=== PATIENT | female | born 1955 | race Caucasian/White ===

== ENCOUNTER → 2017-05-22 | Outpatient (CLI) | payer MEDICARE ==
--- NOTE | 2017-05-22 11:28 | XR ---
EXAMINATION TYPE: XR chest 2V DATE OF EXAM: 05/22/2017 COMPARISON: NONE TECHNIQUE: PA and lateral views submitted. HISTORY: Preprocedural exam FINDINGS: There is minor left costophrenic angle. Surgical clips in the upper abdomen noted. Postsurgical perez e right shoulder and arthritic change left shoulder. Diffuse osteopenia. Degenerative change of the s pine. No overt failure or consolidation. No pneumothorax. IMPRESSION: 1. Area of pleural thickening or tiny effusion at the left lung base.
[2017-05-22 12:53] LABS: Appearance,Urine Clear (Clear); Bilirubin,Urine Negative (Negative); Blood,Urine Negative (Negative); Color,Urine Light Yellow; Glucose,Urine (UA) Negative (Negative); Ketones,Urine Negative (Negative); Leukocyte Esterase,Urine Negative (Negative); Nitrite,Urine Negative (Negative); Protein,Urine Negative (Negative); Specific Gravity,Urine 1.006 (1.001-1.035); Urobilinogen,Urine <2.0 mg/dL (<2.0)
[2017-05-22 13:06] LABS: Partial Thromboplastin Time 23.5 sec (22.0-30.0); Prothrombin Time 9.9 sec (9.0-12.0)
[2017-05-22 13:10] LABS: ALT 55 U/L (9-52); AST 44 U/L (14-36); Albumin 4.4 g/dL (3.5-5.0); Alkaline Phosphatase 54 U/L (38-126); Anion Gap 13 mmol/L; Blood Urea Nitrogen 15 mg/dL (7-17); Calcium 10.3 mg/dL (8.4-10.2); Carbon Dioxide 28 mmol/L (22-30); Chloride 100 mmol/L (98-107); Glucose 102 mg/dL (74-99); Potassium 4.7 mmol/L (3.5-5.1); Sodium 141 mmol/L (137-145); Total Bilirubin 0.3 mg/dL (0.2-1.3); Total Protein 6.9 g/dL (6.3-8.2)
== END | disposition home or self-care (01) ==
LOC: RADXRMAIN 11:01
PROVIDERS: ATTEND Nurse Practitioner Adult Health
DX: Z01.818 Encounter for other preprocedural examination (principal); Z01.812 Encounter for preprocedural laboratory examination; Z01.810 Encounter for preprocedural cardiovascular examination
CPT/HCPCS: 36415; 71046; 80053; 81003; 85025; 85610; 85730; 86850; 86900; 86901; 87070

== ENCOUNTER → 2017-05-22 | Outpatient (CLI) | payer MEDICARE ==
[2017-05-22 12:53] LABS: Basophils # (A) 0.1 k/uL (0-0.2); Basophils % (A) 1 %; Eosinophils # (A) 0.4 k/uL (0-0.7); Eosinophils % (A) 5 %; HCT 40.6 % (34.0-46.0); HGB 12.7 gm/dL (11.4-16.0); Hypochromasia Slight; Lymphocytes # (A) 2.2 k/uL (1.0-4.8); Lymphocytes % (A) 29 %; MCH 27.1 pg (25.0-35.0); MCHC 31.3 g/dL (31.0-37.0); MCV 86.5 fL (80.0-100.0); Mean Platelet Volume 7.2; Monocytes # (A) 0.4 k/uL (0-1.0); Monocytes % (A) 5 %; Neutrophils # (A) 4.3 k/uL (1.3-7.7); Neutrophils % (A) 58 %; Platelet Count 382 k/uL (150-450); RBC 4.69 m/uL (3.80-5.40); WBC 7.4 k/uL (3.8-10.6)
== END | disposition home or self-care (01) ==
LOC: LABWHC1 11:25
PROVIDERS: ATTEND Nurse Practitioner Adult Health
DX: Z01.818 Encounter for other preprocedural examination (principal)
CPT/HCPCS: 36415; 85025

== ENCOUNTER 2017-05-30 06:13 | Inpatient (IN) | payer MEDICARE ==
[2017-05-24 14:58] VITALS: BMI 47.3
[~2017-05-30 06:13] MED LIST: ACETAMINOPHEN TAB 500 MG TAB PO ONE; LIDOCAINE 1% 20 ML VIAL (10MG/ML) FOR IV START INTRADERMA PRN; MELOXICAM 7.5 MG TAB PO ONE; ONDANSETRON 4 MG/2 ML VIAL IVP ONE; ROPIVACAINE 246.25 MG, EPINEPHrine 0.5 MG, KETOROLAC 30 MG, cloNIDine HCL/PF 80 MCG, WA... MISCELLANE ONE; TRANEXAMIC ACID 1,000 MG in SODIUM CHLORIDE 0.9% 50 ML IVPB ONE
[2017-05-30] MEDS: LACTATED RINGERS 1,000 ML IV SCH (07:10)
[2017-05-30 07:18] LABS: Glucose,Whole Blood 118 mg/dL (75-99)
[2017-05-30] MEDS ORDERED: TRANEXAMIC ACID 1,000 MG/10 ML VIAL ONE ×2 (07:25)
[2017-05-30] MEDS ORDERED: HEPARIN SODIUM,PORCINE 10,000 UNIT/ML 1 ML VIAL ONE ×2 (07:25)
[2017-05-30] MEDS ORDERED: MAGNESIUM HYDROXIDE 2,400 MG/10 ML CUP PO PRN (07:25)
[2017-05-30] MEDS ORDERED: fentaNYL (PF) 50 MCG/ML 2 ML AMP ONE ×2 (07:25)
[2017-05-30] MEDS ORDERED: MIDAZOLAM 2 MG/2 ML VIAL ONE ×2 (07:25)
[2017-05-30] MEDS ORDERED: SODIUM CHLORIDE 0.9% 100 ML BAG ONE ×2 (07:25)
[2017-05-30] MEDS ORDERED: ePHEDrine SULFATE/0.9% NACL/PF 50 MG/5 ML SYRINGE IV ONE ×2 (07:25)
[2017-05-30] MEDS ORDERED: PHENYLEPHRINE-0.9% NACL SYG 1 MG/10 ML SYRINGE ONE ×2 (07:25)
[2017-05-30] MEDS ORDERED: KETAMINE 10 MG/ML 20 ML VIAL ONE ×2 (07:25)
[2017-05-30] MEDS ORDERED: NALOXONE 0.4 MG/ML 1 ML VIAL IV PRN (07:25)
[2017-05-30] MEDS ORDERED: PROPOFOL 10 MG/ML 20 ML VIAL IV ONE ×2 (07:25)
[2017-05-30] MEDS ORDERED: ceFAZolin 1,000 MG in SODIUM CHLORIDE 0.9% 1,000 ML IRRIGATION ONE ×4 (07:25)
[2017-05-30] MEDS ORDERED: DIAZEPAM 5 MG TAB PO PRN ×2 (07:25)
[2017-05-30] MEDS ORDERED: SODIUM CHLORIDE 0.9% IRRIG 1,000 ML BTL IRRIGATION ONE ×2 (07:25)
[2017-05-30] MEDS ORDERED: HYDROcodone/APAP 7.5-325MG 1 EACH TAB PO PRN (07:25)
[2017-05-30] MEDS ORDERED: ONDANSETRON 4 MG/2 ML VIAL IVP PRN (07:25)
[2017-05-30] MEDS ORDERED: HYDROmorphone 0.5 MG/0.5 ML SYRINGE IVP PRN ×2 (07:25)
[2017-05-30] MEDS ORDERED: LACTATED RINGERS 1,000 ML IV ONE (08:45)
--- NOTE | 2017-05-30 09:03 | FL ---
EXAMINATION TYPE: FL guidance operating room DATE OF EXAM: 05/30/2017 HISTORY: Flouroscopy time 48 seconds of fluoroscopy provided. IMPRESSION: 1. Fluoroscopy time.
--- NOTE | 2017-05-30 09:04 | XR ---
EXAMINATION TYPE: XR Hip Limited LT DATE OF EXAM: 05/30/2017 COMPARISON: NONE HISTORY: Postop left hip TECHNIQUE: One view submitted. FINDINGS: There is a prosthetic hip in near anatomic alignment. There is soft tissue edema and emphysema. IMPRESSION: 1. Postoperative change. Appears in near-anatomic alignment.
--- NOTE | 2017-05-30 09:07 | P.OP ---
Date of Procedure: 05/30/17 Preoperative Diagnosis: Severe osteoarthritis left hip Postoperative Diagnosis: Severe osteoarthritis left hip Procedure(s) Performed: Left total hip arthroplasty with a direct anterior approach Implants: Riley and nephew Polarstem size 2 standard Riley & Nephew R3, 3 hole acetabular shell, 48 mm Riley [employer] Nephew reflection 6.5 mm cancellus screw, 20 mm 2 Riley [employer] Nephew R3, XLPE 20 acetabular liner Riley & Nephew Oxinium femoral head 32 m, +4 All components were press-fit. The articulation is Oxinium on polyethylene. Anesthesia: spinal Surgeon: Mumtaz Fraga [employer] #1: Maria Luz Matos Estimated Blood Loss (ml): 100 Pathology: other (Femoral head) Condition: stable Disposition: PACU Indications for Procedure: After failure of conservative treatment we discussed the surgical and nonsurgical treatment options at length. Patient wishes to proceed with a total hip arthroplasty with a direct anterior approach. Complications specific to this procedure were discussed at length, including but not limited to infection, leg length discrepancy, dislocation, and nerve injury. Patient is aware of all these complications and informed consent was obtained Operative Findings: The operative findings are consistent with severe osteoarthritis of the left hip Description of Procedure: Patient was seen and evaluated in the preoperative area, consent was reviewed, and the surgical site was marked with a skin marker. Patient was then brought to the operating room and given prophylactic antibiotics intravenously. 1 g of Tranexamic acid was also given. A spinal anesthetic was administered by the anesthesia department. The patient was then placed on the Carencro table with the bony prominences well-padded. The hip area was then prepped and draped in usual sterile fashion. A universal timeout was then performed, which confirmed the patient's name, surgical site, ALLERGIES, and procedure being performed. Next the incision site was located at 1 cm distal and 1 cm lateral to the anterior superior iliac spine. The skin and subcutaneous tissues were sharply incised. Incision was carefully dissected down to the fascia overlying the tensor fascia emi muscle. This fascia was then incised in line with the incision. Next, using blunt finger dissection, the tensor fascia emi muscle was dissected off its investing fascia. The muscle was then carefully retracted laterally with a cobra retractor over the lateral neck of the femur. Next, the circumflex vessels were identified and cauterized using the AquaMantis device. The anterior hip capsule was then exposed. The capsule was then opened and an inverted T fashion. Cobra retractors were then placed intracapsularly. The proximal femur was then visualized. The femoral neck was then osteotomized appropriate level above the lesser trochanter. Small amount of traction was placed with the Carencro table. A small wedge of bone was then removed from the remaining femoral head. Next, using a corkscrew femoral head was easily removed from the acetabulum. On gross visual inspection, the femoral head had complete loss of articular cartilage in multiple periarticular osteophytes. Attention was then turned to the acetabulum. the acetabulum was exposed and any remaining labrum was excised. Sequential reaming of the acetabulum was performed using fluoroscopic guidance. When the appropriate size was reached, a trial was then placed. The position and fit of the trial was checked with fluoroscopy. The trial was then removed. Then, using fluoroscopic guidance, the final implant was impacted at 20 of anteversion and 40 of abduction, and fully seated in the acetabulum. 2 screws were then placed in the acetabulum. Again fluoroscopy was used to check position of the screws. Next, the liner was then impacted, with a 20 elevated liner located in the anterior superior quadrant. Component locking was confirmed. Attention was then directed to the femur. With the aid of the Carencro table, the femur was externally rotated to approximately 130, extended, and abducted under the opposite leg. A side hook was then placed under the proximal femur, and the side hook elevator was used to elevate the proximal femur. Retractors were then placed. A capsular release was performed, as well as a release of the conjoined tendon, which afforded excellent visualization of the proximal femur. Next, a box osteotome was used to lateralize the proximal femur. A plug shaper hand was then used to locate the femoral canal. Sequential broaching was then performed with appropriate size which afforded excellent fixation in the proximal femur. A trial was then placed with appropriate head and neck, and the hip was gently reduced with the aid of the Carencro table. Fluoroscopy was then used to check position of the components, as well as to ensure equal leg lengths. The hip was then gently dislocated and the trials were then removed. Final implants were then impacted and the hip was again reduced. Final fluoroscopic x-rays confirmed that the components were in anatomic position, as well as equal leg lengths. The hip was also taken through range of motion, and found to be stable. The hip was then copiously irrigated with antibiotic solution with pulsatile lavage. The hip was then irrigated with Irrisept solution. The soft tissues were then injected with a ropivacaine solution, which consisted of 246.25 mg of ropivacaine, 0.5 mg of epinephrine, 30 mg of Toradol, 80 g of clonidine, and 48.45 mL of sterile water, for a total of 100 mL of fluid injected. A second dose of 1 g of Tranexamic acid was also given. the fascia was then closed with 2-0 strata fix suture. The subcutaneous tissue was closed with 3-0 Vicryl. The subcuticular tissue was closed with 3-0 strata fix suture. The skin was then closed with Dermabond glue and a sterile silver dressing. The patient was then transferred to the recovery room in stable condition. The certified physical therapist assistant SHERIDAN Mehta was required due to the complexity of surgery, and the need for skilled neurosurgical nurse practitioner for positioning, draping, exposure, retraction, and closure of the wound.
[2017-05-30] MEDS ORDERED: ACETAMINOPHEN IV (For NPO) 1,000 MG/100 ML VIAL IVPB ONE (09:16)
[2017-05-30] MEDS: HYDROmorphone 0.5 MG/0.5 ML SYRINGE IVP PRN ×7 (09:29→12:35)
[2017-05-30] MEDS ORDERED: diphenhydrAMINE 50 MG/ML 1 ML VIAL IVP ONE (09:30)
--- NOTE | 2017-05-30 09:37 | XR ---
EXAMINATION TYPE: XR Hip Limited LT DATE OF EXAM: 05/30/2017 COMPARISON: NONE HISTORY: Postop TECHNIQUE: One view submitted. FINDINGS: There is a prosthetic hip in near anatomic alignment. There is soft tissue edema and emphysema. IMPRESSION: 1. Postoperative change. Appears in near-anatomic alignment.
[2017-05-30 10:32] LABS: Glucose,Whole Blood 159 mg/dL (75-99)
[2017-05-30] MEDS: HYDROmorphone 2 MG/ML 1 ML SYRINGE IVP PRN (14:31)
[2017-05-30] MEDS ORDERED: ceFAZolin 3 GM in SODIUM CHLORIDE 0.9% 100 ML IVPB SCH (16:00)
[2017-05-30] MEDS: HYDROcodone/APAP 7.5-325MG 1 EACH TAB PO PRN ×2 (16:21→21:36)
[2017-05-30] MEDS: hydrOXYzine PAMOATE 25 MG CAP PO PRN ×2 (16:22→21:37)
[2017-05-30 17:35] LABS: Glucose,Whole Blood 162 mg/dL (75-99)
[2017-05-30] MEDS: INSULIN ASPART 100 UNIT/ML 1 ML 10 ML VIAL SQ SCH ×2 (18:21→20:47)
[2017-05-30 20:19] LABS: Glucose,Whole Blood 209 mg/dL (75-99)
[2017-05-30 20:19] LABS: Glucose,Whole Blood 217 mg/dL (75-99)
[2017-05-30] MEDS: ASPIRIN 325 MG TAB PO SCH (20:49)
[2017-05-30] MEDS: SENNOSIDES-DOCUSATE SODIUM 1 EACH TAB PO SCH (20:50)
[2017-05-30] MEDS ORDERED: ALBUTEROL NEBULIZED 2.5 MG/3 ML INHALATION PRN (21:39)
[2017-05-30] MEDS ORDERED: PRAMIPEXOLE 0.25 MG TAB ONE (21:45)
[2017-05-30] MEDS ORDERED: PARoxetine 10 MG TAB ONE (21:45)
[2017-05-30] MEDS ORDERED: AMITRIPTYLINE HCL 50 MG TAB ONE (21:45)
[2017-05-31] MEDS ORDERED: HYDROmorphone 2 MG/ML 1 ML SYRINGE ONE (04:00)
[2017-05-31] MEDS ORDERED: HYDROcodone/APAP 7.5-325MG 1 EACH TAB ONE (04:00)
[2017-05-31] MEDS: SODIUM CHLORIDE 0.9% 1,000 ML IV SCH ×3 (05:25→15:54)
[2017-05-31] MEDS: HYDROmorphone 2 MG/ML 1 ML SYRINGE IVP PRN (05:26)
[2017-05-31] MEDS: PARoxetine 10 MG TAB PO SCH ×2 (05:56→21:36)
[2017-05-31] MEDS: PARoxetine 20 MG TAB PO SCH ×2 (05:56→21:36)
[2017-05-31] MEDS: AMITRIPTYLINE HCL 50 MG TAB PO SCH ×2 (05:56→21:35)
[2017-05-31] MEDS: PRAMIPEXOLE 0.25 MG TAB PO SCH ×2 (05:57→21:36)
[2017-05-31] MEDS: LACTATED RINGERS 1,000 ML IV SCH (05:59)
[2017-05-31 07:21] LABS: Glucose,Whole Blood 128 mg/dL (75-99)
[2017-05-31] MEDS: SYMBICORT 80-4.5 MCG INHALER INHALATION SCH ×2 (07:28→20:13)
[2017-05-31 07:59] LABS: HCT 33.8 % (34.0-46.0); HGB 10.3 gm/dL (11.4-16.0); MCH 26.5 pg (25.0-35.0); MCHC 30.6 g/dL (31.0-37.0); MCV 86.7 fL (80.0-100.0); RDW 15.7 % (11.5-15.5); WBC 12.1 k/uL (3.8-10.6)
[2017-05-31 08:00] LABS: Basophils % (A) 0 %; Eosinophils % (A) 0 %; Hypochromasia Slight; Lymphocytes # (A) 1.9 k/uL (1.0-4.8); Lymphocytes % (A) 16 %; Mean Platelet Volume 7.9; Monocytes # (A) 0.4 k/uL (0-1.0); Monocytes % (A) 4 %; Neutrophils # (A) 9.4 k/uL (1.3-7.7); Neutrophils % (A) 78 %; Platelet Count 332 k/uL (150-450)
--- NOTE | 2017-05-31 08:14 | CONS ---
CONSULTATION REASON FOR CONSULTATION: Advice regarding asthma, COPD requested by Orthopedic Surgery. HISTORY OF PRESENT ILLNESS: This 62-year-old woman with a past history of asthma, COPD, diabetes, GERD, hypertension, hyperlipidemia being followed by Dr. Hansen in the outpatient setting underwent left hip arthroplasty by Dr. Fraga. There is no history of any fever, rigors. No history of headache, loss of consciousness or seizure. No chest pain. No palpitations. At this time, sugars are 162, 217 and 209. PAST MEDICAL HISTORY: History of asthma, COPD, diabetes, GERD, hypertension, hyperlipidemia, history of DJD, history pneumonia, history of sleep apnea on CPAP. HOME MEDICATIONS: 1. Metformin 1000 mg p.o. b.i.d. 2. Apresoline 50 mg p.o. b.i.d. 3. Restasis 1 drop both eyes b.i.d. 4. Norvasc 10 mg p.o. daily. 5. Mirapex 0.25 mg q.h.s. 6. Paxil 10 mg p.o. q.h.s. 7. Paxil 40 mg p.o. Q.h.s. 8. Fish oil 500 mg one p.o. daily. 9. Multivitamins 1 p.o. daily. 10.Losartan 100 mg p.o. daily. 11.Hydrochlorothiazide 25 mg p.o. daily. 12.Advair 250/50 one puff b.i.d. 13.Famotidine 20 mg p.o. b.i.d. 14.Celebrex 200 mg p.o. b.i.d. 15.Lipitor 20 mg q.h.s. 16.Aspirin 81 mg p.o. daily. 17.Amitriptyline 50 mg q.h.s. 18.Albuterol 2.5 q.4 p.r.n. ALLERGIES: Allergies are AZITHROMYCIN, AUGMENTIN, ERYTHROMYCIN, NSAID, TETRACYCLINE, LISINOPRIL, CYMBALTA. FAMILY HISTORY: History of DVT in the family. SOCIAL HISTORY: History of alcohol occasional. Previous history of smoking. REVIEW OF SYSTEMS: ENT: No diminished hearing or diminished vision. CARDIOVASCULAR SYSTEM: No angina, palpitations. RESPIRATORY SYSTEM: No cough or hemoptysis. Otherwise, mentioned earlier. GI: As mentioned earlier. : No dysuria. NERVOUS SYSTEM: No numbness. ALLERGY/IMMUNOLOGY: As mentioned earlier. HEMATOLOGY/ONCOLOGY: No history of anemia. ENDOCRINE: History of diabetes mellitus. CONSTITUTIONAL: As mentioned earlier. DERMATOLOGY: Negative. RHEUMATOLOGY: Negative. PSYCHIATRY: As mentioned earlier. MUSCULOSKELETAL: As mentioned earlier. PHYSICAL EXAMINATION: The patient is alert and oriented x3. Pulse 75, blood pressure 103/83, respirations 20, temperature 98 degrees, pulse ox 93% on 2 L. HEENT: Conjunctivae normal. Oral mucosa moist. Neck is no jugular venous distention. No carotid bruit. No lymph node enlargement. CARDIOVASCULAR SYSTEM: S1 and S2 muffled. RESPIRATORY SYSTEM: Breath sounds diminished at the bases. A few rhonchi. No crackles. ABDOMEN: Soft, nontender. No mass palpable. LEGS: Status post surgery. NERVOUS SYSTEM: Higher functions as mentioned earlier. Moves all 4 limbs. No focal motor or sensory deficit. LYMPHATICS: No lymphadenopathy of the neck, axillae or groin. SKIN: No ulcer, rash or bleeding. LABS: Accu-Cheks 118, 159, 162, 209. Otherwise, recent CBC within normal. Chemistries report calcium was 10.3. Recent was unremarkable. ASSESSMENT: 1. Status post left total hip joint arthroplasty for severe degenerative joint disease of the hip anterior approach. 2. Diabetes mellitus type 2. 3. Asthma, chronic obstructive pulmonary disease. 4. Gastroesophageal reflux disease. 5. Hypertension. 6. Hyperlipidemia. 7. History of degenerative joint disease. 8. History of sleep apnea, on CPAP. 9. History of bariatric surgery. 10.History of anxiety, depression. 11.Remote history of nicotine dependence is. 12.FULL CODE. RECOMMENDATIONS AND DISCUSSION: In this 62-year-old woman who presented with multiple complex medical issues, will monitor the patient closely. Continue the current medications. Continue symptomatic treatment. I recommend to resume the home medications and DVT prophylaxis, incentive spirometry. We will follow the patient closely with you and the patient may be asked to follow up with primary physician closely after discharge. We will follow the patient closely with you while the patient is hospitalized. I would recommend to hold the losartan and hydralazine and diuretics for now because of the relative hypotension, but we will continue to monitor. Further recommendations to follow. Prognosis guarded. A copy of dictation forwarded to Dr. Hansen who is the primary physician. Thank you Dr. Fraga for letting us participate in the care of this patient. Accu-Cheks a.c. and at bedtime protocol has been ordered. MMTIMBO / YIFAN: [id number] /
[2017-05-31] MEDS: INSULIN ASPART 100 UNIT/ML 1 ML 10 ML VIAL SQ SCH ×4 (08:39→21:26)
--- NOTE | 2017-05-31 08:40 | P.PN ---
Subjective Progress Note Date: 05/31/17 This is a 62-year-old female who is status post left total hip arthroplasty. This is postoperative day #1. Patient does complain of pain to the left hip today, but patient states she has been up and walking. Patient denies any shortness breath, fever/chills, abdominal pain, numbness, weakness or tingling. Objective - Vital Signs Vital signs: Vital Signs Temp 98.0 F 05/31/17 01:00 Pulse 70 05/31/17 01:00 Resp 16 05/31/17 01:00 BP 126/70 05/31/17 01:00 Pulse Ox 93 L 05/31/17 01:00 Intake & Output 05/30/17 05/31/17 05/31/17 18:59 06:59 18:59 Intake Total 2001 Output Total 100 Balance 1902 Weight 125.191 kg Intake: IV 2001 Output: Estimated Blood Loss 100 Other: # Voids 1 - Exam Vital signs are stable. Patient is in no acute distress and is alert and oriented 3. Calf is soft and nontender. Dressing is clean, dry, and intact. Neurovascular status intact. Patient has full foot and ankle motion without pain or difficulty. - Labs CBC & Chem 7: 05/31/17 07:34 Labs: Abnormal Lab Results - Last 24 Hours (Table) 05/30/17 05/30/17 05/30/17 Range/Units 10:30 17:29 20:13 WBC (3.8-10.6) k/uL Hgb (11.4-16.0) gm/dL Hct (34.0-46.0) % MCHC (31.0-37.0) g/dL RDW (11.5-15.5) % Neutrophils # (1.3-7.7) k/uL POC Glucose (mg/dL) 159 H 162 H 217 H (75-99) mg/dL 05/30/17 05/31/17 05/31/17 Range/Units 20:16 07:15 07:34 WBC 12.1 H (3.8-10.6) k/uL Hgb 10.3 L (11.4-16.0) gm/dL Hct 33.8 L (34.0-46.0) % MCHC 30.6 L (31.0-37.0) g/dL RDW 15.7 H (11.5-15.5) % Neutrophils # 9.4 H (1.3-7.7) k/uL POC Glucose (mg/dL) 209 H 128 H (75-99) mg/dL Assessment and Plan (1) Primary osteoarthritis of left hip Current Visit: Yes Status: Acute Code(s): M16.12 - UNILATERAL PRIMARY OSTEOARTHRITIS, LEFT HIP SNOMED Code(s): 061964784 (2) S/P total hip arthroplasty Current Visit: Yes Status: Acute Code(s): Z96.649 - PRESENCE OF UNSPECIFIED ARTIFICIAL HIP JOINT SNOMED Code(s): 540181949332 Plan: Continue routine postop care. Continue antocoagulation with aspirin. Weightbearing as tolerated with a walker Leave dressing in place for 1 week Likely discharge to rehab Monday.
[2017-05-31] MEDS: ASPIRIN 325 MG TAB PO SCH ×2 (08:53→21:35)
[2017-05-31] MEDS: MELOXICAM 7.5 MG TAB PO SCH (08:54)
[2017-05-31] MEDS: metFORMIN 500 MG TAB PO SCH ×2 (08:54→21:36)
[2017-05-31] MEDS: cycloSPORINE 0.05% OPHTH 0.4 ML DROPERETTE BOTH EYES SCH ×2 (08:55→21:35)
[2017-05-31] MEDS: FAMOTIDINE 20 MG TAB PO SCH ×2 (08:55→21:36)
[2017-05-31] MEDS: MULTIVITAMINS, THERA 1 EACH TAB PO SCH (08:56)
[2017-05-31] MEDS ORDERED: ASPIRIN 81 MG PO SCH (09:00)
[2017-05-31] MEDS ORDERED: HYDROcodone/APAP 10-325MG 1 EACH TAB PO PRN (09:30)
[2017-05-31] MEDS: HYDROcodone/APAP 10-325MG 1 EACH TAB PO PRN ×3 (10:51→21:34)
[2017-05-31] MEDS: hydrOXYzine PAMOATE 25 MG CAP PO PRN ×3 (10:52→21:35)
[2017-05-31 12:09] LABS: Glucose,Whole Blood 105 mg/dL (75-99)
[2017-05-31 14:23] LABS: Glucose,Whole Blood 120 mg/dL (75-99)
[2017-05-31 17:04] LABS: Glucose,Whole Blood 119 mg/dL (75-99)
--- NOTE | 2017-05-31 17:11 | PN ---
PROGRESS NOTE DATE OF SERVICE: 05/31/2017 This 62-year-old woman who was admitted after left hip arthroplasty also had multiple other medical problems; however, the patient is improving significantly. No chest pain. No palpitations. No fever. PHYSICAL EXAMINATION: Alert and oriented x3. Pulse 82, blood pressure 108/68, respiration 16, temperature 98.7, pulse ox 93% on room air. HEENT: Conjunctivae normal. Oral mucosa moist. NECK: No jugular venous distention. No carotid bruit. No lymph node enlargement. CARDIOVASCULAR SYSTEM: S1, S2 muffled. RESPIRATORY SYSTEM: Breath sounds diminished at the bases. No rhonchi. No crackles. ABDOMEN: Soft. LEGS: Status post surgery. NERVOUS SYSTEM: No focal deficit. LABS: WBC 12.2, hemoglobin 10.3. ASSESSMENT: 1. Status post left total hip joint arthroplasty for severe degenerative joint disease of the hip through an anterior approach. 2. Diabetes mellitus, type 2. 3. Asthma, chronic obstructive pulmonary disease. 4. Gastroesophageal reflux disease. 5. Hypertension. 6. Hyperlipidemia. 7. History of degenerative joint disease. 8. History of sleep apnea, on CPAP. 9. History of bariatric surgery. 10.History of anxiety and depression. 11.Remote history of nicotine dependence. 12.FULL CODE. RECOMMENDATIONS AND DISCUSSION: I recommend to continue current medication, continue symptomatic treatment. Resume the home medications. Incentive spirometry. DVT prophylaxis. Closely follow with Orthopedic Surgery. Further recommendations to follow. MMODL / IJN: [id number] /
[2017-05-31 20:07] LABS: Hemoglobin A1C 6.7 % (4.0-6.0)
[2017-05-31 20:55] LABS: Glucose,Whole Blood 115 mg/dL (75-99)
[2017-05-31] MEDS: ATORVASTATIN 20 MG TAB PO SCH (21:35)
[2017-05-31] MEDS: SENNOSIDES-DOCUSATE SODIUM 1 EACH TAB PO SCH (21:37)
[2017-06-01] MEDS: HYDROcodone/APAP 10-325MG 1 EACH TAB PO PRN ×4 (03:03→20:55)
[2017-06-01] MEDS: hydrOXYzine PAMOATE 25 MG CAP PO PRN ×4 (03:04→20:56)
[2017-06-01] MEDS: LACTATED RINGERS 1,000 ML IV SCH (05:37)
[2017-06-01] MEDS: SYMBICORT 80-4.5 MCG INHALER INHALATION SCH ×2 (07:19→19:00)
[2017-06-01 07:35] LABS: Glucose,Whole Blood 127 mg/dL (75-99)
--- NOTE | 2017-06-01 08:53 | P.PN ---
Subjective Progress Note Date: 06/01/17 This is a 62-year-old female who is status post left total hip arthroplasty. This is postoperative day #2. Patient states she has been up and walking. Patient states her pain is under control and she denies any new complaints today. Objective - Vital Signs Vital signs: Vital Signs Temp 97.4 F L 06/01/17 01:18 Pulse 80 06/01/17 01:18 Resp 16 06/01/17 01:18 BP 103/66 06/01/17 01:18 Pulse Ox 94 L 06/01/17 01:18 Intake & Output 05/31/17 06/01/17 06/01/17 18:59 06:59 18:59 Intake Total 130 240 Balance 130 240 Intake: Intake, IV Titration 130 Amount Sodium Chloride 0.9% 1, 130 000 ml @ 65 mls/hr IV . [id number] LIYA Rx#:[id number] Oral 240 Other: # Voids 1 - Exam Vital signs are stable. Patient is in no acute distress and is alert and oriented 3. Calf is soft and nontender. Dressing is clean, dry, and intact. Neurovascular status intact. Patient has full foot and ankle motion without pain or difficulty. - Labs CBC & Chem 7: 05/31/17 07:34 Labs: Abnormal Lab Results - Last 24 Hours (Table) 05/31/17 05/31/17 05/31/17 Range/Units 07:34 11:43 13:55 POC Glucose (mg/dL) 105 H 120 H (75-99) mg/dL Hemoglobin A1c 6.7 H (4.0-6.0) % 05/31/17 05/31/17 06/01/17 Range/Units 16:51 20:51 07:21 POC Glucose (mg/dL) 119 H 115 H 127 H (75-99) mg/dL Hemoglobin A1c (4.0-6.0) % Assessment and Plan (1) Primary osteoarthritis of left hip Current Visit: Yes Status: Acute Code(s): M16.12 - UNILATERAL PRIMARY OSTEOARTHRITIS, LEFT HIP SNOMED Code(s): 656610375 (2) S/P total hip arthroplasty Current Visit: Yes Status: Acute Code(s): Z96.649 - PRESENCE OF UNSPECIFIED ARTIFICIAL HIP JOINT SNOMED Code(s): 891482547402 Plan: Continue routine postop care. Continue antocoagulation with aspirin. Weightbearing as tolerated with a walker Leave dressing in place for 1 week Likely discharge to rehab Monday.
[2017-06-01] MEDS: ASPIRIN 325 MG TAB PO SCH ×2 (09:39→20:50)
[2017-06-01] MEDS: cycloSPORINE 0.05% OPHTH 0.4 ML DROPERETTE BOTH EYES SCH ×2 (09:39→20:50)
[2017-06-01] MEDS: FAMOTIDINE 20 MG TAB PO SCH ×2 (09:40→20:51)
[2017-06-01] MEDS: MELOXICAM 7.5 MG TAB PO SCH (09:40)
[2017-06-01] MEDS: metFORMIN 500 MG TAB PO SCH ×2 (09:41→20:51)
[2017-06-01] MEDS: MULTIVITAMINS, THERA 1 EACH TAB PO SCH (09:41)
[2017-06-01] MEDS: INSULIN ASPART 100 UNIT/ML 1 ML 10 ML VIAL SQ SCH ×4 (09:49→20:51)
[2017-06-01 11:59] LABS: Appearance,Urine Clear (Clear); Bilirubin,Urine Negative (Negative); Blood,Urine Negative (Negative); Color,Urine Yellow; Glucose,Urine (UA) Negative (Negative); Ketones,Urine Negative (Negative); Leukocyte Esterase,Urine Negative (Negative); Nitrite,Urine Negative (Negative); Protein,Urine Negative (Negative); Specific Gravity,Urine 1.008 (1.001-1.035); Urobilinogen,Urine <2.0 mg/dL (<2.0)
[2017-06-01 12:07] LABS: Glucose,Whole Blood 125 mg/dL (75-99)
[2017-06-01 17:11] LABS: Glucose,Whole Blood 127 mg/dL (75-99)
[2017-06-01 20:45] LABS: Glucose,Whole Blood 128 mg/dL (75-99)
[2017-06-01] MEDS: ATORVASTATIN 20 MG TAB PO SCH (20:50)
[2017-06-01] MEDS: PARoxetine 20 MG TAB PO SCH (20:51)
[2017-06-01] MEDS: PRAMIPEXOLE 0.25 MG TAB PO SCH (20:51)
[2017-06-01] MEDS: PARoxetine 10 MG TAB PO SCH (20:51)
[2017-06-01] MEDS: AMITRIPTYLINE HCL 50 MG TAB PO SCH (20:52)
[2017-06-01] MEDS: SENNOSIDES-DOCUSATE SODIUM 1 EACH TAB PO SCH (21:16)
--- NOTE | 2017-06-01 22:06 | PN ---
PROGRESS NOTE DATE OF SERVICE: 06/01/2017 This 62-year-old woman who was admitted after left hip arthroplasty is improving significantly. No chest pain. No palpitations. No fever. On examination, alert and oriented x3. Pulse is 72, blood pressure 140/77, respiration 17, temperature 98.1, pulse ox 92% on 2 L. HEENT: Conjunctivae normal. NECK: No jugular venous distention. CARDIOVASCULAR SYSTEM: S1, S2 muffled. RESPIRATORY SYSTEM: Breath sounds diminished at the bases. A few scattered rhonchi and crackles. ABDOMEN: Soft, non-tender. LEGS: Status post surgery. NERVOUS SYSTEM: No focal deficit. LABS: UA clear. WBC 12.1. ASSESSMENT: 1. Status post left total hip joint arthroplasty for severe degenerative joint disease of the hip through the anterior approach. 2. Diabetes mellitus, type 2. 3. Asthma, chronic obstructive pulmonary disease. 4. Increased white count, possibly reactive. 5. Gastroesophageal reflux disease. 6. Hypertension. 7. Hyperlipidemia. 8. History of degenerative joint disease. 9. History of sleep apnea, on CPAP. 10.History of bariatric surgery. 11.Anxiety, depression. 12.Remote history of nicotine dependence. RECOMMENDATIONS AND DISCUSSION: I recommend to continue current medication, continue symptomatic treatment. Otherwise at this time I would recommend incentive spirometry, DVT prophylaxis. Possible ECF rehab. Further recommendations to follow. MMODL / IJN: [id number] /
[2017-06-02] MEDS: LACTATED RINGERS 1,000 ML IV SCH (01:33)
[2017-06-02] MEDS: HYDROcodone/APAP 10-325MG 1 EACH TAB PO PRN ×3 (03:19→13:46)
[2017-06-02] MEDS: hydrOXYzine PAMOATE 25 MG CAP PO PRN ×3 (03:19→13:46)
[2017-06-02 07:19] LABS: Anisocytosis Slight; Basophils # (A) 0.1 k/uL (0-0.2); Basophils % (A) 1 %; Eosinophils # (A) 0.8 k/uL (0-0.7); Eosinophils % (A) 7 %; HCT 34.8 % (34.0-46.0); HGB 10.8 gm/dL (11.4-16.0); Hypochromasia Slight; Lymphocytes # (A) 2.8 k/uL (1.0-4.8); Lymphocytes % (A) 24 %; MCH 27.1 pg (25.0-35.0); MCHC 31.1 g/dL (31.0-37.0); MCV 87.3 fL (80.0-100.0); Mean Platelet Volume 7.7; Monocytes # (A) 0.5 k/uL (0-1.0); Monocytes % (A) 4 %; Neutrophils # (A) 7.3 k/uL (1.3-7.7); Neutrophils % (A) 63 %; Platelet Count 384 k/uL (150-450); RBC 3.99 m/uL (3.80-5.40); RDW 16.1 % (11.5-15.5); WBC 11.7 k/uL (3.8-10.6)
[2017-06-02] MEDS: SYMBICORT 80-4.5 MCG INHALER INHALATION SCH (07:44)
[2017-06-02 07:50] LABS: Glucose,Whole Blood 120 mg/dL (75-99)
--- NOTE | 2017-06-02 08:11 | P.DS ---
Providers Date of admission: 05/30/17 06:13 Expected date of discharge: 06/02/17 Attending physician: Mumtaz Fraga Consults: 05/30/17 07:25 Consult Physician Routine Consulting Provider: Micky Cook Consult Reason/Comments: medical management Do you want consulting provider notified?: Yes Primary care physician: Jorge Hansen - Discharge Diagnosis(es) (1) Primary osteoarthritis of left hip Current Visit: Yes Status: Acute (2) S/P total hip arthroplasty Current Visit: Yes Status: Acute Hospital Course: This is a 62-year-old female with known history of degenerative arthritis of the left hip. The patient presents for evaluation. After discussion and consideration patient elects to proceed with total hip arthroplasty. The patient is seen preoperatively by Dr. Fraga and cleared for surgery. Patient is admitted to [facility] on 05/30/2017 for total hip arthroplasty. The procedures performed without complication or sequelae. The patient is doing well postoperatively. Labs and vital signs are stable on day of discharge. On day of discharge patient states her pain is well controlled. Patient's hip incision is healing well. There is minimal erythema. There is no drainage noted at this time. There is minimal soft tissue swelling to the hip and thigh. Patient has full foot and ankle motion without difficulty or pain. Neurovascular status to the left lower extremity is intact. Patient is discharged to rehab in good condition. Please see med rec for accurate list of home medications. Plan - Discharge Summary Discharge Rx Participant: Yes New Discharge Prescriptions: New Aspirin 325 mg PO BID #60 tab Celecoxib [CeleBREX] 200 mg PO DAILY PRN #30 capsule PRN Reason: Pain HYDROcodone/APAP 10-325MG [Manor 10-325] 1 - 2 tab PO Q4-6H PRN #90 tab PRN Reason: Pain Sennosides [Senokot] 1 tab PO BID #60 tablet No Action Fluticasone/Salmeterol [Advair 250-50 Diskus] 1 puff INHALATION RT-BID Amitriptyline HCl 50 mg PO HS Albuterol Nebulized [Ventolin Nebulized] 2.5 mg INHALATION RT-Q4H PRN PRN Reason: Shortness Of Breath Or Wheezing Aspirin [Adult Low Dose Aspirin EC] 81 mg PO DAILY cycloSPORINE [Restasis] 1 drop BOTH EYES BID Pramipexole [Mirapex] 0.25 mg PO HS amLODIPine [Norvasc] 10 mg PO DAILY PARoxetine HCL [Paxil] 40 mg PO HS Multivitamin [Men's Multi-Vitamin] 1 tab PO DAILY metFORMIN HCL 1,000 mg PO BID Losartan Potassium 100 mg PO DAILY hydrALAZINE HCL [Apresoline] 50 mg PO BID Hydrochlorothiazide 25 mg PO DAILY York-3/Dha/Epa/Fish Oil [Fish Oil 500 mg Softgel] 1 cap PO DAILY Celecoxib [CeleBREX] 200 mg PO BID Atorvastatin [Lipitor] 20 mg PO HS Famotidine 20 mg PO BID PARoxetine [Paxil] 10 mg PO HS Discharge Medication List Albuterol Nebulized [Ventolin Nebulized] 2.5 mg INHALATION RT-Q4H PRN 06/22/16 [ History] Amitriptyline HCl 50 mg PO HS 06/22/16 [History] Aspirin [Adult Low Dose Aspirin EC] 81 mg PO DAILY 06/22/16 [History] Fluticasone/Salmeterol [Advair 250-50 Diskus] 1 puff INHALATION RT-BID 06/22/16 [History] Atorvastatin [Lipitor] 20 mg PO HS 06/23/16 [History] Celecoxib [CeleBREX] 200 mg PO BID 06/23/16 [History] Hydrochlorothiazide 25 mg PO DAILY 06/23/16 [History] Losartan Potassium 100 mg PO DAILY 06/23/16 [History] Multivitamin [Men's Multi-Vitamin] 1 tab PO DAILY 06/23/16 [History] York-3/Dha/Epa/Fish Oil [Fish Oil 500 mg Softgel] 1 cap PO DAILY 06/23/16 [ History] PARoxetine HCL [Paxil] 40 mg PO HS 06/23/16 [History] Pramipexole [Mirapex] 0.25 mg PO HS 06/23/16 [History] amLODIPine [Norvasc] 10 mg PO DAILY 06/23/16 [History] cycloSPORINE [Restasis] 1 drop BOTH EYES BID 06/23/16 [History] hydrALAZINE HCL [Apresoline] 50 mg PO BID 06/23/16 [History] metFORMIN HCL 1,000 mg PO BID 06/23/16 [History] Famotidine 20 mg PO BID 05/24/17 [History] PARoxetine [Paxil] 10 mg PO HS 05/30/17 [History] Aspirin 325 mg PO BID #60 tab 06/02/17 [Rx] Celecoxib [CeleBREX] 200 mg PO DAILY PRN #30 capsule 06/02/17 [Rx] HYDROcodone/APAP 10-325MG [Manor 10-325] 1 - 2 tab PO Q4-6H PRN #90 tab [Rx] Sennosides [Senokot] 1 tab PO BID #60 tablet 06/02/17 [Rx] Follow up Appointment(s)/Referral(s): Mumtaz Fraga DO [Doctor of Osteopathic Medicine] - 2 Weeks Activity/Diet/Wound Care/Special Instructions: Weightbearing as tolerated with walker Leave dressing intact. Dressing may be removed by home care nurse in 7 days. May shower with dressing on. Follow-up with [facility] in 2 weeks, please call with any questions or concerns [phone] Discharge Disposition: TRANSFER TO SNF/ECF
[2017-06-02] MEDS: INSULIN ASPART 100 UNIT/ML 1 ML 10 ML VIAL SQ SCH ×2 (08:21→12:58)
[2017-06-02] MEDS: ASPIRIN 325 MG TAB PO SCH (08:22)
[2017-06-02] MEDS: cycloSPORINE 0.05% OPHTH 0.4 ML DROPERETTE BOTH EYES SCH (08:22)
[2017-06-02] MEDS: FAMOTIDINE 20 MG TAB PO SCH (08:23)
[2017-06-02] MEDS: metFORMIN 500 MG TAB PO SCH (08:23)
[2017-06-02] MEDS: MULTIVITAMINS, THERA 1 EACH TAB PO SCH (08:24)
[2017-06-02] MEDS: MELOXICAM 7.5 MG TAB PO SCH (08:24)
[2017-06-02 08:35] VITALS: BP 117/59; RESP 18
[2017-06-02 11:05] VITALS: PULSE 97; TEMP 98.8
[2017-06-02 11:52] LABS: Glucose,Whole Blood 105 mg/dL (75-99)
--- NOTE | 2017-06-03 10:35 | PN ---
PROGRESS NOTE DATE OF SERVICE: 06/02/2017 This 62-year-old woman who was admitted after left total hip joint arthroplasty is improving significantly. No chest pain. No palpitations. ECF rehab is being planning. On examination, she is alert and oriented x3. Pulse is 80, blood pressure 117/59, respiration 18, temperature 98 degrees, pulse ox normal. HEENT: Conjunctivae normal. Oral mucosa moist. NECK: No jugular venous distention. No carotid bruit. No lymph node enlargement. CARDIOVASCULAR SYSTEM: S1, S2 muffled. No S3. No S4. RESPIRATORY SYSTEM: Breath sounds diminished at the bases. No rhonchi. No crackles. ABDOMEN: Soft, non-tender. No mass palpable. LEGS: No edema. No swelling. NERVOUS SYSTEM: Higher functions as mentioned earlier. Moves all 4 limbs. No focal motor or sensory deficit. LYMPHATICS: No lymph node palpable in neck, axillae or groin. SKIN: No ulcer, rash, bleeding. LABS: WBC 11.7, hemoglobin 10.8. Other labs are noted. ASSESSMENT: 1. Status post left total hip joint arthroplasty for severe degenerative joint disease of the hip through anterior approach. 2. Diabetes mellitus, type 2. 3. Asthma, chronic obstructive pulmonary disease. 4. Increased white count, possibly reactive. 5. Gastroesophageal reflux disease. 6. Hypertension. 7. Hyperlipidemia. 8. History of degenerative joint disease. RECOMMENDATIONS AND DISCUSSION: I recommend to continue current medication, continue symptomatic treatment. Otherwise at this time we will monitor the patient closely, closely follow with Orthopedic Surgery. Possible rehab. Further recommendations to follow. MMODL / IJN: [id number] /
== END 2017-06-02 14:10 | DRG 470 ==
LOC: 2ORMAIN 06:13 → 3SUR 09:04
PROVIDERS: ADMIT Orthopaedic Surgery; ATTEND Orthopaedic Surgery
PROC: 0SRB06A Replacement of Left Hip Joint with Oxidized Zirconium on Polyethylene Synthetic Substitute, Uncemented, Open Approach (ICD-10-PCS; principal; 2017-05-30 07:30)
DX: M16.12 Unilateral primary osteoarthritis, left hip (principal); E11.9 Type 2 diabetes mellitus without complications; I10 Essential (primary) hypertension; J44.9 Chronic obstructive pulmonary disease, unspecified; K21.9 Gastro-esophageal reflux disease without esophagitis; E78.5 Hyperlipidemia, unspecified; G47.30 Sleep apnea, unspecified; F41.9 Anxiety disorder, unspecified; F32.9 Major depressive disorder, single episode, unspecified; Z87.891 Personal history of nicotine dependence; Z79.82 Long term (current) use of aspirin; Z79.84 Long term (current) use of oral hypoglycemic drugs; Z79.51 Long term (current) use of inhaled steroids; Z79.899 Other long term (current) drug therapy; Z96.653 Presence of artificial knee joint, bilateral; Z90.710 Acquired absence of both cervix and uterus; Z98.84 Bariatric surgery status; Z96.611 Presence of right artificial shoulder joint; Z98.42 Cataract extraction status, left eye; Z98.41 Cataract extraction status, right eye; Z87.01 Personal history of pneumonia (recurrent); Z88.1 Allergy status to other antibiotic agents; Z88.0 Allergy status to penicillin; Z88.8 Allergy status to other drugs, medicaments and biological substances
CPT/HCPCS: 73501; 81003; 83036; 85025; 86850; 86891; 86900; 86901; 88300; 94640

== ENCOUNTER 2017-06-24 08:59 | Emergency (ER) | payer MEDICARE ==
[2017-06-24 09:08] VITALS: RESP 16
--- NOTE | 2017-06-24 09:39 | ED ---
General Adult HPI - General Chief complaint: Recheck/Abnormal Lab/Rx Stated complaint: RECENT Hx HIP REPLACEMENT, INCISION BLEEDING Time Seen by Provider: 06/24/17 09:20 Source: patient, family, RN notes reviewed Mode of arrival: ambulatory Limitations: physical limitation - History of Present Illness Initial comments: Patient 62-year-old female status post left hip replacement on 05/30/2017, presenting to the ER today with chief complaint of some drainage coming from the incision site. She states she noticed that this morning when she woke up. She states there is some tenderness locally to the area. She states is no redness no swelling or erythema. She denies any fever or chills. She admits to a reddish clear drainage. Denies any other complaints or symptoms. Denies any injury or trauma. Patient denies any recent shortness of breath, chest pain , back pain, abdominal pain, nausea or vomiting, numbness or tingling, headaches or visual changes, or any other complaints. - Related Data Home Medications Medication Instructions Recorded Confirmed Amitriptyline HCl 50 mg PO HS 06/22/16 05/30/17 Aspirin [Adult Low Dose Aspirin EC] 81 mg PO DAILY 06/22/16 05/30/17 Fluticasone/Salmeterol [Advair 1 puff INHALATION RT-BID 06/22/16 05/30/17 250-50 Diskus] Atorvastatin [Lipitor] 20 mg PO HS 06/23/16 05/30/17 Multivitamin [Men's Multi-Vitamin] 1 tab PO DAILY 06/23/16 05/30/17 PARoxetine HCL [Paxil] 40 mg PO HS 06/23/16 05/30/17 Pramipexole [Mirapex] 0.25 mg PO HS 06/23/16 05/30/17 cycloSPORINE [Restasis] 1 drop BOTH EYES BID 06/23/16 05/30/17 metFORMIN HCL 1,000 mg PO BID 06/23/16 05/30/17 Famotidine 20 mg PO BID 05/24/17 05/30/17 PARoxetine [Paxil] 10 mg PO HS 05/30/17 05/30/17 Previous Rx's Medication Instructions Recorded Albuterol Nebulized [Ventolin 2.5 mg INHALATION QID #0 06/02/17 Nebulized] Aspirin 325 mg PO BID #60 tab 06/02/17 Celecoxib [CeleBREX] 200 mg PO DAILY PRN #30 capsule 06/02/17 HYDROcodone/APAP 10-325MG [[place] 1 - 2 tab PO Q4-6H PRN #90 tab 06/02/17 10-325] INSULIN LISPRO (HumaLOG) [humaLOG] 0 unit SQ ACHS #1 vial 06/02/17 Sennosides [Senokot] 1 tab PO BID #60 tablet 06/02/17 Allergies Allergy/AdvReac Type Severity Reaction Status Date / Time azithromycin Allergy Intermediate Rash/Hives Verified 06/24/17 09:07 clavulanic acid Allergy Intermediate Abdominal Verified 06/24/17 09:07 [From Augmentin] Pain erythromycin base Allergy Intermediate Rash/Hives Verified 06/24/17 09:07 [From Erythrocin] NSAIDS (Non-Steroidal Allergy Intermediate Abdominal Verified 06/24/17 09:07 Anti-Inflamma Pain tetracycline Allergy Intermediate Rash/Hives Verified 06/24/17 09:07 lisinopril Allergy Anaphylaxis Verified 06/24/17 09:07 duloxetine [From Cymbalta] AdvReac Severe Anaphylaxis Verified 06/24/17 09:07 Review of Systems ROS Statement: Those systems with pertinent positive or pertinent negative responses have been documented in the HPI. ROS Other: All systems not noted in ROS Statement are negative. Past Medical History Past Medical History: Asthma, COPD, Diabetes Mellitus, GERD/Reflux, Hyperlipidemia, Hypertension, Musculoskeletal Disorder, Osteoarthritis (OA), Pneumonia, Sleep Apnea/CPAP/BIPAP Additional Past Medical History / Comment(s): C PAP MACHINE, History of Any Multi-Drug Resistant Organisms: None Reported Past Surgical History: Bariatric Surgery, Hernia Repair, Hysterectomy, Joint Replacement, Orthopedic Surgery, Tonsillectomy Additional Past Surgical History / Comment(s): BREAST BIOPSY , CLIFF EN Y, RIGHT AND LEFT KNEE REPLACEMENT , RIGHT SHOULDER SURGERY -REVERSE REPLACEMENT RIGHT SHOULDER, R hip replacement, left hip Past Anesthesia/Blood Transfusion Reactions: No Reported Reaction Past Psychological History: Anxiety, Depression Smoking Status: Former smoker Past Alcohol Use History: Rare Past Drug Use History: None Reported - Past Family History Daughter(s) Family Medical History: Deep Vein Thrombosis (DVT) General Exam - General Exam Comments Initial Comments: General: The patient is awake and alert, in no distress, and does not appear acutely ill. Neck: The neck is supple, there is no tenderness or JVD. Cardiovascular: There is a regular rate and rhythm. No murmur, rub or gallop is appreciated. Respiratory: Lungs are clear to auscultation, respirations are non-labored, breath sounds are equal. No wheezes, stridor, rales, or rhonchi. Musculoskeletal: Patient does have a well healing incision site on the left hip. No redness, erythema, swelling or sign of infection. Shows good range of motion. Sensations intact with pulses equal bilateral 2+. Patient does have a serous sanguinous drainage coming from mid incision site. No wound dehiscence. Neurological: A&O x 3. CN II-XII intact, There are no obvious motor or sensory deficits. Coordination appears grossly intact. Speech is normal. Skin: Skin is warm and dry and no rashes or lesions are noted. Psychiatric: Normal mood and affect. Limitations: physical limitation Course Vital Signs 06/24/17 09:04 Temperature 98.5 F Pulse Rate 81 Respiratory 16 Rate Blood Pressure 142/82 O2 Sat by Pulse 95 Oximetry Medical Decision Making - Medical Decision Making Patient's ultrasound shows evidence for hematoma. No sign of infection. At this time patient will be discharged home advised follow-up with orthopedics over the next 2 days. Advised return if any symptoms increase worsen or for any other concerns. Disposition Clinical Impression: Hematoma Disposition: HOME SELF-CARE Condition: Good Instructions: Hematoma (ED) Additional Instructions: Please follow-up with the orthopedic doctor over the next 2 days. Please return to emergency room if any symptoms increase or worsen or for any concerns. Referrals: Jorge Hansen MD [Primary Care Provider] - 1-2 days Mumtaz Fraga DO [Doctor of Osteopathic Medicine] - 1-2 days Time of Disposition: 10:18
--- NOTE | 2017-06-24 09:59 | US ---
EXAMINATION TYPE: US extremity nonvasc mass LT DATE OF EXAM: 06/24/2017 COMPARISON: NONE CLINICAL HISTORY: Pain. Left hip replacement 05/30/2017. Leaking fluid from incision site. In the area of the left hip, near the patient incision, there is a hypoechoic area visualized measuri ng approximately 8.3 x 2.5 x 5.2 cm, possible seroma vs other This fluid collection is complex and may represent a hematoma. IMPRESSION: PROBABLE HEMATOMA ADJACENT TO THE PATIENT'S INCISION.
[2017-06-24 10:36] VITALS: BP 136/70; PULSE 78; TEMP 97.8
== END 2017-06-24 10:34 | disposition home or self-care (01) ==
LOC: EC 08:59
DX: M96.840 Postprocedural hematoma of a musculoskeletal structure following a musculoskeletal system procedure (principal); J44.9 Chronic obstructive pulmonary disease, unspecified; E11.9 Type 2 diabetes mellitus without complications; E78.5 Hyperlipidemia, unspecified; I10 Essential (primary) hypertension; M19.90 Unspecified osteoarthritis, unspecified site; G47.30 Sleep apnea, unspecified; F32.9 Major depressive disorder, single episode, unspecified; F41.9 Anxiety disorder, unspecified; Z99.89 Dependence on other enabling machines and devices; Z87.891 Personal history of nicotine dependence; Z88.1 Allergy status to other antibiotic agents; Z88.6 Allergy status to analgesic agent; Z88.8 Allergy status to other drugs, medicaments and biological substances; Z88.0 Allergy status to penicillin; Z79.51 Long term (current) use of inhaled steroids; Z79.82 Long term (current) use of aspirin; Z79.899 Other long term (current) drug therapy; Y83.8 Other surgical procedures as the cause of abnormal reaction of the patient, or of later complication, without mention of misadventure at the time of the procedure
CPT/HCPCS: 87070; 87205; 99284

== ENCOUNTER 2017-07-01 15:53 | Emergency (ER) | payer MEDICARE ==
[2017-07-01 15:57] VITALS: BP 135/65; PULSE 90; RESP 20; TEMP 98.4
--- NOTE | 2017-07-01 16:14 | ED ---
General Adult HPI - General Chief complaint: Recheck/Abnormal Lab/Rx Stated complaint: post op incision open Time Seen by Provider: 07/01/17 15:59 Source: patient, RN notes reviewed, old records reviewed Mode of arrival: wheelchair Limitations: no limitations - History of Present Illness Initial comments: Patient 62-year-old female who presents emergency room today with a chief complaint of postop wound, location. Patient does admit that she had a dehiscence of the surgical incision of the left hip. She had surgery approximately 2 weeks ago. Patient does admit that one week ago she did have a spot that dehisced. She states that the drainage from that area. States approximately an hour ago noticed a spot that seemed to open up. Patient does admit that she's had some drainage. She does admit that she seen some redness over the past few days. She states she did see the orthopedic doctor earlier in the week approximately 6 days ago. Patient does note some warmth to the area. Denies any other complaints or symptoms. Patient denies any recent fever , chills, shortness of breath, chest pain, back pain, abdominal pain, nausea or vomiting, headaches or visual changes, or any other complaints. - Related Data Home Medications Medication Instructions Recorded Confirmed Amitriptyline HCl 50 mg PO HS 06/22/16 05/30/17 Aspirin [Adult Low Dose Aspirin EC] 81 mg PO DAILY 06/22/16 05/30/17 Fluticasone/Salmeterol [Advair 1 puff INHALATION RT-BID 06/22/16 05/30/17 250-50 Diskus] Atorvastatin [Lipitor] 20 mg PO HS 06/23/16 05/30/17 Multivitamin [Men's Multi-Vitamin] 1 tab PO DAILY 06/23/16 05/30/17 PARoxetine HCL [Paxil] 40 mg PO HS 06/23/16 05/30/17 Pramipexole [Mirapex] 0.25 mg PO HS 06/23/16 05/30/17 cycloSPORINE [Restasis] 1 drop BOTH EYES BID 06/23/16 05/30/17 metFORMIN HCL 1,000 mg PO BID 06/23/16 05/30/17 Famotidine 20 mg PO BID 05/24/17 05/30/17 PARoxetine [Paxil] 10 mg PO HS 05/30/17 05/30/17 Previous Rx's Medication Instructions Recorded Albuterol Nebulized [Ventolin 2.5 mg INHALATION QID #0 06/02/17 Nebulized] Aspirin 325 mg PO BID #60 tab 06/02/17 Celecoxib [CeleBREX] 200 mg PO DAILY PRN #30 capsule 06/02/17 HYDROcodone/APAP 10-325MG [[place] 1 - 2 tab PO Q4-6H PRN #90 tab 06/02/17 10-325] INSULIN LISPRO (HumaLOG) [humaLOG] 0 unit SQ ACHS #1 vial 06/02/17 Sennosides [Senokot] 1 tab PO BID #60 tablet 06/02/17 Cephalexin [Keflex] 500 mg PO Q12HR 10 Days cap 07/01/17 Allergies Allergy/AdvReac Type Severity Reaction Status Date / Time azithromycin Allergy Intermediate Rash/Hives Verified 07/01/17 15:56 clavulanic acid Allergy Intermediate Abdominal Verified 07/01/17 15:56 [From Augmentin] Pain erythromycin base Allergy Intermediate Rash/Hives Verified 07/01/17 15:56 [From Erythrocin] NSAIDS (Non-Steroidal Allergy Intermediate Abdominal Verified 07/01/17 15:56 Anti-Inflamma Pain tetracycline Allergy Intermediate Rash/Hives Verified 07/01/17 15:56 lisinopril Allergy Anaphylaxis Verified 07/01/17 15:56 duloxetine [From Cymbalta] AdvReac Severe Anaphylaxis Verified 07/01/17 15:56 Review of Systems ROS Statement: Those systems with pertinent positive or pertinent negative responses have been documented in the HPI. ROS Other: All systems not noted in ROS Statement are negative. Past Medical History Past Medical History: Asthma, COPD, Diabetes Mellitus, GERD/Reflux, Hyperlipidemia, Hypertension, Musculoskeletal Disorder, Osteoarthritis (OA), Pneumonia, Sleep Apnea/CPAP/BIPAP Additional Past Medical History / Comment(s): C PAP MACHINE, History of Any Multi-Drug Resistant Organisms: None Reported Past Surgical History: Bariatric Surgery, Hernia Repair, Hysterectomy, Joint Replacement, Orthopedic Surgery, Tonsillectomy Additional Past Surgical History / Comment(s): BREAST BIOPSY , CLIFF EN Y, RIGHT AND LEFT KNEE REPLACEMENT , RIGHT SHOULDER SURGERY -REVERSE REPLACEMENT RIGHT SHOULDER, R hip replacement, left hip Past Anesthesia/Blood Transfusion Reactions: No Reported Reaction Past Psychological History: Anxiety, Depression Smoking Status: Former smoker Past Alcohol Use History: Rare Past Drug Use History: None Reported - Past Family History Daughter(s) Family Medical History: Deep Vein Thrombosis (DVT) General Exam - General Exam Comments Initial Comments: General: The patient is awake and alert, in no distress, and does not appear acutely ill. Neck: The neck is supple, there is no tenderness or JVD. Musculoskeletal/skin: Patient does have surgical incision to the left hip. There is mild redness erythema locally to the area. Patient does have small dehiscence approximate 1 cm. There is no active drainage. There is mild warmth. Shows good range of motion. Sensations intact pulses equal bilateral 2 +. Neurological: A&O x 3. CN II-XII intact, There are no obvious motor or sensory deficits. Coordination appears grossly intact. Speech is normal. Psychiatric: Normal mood and affect. Limitations: no limitations Course Vital Signs 07/01/17 15:55 Temperature 98.4 F Pulse Rate 90 Respiratory 20 Rate Blood Pressure 135/65 O2 Sat by Pulse 99 Oximetry Disposition Clinical Impression: Postop check Disposition: HOME SELF-CARE Condition: Stable Instructions: Cellulitis (ED) Additional Instructions: Please follow-up with orthopedics with your scheduled appointment Monday. Please use antibiotic as prescribed. Please return to emergency room if any symptoms increase or worsen or for any other concerns as discussed. Prescriptions: Cephalexin [Keflex] 500 mg PO Q12HR 10 Days cap Referrals: Jorge Hansen MD [Primary Care Provider] - 1-2 days Mumtaz Fraga DO [Doctor of Osteopathic Medicine] - 1-2 days Time of Disposition: 16:14
== END 2017-07-01 16:27 | disposition home or self-care (01) ==
LOC: EC 15:53
DX: T81.30XA Disruption of wound, unspecified, initial encounter (principal); J44.9 Chronic obstructive pulmonary disease, unspecified; E78.5 Hyperlipidemia, unspecified; K21.9 Gastro-esophageal reflux disease without esophagitis; I10 Essential (primary) hypertension; G47.30 Sleep apnea, unspecified; Z99.89 Dependence on other enabling machines and devices; F32.9 Major depressive disorder, single episode, unspecified; F41.9 Anxiety disorder, unspecified; Z87.891 Personal history of nicotine dependence; Z79.82 Long term (current) use of aspirin; Z79.51 Long term (current) use of inhaled steroids; Z79.84 Long term (current) use of oral hypoglycemic drugs; Z79.899 Other long term (current) drug therapy; Z88.1 Allergy status to other antibiotic agents; Z88.0 Allergy status to penicillin; Z88.6 Allergy status to analgesic agent; Z88.8 Allergy status to other drugs, medicaments and biological substances; Z96.642 Presence of left artificial hip joint
CPT/HCPCS: 99283

== ENCOUNTER 2017-07-04 14:39 | Day surgery (SDC) | payer MEDICARE ==
[2017-07-03 11:56] VITALS: BMI 46.1
[~2017-07-04 14:39] MED LIST changes: -ACETAMINOPHEN TAB 500 MG TAB PO ONE; -LIDOCAINE 1% 20 ML VIAL (10MG/ML) FOR IV START INTRADERMA PRN; -MELOXICAM 7.5 MG TAB PO ONE; -ONDANSETRON 4 MG/2 ML VIAL IVP ONE; +Pre Op ABX Message 1 EACH MISC MISCELLANE ONE; -ROPIVACAINE 246.25 MG, EPINEPHrine 0.5 MG, KETOROLAC 30 MG, cloNIDine HCL/PF 80 MCG, WA... MISCELLANE ONE; -TRANEXAMIC ACID 1,000 MG in SODIUM CHLORIDE 0.9% 50 ML IVPB ONE
[2017-07-04] MEDS ORDERED: LIDOCAINE 1% 20 ML VIAL (10MG/ML) FOR IV START INTRADERMA ONE (14:57)
[2017-07-04] MEDS: LACTATED RINGERS 1,000 ML IV SCH ×2 (14:57→23:51)
[2017-07-04] MEDS ORDERED: ONDANSETRON 4 MG/2 ML VIAL IVP ONE (15:03)
[2017-07-04] MEDS ORDERED: DEXAMETHASONE SOD PHOSPHATE 10 MG/ML 1 ML VIAL IV ONE (15:04)
[2017-07-04 15:13] LABS: Glucose,Whole Blood 107 mg/dL (75-99)
[2017-07-04] MEDS ORDERED: ceFAZolin IN SWFI 2 GM/20 ML SYRINGE IVP STA (15:27)
[2017-07-04] MEDS ORDERED: SUCCINYLCHOLINE CHLORIDE 100 MG/5 ML SYR IV ONE (16:05)
[2017-07-04] MEDS ORDERED: MIDAZOLAM 2 MG/2 ML VIAL ONE (16:05)
[2017-07-04] MEDS ORDERED: fentaNYL (PF) 50 MCG/ML 2 ML AMP ONE (16:05)
[2017-07-04] MEDS ORDERED: LIDOCAINE 1% INJ 10MG/ML (20 ML MDV) ONE (16:05)
[2017-07-04] MEDS ORDERED: PROPOFOL 10 MG/ML 20 ML VIAL IV ONE (16:05)
[2017-07-04] MEDS ORDERED: GLYCOPYRROLATE 0.2 MG/ML 2 ML VIAL ONE (16:05)
[2017-07-04] MEDS ORDERED: ceFAZolin 1,000 MG in SODIUM CHLORIDE 0.9% 1,000 ML IRRIGATION ONE (16:26)
--- NOTE | 2017-07-04 16:38 | P.OP ---
Date of Procedure: 07/04/17 Preoperative Diagnosis: Seroma left hip Postoperative Diagnosis: Seroma left hip Procedure(s) Performed: Incision and drainage of the seroma of the left hip Anesthesia: TRUE Surgeon: Mumtaz Fraga [employer] Instructor #1: Maria Luz Matos Estimated Blood Loss (ml): 20 Pathology: other (Cultures 2) Condition: stable Disposition: PACU Indications for Procedure: This is a 62-year-old female that has recently had a total hip arthroplasty with a direct anterior approach by myself approximately 4 weeks ago. She has been having episodes of drainage from her left hip wound. Due to the large size of her thigh, she has developed a seroma which will occasionally drained. It is quite uncomfortable for her, and after discussing the surgical and nonsurgical treatment options with her at length, I recommended a formal incision and drainage. She is agreeable to this informed consent was obtained. Operative Findings: The operative findings are consistent with a seroma of the left thigh Description of Procedure: Patient was seen and evaluated in the preoperative area, consent was reviewed, and the surgical site was marked with a skin marker. Patient was then brought to the operating room and given prophylactic antibiotics intravenously. A general anesthetic was administered by the anesthesia department. The hip area was then prepped and draped in usual sterile fashion. A universal timeout was then performed, which confirmed the patient's name, surgical site, ALLERGIES, and procedure being performed. Next the incision site was located at the distal end of her prior incision. The skin and subcutaneous tissues were sharply incised. A large seroma was encountered, with clear fluid. This was cultured 2. After all the fluid had been evacuated , the area was inspected and found to be completely sealed from the deep tissues. Pulsatile lavage was then used to irrigate the area with antibiotic solution. The deeper fascia was then incised, and there was found to be no other fluid collection deep. The deep tissues were irrigated with pulsatile lavage as well. The deep tissues were then closed with 0 Vicryl and a medium suction drain was then placed. The tissues were then closed with 2-0 Vicryl followed by cande for the skin. The patient was then transferred to the recovery room in stable condition. The graduate assistant SHERIDAN Mehta was required due to the complexity of surgery, and the need for skilled credit control assistant for positioning, draping, exposure, retraction, and closure of the wound.
[2017-07-04] MEDS ORDERED: ONDANSETRON 4 MG/2 ML VIAL IVP PRN (16:53)
[2017-07-04] MEDS ORDERED: hydrOXYzine PAMOATE 25 MG CAP PO PRN (16:53)
[2017-07-04] MEDS ORDERED: SENNOSIDES-DOCUSATE SODIUM 1 EACH TAB PO PRN (16:53)
[2017-07-04] MEDS ORDERED: MORPHINE SULFATE 4 MG/ML SYRINGE IVP PRN ×3 (16:53)
[2017-07-04] MEDS ORDERED: HYDROcodone/APAP 10-325MG 1 EACH TAB PO PRN (16:57)
[2017-07-04] MEDS: fentaNYL (PF) 50 MCG/ML 2 ML AMP IV PRN ×4 (17:05→17:28)
[2017-07-04] MEDS: MORPHINE SULFATE 2 MG/ML SYRINGE IV PRN ×2 (17:50→17:55)
[2017-07-04] MEDS: ALBUTEROL NEBULIZED 2.5 MG/3 ML INHALATION SCH (19:37)
[2017-07-04] MEDS: SYMBICORT 80-4.5 MCG INHALER INHALATION SCH (19:37)
[2017-07-04] MEDS: ATORVASTATIN 20 MG TAB PO SCH (20:16)
[2017-07-04] MEDS: HYDROcodone/APAP 10-325MG 1 EACH TAB PO PRN (20:16)
[2017-07-04] MEDS: AMITRIPTYLINE HCL 50 MG TAB PO SCH (20:16)
[2017-07-04] MEDS: cycloSPORINE 0.05% OPHTH 0.4 ML DROPERETTE BOTH EYES SCH (20:16)
[2017-07-04] MEDS: ASPIRIN 325 MG TAB PO SCH (20:17)
[2017-07-04] MEDS: hydrALAZINE HCL 50 MG TAB PO SCH (20:20)
[2017-07-04] MEDS: metFORMIN 500 MG TAB PO SCH (20:20)
[2017-07-04] MEDS: PARoxetine 10 MG TAB PO SCH (20:21)
[2017-07-04] MEDS: PARoxetine 20 MG TAB PO SCH (20:21)
[2017-07-04] MEDS: PRAMIPEXOLE 0.25 MG TAB PO SCH (20:21)
--- NOTE | 2017-07-04 23:26 | CONS ---
CONSULTATION DATE OF SERVICE: July 04, 2017. REASON FOR CONSULTATION: Medical management requested by Dr. Fraga. CONSULTATION: This is a pleasant 62 -year-old patient of Dr. Hansen who in May of this year had undergone a left total hip arthroplasty. Subsequently patient was having episodes of left hip swelling, that were were drained intermittently. These episodes started picking repeated. Patient therefore underwent I and D of the same today. The patient's chronic stable medical conditions include COPD, diabetes, GERD, hypertension, hyperlipidemia, arthritis in multiple joints, and obstructive sleep apnea. REVIEW OF SYSTEMS: CONSTITUTIONAL: None. HEENT none. Respiratory: Baseline short of breath. Cardiovascular none. Gastrointestinal heartburn. Genitourinary none. Musculoskeletal arthritic pain in many joints. Dermatological and hematologic, lymphatic none. Psychiatry none. Neurological none. PAST MEDICAL HISTORY: COPD, diabetes, GERD, hypertension, hyperlipidemia, osteoarthritis, multiple joints, obstructive sleep apnea. PAST SURGICAL HISTORY: Bariatric surgery, hernia repair, hysterectomy, tonsillectomy, breast biopsy, Dale-en- Y, right and left knee replacement, right shoulder replacement, left hip replacement. PSYCH HISTORY: Anxiety, depression. SOCIAL HISTORY: Patient smoked on and off for 44 years. Stopped last year. Lives by herself. Alcohol rarely. FAMILY HISTORY: DVT. HOME MEDICATIONS: 1. Hydralazine 50 mg p.o. b.i.d. 2. Hydrochlorothiazide 25 p.o. daily. 3. Amlodipine olmesartan 10/20 1 tab p.o. daily. 4. Metformin 1000 mg p.o. b.i.d. 5. Restasis 1 drop to both eyes b.i.d. 6. Mirapex 0.25 p.o. at bedtime. 7. Paxil 10 mg p.o. at bedtime. 8. Paxil 40 mg q.h.s. 9. [place] 10 1-2 tablets q.4 hours to 6 p.r.n. 10.Advair 250/50 one puff b.i.d. 11.Pepcid 20 mg b.i.d. 12.Keflex 100 mg q.12. 13.Celebrex 200 mg daily p.r.n. 14.Lipitor 20 mg q.h.s. 15.Aspirin 81 mg p.o. daily. 16.Amitriptyline 50 mg q.h.s. 17.Ventolin 2.5 p.o. q.i.d. ALLERGIES: AZITHROMYCIN, AUGMENTIN, NSAIDS, TETRACYCLINE, CYMBALTA. PHYSICAL EXAMINATION: On examination, temperature 98.3, pulse 77, respiratory 18, blood pressure 133/71, pulse ox 98% on 3 L. GENERAL APPEARANCE: Well built, BMI 46.2, lying in bed comfortable. Eyes pupils equal. Conjunctivae normal. HEENT: External appearance of nose and ears normal. Oral cavity normal. Neck short thick, JVD unable to assess. Mass not palpable. Respiratory effort normal. Lungs distant breath sounds. Cardiovascular: Heart sounds muffled. No edema. Abdomen soft, nontender. Liver and spleen not palpable. Lymphatics: No lymph nodes palpable in the neck and axillae. Psychiatry: Alert and oriented x3. Mood and affect normal. Musculoskeletal: Evidence of osteoarthritis especially in the hands and knees. INVESTIGATIONS: No blood work currently. ASSESSMENT: 1. Left hip seroma I and D allergy which there has arthroplasty joint. 2. Chronic obstructive pulmonary disease in an ex-smoker. 3. Morbid obesity BMI 46.2. 4. Diabetes mellitus type 2 on oral hypoglycemic. 5. Gastroesophageal reflux disease. 6. Essential hypertension. 7. Hyperlipidemia. 8. Primary osteoarthritis multiple joints bilateral. 9. Obstructive sleep apnea uses CPAP machine. PLAN: Home medications are resumed. The patient is on IV Ancef. Accu-Cheks will be followed. Venodyne boots in place. Care was discussed with the patient. The patient to use her CPAP machine. Care was discussed with the patient. Questions were answered. We will keep the patient on Lovenox for DVT prophylaxis. Copy to Dr. Hansen. Thank you Dr. Fraga. MMODL / IJN: [id number] /
[2017-07-05] MEDS: HYDROcodone/APAP 10-325MG 1 EACH TAB PO PRN ×4 (03:08→20:57)
[2017-07-05] MEDS: SODIUM CHLORIDE 0.9% 1,000 ML IV SCH ×3 (03:22→21:02)
[2017-07-05 06:59] LABS: Glucose,Whole Blood 134 mg/dL (75-99)
[2017-07-05 07:29] LABS: Basophils % (A) 0 %; Eosinophils % (A) 0 %; HCT 33.2 % (34.0-46.0); Hypochromasia Moderate; Lymphocytes # (A) 1.6 k/uL (1.0-4.8); Lymphocytes % (A) 26 %; MCH 26.1 pg (25.0-35.0); MCHC 30.3 g/dL (31.0-37.0); MCV 86.2 fL (80.0-100.0); Monocytes # (A) 0.1 k/uL (0-1.0); Monocytes % (A) 2 %; Neutrophils # (A) 4.4 k/uL (1.3-7.7); Neutrophils % (A) 71 %; Platelet Count 340 k/uL (150-450); RBC 3.84 m/uL (3.80-5.40); RDW 14.5 % (11.5-15.5); WBC 6.1 k/uL (3.8-10.6)
[2017-07-05] MEDS: cycloSPORINE 0.05% OPHTH 0.4 ML DROPERETTE BOTH EYES SCH ×2 (07:53→20:50)
[2017-07-05] MEDS: LOSARTAN 50 MG TAB PO SCH (07:54)
[2017-07-05] MEDS: ASPIRIN 325 MG TAB PO SCH ×2 (07:55→20:51)
[2017-07-05] MEDS: HYDROCHLOROTHIAZIDE 25 MG TAB PO SCH (07:55)
[2017-07-05] MEDS: amLODIPine 10 MG TAB PO SCH (07:55)
[2017-07-05] MEDS: FAMOTIDINE 20 MG TAB PO SCH ×2 (07:55→20:51)
[2017-07-05] MEDS: metFORMIN 500 MG TAB PO SCH ×2 (07:55→20:51)
[2017-07-05] MEDS: hydrALAZINE HCL 50 MG TAB PO SCH ×2 (07:55→20:51)
[2017-07-05] MEDS: ENOXAPARIN 40 MG/0.4 ML SYRINGE SQ SCH (07:56)
[2017-07-05] MEDS: INSULIN ASPART 100 UNIT/ML 1 ML 10 ML VIAL SQ SCH ×3 (07:56→17:14)
[2017-07-05] MEDS: ALBUTEROL NEBULIZED 2.5 MG/3 ML INHALATION SCH ×4 (07:56→20:06)
[2017-07-05] MEDS: SYMBICORT 80-4.5 MCG INHALER INHALATION SCH ×2 (07:56→20:06)
--- NOTE | 2017-07-05 08:27 | P.PN ---
Subjective Progress Note Date: 07/05/17 This is a 62-year-old female who is status post incision and drainage of left hip seroma. This is postoperative day #1. Patient is seen and evaluated at bedside with Dr. Mumtaz Fraga. Patient states she does feel improvement in symptoms today. Patient states her pain is under control. Patient denies any new complaints today. Patient denies any fever/chills, numbness, weakness, tingling, abdominal pain, shortness of breath or chest pain. Objective - Vital Signs Vital signs: Vital Signs Temp 98.2 F 07/05/17 08:09 Pulse 68 07/05/17 08:09 Resp 17 07/05/17 08:09 BP 115/60 07/05/17 08:09 Pulse Ox 91 L 07/05/17 08:09 Intake & Output 07/04/17 07/05/17 07/05/17 18:59 06:59 18:59 Intake Total 801 2220 Output Total 20 Balance 781 2220 Weight 122 kg 122 kg Intake: IV 801 Intake, IV Titration 780 Amount Lactated Ringers 1,000 ml 260 @ 20 mls/hr IV .Q24H [facility] Rx#:[id number] Sodium Chloride 0.9% 1, 520 000 ml @ 65 mls/hr IV . [id number] [facility] Rx#:[id number] Oral 1440 Output: Estimated Blood Loss 20 Other: # Voids 3 - Exam Vital signs are stable. Patient is in no acute distress and is alert and oriented 3. Calf is soft and nontender to palpation. Dressing is clean, dry, and intact. Drain is intact with minimal clear blood-tinged drainage. Patient has full foot and ankle motion without pain or difficulty. Neurovascular status and circulatory status are intact. - Labs CBC & Chem 7: 07/05/17 07:01 Labs: Abnormal Lab Results - Last 24 Hours (Table) 07/04/17 07/04/17 07/05/17 Range/Units 14:55 17:10 06:57 Hgb (11.4-16.0) gm/dL Hct (34.0-46.0) % MCHC (31.0-37.0) g/dL POC Glucose (mg/dL) 107 H 134 H (75-99) mg/dL C-Reactive Protein 16.1 H (<10.0) mg/L 07/05/17 Range/Units 07:01 Hgb 10.0 L (11.4-16.0) gm/dL Hct 33.2 L (34.0-46.0) % MCHC 30.3 L (31.0-37.0) g/dL POC Glucose (mg/dL) (75-99) mg/dL C-Reactive Protein (<10.0) mg/L Microbiology - Last 24 Hours (Table) 07/04/17 16:30 Anaerobic Culture - Preliminary Hip - Left 07/04/17 16:30 Wound Culture - Preliminary Hip - Left Assessment and Plan (1) Status post incision and drainage Current Visit: Yes Status: Acute Code(s): Z98.890 - OTHER SPECIFIED POSTPROCEDURAL STATES SNOMED Code(s): 696761185 (2) Seroma Current Visit: Yes Status: Acute Code(s): MPY7814 - SNOMED Code(s): 424887335 (3) S/P total hip arthroplasty Current Visit: No Status: Acute Code(s): Z96.649 - PRESENCE OF UNSPECIFIED ARTIFICIAL HIP JOINT SNOMED Code(s): 067312069844 Plan: #1. Continue routine postoperative care and drain management. Will likely remove drain tomorrow. #2. Weightbearing as tolerated with walker #3. Daily dressing changes. #4. DVT prophylaxis with aspirin and SCDs #5. Awaiting final cultures. #6. Anticipate discharge home tomorrow.
[2017-07-05] MEDS ORDERED: LOSARTAN 50 MG TAB PO SCH (09:00)
[2017-07-05 11:27] LABS: Glucose,Whole Blood 85 mg/dL (75-99)
[2017-07-05 15:00] VITALS: RESP 16
[2017-07-05 16:57] LABS: Glucose,Whole Blood 112 mg/dL (75-99)
--- NOTE | 2017-07-05 17:00 | PN ---
PROGRESS NOTE DATE OF SERVICE: 07/05/17 PRESENTING COMPLAINT: Left hip seroma drain. INTERVAL HISTORY: Patient is status post I and D of the left hip seroma. Pain is controlled. Lying in bed. Did tolerate her meals. No new issues. Breathing is stable. REVIEW OF SYSTEMS: Done for constitutional, cardiovascular, GI, pulmonary, relevant findings as above. CURRENT MEDICATIONS: Reviewed. PHYSICAL EXAMINATION: Temperature 98.2, pulse 68, respiration 15, blood pressure 115/60, pulse 91% on 3 L. General appearance: Lying in bed, comfortable. Eyes: Pupils equal. Conjunctivae normal. HEENT: External appearance of nose and ears normal. Oral cavity normal. Neck: Short thick, JVD not raised. Mass not palpable. Respiratory effort is lungs distant breath sounds. Cardiovascular: HEART: Heart sounds muffled. No edema. ABDOMEN: Soft, nontender. Liver and spleen not palpable. Psychiatry alert and oriented x3. Mood and affect normal. INVESTIGATIONS: White count 6.1, hemoglobin 10, Accu-Cheks noted. ASSESSMENT: 1. Left hip seroma I and D in an arthroplasty joint. 2. Chronic obstructive pulmonary disease in an ex-smoker. 3. Morbid obesity BMI 46.2. 4. Diabetes mellitus type 2 on oral hypoglycemic. 5. Gastroesophageal reflux disease. 6. Essential hypertension. 7. Hyperlipidemia. 8. Primary osteoarthritis multiple joints bilateral. 9. Obstructive sleep apnea uses CPAP machine. PLAN: Continue current medication and treatment plan. Care was discussed with the patient. Activity as per Orthopedics. Wound cultures negative till now. MMODL / IJN: [id number] /
[2017-07-05 19:58] LABS: Glucose,Whole Blood 115 mg/dL (75-99)
[2017-07-05] MEDS: PARoxetine 10 MG TAB PO SCH (20:51)
[2017-07-05] MEDS: PRAMIPEXOLE 0.25 MG TAB PO SCH (20:51)
[2017-07-05] MEDS: PARoxetine 20 MG TAB PO SCH (20:51)
[2017-07-05] MEDS: AMITRIPTYLINE HCL 50 MG TAB PO SCH (20:51)
[2017-07-05] MEDS: ATORVASTATIN 20 MG TAB PO SCH (20:51)
[2017-07-05] MEDS: LACTATED RINGERS 1,000 ML IV SCH (21:01)
[2017-07-06] MEDS: HYDROcodone/APAP 10-325MG 1 EACH TAB PO PRN (04:11)
[2017-07-06] MEDS: ALBUTEROL NEBULIZED 2.5 MG/3 ML INHALATION SCH ×2 (07:13→10:53)
[2017-07-06] MEDS: SYMBICORT 80-4.5 MCG INHALER INHALATION SCH (07:15)
[2017-07-06 07:31] LABS: Glucose,Whole Blood 90 mg/dL (75-99)
[2017-07-06] MEDS: INSULIN ASPART 100 UNIT/ML 1 ML 10 ML VIAL SQ SCH (07:36)
[2017-07-06] MEDS: LOSARTAN 50 MG TAB PO SCH (08:05)
[2017-07-06] MEDS: metFORMIN 500 MG TAB PO SCH (08:05)
[2017-07-06] MEDS: ASPIRIN 325 MG TAB PO SCH (08:06)
[2017-07-06] MEDS: amLODIPine 10 MG TAB PO SCH (08:06)
[2017-07-06] MEDS: ENOXAPARIN 40 MG/0.4 ML SYRINGE SQ SCH (08:06)
[2017-07-06] MEDS: FAMOTIDINE 20 MG TAB PO SCH (08:06)
[2017-07-06] MEDS: hydrALAZINE HCL 50 MG TAB PO SCH (08:06)
--- NOTE | 2017-07-06 08:58 | P.DS ---
Providers Expected date of discharge: 07/06/17 Attending physician: Mumtaz Fraga Consults: 07/04/17 16:53 Consult Physician Routine Consulting Provider: Micky Cook Consult Reason/Comments: medical management Do you want consulting provider notified?: Already Contacted Primary care physician: Jorge Hansen - Discharge Diagnosis(es) (1) Status post incision and drainage Current Visit: Yes Status: Acute (2) Seroma Current Visit: Yes Status: Acute (3) S/P total hip arthroplasty Current Visit: No Status: Acute Hospital Course: This is a 62-year-old female who developed a seroma to the left hip after a left total hip arthroplasty on 05/30/2017. Patient developed swelling in the area of the incision after the incision was completely healed. Patient then noted clear bloody drainage from the incision on 2 occasions over the last 2 weeks which caused her to go to emergency room. The patient presented for evaluation as an outpatient. After discussion and consideration patient elects to proceed with incision and drainage of left hip seroma. The patient is seen preoperatively by Dr. Fraga. Patient is admitted to [facility] on 07/04/2017 for incision and drainage of left hip seroma. The procedures performed without complication or sequelae. The patient is doing well postoperatively. Labs and vital signs are stable on day of discharge. Cultures show no growth after 24 hours. On day of discharge patient's hip incision is healing well. There is minimal erythema. There is minimal drainage noted at this time. There is minimal soft tissue swelling to the hip and thigh. Patient has full foot and ankle motion without difficulty or pain. Neurovascular status to the left lower extremity is intact. Patient is discharged home in good condition. Please see med rec for accurate list of home medications. Plan - Discharge Summary New Discharge Prescriptions: No Action Fluticasone/Salmeterol [Advair 250-50 Diskus] 1 puff INHALATION RT-BID Amitriptyline HCl 50 mg PO HS Aspirin [Adult Low Dose Aspirin EC] 81 mg PO DAILY cycloSPORINE [Restasis] 1 drop BOTH EYES BID Pramipexole [Mirapex] 0.25 mg PO HS PARoxetine HCL [Paxil] 40 mg PO HS metFORMIN HCL 1,000 mg PO BID Atorvastatin [Lipitor] 20 mg PO HS Famotidine 20 mg PO BID PARoxetine [Paxil] 10 mg PO HS Celecoxib [CeleBREX] 200 mg PO DAILY PRN #30 capsule PRN Reason: Pain HYDROcodone/APAP 10-325MG [[place] 10-325] 1 - 2 tab PO Q4-6H PRN #90 tab PRN Reason: Pain Albuterol Nebulized [Ventolin Nebulized] 2.5 mg INHALATION QID #0 Cephalexin [Keflex] 500 mg PO Q12HR 10 Days cap amLODIPine BES/OLMESARTAN MED [amLODIPine BES/OLMESARTAN MED 10-20 mg] 1 each PO DAILY Losartan Potassium 100 mg PO DAILY Hydrochlorothiazide [Hydrochlorothiazide] 25 mg PO QAM hydrALAZINE HCL [Apresoline] 50 mg PO BID Discharge Medication List Amitriptyline HCl 50 mg PO HS 06/22/16 [History] Aspirin [Adult Low Dose Aspirin EC] 81 mg PO DAILY 06/22/16 [History] Fluticasone/Salmeterol [Advair 250-50 Diskus] 1 puff INHALATION RT-BID 06/22/16 [History] Atorvastatin [Lipitor] 20 mg PO HS 06/23/16 [History] PARoxetine HCL [Paxil] 40 mg PO HS 06/23/16 [History] Pramipexole [Mirapex] 0.25 mg PO HS 06/23/16 [History] cycloSPORINE [Restasis] 1 drop BOTH EYES BID 06/23/16 [History] metFORMIN HCL 1,000 mg PO BID 06/23/16 [History] Famotidine 20 mg PO BID 05/24/17 [History] PARoxetine [Paxil] 10 mg PO HS 05/30/17 [History] Albuterol Nebulized [Ventolin Nebulized] 2.5 mg INHALATION QID #0 06/02/17 [Rx] Celecoxib [CeleBREX] 200 mg PO DAILY PRN #30 capsule 06/02/17 [Rx] HYDROcodone/APAP 10-325MG [[place] 10-325] 1 - 2 tab PO Q4-6H PRN #90 tab [Rx] Cephalexin [Keflex] 500 mg PO Q12HR 10 Days cap 07/01/17 [Rx] Losartan Potassium 100 mg PO DAILY 07/03/17 [History] amLODIPine BES/OLMESARTAN MED [amLODIPine BES/OLMESARTAN MED 10-20 mg] 1 each PO DAILY 07/03/17 [History] Hydrochlorothiazide [Hydrochlorothiazide] 25 mg PO QAM 07/04/17 [History] hydrALAZINE HCL [Apresoline] 50 mg PO BID 07/04/17 [History] Follow up Appointment(s)/Referral(s): Mumtaz Fraga DO [Doctor of Osteopathic Medicine] - 1 Week Activity/Diet/Wound Care/Special Instructions: Weightbearing as tolerated with walker May shower after 2 days if no drainage from the incision Surgical clips to be removed in 10-14 days. Follow[facility]up with [facility] in 1 week, please call with any questions or concerns, Discharge Disposition: HOME WITH HOME HEALTH SERVICES
[2017-07-06] MEDS: cycloSPORINE 0.05% OPHTH 0.4 ML DROPERETTE BOTH EYES SCH (09:00)
[2017-07-06] MEDS: HYDROCHLOROTHIAZIDE 25 MG TAB PO SCH (09:00)
[2017-07-06 09:02] VITALS: BP 136/78; PULSE 78; TEMP 97.6
== END 2017-07-06 10:55 | disposition home health service (06) ==
LOC: OR 14:39 → 5MS5E 16:47 → OR 07-06 10:55
PROVIDERS: ATTEND Orthopaedic Surgery
DX: L76.34 Postprocedural seroma of skin and subcutaneous tissue following other procedure (principal); E11.9 Type 2 diabetes mellitus without complications; K21.9 Gastro-esophageal reflux disease without esophagitis; E78.5 Hyperlipidemia, unspecified; M15.9 Polyosteoarthritis, unspecified; I10 Essential (primary) hypertension; J44.9 Chronic obstructive pulmonary disease, unspecified; F32.9 Major depressive disorder, single episode, unspecified; F41.9 Anxiety disorder, unspecified; G47.33 Obstructive sleep apnea (adult) (pediatric); E66.01 Morbid (severe) obesity due to excess calories; Z87.891 Personal history of nicotine dependence; Z68.42 Body mass index [BMI] 45.0-49.9, adult; Z96.642 Presence of left artificial hip joint; Z99.89 Dependence on other enabling machines and devices; Z79.891 Long term (current) use of opiate analgesic; Z79.84 Long term (current) use of oral hypoglycemic drugs; Z79.82 Long term (current) use of aspirin; E78.00 Pure hypercholesterolemia, unspecified; Z88.1 Allergy status to other antibiotic agents; Z88.6 Allergy status to analgesic agent; Z88.8 Allergy status to other drugs, medicaments and biological substances; Z90.710 Acquired absence of both cervix and uterus; Z88.0 Allergy status to penicillin; Z79.51 Long term (current) use of inhaled steroids; Z96.611 Presence of right artificial shoulder joint; Z98.84 Bariatric surgery status; Y83.8 Other surgical procedures as the cause of abnormal reaction of the patient, or of later complication, without mention of misadventure at the time of the procedure; Z79.899 Other long term (current) drug therapy
CPT/HCPCS: 10140; 94640 ×4; 85652; 85025; 86140; 87070; 87205; 87075; J2250; J1100; J0690 ×4; J2405; J2001; J1650 ×2; J3010; J2270; J0330; J2704

== ENCOUNTER 2017-09-17 16:39 | Emergency (ER) | payer MEDICARE ==
[2017-09-17 16:50] VITALS: RESP 18
[2017-09-17] MEDS ORDERED: MORPHINE SULFATE 4 MG/ML SYRINGE IV STA (17:02)
[2017-09-17] MEDS ORDERED: SODIUM CHLORIDE 0.9% 1,000 ML IV STA (17:02)
[2017-09-17] MEDS ORDERED: ONDANSETRON 4 MG/2 ML VIAL IVP STA (17:04)
--- NOTE | 2017-09-17 17:12 | ED ---
Back Pain HPI - General Chief Complaint: Back Pain/Injury Stated Complaint: Back pain Time Seen by Provider: 09/17/17 16:50 Source: patient, EMS Limitations: no limitations - History of Present Illness Initial Comments: 62 years old female complaining about the back pain, she has a history of back pain she had a laminectomy done and she also sees a pain management doctor Dr. Burkett for the shots. She denies any fall or any trauma or any car accident she said back was acting up for the last to 3 days today got worse pain is in the lower back and radiates to the right buttocks . Review of system is otherwise unremarkable, she denies any bowel or bladder dysfunction - Related Data Home Medications Medication Instructions Recorded Confirmed Amitriptyline HCl 50 mg PO HS 06/22/16 07/03/17 Aspirin [Adult Low Dose Aspirin EC] 81 mg PO DAILY 06/22/16 07/03/17 Fluticasone/Salmeterol [Advair 1 puff INHALATION RT-BID 06/22/16 07/03/17 250-50 Diskus] Atorvastatin [Lipitor] 20 mg PO HS 06/23/16 07/03/17 PARoxetine HCL [Paxil] 40 mg PO HS 06/23/16 07/03/17 Pramipexole [Mirapex] 0.25 mg PO HS 06/23/16 07/03/17 cycloSPORINE [Restasis] 1 drop BOTH EYES BID 06/23/16 07/03/17 metFORMIN HCL 1,000 mg PO BID 06/23/16 07/03/17 Famotidine 20 mg PO BID 05/24/17 07/03/17 PARoxetine [Paxil] 10 mg PO HS 05/30/17 07/03/17 Losartan Potassium 100 mg PO DAILY 07/03/17 07/03/17 amLODIPine BES/OLMESARTAN MED 1 each PO DAILY 07/03/17 07/03/17 [amLODIPine BES/OLMESARTAN MED 10-20 mg] Hydrochlorothiazide 25 mg PO QA 07/04/17 07/04/17 [Hydrochlorothiazide] hydrALAZINE HCL [Apresoline] 50 mg PO BID 07/04/17 07/04/17 Previous Rx's Medication Instructions Recorded Albuterol Nebulized [Ventolin 2.5 mg INHALATION QID #0 01/26/18 Nebulized] Celecoxib [CeleBREX] 200 mg PO DAILY PRN #30 capsule 06/02/17 HYDROcodone/APAP 10-325MG [[place] 1 - 2 tab PO Q4-6H PRN #90 tab 06/02/17 10-325] Cephalexin [Keflex] 500 mg PO Q12HR 10 Days cap 07/01/17 HYDROcodone/APAP 5-325MG [[place] 5] 1 each PO Q6HR PRN #12 tab 09/17/17 predniSONE 50 mg PO DAILY #5 tab 09/17/17 Allergies Allergy/AdvReac Type Severity Reaction Status Date / Time azithromycin Allergy Intermediate Rash/Hives Verified 07/04/17 14:48 clavulanic acid Allergy Intermediate Abdominal Verified 07/04/17 14:48 [From Augmentin] Pain erythromycin base Allergy Intermediate Rash/Hives Verified 07/04/17 14:48 [From Erythrocin] NSAIDS (Non-Steroidal Allergy Intermediate Abdominal Verified 07/04/17 14:48 Anti-Inflamma Pain tetracycline Allergy Intermediate Rash/Hives Verified 07/04/17 14:48 lisinopril Allergy Anaphylaxis Verified 07/04/17 14:48 duloxetine [From Cymbalta] AdvReac Severe Anaphylaxis Verified 07/03/17 11:45 Review of Systems ROS Statement: Those systems with pertinent positive or pertinent negative responses have been documented in the HPI. ROS Other: All systems not noted in ROS Statement are negative. Past Medical History Past Medical History: Asthma, COPD, Diabetes Mellitus, GERD/Reflux, Hyperlipidemia, Hypertension, Musculoskeletal Disorder, Osteoarthritis (OA), Pneumonia, Sleep Apnea/CPAP/BIPAP Additional Past Medical History / Comment(s): C PAP MACHINE, History of Any Multi-Drug Resistant Organisms: None Reported Past Surgical History: Bariatric Surgery, Hernia Repair, Hysterectomy, Joint Replacement, Orthopedic Surgery, Tonsillectomy Additional Past Surgical History / Comment(s): BREAST BIOPSY , CLIFF EN Y, RIGHT AND LEFT KNEE REPLACEMENT , RIGHT SHOULDER REPLACEMENT; L hip replacement, Past Anesthesia/Blood Transfusion Reactions: No Reported Reaction Past Psychological History: Anxiety, Depression Smoking Status: Former smoker Past Alcohol Use History: Occasional Past Drug Use History: None Reported - Past Family History Daughter(s) Family Medical History: Deep Vein Thrombosis (DVT) General Exam - General Exam Comments Initial Comments: General: The patient is awake and alert, in mild distress because of the back pain Skin: Skin is warm and dry and no rashes or lesions are noted. Eye: Pupils are equal, round and reactive to light, extra-ocular movements are intact; there is normal conjunctiva bilaterally. Ears, nose, mouth and throat: There are moist mucous membranes and no oral lesions. Neck: The neck is supple, there is no tenderness or JVD. Cardiovascular: There is a regular rate and rhythm. No murmur, rub or gallop is appreciated. Respiratory: To auscultation bilateral, no wheezing no rhonchi no distress respiratory yin noticed Gastrointestinal: Soft, non-distended, non-tender abdomen without masses or organomegaly noted. There is no rebound or guarding present. Bowel sounds are unremarkable. Back: Initially she was in pain and didn't want to move, but is suspected patient's wishes she was giving steroids along with the morphine that helped with the pain, no focal tenderness noticed along the lumbar spine deep tendon reflexes are within normal range she was reluctant to do the straight leg raise because she had left side prosthesis on the left hip she also has a both total knees but there was no motor or sensory deficits noticed Musculoskeletal: Normal ROM, no tenderness, There is no pedal edema. There is no calf tenderness or swelling. No cords were appreciated. Neurological: CN II-XII intact, Cranial nerves III through XII are intact. There are no obvious motor or sensory deficits. Coordination appears grossly intact. Speech is normal. Psychiatric: Cooperative, appropriate mood & affect, normal judgment. Limitations: no limitations Course Vital Signs 09/17/17 16:47 Temperature 98.5 F Pulse Rate 98 Respiratory 18 Rate Blood Pressure 146/64 O2 Sat by Pulse 94 L Oximetry The lumbar spine was reviewed, no fracture noticed but she does have a chronic disease at multiple levels and bulging disc and no intervention laminectomy good 15 years ago he is followed by Dr. christianson for the shots in the spine Disposition Clinical Impression: Lower back pain, Acute exacerbation of chronic low back pain Disposition: HOME SELF-CARE Condition: Fair Instructions: Chronic Back Pain (ED) Prescriptions: HYDROcodone/APAP 5-325MG [[place] 5] 1 each PO Q6HR PRN #12 tab PRN Reason: Pain predniSONE 50 mg PO DAILY #5 tab Is patient prescribed a controlled substance at d/c from ED?: Yes If prescribed controlled substance>3 days was MAPS reviewed?: No When asked, does pt state using other controlled substances?: No Referrals: Jorge Hansen MD [Primary Care Provider] - 1-2 days
[2017-09-17] MEDS ORDERED: DEXAMETHASONE SOD PHOSPHATE 10 MG/ML 1 ML VIAL IV STA (17:14)
--- NOTE | 2017-09-17 17:43 | CT ---
EXAMINATION TYPE: CT lumbar spine wo con DATE OF EXAM: 09/17/2017 5:32 PM COMPARISON: NONE HISTORY: Patient complains of chronic low back pain. CT DLP: 2069.1 mGycm Automated exposure control for dose reduction was used. Unenhanced CT of the lumbar spine was performed. Bone and soft tissue window settings are submitted as well as coronal and sagittal reconstructions. FINDINGS: There is a slight levoscoliotic curvature of the lumbar spine. Multilevel disc desiccation is seen. Multilevel facet arthropathy, endplate sclerosis, intervertebral disc space narrowing, vacuu m disc phenomenon and small anterior osteophytes are present. There are bilateral fluid attenuated pr obable renal cyst measuring 3.4 cm on the left and 1.7 cm on the right. Partial visualization of the partial gastrectomy is also noted. No evidence of acute fracture of the thoracic spine. L1-L2: There is a broad-based disc bulge and posterior disc osteophyte complex in combination with fa cet arthropathy that create at least mild right and moderate left neural foraminal narrowing. There a ppears to be mild spinal canal stenosis. L2-L3: There is a broad-based disc bulge, facet arthropathy, and ligamentum flavum buckling that crea te at least mild bilateral neural foraminal narrowing and mild spinal canal stenosis. L3-L4: There is a right eccentric broad-based disc bulge, facet arthropathy and ligamentum flavum buc imelda that creates at least mild left and moderate right neural foraminal narrowing as well as modera te spinal canal stenosis. L4-L5: There is partial resection of the spinous processes at this level, facet arthropathy extending into the neural foramen bilaterally, and at least a broad-based disc bulge. There is probable result ant severe bilateral neural foraminal narrowing. No spinal canal stenosis. L5-S1: A broad-based disc bulge, facet arthropathy and small posterior osteophytes creating at least moderate bilateral neural foraminal narrowing. IMPRESSION: 1. No evidence of acute fracture or malalignment of the lumbar spine. 2. Evaluation for disc herniation is limited on CT. MRI better characterizes neural foraminal stenosi s degree and spinal canal stenosis degree. Given this there is moderate to severe multilevel degenera tive disc disease creating variable degrees of neural foraminal stenosis as described above and mild spinal canal so stenosis from L1 to L3 and moderate spinal canal stenosis at L3-L4. 3. Mild levoscoliosis of the lumbar spine.
[2017-09-17 18:21] VITALS: BP 139/64; PULSE 86
[2017-09-17 18:32] VITALS: TEMP 97.6
== END 2017-09-17 18:40 | disposition home or self-care (01) ==
LOC: EC 16:39
DX: M54.5 Low back pain (principal); G89.29 Other chronic pain; J44.9 Chronic obstructive pulmonary disease, unspecified; E11.9 Type 2 diabetes mellitus without complications; K21.9 Gastro-esophageal reflux disease without esophagitis; E78.5 Hyperlipidemia, unspecified; I10 Essential (primary) hypertension; G47.30 Sleep apnea, unspecified; Z99.89 Dependence on other enabling machines and devices; F32.9 Major depressive disorder, single episode, unspecified; F41.9 Anxiety disorder, unspecified; Z87.891 Personal history of nicotine dependence; Z79.51 Long term (current) use of inhaled steroids; Z79.84 Long term (current) use of oral hypoglycemic drugs; Z79.82 Long term (current) use of aspirin; Z79.899 Other long term (current) drug therapy; Z88.1 Allergy status to other antibiotic agents; Z88.2 Allergy status to sulfonamides; Z88.6 Allergy status to analgesic agent; Z88.8 Allergy status to other drugs, medicaments and biological substances; Z88.0 Allergy status to penicillin; Z96.611 Presence of right artificial shoulder joint; Z96.642 Presence of left artificial hip joint; Z96.653 Presence of artificial knee joint, bilateral
CPT/HCPCS: 72131; 99284; 96374; 96375 ×2; 96361; J2270; J1100; J2405

== ENCOUNTER → 2017-09-19 | Outpatient (CLI) | payer MEDICARE ==
--- NOTE | 2017-09-19 17:49 | CONS ---
CONSULTATION This consultation note is for sleep apnea. This is a pleasant 62-year-old female patient who is coming in for evaluation and management of obstructive sleep apnea. The patient was diagnosed having CLAUDIA while she was living in [place], [place]. Her diagnosis was established in September of 2008. Back then the patient was found to have an AHI of 7, worse during REM with an AHI of 22, during REM sleep with a minimum pulse ox of 81%. She was initially placed on a CPAP pressure of 9 cm of water and subsequently she had another CPAP titration in 2010 and her pressure was brought up to 11 cm of water. Note that all of this evaluation was done through [facility] and this is in [facility] and copies of these sleep studies are available to me at the time of the evaluation. Over the past 8 to 9 years, the patient has gained around 20 pounds. She used to weigh around 260 and currently she is up to 280. She is utilizing a Mirage Quattro full face mask. I checked her CPAP machine and this is a ResMed S9 series set at a pressure of 11 cm of water with a C-flex of 3 and her average CPAP is around 8.3 hours per night. Her CPAP use is for more than 4 hours 100% of the time. She is benefitting from the treatment. She is looking for the . She is going to bed around 10:00 p.m. and waking up 4:30 am in the morning and she is averaging around at least 8 hours of sleep per night. No snoring while on the CPAP therapy. She denies having to stop breathing at nighttime. She denies waking up, choking or gasping for air. No nocturia. No restlessness in lower extremities. No major hypersomnia or sleepiness during the day and her treatment remains quite successful at this point in time. PAST MEDICAL HISTORY: 1. Obesity. 2. Obstructive sleep apnea. 3. COPD/asthma. 4. Hypertension. 5. Hyperlipidemia. 6. RLS. PAST SURGICAL HISTORY: Includes tonsillectomy and , surgery on the left mid 5th metatarsal, bunion surgery bilaterally, hammertoe surgery bilaterally, heel spur surgery on the left, laminectomy L4, gastric bypass surgery, appendectomy, hernia repair, meniscal tears bilaterally, knee replacement bilaterally, rotator cuff surgery bilaterally, hysterectomy, cataract surgery bilaterally, vitrectomy on the right and reversed total shoulder replacement on the right and left hip replacement. OUTPATIENT MEDICATION: Include amitriptyline 50 mg p.o. daily, Advair 250/50 one diskus 1 puff twice a day, Lipitor 20 mg p.o. daily, Norvasc 10 mg p.o. daily, Paxil 50 mg p.o. daily, hydrochlorothiazide 25 mg p.o. daily, metformin 1 g twice a day, Mirapex 0.25 mg 1 tablet a day, Losartan 100 mg p.o. b.i.d., hydralazine 50 mg twice a day, multivitamin 1 tablet a day and fish oil 1000 mg p.o. daily, aspirin 81 mg p.o. daily, iron 65 mg p.o. daily, vitamin D 5000 units daily, Celebrex 200 mg p.o. daily and Pepcid 20 mg on an as-needed basis. DRUG ALLERGIES: TETRACYCLINE, ERYTHROMYCIN, Z-MAIRA, AUGMENTIN AND NONSTEROIDAL ANTIINFLAMMATORIES MEDICATION. FAMILY HISTORY: Negative for sleep apnea. SOCIAL HISTORY: Nonsmoker, no history of alcohol. No history of IV drugs. REVIEW OF SYSTEMS: A 12-point review of system was done. No snoring while on CPAP therapy. No insomnia, no choking or gasping for air. No nocturia. No grinding of the teeth. No sleepwalking, no difficulty with dry mouth or nocturnal heartburn or palpitation or anxiety or depression. No claustrophobia. No sleep paralysis. No hallucinations. No cataplexy at this point in time. PHYSICAL EXAMINATION: BP is 142/96, pulse 92, respirations 16, temp 98.4. saturation 96% on room air. Weight is ____. Height is 5 feet 3 inches and neck size 16-1/4 inch. GENERAL APPEARANCE: Calm, comfortable, in no acute distress. Head is atraumatic, normocephalic. NECK: Short, crowding of the posterior pharynx with a Mallampati class 4. No goiter or neck masses. LUNGS: Clear to auscultation. HEART: Sounds regular rate and rhythm. Normal S1, S2. No S3. No murmurs. ABDOMEN: Soft, nontender. No organomegaly. EXTREMITIES: No edema. No cyanosis or clubbing. NEUROLOGIC: Alert and oriented x3. There is no focal neurological deficit. Psychiatrically, negative for anxiety or depression at this point in time. IMPRESSION: 1. There is obstructive sleep apnea with AHI of 7 based on a sleep study that was done in 2008 in [place], [place]. The patient's AHI during REM was up to 22 and currently the patient is on CPAP pressure of 9 cm of water, based on the titration that was done in 2010. 2. Obesity with a BMI of 49.5. 3. Hypersomnia, improved while on CPAP therapy and the patient's [place] score is down to 3. 4. Chronic obstructive pulmonary disease/asthma. 5. Hyperlipidemia. 6. Hypertension. 7. Restless leg syndrome. PLAN: 1. Encourage weight loss. 2. No need to repeat the sleep study. The patient is fairly well treated on the CPAP and she is utilizing her ResMed S9 series, which is set at a pressure of 11 cm of water. I am, however, interested in changing her mask interface. I offered her an AirFit F20 full face mask medium size and she felt much more comfortable with that mask and in order will be sent to . 3. We will consider repeating titration in a few years time once it is time for her machine to be updated. For now I do not see any reason to undergo another titration as long as the treatment is successful and the patient is not having any major hypersomnia or sleepiness. Implement good sleep hygiene measures. Optimize pulmonary status and see him back at the [facility]. ARMIN / YIFAN: [id number] /
== END | disposition home or self-care (01) ==
LOC: SLEEP 13:49
PROVIDERS: ATTEND Internal Medicine Critical Care Medicine
DX: G47.33 Obstructive sleep apnea (adult) (pediatric) (principal); E66.9 Obesity, unspecified; G47.10 Hypersomnia, unspecified; J44.9 Chronic obstructive pulmonary disease, unspecified; E78.5 Hyperlipidemia, unspecified; I10 Essential (primary) hypertension; G25.81 Restless legs syndrome; Z98.890 Other specified postprocedural states; Z98.84 Bariatric surgery status; Z96.653 Presence of artificial knee joint, bilateral; Z90.710 Acquired absence of both cervix and uterus; Z88.1 Allergy status to other antibiotic agents; Z88.6 Allergy status to analgesic agent; Z88.8 Allergy status to other drugs, medicaments and biological substances; Z68.42 Body mass index [BMI] 45.0-49.9, adult; Z79.82 Long term (current) use of aspirin; Z79.899 Other long term (current) drug therapy
CPT/HCPCS: 99211

== ENCOUNTER → 2017-12-12 | Outpatient (CLI) | payer MEDICARE ==
--- NOTE | 2017-12-12 23:40 | CT ---
EXAMINATION TYPE: CT hip LT wo con DATE OF EXAM: 12/12/2017 COMPARISON: Left hip x-ray May 30, 2017. HISTORY: Left hip pain, limited mobility CT DLP: 1048 mGycm Automated exposure control for dose reduction was used. FINDINGS: Metallic hardware from left arthroplasty is redemonstrated causing streak artifact. Position is stabl e. No new suspicious surrounding lucency is identified to suggest loosening or infection. No acute fr acture is evident. Scar tissue anterolaterally is seen axial image 35. Muscle bulk and left side is f airly well-maintained. No worrisome fluid collection is seen. No suspicious groin adenopathy is prese nt. No suspicious fat or bowel-containing hernia is noted. Visualized portion of the pelvis and lower abdomen show some scattered surgical clips anteriorly and laterally. There is no suspicious bowel dilatation. No concerning fluid collection is seen. Evaluatio n of pelvis is suboptimal due to streak artifact from metallic hardware. IMPRESSION: NO SIGNIFICANT FINDING IS SEEN TO ACCOUNT FOR PATIENT'S SYMPTOMS OF PERSISTENT PAIN.
== END | disposition home or self-care (01) ==
LOC: RADCTMAIN 19:15
PROVIDERS: ATTEND Orthopaedic Surgery
DX: M25.552 Pain in left hip (principal); Z96.642 Presence of left artificial hip joint

== ENCOUNTER → 2018-08-06 | Outpatient (CLI) | payer MEDICARE ==
--- NOTE | 2018-08-06 13:00 | XR ---
EXAMINATION TYPE: XR chest 2V DATE OF EXAM: 08/06/2018 COMPARISON: 05/22/2017 TECHNIQUE: PA and lateral views submitted. HISTORY: Preop FINDINGS: A prosthetic right shoulder. No pneumothorax are intact. Arthropathy shoulders. Heart size normal. El evated left hemidiaphragm with subsegmental consolidation. Interstitium is stable. No pneumothorax. D egenerative change of the spine. Surgical clips in the abdomen. IMPRESSION: Elevated left hemidiaphragm with subsegmental atelectasis favored over infiltrate.
== END | disposition home or self-care (01) ==
LOC: RADXRMAIN 12:37
PROVIDERS: ATTEND Nurse Practitioner Adult Health
DX: Z01.818 Encounter for other preprocedural examination (principal); J98.11 Atelectasis; J98.6 Disorders of diaphragm
CPT/HCPCS: 71046

== ENCOUNTER → 2018-08-06 | Outpatient (CLI) | payer MEDICARE ==
[2018-08-06 13:30] LABS: Basophils % (A) 1 %; Eosinophils # (A) 0.1 k/uL (0-0.7); Eosinophils % (A) 1 %; HCT 43.7 % (34.0-46.0); HGB 13.8 gm/dL (11.4-16.0); Lymphocytes # (A) 1.2 k/uL (1.0-4.8); Lymphocytes % (A) 18 %; MCH 27.3 pg (25.0-35.0); MCHC 31.6 g/dL (31.0-37.0); MCV 86.4 fL (80.0-100.0); Mean Platelet Volume 7.2; Monocytes # (A) 0.2 k/uL (0-1.0); Monocytes % (A) 3 %; Neutrophils # (A) 4.9 k/uL (1.3-7.7); Neutrophils % (A) 76 %; Platelet Count 360 k/uL (150-450); RBC 5.06 m/uL (3.80-5.40); WBC 6.5 k/uL (3.8-10.6)
[2018-08-06 19:53] LABS: Albumin 5.1 g/dL (3.80-4.90); Albumin/Globulin Ratio 2.83 (1.60-3.17); Anion Gap 16.3 mmol/L (4.00-12.00); Calcium 9.9 mg/dL (8.7-10.3); Carbon Dioxide 22.7 mmol/L (21.6-31.8); Globulin 1.8 g/dL (1.6-3.3); Potassium 4.4 mmol/L (3.5-5.5); Total Bilirubin 0.3 mg/dL (0.2-1.2); Total Protein 6.9 g/dL (6.2-8.2)
== END ==
LOC: LABWHC1 11:58
PROVIDERS: ATTEND Nurse Practitioner Adult Health
DX: Z01.818 Encounter for other preprocedural examination (principal); Z51.81 Encounter for therapeutic drug level monitoring; Z79.01 Long term (current) use of anticoagulants
CPT/HCPCS: 36415; 80053; 85025

== ENCOUNTER → 2018-08-06 | Outpatient (CLI) | payer MEDICARE ==
[2018-08-06 13:21] LABS: Appearance,Urine Clear (Clear); Bilirubin,Urine Negative (Negative); Blood,Urine Negative (Negative); Color,Urine Yellow; Glucose,Urine (UA) Negative (Negative); Ketones,Urine Negative (Negative); Leukocyte Esterase,Urine Negative (Negative); Nitrite,Urine Negative (Negative); PH, Urine 5.5 (5.0-8.0); Protein,Urine Negative (Negative); Specific Gravity,Urine 1.009 (1.001-1.035); Urobilinogen,Urine <2.0 mg/dL (<2.0)
[2018-08-06 13:38] LABS: INR 0.9 (<1.2); Partial Thromboplastin Time 24.1 sec (22.0-30.0); Prothrombin Time 10.1 sec (9.0-12.0)
== END | disposition home or self-care (01) ==
LOC: LABPAT 11:55
PROVIDERS: ATTEND Orthopaedic Surgery
DX: Z01.818 Encounter for other preprocedural examination (principal); Z79.01 Long term (current) use of anticoagulants; Z01.812 Encounter for preprocedural laboratory examination
CPT/HCPCS: 81003; 85610; 85730; 87070; 93005

== ENCOUNTER 2018-08-14 08:05 | Inpatient (IN) | payer MEDICARE ==
[~2018-08-14 08:05] MED LIST changes: +ACETAMINOPHEN TAB 500 MG TAB PO ONE; +DEXAMETHASONE SOD PHOSPHATE 10 MG/ML 1 ML VIAL IV ONE; +LIDOCAINE 1% 20 ML VIAL (10MG/ML) FOR IV START INTRADERMA PRN; +MELOXICAM 7.5 MG TAB PO ONE; +MIDAZOLAM (PF) 2 MG/2 ML VIAL IV PRN; +ONDANSETRON 4 MG/2 ML VIAL IVP ONE; -Pre Op ABX Message 1 EACH MISC MISCELLANE ONE; +TRANEXAMIC ACID 1,000 MG in SODIUM CHLORIDE 0.9% 100 ML IVPB ONE; +ceFAZolin 3 GM in SODIUM CHLORIDE 0.9% 100 ML IVPB ONE; +fentaNYL (PF) 50 MCG/ML 2 ML AMP IV PRN
[2018-08-14 12:25] LABS: Glucose,Whole Blood 134 mg/dL (75-99)
[2018-08-14] MEDS: LACTATED RINGERS 1,000 ML IV SCH (12:25)
[2018-08-14] MEDS ORDERED: ONDANSETRON 4 MG/2 ML VIAL IVP PRN (12:37)
[2018-08-14] MEDS ORDERED: HYDROmorphone 0.5 MG/0.5 ML SYRINGE IVP PRN ×2 (12:37)
[2018-08-14] MEDS ORDERED: HYDROcodone/APAP 5-325MG 1 EACH TAB PO PRN (12:37)
[2018-08-14] MEDS ORDERED: SENNOSIDES-DOCUSATE SODIUM 1 EACH TAB PO PRN (12:37)
[2018-08-14] MEDS ORDERED: MIDAZOLAM 2 MG/2 ML VIAL ONE (13:09)
[2018-08-14] MEDS ORDERED: HYDROmorphone (PF) 1 MG/ML ONE (13:09)
[2018-08-14] MEDS ORDERED: GLYCOPYRROLATE 0.2 MG/ML 2 ML VIAL ONE ×2 (13:09)
[2018-08-14] MEDS ORDERED: ROCURONIUM BROMIDE 10 MG/ML 10 ML VIAL IV ONE (13:09)
[2018-08-14] MEDS ORDERED: TRANEXAMIC ACID 1,000 MG/10 ML VIAL ONE (13:09)
[2018-08-14] MEDS ORDERED: SODIUM CHLORIDE 0.9% 100 ML BAG ONE (13:09)
[2018-08-14] MEDS ORDERED: CEFAZOLIN IRRIGATION ONE (13:09)
[2018-08-14] MEDS ORDERED: SUCCINYLCHOLINE CHLORIDE 100 MG/5 ML SYR IV ONE (13:09)
[2018-08-14] MEDS ORDERED: PROPOFOL 10 MG/ML 20 ML VIAL IV ONE (13:09)
[2018-08-14] MEDS ORDERED: NEOSTIGMINE 1 MG/ML 10 ML VIAL ONE (13:09)
[2018-08-14] MEDS ORDERED: fentaNYL (PF) 50 MCG/ML 2 ML AMP ONE (13:09)
[2018-08-14] MEDS ORDERED: ePHEDrine SULFATE/0.9% NACL/PF 50 MG/5 ML SYRINGE IV ONE (13:09)
[2018-08-14] MEDS ORDERED: PHENYLEPHRINE-0.9% NACL SYG 1 MG/10 ML SYRINGE ONE (13:09)
[2018-08-14] MEDS ORDERED: LIDOCAINE 1% INJ 10MG/ML (20 ML MDV) ONE (13:09)
[2018-08-14] MEDS ORDERED: SODIUM CHLORIDE 0.9% IRRIGATION ONE (13:09)
--- NOTE | 2018-08-14 14:47 | P.OP ---
Date of Procedure: 08/14/18 Preoperative Diagnosis: Severe osteoarthritis left shoulder with chronic rotator cuff tear Postoperative Diagnosis: Severe osteoarthritis left shoulder chronic rotator cuff tear Procedure(s) Performed: Reverse total shoulder arthroplasty Implants: Biomet comprehensive shoulder system, mini humeral stem, 11 mm porous-coated. Biomet comprehensive reverse shoulder system, humeral bearing, 44 mm x 36 mm, standard Biomet comprehensive reverse shoulder system, humeral tray with locking ring, 44 mm, standard Biomet comprehensive reverse shoulder, Glenosphere baseplate, 25 mm Biomet comprehensive reverse shoulder, central screw, 6.5 mm x 20 mm Biomet comprehensive reverse shoulder, fixed locking screw, 4.75 x 25 mm, 15 mm, 15 mm, 25 mm. Biomet comprehensive reverse shoulder glenosphere, 36 mm, standard All components were press-fit. Articulation is metal on polyethylene. Anesthesia: ALEXAA Surgeon: Mumtaz Fraga Pulpit Operator #1: Maria Luz Matos Estimated Blood Loss (ml): 200 Pathology: other (Humeral head) Condition: stable Disposition: PACU Indications for Procedure: This is a patient that presented to my office with severe pain in the shoulder. X-rays demonstrated severe osteoarthritis of the glenohumeral joint of her shoulder. After failure of conservative treatment, we discussed the surgical and nonsurgical treatment options at length. The patient wishes to proceed with a reverse total shoulder arthroplasty. Patient is aware of the complications of the procedure which include but are not limited to infection, hardware failure, persistent pain, dislocation, and nerve injury. Informed consent was obtained. Operative Findings: The operative findings are consistent with severe osteoarthritis the left shoulder with massive retracted chronic rotator cuff tear. Description of Procedure: The patient was seen in the preoperative area, consent was reviewed, and operative site was marked with a skin marker. Patient was then brought to the operating room and given preoperative antibiotics intravenously. Patient was also given 1 g of Tranexamic acid intravenously. A general anesthetic was administered by the anesthesia department. A Martinez catheter was placed by the nursing staff. The patient was then placed in a beachchair position with the bony prominences well-padded and the head secured. The shoulder was then prepped and draped in the usual sterile fashion. A universal timeout was then performed, which confirmed the patient's name, surgical site, ALLERGIES, and consent. A standard deltopectoral approach was performed. The skin and subcutaneous tissue was sharply dissected down to the deltoid fascia. The cephalic vein was then identified and retracted medially. The deltopectoral interval was then utilized to expose the subscapularis tendon. A retractor was then placed under the coracobrachialis tendon retracted medially, and the deltoid. The axillary nerve is palpated and protected throughout the procedure. The subscapularis tendon was then released and retracted medially. The humeral head was then exposed easily. The rotator cuff tendon was found to be completely torn and retracted. After the humeral head was exposed, osteophytes were removed with a Ronguer. Next the humeral stem was prepared. A starter reamer was then placed through the humeral head along the axis of the humeral shaft just lateral to the articular surface and just medial to the rotator cuff attachment. Sequential reaming was performed to the appropriate size reamer was inserted to the #between the 3 and 4 on the reamer. Next the intramedullary resection guide was placed on the reamer shaft. It was placed to the appropriate resection depth and angle of 30 of retroversion. Resection guide block was then secured with Steinmann pins. The proximal humerus was then resected. The block was then removed and the humerus was then broached sequentially to the same size as the reamer. After the broaches fully seated, the broach handle was removed and a broach cover was placed protect the humerus while the glenoid was prepared. Next attention was directed to the glenoid. The appropriate retractors were placed around the glenoid and any remaining soft tissues was removed from around the glenoid. After the glenoid was adequately exposed, the threaded glenoid guide was placed onto the glenoid and a 3.2 mm Steinmann pin was inserted in the glenoid at the desired angle and position, ensuring the pin engaged medial cortical wall. Next, the cannulated baseplate reamer was placed over the top of the Steinmann pin. The glenoid was then reamed to the appropriate depth. The glenoid reamer was then removed, leaving the Steinmann pin. The glenoid Herbert plate implant was placed on the end of the cannulated baseplate impactor. The baseplate was then impacted fully into the glenoid. Next the 6.5 mm central screw was then placed which afforded excellent fixation. The 4 peripheral locking screws were then drilled measured and placed. Next the appropriate glenosphere was opened and impacted into the glenoid baseplate. Attention was then redirected to the humerus. Next a trial humeral tray was placed in the shoulder was reduced. Shoulder was taken through a full range of motion and found to be stable. The shoulder was then gently dislocated, and the trial humerus and humeral tray were removed. The final humeral stem was impacted in the final humeral tray was impacted as well. Shoulder was then relocated. Again the shoulder was taken through a range of motion and found to have no instability. Shoulder was then irrigated with pulsatile lavage. The shoulder was then irrigated with Irrisept solution. The soft tissues were then injected with a ropivacaine solution, which consisted of 246.25 mg of ropivacaine, 0.5 mg of epinephrine, 30 mg of Toradol, 80 g of clonidine, and 48.45 mL of sterile water, for a total of 100 mL of fluid injected. A second dose of 1 g of Tranexamic acid was given. The subscapularis was then repaired with #1 Vicryl. The deltopectoral interval was then closed with #1 Vicryl as well. The subcutaneous tissues were closed with 2-0 Vicryl then Dermabond was placed on the skin. A sterile dressing was then applied, the patient was transported to the recovery room in an arm sling in stable condition. The community program assistant SHERIDAN Mehta was required due the complexity of surgery and the need for a skilled surgical scrub technician.
[2018-08-14] MEDS ORDERED: LACTATED RINGERS 1,000 ML IV ONE (15:00)
[2018-08-14] MEDS: HYDROmorphone 1 MG/ML 1 ML SYRINGE IVP ONE ×2 (15:25→16:17)
[2018-08-14] MEDS: HYDROmorphone 0.5 MG/0.5 ML SYRINGE IVP ONE ×2 (15:25→16:10)
[2018-08-14] MEDS: MEPERIDINE 50 MG/ML SYRINGE IVP ONE ×2 (15:40→15:45)
--- NOTE | 2018-08-14 16:12 | XR ---
EXAMINATION TYPE: XR shoulder limited LT DATE OF EXAM: 08/14/2018 CLINICAL HISTORY: Left shoulder pain after arthroplasty TECHNIQUE: Single view of the left shoulder. COMPARISON: None. FINDINGS: There is a reverse total left shoulder arthroplasty. Postoperative alignment is maintained. Subcutaneous edema and emphysema are noted. Left lung is suboptimally viewed. IMPRESSION: Postoperative change of the left shoulder with appropriate anatomic alignment.
[2018-08-14 18:34] VITALS: BMI 47.7
[2018-08-14] MEDS: HYDROmorphone 1 MG/ML 1 ML SYRINGE IVP PRN ×2 (18:55→22:18)
[2018-08-14 20:10] LABS: Glucose,Whole Blood 182 mg/dL (75-99)
[2018-08-14] MEDS: SYMBICORT 80-4.5 MCG INHALER INHALATION SCH (20:48)
[2018-08-14] MEDS ORDERED: ceFAZolin 3 GM in SODIUM CHLORIDE 0.9% 100 ML IVPB SCH (21:00)
[2018-08-14] MEDS ORDERED: ALBUTEROL NEBULIZED 2.5 MG/3 ML INHALATION SCH (21:00)
[2018-08-14] MEDS: FAMOTIDINE 20 MG TAB PO SCH (21:16)
[2018-08-14] MEDS: hydrALAZINE HCL 50 MG TAB PO SCH (21:16)
[2018-08-14] MEDS: ATORVASTATIN 20 MG TAB PO SCH (21:16)
[2018-08-14] MEDS: HYDROcodone/APAP 5-325MG 1 EACH TAB PO PRN (21:17)
[2018-08-14] MEDS: AMITRIPTYLINE HCL 50 MG TAB PO SCH (21:31)
[2018-08-14] MEDS: SODIUM CHLORIDE 0.9% 1,000 ML IV SCH (21:31)
[2018-08-14] MEDS: INSULIN ASPART (NovoLOG) 100 UNIT/ML VIAL SQ SCH (21:31)
[2018-08-14 21:34] LABS: Glucose,Whole Blood 176 mg/dL (75-99)
[2018-08-14] MEDS: NICOTINE 7MG/24HR PATCH TRANSDERM SCH (22:18)
[2018-08-14] MEDS: diphenhydrAMINE 25 MG CAP PO PRN (23:58)
[2018-08-15] MEDS: IPRATROPIUM-ALBUTEROL 3 ML NEB INHALATION SCH ×7 (01:12→21:28)
[2018-08-15] MEDS ORDERED: diphenhydrAMINE 50 MG/ML 1 ML VIAL IVP STA (01:38)
[2018-08-15] MEDS: HYDROcodone/APAP 5-325MG 1 EACH TAB PO PRN (03:26)
[2018-08-15] MEDS: SODIUM CHLORIDE 0.9% 1,000 ML IV SCH ×2 (04:44→17:40)
[2018-08-15] MEDS: LACTATED RINGERS 1,000 ML IV SCH (04:45)
[2018-08-15 07:08] LABS: Glucose,Whole Blood 155 mg/dL (75-99)
[2018-08-15 07:49] LABS: Basophils % (A) 0 %; Eosinophils # (A) 0.1 k/uL (0-0.7); Eosinophils % (A) 1 %; Lymphocytes # (A) 1.2 k/uL (1.0-4.8); Lymphocytes % (A) 10 %; MCH 27.6 pg (25.0-35.0); MCHC 31.3 g/dL (31.0-37.0); MCV 88.3 fL (80.0-100.0); Mean Platelet Volume 7.5; Monocytes # (A) 0.5 k/uL (0-1.0); Monocytes % (A) 4 %; Neutrophils # (A) 10.6 k/uL (1.3-7.7); Neutrophils % (A) 85 %; Platelet Count 254 k/uL (150-450); RBC 3.97 m/uL (3.80-5.40); RDW 14.7 % (11.5-15.5); WBC 12.5 k/uL (3.8-10.6)
--- NOTE | 2018-08-15 08:26 | CONS ---
CONSULTATION DATE OF CONSULTATION: 08/14/2018 REASON FOR CONSULTATION: Medical management requested by Dr. Fraga. CONSULTATION: This is a 63-year-old patient of Dr. Hansen who has undergone a reverse left total shoulder arthroplasty. Post procedure some pain is present. Chronic stable medical conditions include COPD, diabetes, GERD, hypertension, hyperlipidemia, obstructive sleep apnea, anxiety, depression. The patient does smoke cigarettes. Post procedure, patient did tolerate supper. No nausea, vomiting. Denies any cardiac history. Sitting up on bed. REVIEW OF SYSTEMS: CONSTITUTIONAL: None. HEENT: None. RESPIRATORY: Occasional wheezing. CARDIOVASCULAR: None. GASTROINTESTINAL: Heartburn. GENITOURINARY: None. MUSCULOSKELETAL: Arthritic pain in many joints. DERMATOLOGICAL: None. HEMATOLOGICAL: None. LYMPHATICS: None. PSYCHIATRY: Anxiety, depression, controlled. NEUROLOGICAL: None. PAST MEDICAL HISTORY: Past medical history of COPD, diabetes, GERD, hyperlipidemia, hypertension, osteoarthritis, also sleep apnea. PAST SURGICAL HISTORY: Bariatric surgery, hernia repair, hysterectomy, orthopedic surgery, tonsillectomy, Dale- en-Y, bilateral knee replacement, right shoulder replacement, left hip replacement, left heel spur, bilateral bunionectomy, hammertoe, bilateral carpal tunnel, bilateral cataract. PSYCH HISTORY: Anxiety and depression. SOCIAL HISTORY: Patient smoked for close to 32 years, now down to 3 cigarettes daily. Does edible marijuana. Lives by herself. FAMILY HISTORY: Family history of DVT, renal failure. HOME MEDICATIONS: 1. Metformin 1000 mg p.o. b.i.d. 2. Hydralazine 50 mg b.i.d. 3. Mucinex DM 1 tablet p.o. q.12. 4. Benadryl 25 p.o. daily. 5. Amlodipine 10 mg p.o. daily. 6. Systane Complete one drop to both eyes b.i.d. 7. Mirapex 0.5 mg p.o. q.h.s. 8. Paxil 10 mg q.h.s. 9. Paxil 40 mg q.h.s. 10.Multivitamin one tablet p.o. daily. 11.Losartan 100 mg p.o. daily. 12.Krill oil 500 mg p.o. daily. 13.Hydrochlorothiazide 25 mg p.o. daily. 14.Ferrous sulfate 325 p.o. daily. 15.Pepcid 20 mg b.i.d. 16.Vitamin D3, 1000 units p.o. daily. 17.Celebrex 200 mg p.o. daily. 18.Symbicort 80/4.5 one puff b.i.d. 19.Lipitor 20 mg q.h.s. 20.Aspirin 81 mg p.o. daily. 21.Amitriptyline 50 mg q.h.s. 22.Ventolin 2.5 q.i.d. 23.Ventolin HFA 1 or 2 puffs q.6 p.r.n. ALLERGIES: Allergies to AZITHROMYCIN AUGMENTIN, NSAIDS, TETRACYCLINES, LISINOPRIL CYMBALTA. PHYSICAL EXAMINATION: On examination, temperature 98.3 pulse 91, respiration 14, blood pressure 109/70, pulse ox 90% on room air. GENERAL APPEARANCE: Well built, BMI 47.5, sitting up, slight wheezing. EYES: Pupils equal. Conjunctivae normal. HENT: External appearance of nose and ears normal. Oral cavity normal. NECK: JVD not raised. Mass not palpable. RESPIRATORY: Effort increased. LUNGS: Diminished breath sounds. Prolonged expiration and wheezing. CARDIOVASCULAR: First and second sounds normal. No edema. ABDOMEN: Soft, nontender. Liver and spleen not palpable. LYMPHATIC: No lymph node palpable in the neck and axillae. PSYCHIATRY: Alert and oriented x3. Mood and affect slightly anxious appearing. EXTREMITIES: Dressing over the left shoulder. Left arm in a support. The patient has got neurological sensation and movement present into left hand fingers. INVESTIGATIONS: Accu-Cheks noted. Earlier white count 6.5, hemoglobin 13.8. Potassium 4.4, BUN 16, creatinine 0.6. ASSESSMENT: 1. Reverse left total shoulder arthroplasty. 2. Chronic obstructive pulmonary disease in a current smoker. 3. Diabetes mellitus type 2. 4. Gastroesophageal reflux disease. 5. Hyperlipidemia. 6. Essential hypertension. 7. Primary osteoarthritis. 8. Obstructive sleep apnea, uses CPAP machine. 9. Anxiety and depression, not otherwise specified. 10.Chronic nicotine dependence. Patient active cigarette smoker. PLAN: Home medications resumed. Accu-Cheks will be followed with sliding scale. Patient will be given a nicotine patch. Pain control is in place. The patient is advised against smoking. The patient is looking to go to the [facility]. Follow up with Dr. Hansen. Thank you, Dr. Fraga. MMPARVEENL / MALUN: [id number] /
[2018-08-15] MEDS ORDERED: HYDROcodone/APAP 7.5-325MG 1 EACH TAB PO PRN (08:32)
--- NOTE | 2018-08-15 08:39 | P.PN ---
Subjective Progress Note Date: 08/15/18 This is a 63-year-old female who is status post reverse total shoulder arthroplasty. This is postoperative day #1 and patient is seen and evaluated at bedside with Dr. Mumtaz Fraga. Patient does complain of soreness to the left shoulder today. Patient denies any fever/chills, numbness, weakness, tingling, abdominal pain, shortness of breath or chest pain. Objective - Vital Signs Vital signs: Vital Signs Temp 98.2 F 08/15/18 07:00 Pulse 68 08/15/18 07:00 Resp 17 08/15/18 07:00 BP 132/85 08/15/18 07:00 Pulse Ox 91 L 08/15/18 07:00 Intake & Output 08/14/18 08/15/18 08/15/18 18:59 06:59 18:59 Intake Total 1401 240 Output Total 200 Balance 1201 240 Intake: IV 1401 Oral 240 Output: Estimated Blood Loss 200 Other: Voiding Method Toilet # Voids 1 - Exam Vital signs are stable. Patient is in no acute distress and is alert and oriented 3. Arm sling in place. Dressing is clean, dry, and intact. Patient has full left wrist and hand range of motion without pain or difficulty. Neurovascular status and circulatory status are intact. - Labs CBC & Chem 7: 08/15/18 07:16 Labs: Abnormal Lab Results - Last 24 Hours (Table) 08/14/18 08/14/18 08/14/18 Range/Units 12:16 19:59 21:23 WBC (3.8-10.6) k/uL Hgb (11.4-16.0) gm/dL Neutrophils # (1.3-7.7) k/uL POC Glucose (mg/dL) 134 H 182 H 176 H (75-99) mg/dL 08/15/18 08/15/18 Range/Units 06:56 07:16 WBC 12.5 H (3.8-10.6) k/uL Hgb 11.0 L (11.4-16.0) gm/dL Neutrophils # 10.6 H (1.3-7.7) k/uL POC Glucose (mg/dL) 155 H (75-99) mg/dL Assessment and Plan Assessment: Asthma COPD Diabetes mellitus GERD Hyperlipidemia Hypertension Osteoarthritis Sleep apnea (1) Osteoarthritis of left shoulder Current Visit: Yes Status: Acute Code(s): M19.012 - PRIMARY OSTEOARTHRITIS, LEFT SHOULDER SNOMED Code(s): 779338517041941 (2) S/p reverse total shoulder arthroplasty Current Visit: Yes Status: Acute Code(s): Z96.619 - PRESENCE OF UNSPECIFIED ARTIFICIAL SHOULDER JOINT SNOMED Code(s): 965754055 Plan: 1. Maintain sling to left upper extremity. 2. Continue routine postoperative care and pain control. 3. Ice to the left shoulder as needed. 4. Will adjust [place] to 7.5/325 mg. 5. Appreciate input from medicine. 6. Likely discharge to rehab in the next 1-2 days.
[2018-08-15] MEDS: SYMBICORT 80-4.5 MCG INHALER INHALATION SCH ×2 (08:56→21:28)
[2018-08-15] MEDS: MELOXICAM 7.5 MG TAB PO SCH (08:59)
[2018-08-15] MEDS: HYDROcodone/APAP 7.5-325MG 1 EACH TAB PO PRN ×3 (09:00→20:02)
[2018-08-15] MEDS: amLODIPine 10 MG TAB PO SCH (09:00)
[2018-08-15] MEDS: hydrALAZINE HCL 50 MG TAB PO SCH ×2 (09:00→20:02)
[2018-08-15] MEDS: HYDROCHLOROTHIAZIDE 25 MG TAB PO SCH (09:00)
[2018-08-15] MEDS ORDERED: NON-FORMULARY DRUG (Celecoxib 200 MG) PO SCH (09:00)
[2018-08-15] MEDS: FAMOTIDINE 20 MG TAB PO SCH ×2 (09:00→20:02)
[2018-08-15] MEDS: INSULIN ASPART (NovoLOG) 100 UNIT/ML VIAL SQ SCH ×4 (09:01→20:59)
[2018-08-15] MEDS: NICOTINE 7MG/24HR PATCH TRANSDERM SCH (09:01)
[2018-08-15 11:50] LABS: Glucose,Whole Blood 130 mg/dL (75-99)
[2018-08-15 17:19] LABS: Glucose,Whole Blood 143 mg/dL (75-99)
[2018-08-15] MEDS: ATORVASTATIN 20 MG TAB PO SCH (20:01)
[2018-08-15 20:30] LABS: Glucose,Whole Blood 166 mg/dL (75-99)
[2018-08-15] MEDS: AMITRIPTYLINE HCL 50 MG TAB PO SCH (20:59)
[2018-08-15] MEDS ORDERED: IPRATROPIUM-ALBUTEROL 3 ML NEB INHALATION SCH (21:00)
[2018-08-16] MEDS: diphenhydrAMINE 25 MG CAP PO PRN (00:25)
[2018-08-16 00:47] VITALS: RESP 16
[2018-08-16] MEDS: IPRATROPIUM-ALBUTEROL 3 ML NEB INHALATION SCH ×6 (01:11→21:12)
[2018-08-16] MEDS: HYDROcodone/APAP 7.5-325MG 1 EACH TAB PO PRN ×4 (01:26→22:27)
[2018-08-16] MEDS: HYDROmorphone 1 MG/ML 1 ML SYRINGE IVP PRN ×3 (04:16→20:30)
[2018-08-16] MEDS: LACTATED RINGERS 1,000 ML IV SCH (05:38)
--- NOTE | 2018-08-16 06:40 | PN ---
PROGRESS NOTE DATE OF SERVICE: 08/15/2018 PRESENTING COMPLAINT: Left shoulder arthroplasty. INTERVAL HISTORY: Patient is status post left shoulder surgery. Planning to go to [facility] because of limited activity. Pain is present. Did tolerate some diet. Breathing is stable. Did work with therapy. REVIEW OF SYSTEMS: Done for constitutional, cardiovascular, GI, pulmonary, musculoskeletal; relevant findings as above. CURRENT MEDICATIONS: Current medications are reviewed. PHYSICAL EXAMINATION: On examination, temperature 98.2, pulse 68, respiration 17, blood pressure 132/85, pulse ox 91% on room air. GENERAL APPEARANCE: Sitting up, awake. EYES: Pupils equal. Conjunctivae normal. NECK: JVD not raised. Mass not palpable. RESPIRATORY: Effort normal. LUNGS: Decreased breath sounds, prolonged expiration. CARDIOVASCULAR: First and second sounds normal. No edema. ABDOMEN: Soft, nontender. Liver and spleen not palpable. PSYCHIATRY: Alert and oriented x3. Mood and affect normal. EXTREMITIES: Left arm in a sling. INVESTIGATIONS: White count 12.5, hemoglobin 11. Accu-Cheks are noted. ASSESSMENT: 1. Reverse left total shoulder arthroplasty. 2. Chronic obstructive pulmonary disease in a current smoker. 3. Diabetes mellitus type 2. 4. Gastroesophageal reflux disease. 5. Hyperlipidemia. 6. Essential hypertension. 7. Primary osteoarthritis. 8. Obstructive sleep apnea, uses CPAP machine. 9. Anxiety and depression, not otherwise specified. 10.Chronic nicotine dependence. Patient is a cigarette smoker. PLAN: Care was discussed with the patient. Continue with current medication and treatment plan. Awaiting patient transfer to go to the [facility]. MMODL / IJN: [id number] /
[2018-08-16 07:27] LABS: Glucose,Whole Blood 156 mg/dL (75-99)
--- NOTE | 2018-08-16 08:17 | P.PN ---
Subjective Progress Note Date: 08/16/18 This is a 63-year-old female who is status post reverse left total shoulder arthroplasty. This is postoperative day #2 and patient is seen and evaluated at bedside. Patient states that she has been working with occupational therapy, but is still having trouble with ADLs. Patient lives alone. Patient denies any fever/chills, numbness, weakness, tingling, abdominal pain, shortness of breath or chest pain. Objective - Vital Signs Vital signs: Vital Signs Temp 98.1 F 08/16/18 07:00 Pulse 105 H 08/16/18 07:00 Resp 16 08/16/18 07:00 BP 157/85 08/16/18 07:00 Pulse Ox 95 08/16/18 07:00 Intake & Output 08/15/18 08/16/18 08/16/18 18:59 06:59 18:59 Intake Total 600 Balance 600 Intake: Oral 600 Other: Voiding Method Toilet # Voids 3 2 - Exam Vital signs are stable. Patient is in no acute distress and is alert and oriented 3. Dressing is clean, dry, and intact. Patient has full left wrist and hand range of motion without pain or difficulty. Radial pulse 2+. Sensation intact. Neurovascular status and circulatory status are intact. - Labs CBC & Chem 7: 08/15/18 07:16 Labs: Abnormal Lab Results - Last 24 Hours (Table) 08/15/18 08/15/18 08/15/18 Range/Units 11:39 17:07 20:18 POC Glucose (mg/dL) 130 H 143 H 166 H (75-99) mg/dL 08/16/18 Range/Units 07:14 POC Glucose (mg/dL) 156 H (75-99) mg/dL Assessment and Plan Assessment: Asthma COPD Diabetes mellitus GERD Hyperlipidemia Hypertension Osteoarthritis Sleep apnea (1) Osteoarthritis of left shoulder Current Visit: Yes Status: Acute Code(s): M19.012 - PRIMARY OSTEOARTHRITIS, LEFT SHOULDER SNOMED Code(s): 695893303552809 (2) S/p reverse total shoulder arthroplasty Current Visit: Yes Status: Acute Code(s): Z96.619 - PRESENCE OF UNSPECIFIED ARTIFICIAL SHOULDER JOINT SNOMED Code(s): 914631410 Plan: 1. Maintain sling to left upper extremity for comfort. 2. Continue routine postoperative care and pain control. 3. Ice to the left shoulder as needed. 4. Appreciate input from medicine. 5. Likely discharge to rehab tomorrow.
[2018-08-16] MEDS: MELOXICAM 7.5 MG TAB PO SCH (08:38)
[2018-08-16] MEDS: NICOTINE 7MG/24HR PATCH TRANSDERM SCH (08:38)
[2018-08-16] MEDS: amLODIPine 10 MG TAB PO SCH (08:41)
[2018-08-16] MEDS: FAMOTIDINE 20 MG TAB PO SCH ×2 (08:41→20:30)
[2018-08-16] MEDS: HYDROCHLOROTHIAZIDE 25 MG TAB PO SCH (08:41)
[2018-08-16] MEDS: hydrALAZINE HCL 50 MG TAB PO SCH ×2 (08:41→20:30)
[2018-08-16] MEDS: SODIUM CHLORIDE 0.9% 1,000 ML IV SCH ×2 (08:56→20:24)
[2018-08-16] MEDS: INSULIN ASPART (NovoLOG) 100 UNIT/ML VIAL SQ SCH ×4 (08:56→20:24)
[2018-08-16] MEDS: SYMBICORT 80-4.5 MCG INHALER INHALATION SCH ×2 (09:52→21:12)
[2018-08-16 11:27] LABS: Glucose,Whole Blood 151 mg/dL (75-99)
[2018-08-16 16:58] LABS: Glucose,Whole Blood 141 mg/dL (75-99)
[2018-08-16 20:08] LABS: Glucose,Whole Blood 111 mg/dL (75-99)
[2018-08-16] MEDS: AMITRIPTYLINE HCL 50 MG TAB PO SCH (20:30)
[2018-08-16] MEDS: ATORVASTATIN 20 MG TAB PO SCH (20:30)
--- NOTE | 2018-08-16 22:16 | PN ---
PROGRESS NOTE DATE OF SERVICE: 08/16/2018. PRESENTING COMPLAINT: Left shoulder arthroplasty. INTERVAL HISTORY: Patient is status post left shoulder surgery. Some pain is present. Pending to go down to the [facility]. Daughter is visiting. Did tolerate some diet. No other new issues. No chest pain. REVIEW OF SYSTEMS: Done for constitutional, cardiovascular, GI, pulmonary, musculoskeletal; relevant findings as above. CURRENT MEDICATIONS: Reviewed. PHYSICAL EXAMINATION: VITAL SIGNS: Temperature 98.7, pulse 99, respirations 16, blood pressure 147/80, pulse ox 95% on room air. GENERAL: Sitting up on a chair, awake, awake tired. EYES: Pupils equal. Conjunctivae normal. NECK: NECK: JVD not raised. Mass not palpable. Respiratory effort normal. LUNGS: Decreased breath sounds, prolonged expiration. CARDIOVASCULAR: 1st and 2nd sounds. No edema. ABDOMEN: Soft, nontender. Liver and spleen not palpable. PSYCHIATRY: Alert and oriented x3. Mood and affect is normal. Left arm in a sling. INVESTIGATIONS: Accu-Cheks are noted. ASSESSMENT: 1. Reverse left total shoulder arthroplasty. 2. Chronic obstructive pulmonary disease in a current smoker. 3. Diabetes mellitus type 2. 4. Gastroesophageal reflux disease. 5. Hyperlipidemia. 6. Essential hypertension. 7. Primary osteoarthritis. 8. Obstructive sleep apnea uses CPAP machine. 9. Anxiety and depression, not otherwise specified. 10.Chronic nicotine dependence patient is a cigarette smoker. PLAN: Care was discussed the patient. Questions were answered. The patient is pending to transfer to the [facility]. ARMIN / MALUN: [id number] /
[2018-08-16] MEDS ORDERED: PRAMIPEXOLE 0.5 MG TAB PO SCH (22:30)
[2018-08-17] MEDS: IPRATROPIUM-ALBUTEROL 3 ML NEB INHALATION SCH ×5 (00:43→16:29)
[2018-08-17] MEDS: HYDROmorphone 1 MG/ML 1 ML SYRINGE IVP PRN ×2 (03:33→09:17)
[2018-08-17] MEDS: LACTATED RINGERS 1,000 ML IV SCH (04:22)
[2018-08-17] MEDS: HYDROcodone/APAP 7.5-325MG 1 EACH TAB PO PRN ×2 (05:24→14:59)
[2018-08-17 07:14] LABS: Glucose,Whole Blood 165 mg/dL (75-99)
[2018-08-17 07:31] VITALS: BP 132/78; TEMP 98.2
--- NOTE | 2018-08-17 07:59 | P.DS ---
Providers Date of admission: 08/14/18 11:34 Expected date of discharge: 08/17/18 Attending physician: Mumtaz Fraga Consults: 08/14/18 12:41 Consult Physician Routine Consulting Provider: Jorge Hansen Consult Reason/Comments: medical management Do you want consulting provider notified?: Yes 08/14/18 15:44 Consult Physician Routine Consulting Provider: Micky Cook Consult Reason/Comments: medical managment Do you want consulting provider notified?: Already Contacted Primary care physician: Jorge Hansen - Discharge Diagnosis(es) (1) Osteoarthritis of left shoulder Current Visit: Yes Status: Acute (2) S/p reverse total shoulder arthroplasty Current Visit: Yes Status: Acute Hospital Course: This is a 63-year-old female with known history of degenerative arthritis of the left shoulder and chronic rotator cuff tear. The patient presents for evaluation. After discussion and consideration patient elects to proceed with reverse total shoulder arthroplasty. The patient is seen preoperatively by Dr. Fraga and medically cleared for surgery by their primary care physician. Patient is admitted to [facility] on 08/14/2018 for reverse total shoulder arthroplasty. The procedures performed without complication or sequelae. The patient is doing well postoperatively. Labs and vital signs are stable on day of discharge. On day of discharge patient's shoulder incision is healing well. There is minimal erythema. There is no drainage noted at this time. There is minimal soft tissue swelling to the shoulder. Patient has full hand and wrist motion without difficulty or pain. Neurovascular status to the left upper extremity is intact. Patient is discharged in good condition. Please see med rec for accurate list of home medications. Plan - Discharge Summary Discharge Rx Participant: No New Discharge Prescriptions: New HYDROcodone/APAP 7.5-325MG [[place] 7.5-325] 1 - 2 tab PO Q6H PRN #56 tab PRN Reason: Pain Sennosides [Senokot] 1 tab PO BID #60 tablet No Action Amitriptyline HCl 50 mg PO HS Aspirin [Adult Low Dose Aspirin EC] 81 mg PO DAILY Pramipexole [Mirapex] 0.5 mg PO HS PARoxetine HCL [Paxil] 40 mg PO HS metFORMIN HCL 1,000 mg PO BID Atorvastatin [Lipitor] 20 mg PO HS Famotidine 20 mg PO BID PARoxetine [Paxil] 10 mg PO HS Albuterol Nebulized [Ventolin Nebulized] 2.5 mg INHALATION QID #0 Losartan Potassium 100 mg PO QAM Hydrochlorothiazide 25 mg PO QAM hydrALAZINE HCL [Apresoline] 50 mg PO BID guaiFENesin-DM 600/30MG [Mucinex Dm] 1 tab PO Q12HR amLODIPine BESYLATE 10 mg PO QAM Albuterol Inhaler [Ventolin Hfa Inhaler] 1 - 2 puff INHALATION RT-Q6H PRN PRN Reason: Shortness Of Breath diphenhydrAMINE [Benadryl] 25 mg PO DAILY Propylene Glycol [Systane Complete] 1 drop BOTH EYES BID Celecoxib [CeleBREX] 200 mg PO DAILY Multivitamins, Thera [Multivitamin (formulary)] 1 tab PO DAILY Ferrous Sulfate [Feosol] 325 mg PO DAILY Cholecalciferol [Vitamin D3] 1,000 unit PO DAILY Krill Oil 500 mg PO DAILY Budesonide/Formoterol Fumarate [Symbicort 80-4.5 Mcg Inhaler] 1 puff INHALAT ION RT-BID Discharge Medication List Amitriptyline HCl 50 mg PO HS 06/22/16 [History] Aspirin [Adult Low Dose Aspirin EC] 81 mg PO DAILY 06/22/16 [History] Atorvastatin [Lipitor] 20 mg PO HS 06/23/16 [History] PARoxetine HCL [Paxil] 40 mg PO HS 06/23/16 [History] Pramipexole [Mirapex] 0.5 mg PO HS 06/23/16 [History] metFORMIN HCL 1,000 mg PO BID 06/23/16 [History] Famotidine 20 mg PO BID 05/24/17 [History] PARoxetine [Paxil] 10 mg PO HS 05/30/17 [History] Albuterol Nebulized [Ventolin Nebulized] 2.5 mg INHALATION QID #0 06/02/17 [Rx] Losartan Potassium 100 mg PO QAM 07/03/17 [History] Hydrochlorothiazide 25 mg PO QAM 07/04/17 [History] hydrALAZINE HCL [Apresoline] 50 mg PO BID 07/04/17 [History] Albuterol Inhaler [Ventolin Hfa Inhaler] 1 - 2 puff INHALATION RT-Q6H PRN 08/03/18 [History] Celecoxib [CeleBREX] 200 mg PO DAILY 08/03/18 [History] Cholecalciferol [Vitamin D3] 1,000 unit PO DAILY 08/03/18 [History] Ferrous Sulfate [Feosol] 325 mg PO DAILY 08/03/18 [History] Krill Oil 500 mg PO DAILY 08/03/18 [History] Multivitamins, Thera [Multivitamin (formulary)] 1 tab PO DAILY 08/03/18 [History] Propylene Glycol [Systane Complete] 1 drop BOTH EYES BID 08/03/18 [History] amLODIPine BESYLATE 10 mg PO QAM 08/03/18 [History] diphenhydrAMINE [Benadryl] 25 mg PO DAILY 08/03/18 [History] guaiFENesin-DM 600/30MG [Mucinex Dm] 1 tab PO Q12HR 08/03/18 [History] Budesonide/Formoterol Fumarate [Symbicort 80-4.5 Mcg Inhaler] 1 puff INHALATION RT-BID 08/14/18 [History] HYDROcodone/APAP 7.5-325MG [[place] 7.5-325] 1 - 2 tab PO Q6H PRN #56 tab 08/17/18 [Rx] Sennosides [Senokot] 1 tab PO BID #60 tablet 08/17/18 [Rx] Follow up Appointment(s)/Referral(s): Megan Pearson, [NON-STAFF] - As Needed Mumtaz Fraga DO [Doctor of Osteopathic Medicine] - 2 Weeks Activity/Diet/Wound Care/Special Instructions: Maintain sling for comfort for at least one week. Dressing to stay in place for 10 days and may be removed by patient or nurse. May shower with dressing in place. Avoid heavy lifting. May start gentle range of motion of the left shoulder as tolerated. Please follow-up with [facility] and call with any questions or concerns, . Discharge Disposition: TRANSFER TO SNF/ECF
[2018-08-17] MEDS: HYDROCHLOROTHIAZIDE 25 MG TAB PO SCH (09:06)
[2018-08-17] MEDS: FAMOTIDINE 20 MG TAB PO SCH (09:06)
[2018-08-17] MEDS: hydrALAZINE HCL 50 MG TAB PO SCH (09:06)
[2018-08-17] MEDS: INSULIN ASPART (NovoLOG) 100 UNIT/ML VIAL SQ SCH ×2 (09:08→15:01)
[2018-08-17] MEDS: amLODIPine 10 MG TAB PO SCH (09:08)
[2018-08-17] MEDS: MELOXICAM 7.5 MG TAB PO SCH (09:08)
[2018-08-17] MEDS: NICOTINE 7MG/24HR PATCH TRANSDERM SCH (09:08)
[2018-08-17] MEDS: SYMBICORT 80-4.5 MCG INHALER INHALATION SCH (09:25)
[2018-08-17 11:18] LABS: Glucose,Whole Blood 122 mg/dL (75-99)
[2018-08-17 13:29] VITALS: PULSE 90
[2018-08-17] MEDS: SODIUM CHLORIDE 0.9% 1,000 ML IV SCH (15:02)
[2018-08-17 15:49] LABS: Hemoglobin A1C 7.2 % (4.0-6.0)
--- NOTE | 2018-08-19 16:48 | PN ---
PROGRESS NOTE DATE OF SERVICE: August 17, 2018. PRESENTING COMPLAINT: Left shoulder arthroplasty. INTERVAL HISTORY: Patient is status post left shoulder surgery. Pain is somewhat better controlled. Tolerating his diet. Awaiting to go to the [facility]. No new issues. Did work with therapy. REVIEW OF SYSTEMS: Done for constitutional, cardiovascular, GI, pulmonary, musculoskeletal and relevant findings as above. CURRENT MEDICATIONS: Reviewed. PHYSICAL EXAMINATION: VITAL SIGNS: Temperature 98.2. Pulse 83, respiration 16, blood pressure 132/78, pulse ox 92 percent. GENERAL APPEARANCE: Sitting up in a chair, comfortable. EYES: Pupils equal. Conjunctivae normal. NECK: JVD not raised. Mass not palpable. RESPIRATORY effort normal. LUNGS: Decreased breath sounds. CARDIOVASCULAR: 1st and 2nd sounds normal. No edema. ABDOMEN: Soft, nontender. Liver and spleen not palpable. PSYCHIATRY: Alert and oriented times three. Mood and affect normal. Left shoulder in a dressing with a sling. INVESTIGATIONS: Accu-Cheks are noted. ASSESSMENT: 1. Reverse left total shoulder arthroplasty. 2. Chronic obstructive pulmonary disease in a current smoker. 3. Diabetes mellitus type 2. 4. Gastroesophageal reflux disease. 5. Hyperlipidemia. 6. Essential hypertension. 7. Primary osteoarthritis. 8. Obstructive sleep apnea, uses CPAP machine. 9. Anxiety and depression, not otherwise specified. 10.Chronic nicotine dependence, patient is a cigarette smoker. PLAN: Care was discussed with the patient. Questions were answered. Stable to go to the [facility]. MMODL / IJN: [id number] /
== END 2018-08-17 17:04 | DRG 483 ==
LOC: 2ORMAIN 11:34 → 4SSUR 15:23
PROVIDERS: ADMIT Orthopaedic Surgery; ATTEND Orthopaedic Surgery
PROC: 0RRK00Z Replacement of Left Shoulder Joint with Reverse Ball and Socket Synthetic Substitute, Open Approach (ICD-10-PCS; principal; 2018-08-14 13:00)
DX: M19.012 Primary osteoarthritis, left shoulder (principal); M75.102 Unspecified rotator cuff tear or rupture of left shoulder, not specified as traumatic; E11.9 Type 2 diabetes mellitus without complications; E78.5 Hyperlipidemia, unspecified; F17.210 Nicotine dependence, cigarettes, uncomplicated; F32.9 Major depressive disorder, single episode, unspecified; F41.9 Anxiety disorder, unspecified; G47.33 Obstructive sleep apnea (adult) (pediatric); I10 Essential (primary) hypertension; J44.9 Chronic obstructive pulmonary disease, unspecified; K21.9 Gastro-esophageal reflux disease without esophagitis; Z79.82 Long term (current) use of aspirin; Z79.84 Long term (current) use of oral hypoglycemic drugs; Z79.899 Other long term (current) drug therapy; Z82.49 Family history of ischemic heart disease and other diseases of the circulatory system; Z90.710 Acquired absence of both cervix and uterus; Z96.611 Presence of right artificial shoulder joint; Z96.642 Presence of left artificial hip joint; Z96.653 Presence of artificial knee joint, bilateral; Z98.42 Cataract extraction status, left eye; Z98.41 Cataract extraction status, right eye; Z60.2 Problems related to living alone; Z79.51 Long term (current) use of inhaled steroids; Z88.6 Allergy status to analgesic agent; Z88.1 Allergy status to other antibiotic agents; Z88.8 Allergy status to other drugs, medicaments and biological substances
CPT/HCPCS: 83036; 85025; 88300; 94640; 94760

== ENCOUNTER 2018-08-24 23:02 | Inpatient (IN) | payer MEDICARE ==
[2018-08-24] MEDS ORDERED: SODIUM CHLORIDE 0.9% 1,000 ML IV STA (23:09)
--- NOTE | 2018-08-24 23:13 | ED ---
Extremity Problem HPI - General Stated complaint: Post Surgical Complication Time Seen by Provider: 08/24/18 23:05 Source: RN notes reviewed, old records reviewed - History of Present Illness Initial comments: This is a 63-year-old female the ER for evaluation. Patient resents ER for evaluation of postop complication. Swelling and erythema of left upper extremity after shoulder replacement. Patient denies fevers but states she does get hot flashes and chills. Patient's wound was originally outlined in the redness is spreading both distally and proximally MD Complaint: extremity pain, extremity swelling, joint pain, other (LUE rotator cuff surgery) -: days(s) Location: left, upper extremity History of Same: Yes -: Yes myalgia Radiation: none Severity scale (1-10): 4 Quality: aching Consistency: constant Improves with: nothing Worsens with: nothing Associated Symptoms: myalgias, other (worsening pain edema and erythema) - Related Data Home Medications Medication Instructions Recorded Confirmed Amitriptyline HCl 50 mg PO HS 06/22/16 08/24/18 Aspirin [Adult Low Dose Aspirin EC] 81 mg PO DAILY 06/22/16 08/24/18 Atorvastatin [Lipitor] 20 mg PO HS 06/23/16 08/24/18 PARoxetine HCL [Paxil] 50 mg PO HS 06/23/16 08/27/18 metFORMIN HCL 1,000 mg PO BID 06/23/16 08/24/18 Famotidine 20 mg PO BID 05/24/17 08/24/18 Losartan Potassium 100 mg PO QAM 07/03/17 08/24/18 Hydrochlorothiazide 25 mg PO QAM 07/04/17 08/24/18 hydrALAZINE HCL [Apresoline] 50 mg PO BID 07/04/17 08/24/18 Albuterol Inhaler [Ventolin Hfa 2 puff INHALATION RT-Q6H PRN 08/03/18 08/24/18 Inhaler] Cholecalciferol [Vitamin D3] 1,000 unit PO DAILY 08/03/18 08/24/18 Ferrous Sulfate [Iron (65 MG 325 mg PO DAILY 08/03/18 08/24/18 Elemental)] Krill Oil 500 mg PO DAILY 08/03/18 08/24/18 Multivitamins, Thera [Multivitamin 1 tab PO DAILY 08/03/18 08/24/18 (formulary)] Propylene Glycol [Systane Complete] 1 drop BOTH EYES BID 08/03/18 08/24/18 amLODIPine BESYLATE 10 mg PO QAM 08/03/18 08/24/18 diphenhydrAMINE [Benadryl] 25 mg PO DAILY 08/03/18 08/24/18 Budesonide/Formoterol Fumarate 1 puff INHALATION RT-BID 08/14/18 08/24/18 [Symbicort 80-4.5 Mcg Inhaler] HYDROcodone/APAP 7.5-325MG [[place] 2 tab PO Q6H PRN 08/24/18 08/24/18 7.5-325] Ipratropium-Albuterol Nebulize 3 ml INHALATION RT-QID 08/24/18 08/24/18 [Duoneb 0.5 mg-3 mg/3 ml Soln] Celecoxib [CeleBREX] 200 mg PO BID 08/25/18 08/25/18 Previous Rx's Medication Instructions Recorded Pramipexole [Mirapex] 0.5 mg PO HS tab 08/17/18 Sennosides [Senokot] 1 tab PO BID #60 tablet 08/17/18 Allergies Allergy/AdvReac Type Severity Reaction Status Date / Time azithromycin Allergy Intermediate Rash/Hives Verified 08/24/18 23:04 clavulanic acid Allergy Intermediate Abdominal Verified 08/24/18 23:04 [From Augmentin] Pain erythromycin base Allergy Intermediate Rash/Hives Verified 08/24/18 23:04 [From Erythrocin] NSAIDS (Non-Steroidal Allergy Intermediate Abdominal Verified 08/24/18 23:04 Anti-Inflamma Pain tetracycline Allergy Intermediate Rash/Hives Verified 08/24/18 23:04 lisinopril Allergy Anaphylaxis Verified 08/24/18 23:04 duloxetine [From Cymbalta] AdvReac Severe Anaphylaxis Verified 08/24/18 23:04 cefazolin [From Kefzol] AdvReac Itching Verified 08/24/18 23:04 Review of Systems ROS Statement: Those systems with pertinent positive or pertinent negative responses have been documented in the HPI. ROS Other: All systems not noted in ROS Statement are negative. Past Medical History Past Medical History: Asthma, COPD, Diabetes Mellitus, GERD/Reflux, Hyperlipidemia, Hypertension, Musculoskeletal Disorder, Osteoarthritis (OA), Sleep Apnea/CPAP/BIPAP Additional Past Medical History / Comment(s): C PAP MACHINE, ONLY ABLE TO USE INDEX FINGER AND THUMB ON RT HAND R/T TENDON TEARS History of Any Multi-Drug Resistant Organisms: None Reported Past Surgical History: Bariatric Surgery, Hernia Repair, Hysterectomy, Joint Replacement, Orthopedic Surgery, Tonsillectomy Additional Past Surgical History / Comment(s): BENIGN BREAST BIOPSY & ASPIRATION, CLIFF EN Y, RUBEN KNEE REPLACEMENT, RIGHT SHOULDER REPLACEMENT; L hip replacement, L HEEL SPUR, RUBEN BUNIONECTOMY, HAMMER TOE, RUBEN CARPAL TUNNEL, RUBEN CATARACT Past Anesthesia/Blood Transfusion Reactions: No Reported Reaction Past Psychological History: Anxiety, Depression Smoking Status: Current some day smoker Past Alcohol Use History: Occasional Additional Past Alcohol Use History / Comment(s): STARTED SMOKING AT AGE 17 QUIT 2017 SMOKES ON AND OFF, CURRENTLY 3 CIGARETTES DAILY Past Drug Use History: Marijuana Additional Drug Use History / Comment(s): HAS OCCASIONALLY USED EDIBLE MARIJUANA, INSTRUCTED TO HOLD 24 HRS PRIOR TO PROCEDURE - Past Family History Daughter(s) Family Medical History: Deep Vein Thrombosis (DVT) Mother Family Medical History: Diabetes Mellitus, Hypertension Additional Family Medical History / Comment(s): renal failure General Exam - General Exam Comments Initial Comments: LUE erythema , cellulitis General appearance: alert, in no apparent distress Head exam: Present: atraumatic, normocephalic, normal inspection Eye exam: Present: normal appearance, PERRL, EOMI. Absent: scleral icterus, conjunctival injection, periorbital swelling ENT exam: Present: normal exam, mucous membranes moist Neck exam: Present: normal inspection. Absent: tenderness, meningismus, lymphadenopathy Respiratory exam: Present: normal lung sounds bilaterally. Absent: respiratory distress, wheezes, rales, rhonchi, stridor Cardiovascular Exam: Present: regular rate, normal rhythm, normal heart sounds. Absent: systolic murmur, diastolic murmur, rubs, gallop, clicks GI/Abdominal exam: Present: soft, normal bowel sounds. Absent: distended, tenderness, guarding, rebound, rigid Extremities exam: Present: normal inspection, full ROM, normal capillary refill. Absent: tenderness, pedal edema, joint swelling, calf tenderness Back exam: Present: normal inspection Neurological exam: Present: alert, oriented X3, CN II-XII intact Psychiatric exam: Present: normal affect, normal mood Skin exam: Present: warm, dry, intact, normal color. Absent: rash Course Vital Signs 08/24/18 08/25/18 23:03 00:19 Temperature 98.1 F Pulse Rate 107 H 89 Respiratory 19 19 Rate Blood Pressure 148/85 124/76 O2 Sat by Pulse 95 94 L Oximetry - Reevaluation(s) Reevaluation #1: 08/25/18 00:04 medical record is reviewed Reevaluation #2: 08/25/18 00:04 patient has adequate pain control Medical Decision Making - Medical Decision Making 63 female to ER for evaluation will be admitted for IV antibiotics and surgical evaluation regarding drainage of abscess - Lab Data Result diagrams: 08/26/18 07:15 08/28/18 06:20 Lab Results 08/24/18 08/24/18 08/24/18 Range/Units 23:33 23:33 23:33 WBC 7.9 (3.8-10.6) k/uL RBC 4.18 (3.80-5.40) m/uL Hgb 11.7 (11.4-16.0) gm/dL Hct 36.1 (34.0-46.0) % MCV 86.4 (80.0-100.0) fL MCH 28.0 (25.0-35.0) pg MCHC 32.4 (31.0-37.0) g/dL RDW 14.7 (11.5-15.5) % Plt Count 577 H D (150-450) k/uL Neutrophils % 59 % Lymphocytes % 27 % Monocytes % 4 % Eosinophils % 6 % Basophils % 1 % Neutrophils # 4.7 (1.3-7.7) k/uL Lymphocytes # 2.1 (1.0-4.8) k/uL Monocytes # 0.3 (0-1.0) k/uL Eosinophils # 0.5 (0-0.7) k/uL Basophils # 0.1 (0-0.2) k/uL PT (9.0-12.0) sec INR (<1.2) APTT (22.0-30.0) sec D-Dimer (<0.60) mg/L FEU Sodium 140 (137-145) mmol/L Potassium 4.3 (3.5-5.1) mmol/L Chloride 102 (98-107) mmol/L Carbon Dioxide 28 (22-30) mmol/L Anion Gap 10 mmol/L BUN 11 (7-17) mg/dL Creatinine 0.73 (0.52-1.04) mg/dL Est GFR (CKD-EPI)AfAm >90 (>60 ml/min/1.73 sqM) Est GFR (CKD-EPI)NonAf 88 (>60 ml/min/1.73 sqM) Glucose 109 H (74-99) mg/dL Plasma Lactic Acid Khai 2.5 H* (0.7-2.0) mmol/L Calcium 10.1 (8.4-10.2) mg/dL Phosphorus 4.3 (2.5-4.5) mg/dL Magnesium 1.7 (1.6-2.3) mg/dL Total Bilirubin 0.5 (0.2-1.3) mg/dL AST 28 (14-36) U/L ALT 34 (9-52) U/L Alkaline Phosphatase 60 (38-126) U/L C-Reactive Protein 39.9 H (<10.0) mg/L Total Protein 7.1 (6.3-8.2) g/dL Albumin 4.4 (3.5-5.0) g/dL 08/24/18 Range/Units 23:33 WBC (3.8-10.6) k/uL RBC (3.80-5.40) m/uL Hgb (11.4-16.0) gm/dL Hct (34.0-46.0) % MCV (80.0-100.0) fL MCH (25.0-35.0) pg MCHC (31.0-37.0) g/dL RDW (11.5-15.5) % Plt Count (150-450) k/uL Neutrophils % % Lymphocytes % % Monocytes % % Eosinophils % % Basophils % % Neutrophils # (1.3-7.7) k/uL Lymphocytes # (1.0-4.8) k/uL Monocytes # (0-1.0) k/uL Eosinophils # (0-0.7) k/uL Basophils # (0-0.2) k/uL PT 9.7 (9.0-12.0) sec INR 0.9 (<1.2) APTT 24.4 (22.0-30.0) sec D-Dimer 3.05 H (<0.60) mg/L FEU Sodium (137-145) mmol/L Potassium (3.5-5.1) mmol/L Chloride (98-107) mmol/L Carbon Dioxide (22-30) mmol/L Anion Gap mmol/L BUN (7-17) mg/dL Creatinine (0.52-1.04) mg/dL Est GFR (CKD-EPI)AfAm (>60 ml/min/1.73 sqM) Est GFR (CKD-EPI)NonAf (>60 ml/min/1.73 sqM) Glucose (74-99) mg/dL Plasma Lactic Acid Khai (0.7-2.0) mmol/L Calcium (8.4-10.2) mg/dL Phosphorus (2.5-4.5) mg/dL Magnesium (1.6-2.3) mg/dL Total Bilirubin (0.2-1.3) mg/dL AST (14-36) U/L ALT (9-52) U/L Alkaline Phosphatase (38-126) U/L C-Reactive Protein (<10.0) mg/L Total Protein (6.3-8.2) g/dL Albumin (3.5-5.0) g/dL - Radiology Data Radiology results: report reviewed (Ultrasound left upper extremity negative for DVT, positive for abscess), image reviewed Disposition Clinical Impression: S/p reverse total shoulder arthroplasty, Osteoarthritis of left shoulder, Postoperative abscess Disposition: ADMITTED IP [facility] Condition: Good Is patient prescribed a controlled substance at d/c from ED?: No
[2018-08-24] MEDS ORDERED: MORPHINE SULFATE 4 MG/ML SYRINGE IVP STA (23:20)
[2018-08-24] MEDS ORDERED: VANCOMYCIN IV PER PHARMACY 1 EACH MISC MISCELLANE PRN (23:20)
[2018-08-24] MEDS ORDERED: AMPICILLIN-SULBACTAM 3 GM in SODIUM CHLORIDE 0.9% 100 ML IVPB ONE (23:30)
[2018-08-24] MEDS ORDERED: diphenhydrAMINE 50 MG/ML 1 ML VIAL IVP STA (23:32)
[2018-08-24 23:45] LABS: Basophils # (A) 0.1 k/uL (0-0.2); Basophils % (A) 1 %; Eosinophils # (A) 0.5 k/uL (0-0.7); Eosinophils % (A) 6 %; HCT 36.1 % (34.0-46.0); HGB 11.7 gm/dL (11.4-16.0); Lymphocytes # (A) 2.1 k/uL (1.0-4.8); Lymphocytes % (A) 27 %; MCHC 32.4 g/dL (31.0-37.0); MCV 86.4 fL (80.0-100.0); Mean Platelet Volume 7.2; Monocytes # (A) 0.3 k/uL (0-1.0); Monocytes % (A) 4 %; Neutrophils # (A) 4.7 k/uL (1.3-7.7); Neutrophils % (A) 59 %; RBC 4.18 m/uL (3.80-5.40); RDW 14.7 % (11.5-15.5); WBC 7.9 k/uL (3.8-10.6)
[2018-08-24] MEDS ORDERED: VANCOMYCIN 2,000 MG in SODIUM CHLORIDE 0.9% 500 ML 500 ML IVPB ONE (23:45)
[2018-08-24 23:59] LABS: Platelet Count 577 k/uL (150-450)
[2018-08-25 00:03] LABS: INR 0.9 (<1.2); Partial Thromboplastin Time 24.4 sec (22.0-30.0); Prothrombin Time 9.7 sec (9.0-12.0)
[2018-08-25 00:07] LABS: D-Dimer 3.05 mg/L FEU (<0.60)
[2018-08-25 00:13] LABS: ALT 34 U/L (9-52); AST 28 U/L (14-36); Albumin 4.4 g/dL (3.5-5.0); Alkaline Phosphatase 60 U/L (38-126); Anion Gap 10 mmol/L; Blood Urea Nitrogen 11 mg/dL (7-17); C Reactive Protein 39.9 mg/L (<10.0); Calcium 10.1 mg/dL (8.4-10.2); Carbon Dioxide 28 mmol/L (22-30); Chloride 102 mmol/L (98-107); Glucose 109 mg/dL (74-99); Magnesium 1.7 mg/dL (1.6-2.3); Phosphorus 4.3 mg/dL (2.5-4.5); Potassium 4.3 mmol/L (3.5-5.1); Sodium 140 mmol/L (137-145); Total Bilirubin 0.5 mg/dL (0.2-1.3); Total Protein 7.1 g/dL (6.3-8.2)
[2018-08-25] MEDS ORDERED: SODIUM CHLORIDE 0.9% 1,000 ML IV ONE (00:48)
--- NOTE | 2018-08-25 01:41 | US ---
EXAM: US Left Lower Extremity Non-Vascular, Complete CLINICAL HISTORY: ITS.REASON US Reason: abscess TECHNIQUE: Real-time ultrasound scan of the left lower extremity with image documentation. COMPARISON: No relevant prior studies available. FINDINGS: Medial to the upper arm incision site, there is an 11.3 cm complex fluid collection. No significant vascularity. IMPRESSION: 11.3 cm complex fluid collection, likely representing hematoma given lack of vascularity, although abscess cannot be excluded in the appropriate clinical setting
[2018-08-25 01:42] VITALS: BMI 47.9
--- NOTE | 2018-08-25 01:46 | US ---
EXAM: US Duplex Left Upper Extremity Veins CLINICAL HISTORY: ITS.REASON US Reason: DVT TECHNIQUE: Real-time duplex ultrasound scan of the left upper extremity veins integrating B-mode two-dimensional vascular structure, Doppler spectral analysis, color flow Doppler imaging and compression. COMPARISON: No relevant prior studies available. FINDINGS: Deep veins: Unremarkable. No DVT in the internal jugular, subclavian, axillary, or brachial veins. The veins demonstrate normal color flow, are normally compressible, with normal phasic flow and/or augmentation response. Superficial veins: Unremarkable. No thrombus in the visualized basilic and cephalic veins. IMPRESSION: No DVT.
[2018-08-25] MEDS: MORPHINE SULFATE 4 MG/ML SYRINGE IVP PRN ×4 (04:01→21:47)
[2018-08-25] MEDS: AMPICILLIN-SULBACTAM 3 GM in SODIUM CHLORIDE 0.9% 100 ML IVPB SCH ×3 (06:08→17:24)
[2018-08-25 07:21] LABS: Glucose,Whole Blood 109 mg/dL (75-99)
[2018-08-25] MEDS: INSULIN ASPART (NovoLOG) 100 UNIT/ML VIAL SQ SCH ×4 (08:22→21:59)
[2018-08-25] MEDS ORDERED: ENOXAPARIN 40 MG/0.4 ML SYRINGE SQ SCH (09:00)
--- NOTE | 2018-08-25 10:35 | P.HPOR ---
History of Present Illness H&P Date: 08/25/18 Chief Complaint: Left shoulder pain with recent history of left total shoulder replacement Patient is a 63-year-old female who presents for primary complaints of left shoulder pain. She recently underwent a left shoulder total shoulder replacement on 08/14/2018 done at this hospital with Dr. Mumtaz Fraga. The patient had a relatively uneventful immediate postoperative course and was transferred to [facility] as she has multiple medical issues including diabetes COPD. The patient was making some progress but was having continued left shoulder soreness and pain. She felt her symptoms were worsening and was having significant tenderness over her left shoulder around her incision site is well. She presented to the hospital yesterday regard to increased pain in his left shoulder. She was not having any fevers chills or night sweats. She is not having any active draining from her shoulder though there was some small drainage on the dressing from immediate postop period. She is not having any numbness tingling in her left upper extremity. She is not having weakness. She had pain with motion about her shoulder. She had workup for DVT which was ne gative. She had ultrasound at her left shoulder area which showed fluid collection around the left shoulder. She is admitted in regards to the fluid collection and the possibility of postoperative infection. Review of Systems She denies fevers chills or night sweats. She denies numbness tingling left upper extremity. Chest has pain shortness of breath. She denies any active drainage at her left shoulder. She denies any weakness in her hand and fingers but she does have some pain with motion in her left arm and shoulder. Past Medical History Past Medical History: Asthma, COPD, Diabetes Mellitus, GERD/Reflux, Hyperlipide fabiana, Hypertension, Musculoskeletal Disorder, Osteoarthritis (OA), Sleep Apnea/CPAP/BIPAP Additional Past Medical History / Comment(s): C PAP MACHINE, ONLY ABLE TO USE INDEX FINGER AND THUMB ON RT HAND R/T TENDON TEARS. History of right total shoulder replacement. Status post left total shoulder replacement on 08/14/2018 History of Any Multi-Drug Resistant Organisms: None Reported Past Surgical History: Appendectomy, Bariatric Surgery, Hernia Repair, Hysterectomy, Joint Replacement, Orthopedic Surgery, Tonsillectomy Additional Past Surgical History / Comment(s): RT BENIGN BREAST BIOPSY & ASPI RATION, CLIFF EN Y, RUBEN KNEE REPLACEMENT, RIGHT SHOULDER REPLACEMENT; L hip replacement, L HEEL SPUR, RUBEN BUNIONECTOMY, HAMMER TOES, RUBEN CARPAL TUNNEL, RUBEN CATARACT, left reverse shoulder replacement on 08/14/18 Past Anesthesia/Blood Transfusion Reactions: No Reported Reaction Past Psychological History: Anxiety, Depression Smoking Status: Former smoker Past Alcohol Use History: Occasional Additional Past Alcohol Use History / Comment(s): STARTED SMOKING AT AGE 17 QUIT 2017 SMOKES ON AND OFF, currently no smoking since 08/13/2018. occasionally drinks alcohol 2-3 times per week. Past Drug Use History: Marijuana Additional Drug Use History / Comment(s): HAS OCCASIONALLY USED EDIBLE MARIJUANA - Past Family History Daughter(s) Family Medical History: Deep Vein Thrombosis (DVT) Mother Family Medical History: Diabetes Mellitus, Hypertension Additional Family Medical History / Comment(s): renal failure Medications and Allergies Home Medications Medication Instructions Recorded Confirmed Type Amitriptyline HCl 50 mg PO HS 06/22/16 08/24/18 History Aspirin [Adult Low Dose Aspirin EC] 81 mg PO DAILY 06/22/16 08/24/18 History Atorvastatin [Lipitor] 20 mg PO HS 06/23/16 08/24/18 History PARoxetine HCL [Paxil] 40 mg PO HS 06/23/16 08/24/18 History metFORMIN HCL 1,000 mg PO BID 06/23/16 08/24/18 History Famotidine 20 mg PO BID 05/24/17 08/24/18 History PARoxetine [Paxil] 10 mg PO HS 05/30/17 08/24/18 History Losartan Potassium 100 mg PO QAM 07/03/17 08/24/18 History Hydrochlorothiazide 25 mg PO QAM 07/04/17 08/24/18 History hydrALAZINE HCL [Apresoline] 50 mg PO BID 07/04/17 08/24/18 History Albuterol Inhaler [Ventolin Hfa 2 puff INHALATION RT-Q6H PRN 08/03/18 08/24/18 History Inhaler] Cholecalciferol [Vitamin D3] 1,000 unit PO DAILY 08/03/18 08/24/18 History Ferrous Sulfate [Iron (65 MG 325 mg PO DAILY 08/03/18 08/24/18 History Elemental)] Krill Oil 500 mg PO DAILY 08/03/18 08/24/18 History Multivitamins, Thera [Multivitamin 1 tab PO DAILY 08/03/18 08/24/18 History (formulary)] Propylene Glycol [Systane Complete] 1 drop BOTH EYES BID 08/03/18 08/24/18 History amLODIPine BESYLATE 10 mg PO QAM 08/03/18 08/24/18 History diphenhydrAMINE [Benadryl] 25 mg PO DAILY 08/03/18 08/24/18 History Budesonide/Formoterol Fumarate 1 puff INHALATION RT-BID 08/14/18 08/24/18 History [Symbicort 80-4.5 Mcg Inhaler] Pramipexole [Mirapex] 0.5 mg PO HS tab 08/17/18 08/24/18 Rx Sennosides [Senokot] 1 tab PO BID #60 tablet 08/17/18 08/24/18 Rx HYDROcodone/APAP 7.5-325MG [Wilberforce 2 tab PO Q6H PRN 08/24/18 08/24/18 History 7.5-325] Ipratropium-Albuterol Nebulize 3 ml INHALATION RT-QID 08/24/18 08/24/18 History [Duoneb 0.5 mg-3 mg/3 ml Soln] Celecoxib [CeleBREX] 200 mg PO BID 08/25/18 08/25/18 History Allergies Allergy/AdvReac Type Severity Reaction Status Date / Time azithromycin Allergy Intermediate Rash/Hives Verified 08/24/18 23:04 clavulanic acid Allergy Intermediate Abdominal Verified 08/24/18 23:04 [From Augmentin] Pain erythromycin base Allergy Intermediate Rash/Hives Verified 08/24/18 23:04 [From Erythrocin] NSAIDS (Non-Steroidal Allergy Intermediate Abdominal Verified 08/24/18 23:04 Anti-Inflamma Pain tetracycline Allergy Intermediate Rash/Hives Verified 08/24/18 23:04 lisinopril Allergy Anaphylaxis Verified 08/24/18 23:04 duloxetine [From Cymbalta] AdvReac Severe Anaphylaxis Verified 08/24/18 23:04 cefazolin [From Kefzol] AdvReac Itching Verified 08/24/18 23:04 Physical Examination Osteopathic Statement: *. No significant issues noted on an osteopathic structural exam other than those noted in the History and Physical/Consult. - Shoulder left Appearance: ecchymosis Tenderness with palpation: anterior (At the left shoulder there is a recent incision which appears to be sealed and healing appropriately. There is no active drainage. No purulence. There is some mild warmth over the area and very light pinkish area inferior to the incision site anteriorly. The area has some tenderness but it is not tense. There is no significant induration. There is no fluid under pressure. There is no active drainage. It does not appear to have an effusion erythema. Her compartments are soft. She has good motion in her elbow wrist and hand. She has painful motion at her left shoulder as expected. Her neck is nontender to palpation and range of motion.) Pain: with abduction, with external rotation Results Duplex ultrasound of left upper shoulder shows no evidence of DVT. Regular ultrasound of left shoulder shows fluid collection Becca 11 cm in size most likely hematoma but unable to rule out abscess - Labs Labs: Abnormal Lab Results - Last 24 Hours (Table) 08/24/18 08/24/18 08/24/18 Range/Units 23:33 23:33 23:33 Plt Count 577 H D (150-450) k/uL D-Dimer (<0.60) mg/L FEU Glucose 109 H (74-99) mg/dL POC Glucose (mg/dL) (75-99) mg/dL Plasma Lactic Acid Khai 2.5 H* (0.7-2.0) mmol/L C-Reactive Protein 39.9 H (<10.0) mg/L 08/24/18 08/25/18 Range/Units 23:33 07:19 Plt Count (150-450) k/uL D-Dimer 3.05 H (<0.60) mg/L FEU Glucose (74-99) mg/dL POC Glucose (mg/dL) 109 H (75-99) mg/dL Plasma Lactic Acid Khai (0.7-2.0) mmol/L C-Reactive Protein (<10.0) mg/L H & H 08/24/18 Range/Units 23:33 Hgb 11.7 (11.4-16.0) gm/dL Hct 36.1 (34.0-46.0) % Coagulation 08/24/18 Range/Units 23:33 INR 0.9 (<1.2) Result Diagrams: 08/24/18 23:33 08/24/18 23:33 Assessment and Plan Assessment: 11 days status post left total shoulder replacement for chronic rotator cuff deficiency and glenohumeral arthritis Left shoulder pain with fluid collection around the wound site, likely postoperative hematoma No neurologic deficit Multiple medical history including diabetes, COPD Plan: 11 days status post left total shoulder replacement for chronic rotator cuff deficiency and glenohumeral arthritis Left shoulder pain with fluid collection around the wound site, likely postoperative hematoma No neurologic deficit Multiple medical history including diabetes, COPD The patient has been having pain over her left shoulder status post total shoulder replacement and has some fluid collection around the area. Clinically it does not appear grossly infected. There is no active drainage and there is no significant fluid under pressure or tension around the space. There is some mild swelling and warmth aroundbut this can be quite normal in the early postoperative period with major surgery such as this. It is likely that the fluid collection is hematoma but we will need to continue to monitor closely for the possibility of postoperative infection. Currently her white count is only 7.9 and she is afebrile. The wound site looks relatively calm and I think we can continue to monitor her closely. I would not plan surgical intervention today for washout of the space but if the site takes a turn for the worse this would certainly be a consideration. For now we'll keep her on prophylactic antibiotics. She tried using a splint before but had some troubles with it around her neck but I think she could be more comfortable with her arm resting in a splint and we will order one for her. I will also obtain new x-rays of her left shoulder. We will continue to monitor closely. She should continue medical management for her multiple medical issues as well. Her glucose is currently well under control. Time with Patient: Greater than 30
[2018-08-25] MEDS ORDERED: ALBUTEROL NEBULIZED 2.5 MG/3 ML INHALATION PRN (10:36)
[2018-08-25] MEDS ORDERED: amLODIPine 10 MG TAB PO STA (11:23)
[2018-08-25] MEDS ORDERED: HYDROCHLOROTHIAZIDE 25 MG TAB PO STA (11:23)
[2018-08-25] MEDS ORDERED: LOSARTAN 50 MG TAB PO STA (11:23)
[2018-08-25] MEDS ORDERED: hydrALAZINE HCL 50 MG TAB PO STA (11:25)
[2018-08-25] MEDS: HYDROcodone/APAP 7.5-325MG 1 EACH TAB PO PRN ×2 (11:29→19:10)
[2018-08-25 12:09] LABS: Glucose,Whole Blood 107 mg/dL (75-99)
[2018-08-25] MEDS: IPRATROPIUM-ALBUTEROL 3 ML NEB INHALATION SCH ×3 (13:09→20:52)
[2018-08-25] MEDS: VANCOMYCIN 2,000 MG in SODIUM CHLORIDE 0.9% 500 ML 500 ML IVPB SCH (14:14)
--- NOTE | 2018-08-25 15:20 | XR ---
EXAMINATION TYPE: XR shoulder limited LT DATE OF EXAM: 08/25/2018 COMPARISON: For 01/25/2019 HISTORY: 63-year-old female follow-up status post total shoulder replacement TECHNIQUE: 2 views FINDINGS: Moderate degenerative joint space narrowing and marginal spurring at the acromioclavicular joint. The re appears to be appropriate alignment at the reverse left total shoulder plasty. Both posterior and humeral stem components appear well seated. No acute fracture or dislocation seen. IMPRESSION: No evident complication of the reverse left total shoulder arthroplasty. Moderate AC joint OA.
[2018-08-25] MEDS: FAMOTIDINE 20 MG TAB PO SCH (16:47)
[2018-08-25 17:10] LABS: Glucose,Whole Blood 106 mg/dL (75-99)
[2018-08-25] MEDS: metFORMIN 500 MG TAB PO SCH (20:16)
[2018-08-25] MEDS: SENNOSIDES 8.6 MG TAB PO SCH (20:16)
[2018-08-25] MEDS: PRAMIPEXOLE 0.5 MG TAB PO SCH (20:17)
[2018-08-25] MEDS: ATORVASTATIN 20 MG TAB PO SCH (20:17)
[2018-08-25] MEDS: hydrALAZINE HCL 50 MG TAB PO SCH (20:17)
[2018-08-25] MEDS: AMITRIPTYLINE HCL 50 MG TAB PO SCH (20:17)
[2018-08-25] MEDS: SYMBICORT 80-4.5 MCG INHALER INHALATION SCH (20:52)
[2018-08-25] MEDS ORDERED: PARoxetine 20 MG TAB PO SCH (21:00)
[2018-08-25] MEDS: ARTIFICIAL TEARS-HYPROMELLOSE DROPS 15 ML BTL BOTH EYES SCH (21:54)
[2018-08-25] MEDS: PARoxetine 10 MG TAB PO SCH (21:55)
[2018-08-25 22:01] LABS: Glucose,Whole Blood 112 mg/dL (75-99)
[2018-08-26] MEDS: AMPICILLIN-SULBACTAM 3 GM in SODIUM CHLORIDE 0.9% 100 ML IVPB SCH ×4 (00:14→17:20)
[2018-08-26] MEDS: MORPHINE SULFATE 4 MG/ML SYRINGE IVP PRN ×4 (01:19→22:04)
--- NOTE | 2018-08-26 01:19 | CONS ---
CONSULTATION DATE OF CONSULTATION: 08/25/2018 REASON FOR CONSULTATION: Medical management requested by Dr. Fraga. CONSULTATION: This is a very pleasant 63-year-old patient who underwent left shoulder surgery on August 14, 2018 and was discharged on August 17, 2018. Patient continued to have pain in the left shoulder area and hence was readmitted for the same. The patient was admitted, started on IV antibiotics as a concern of infection. The patient had no fever, no chills. Significant pain in that site. The patient's chronic stable medical conditions include COPD, diabetes, GERD, hypertension, hyperlipidemia, obstructive sleep apnea, anxiety, depression. The patient has not smoked since the procedure. Tolerating a diet. REVIEW OF SYSTEMS: CONSTITUTIONAL: None. HEENT none. RESPIRATORY: Baseline some shortness of breath. CARDIOVASCULAR: None. GASTROINTESTINAL: Heartburn. GENITOURINARY: None. MUSCULOSKELETAL: Pain in many joints in the left shoulder. DERMATOLOGY: None. HEMATOLOGICAL: None. LYMPHATICS: None. PSYCHIATRY: Anxiety and depression, controlled. NEUROLOGICAL: None. PAST MEDICAL HISTORY: COPD, diabetes, GERD, hyperlipidemia, hypertension, osteoarthritis, sleep apnea. PAST SURGICAL HISTORY: Bariatric surgery, hernia repair, hysterectomy, orthopedic surgery, tonsillectomy, Dale- en-Y, bilateral knee replacement, right shoulder replacement, left hip replacement, left heel spur, bilateral bunionectomy, hammertoe surgery, bilateral carpal tunnel, bilateral cataracts. PSYCH HISTORY: Anxiety and depression. SOCIAL HISTORY: The patient smoked for about 32 years, was down to 3 cigarettes a day before surgery. Does edible marijuana. Lives by herself. FAMILY HISTORY: DVT, renal failure. HOME MEDICATIONS: Home medications include: 1. Metformin 1000 mg b.i.d. 2. Hydralazine 50 mg b.i.d. 3. Benadryl 25 mg p.o. daily. 4. Amlodipine 10 mg p.o. daily. 5. Senokot 1 tablet p.o. b.i.d. 6. Systane Complete one drop b.i.d. 7. Mirapex 0.5 mg p.o. q.h.s. 8. Paxil 10 mg q.h.s. 9. Paxil 40 mg q.h.s. 10.Multivitamin 1 tablet p.o. daily. 11.Losartan 100 mg p.o. daily. 12. 5 mg p.o. daily. 13.DuoNeb q.i.d. 14.Hydrochlorothiazide 25 mg a day. 15.Callaway 7.5, 2 tablets p.o. q.6h p.r.n. 16.Iron 325 p.o. daily. 17.Pepcid 20 mg b.i.d. 18.Vitamin D3 1000 units p.o. daily. 19.Celebrex 200 mg b.i.d. 20.Symbicort 1 puff b.i.d. 80/4.5. 21.Lipitor 20 mg q.h.s. 22.Aspirin 81 mg a day. 23.Amitriptyline 50 mg q.h.s. 24.Ventolin HFA 2 puffs q.6 p.r.n. ALLERGIES: ERYTHROMYCIN, AUGMENTIN, LISINOPRIL, CYMBALTA. PHYSICAL EXAMINATION: VITAL SIGNS: Temperature afebrile, pulse 94, respiration 16, blood pressure 120/77, pulse ox 93 percent on room air. GENERAL APPEARANCE: Sitting up, awake. EYES: Pupils equal. Conjunctivae normal. HEENT: External appearance of nose and ears normal. Oral cavity normal. NECK: JVD not raised. Mass not palpable. RESPIRATORY: Effort normal. LUNGS: Diminished breath sounds, prolonged expiration. CARDIOVASCULAR: 1st and 2nd sounds normal. No edema. ABDOMEN: Soft, nontender. Liver and spleen not palpable. LYMPHATICS: No lymph nodes palpable in the neck and axilla. PSYCHIATRY: Alert and oriented x3. Mood and affect normal. SHOULDER: With some tenderness over the left shoulder. INVESTIGATIONS: White count 7.9, hemoglobin 9.7, platelets 537, potassium 4.3, BUN and creatinine is normal. ASSESSMENT: 1. Postoperative persistent pain in the left shoulder arthroplasty. No obvious evidence of infection but antibiotics being used to cover the same. 2. Chronic obstructive pulmonary disease in an ex-smoker. 3. Diabetes mellitus type 2. 4. Gastroesophageal reflux disease. 5. Hyperlipidemia. 6. Essential hypertension. 7. Primary osteoarthritis. 8. Obstructive sleep apnea uses CPAP machine. 9. Anxiety and depression, not otherwise specified. PLAN: Home medications are continued. Accu-Cheks will be followed. Antibiotics have been added in the form of Unasyn and vancomycin. Repeat labs in the morning. We will also send of blood cultures. Thank you Dr. Fraga. ARMIN / MALUN: [id number] /
[2018-08-26] MEDS: VANCOMYCIN 2,000 MG in SODIUM CHLORIDE 0.9% 500 ML 500 ML IVPB SCH ×2 (01:21→13:46)
[2018-08-26] MEDS: HYDROcodone/APAP 7.5-325MG 1 EACH TAB PO PRN ×4 (05:19→22:31)
[2018-08-26 07:40] LABS: Basophils # (A) 0.1 k/uL (0-0.2); Basophils % (A) 1 %; Eosinophils # (A) 0.5 k/uL (0-0.7); Eosinophils % (A) 8 %; HCT 30.7 % (34.0-46.0); Hypochromasia Slight; Lymphocytes # (A) 1.3 k/uL (1.0-4.8); Lymphocytes % (A) 21 %; MCH 28.4 pg (25.0-35.0); MCHC 32.3 g/dL (31.0-37.0); MCV 87.7 fL (80.0-100.0); Mean Platelet Volume 7.2; Monocytes # (A) 0.2 k/uL (0-1.0); Monocytes % (A) 4 %; Neutrophils # (A) 3.9 k/uL (1.3-7.7); Neutrophils % (A) 63 %; Platelet Count 465 k/uL (150-450); RDW 14.6 % (11.5-15.5); WBC 6.2 k/uL (3.8-10.6)
[2018-08-26 07:48] LABS: Glucose,Whole Blood 110 mg/dL (75-99)
[2018-08-26 07:49] LABS: HGB 9.9 gm/dL (11.4-16.0)
[2018-08-26] MEDS: INSULIN ASPART (NovoLOG) 100 UNIT/ML VIAL SQ SCH ×4 (07:53→21:28)
[2018-08-26 08:12] LABS: Anion Gap 7 mmol/L; Blood Urea Nitrogen 7 mg/dL (7-17); Calcium 9.2 mg/dL (8.4-10.2); Carbon Dioxide 28 mmol/L (22-30); Chloride 104 mmol/L (98-107); Glucose 106 mg/dL (74-99); Potassium 3.7 mmol/L (3.5-5.1); Sodium 139 mmol/L (137-145)
[2018-08-26] MEDS: SYMBICORT 80-4.5 MCG INHALER INHALATION SCH ×2 (08:21→20:34)
[2018-08-26] MEDS: IPRATROPIUM-ALBUTEROL 3 ML NEB INHALATION SCH ×4 (08:21→20:34)
[2018-08-26] MEDS ORDERED: MELOXICAM 7.5 MG TAB PO SCH (09:00)
[2018-08-26] MEDS: hydrALAZINE HCL 50 MG TAB PO SCH ×2 (09:11→22:04)
[2018-08-26] MEDS: CHOLECALCIFEROL 1,000 UNIT TAB PO SCH (09:11)
[2018-08-26] MEDS: ASPIRIN 81 MG PO SCH (09:11)
[2018-08-26] MEDS: FERROUS SULFATE 325 MG TAB PO SCH (09:11)
[2018-08-26] MEDS: diphenhydrAMINE 25 MG CAP PO SCH (09:11)
[2018-08-26] MEDS: FAMOTIDINE 20 MG TAB PO SCH ×2 (09:11→16:23)
[2018-08-26] MEDS: amLODIPine 10 MG TAB PO SCH (09:11)
[2018-08-26] MEDS: LOSARTAN 50 MG TAB PO SCH (09:12)
[2018-08-26] MEDS: SENNOSIDES 8.6 MG TAB PO SCH ×2 (09:12→22:04)
[2018-08-26] MEDS: MULTIVITAMINS, THERA 1 EACH TAB PO SCH (09:12)
[2018-08-26] MEDS: metFORMIN 500 MG TAB PO SCH ×2 (09:12→21:25)
[2018-08-26] MEDS: HYDROCHLOROTHIAZIDE 25 MG TAB PO SCH (09:12)
[2018-08-26] MEDS: ARTIFICIAL TEARS-HYPROMELLOSE DROPS 15 ML BTL BOTH EYES SCH (09:14)
--- NOTE | 2018-08-26 11:15 | P.PN ---
Progress Note - Text Progress Note Date: 08/26/18 The patient was seen and examined today at bedside. She denies any fevers or chills. She still complains of severe pain at her left arm over her biceps. She says that the sling is too uncomfortable with her to hold her arm flexed position. She denies any shortness breath or chest pain. The pain is mainly located anteriorly over her mid and distal bicep. There is only mild pain over the top of her left shoulder. Vital signs She is afebrile. She has not had any fevers. Her blood pressure stable. At her left upper extremity the incision site is clean. There is no significant erythema. There is no drainage. The wound sites dry. There is no significant swelling. She still has significant tenderness to palpation over her mid bicep distal to her incision. There is no firm collection of fluid. There is no tension at the space. Her compartments are soft. She has motion at her elbow but has pain at her bicep with any sustained flexion or supination at her wrist. Sensory is intact over her forearm wrist and hand. She has 5 and 5 strength throughout her wrist and hand. X-rays of her left shoulder done yesterday show a reverse total shoulder arthroplasty appears to be in good alignment and position. There is no evidence of any fracture or dislocation. On her labs she is not having any increased white count her white blood count today is 6.2 down from 7. Blood cultures are negative Assessment and plan Left shoulder pain status post total shoulder arthroplasty done periodically 12 days ago Fluid collection around the incision site likely painful hematoma and seroma without drainage Clinically the left shoulder does not appear infected. There is no significant erythema or tension. She still has significant tenderness over her left biceps particularly with resisted elbow flexion and supination. The hardware appears to be intact in she is not having any significant lab markers to indicate active infection. Wrist fluid collection seen on the ultrasound but I'm hesitant to pursue surgical intervention to relieve fluid collection is it does not seem infected at this point. We need to continue with supportive care. I will see if she has any and fill with a warm compress over the area. She would like to get up and walk around I think that is okay. She may have some benefit with use of Toradol on short-term C5 alleviate some of her pain as well. She is not having specific radicular symptoms but is having local symptoms over bicep which hopefully will settle with further conservative measures. We'll follow her closely.
[2018-08-26 12:14] LABS: Glucose,Whole Blood 96 mg/dL (75-99)
[2018-08-26] MEDS: KETOROLAC 30 MG/ML 1 ML VIAL IVP PRN ×2 (13:45→21:17)
[2018-08-26] MEDS ORDERED: FUROSEMIDE 10 MG/ML 2 ML VIAL IV ONE (16:30)
[2018-08-26 17:22] LABS: Glucose,Whole Blood 115 mg/dL (75-99)
[2018-08-26] MEDS: ATORVASTATIN 20 MG TAB PO SCH (21:25)
[2018-08-26 21:29] LABS: Glucose,Whole Blood 127 mg/dL (75-99)
[2018-08-26] MEDS: PRAMIPEXOLE 0.5 MG TAB PO SCH (22:04)
[2018-08-26] MEDS: AMITRIPTYLINE HCL 50 MG TAB PO SCH (22:04)
[2018-08-26] MEDS: PARoxetine 10 MG TAB PO SCH (22:04)
[2018-08-26] MEDS ORDERED: NAPROXEN 250 MG TAB PO ONE (23:00)
[2018-08-27] MEDS: AMPICILLIN-SULBACTAM 3 GM in SODIUM CHLORIDE 0.9% 100 ML IVPB SCH ×4 (00:08→18:32)
[2018-08-27] MEDS: ARTIFICIAL TEARS-HYPROMELLOSE DROPS 15 ML BTL BOTH EYES SCH ×3 (00:09→21:20)
[2018-08-27] MEDS: VANCOMYCIN 2,000 MG in SODIUM CHLORIDE 0.9% 500 ML 500 ML IVPB SCH ×3 (01:49→13:10)
[2018-08-27] MEDS: MORPHINE SULFATE 4 MG/ML SYRINGE IVP PRN ×5 (02:31→23:49)
--- NOTE | 2018-08-27 04:35 | PN ---
PROGRESS NOTE DATE OF SERVICE: 08/26/2018 PRESENT COMPLAINT: Tenderness over the biceps. INTERVAL HISTORY: Patient is status post left shoulder surgery on August 14. Admitted. There was a concern about infection. At the same time, patient is quite a bit tender over the biceps and having trouble painful especially when contracted. The patient is still on antibiotics, if this is infected hematoma or seroma. REVIEW OF SYSTEMS: Done for constitutional, cardiovascular, GI, pulmonary, musculoskeletal and relevant findings as above. CURRENT MEDICATIONS: Reviewed and include IV Unasyn and vancomycin. PHYSICAL EXAMINATION: VITAL SIGNS: Afebrile, pulse 75, respiratory rate 16, blood pressure 120/78, pulse ox 95% on room air. GENERAL APPEARANCE: Sitting up, awake. EYES: Pupils equal. Conjunctivae normal. NECK: JVD not raised. Mass not palpable. RESPIRATORY: Effort normal. LUNGS: Diminished breath sounds. Prolonged expiration. CARDIOVASCULAR: First and second sounds normal. No edema. ABDOMEN: Soft, nontender. Liver and spleen not palpable. PSYCHIATRY: Alert and oriented times three. Mood and affect normal. MUSCULOSKELETAL: There is also tenderness over the biceps just above the elbow joint. It is rather tender. INVESTIGATIONS: White count 6.2, hemoglobin 9.9, potassium 3.7, BUN and creatinine is normal. ASSESSMENT: 1. Postoperative pain in the left shoulder osteoplasty area. Cannot rule out an infection at this point, entirely. 2. Tenderness of the biceps muscle. The patient has no major side effects to NSAIDs. 3. Chronic obstructive pulmonary disease in an ex-smoker. 4. Diabetes mellitus type 2. 5. Gastroesophageal reflux disease. 6. Hyperlipidemia. 7. Essential hypertension. 8. Primary osteoarthritis. 9. Obstructive sleep apnea uses CPAP machine. 10.Anxiety and depression, not otherwise specified. PLAN: Care was discussed at length with the patient. We will give a dose of naproxen 500 mg tonight and 250 3 times a day for GI prophylaxis. The patient is already on Pepcid. The patient should be able to be switched over to oral antibiotics to be on the safer side after discussion with Orthopedics tomorrow. MMTIMBO / MALUN: [id number] /
[2018-08-27] MEDS: HYDROcodone/APAP 7.5-325MG 1 EACH TAB PO PRN ×4 (05:17→21:58)
[2018-08-27 06:45] LABS: Glucose,Whole Blood 100 mg/dL (75-99)
[2018-08-27] MEDS: INSULIN ASPART (NovoLOG) 100 UNIT/ML VIAL SQ SCH ×4 (06:45→21:44)
--- NOTE | 2018-08-27 08:43 | P.PN ---
Progress Note - Text Progress Note Date: 08/27/18 Patient is a pleasant 63-year-old female who is seen and examined at the bedside for follow-up evaluation in regards to her left upper extremity pain. She is status post left total arthroplasty performed on 08/14/[address] Mumtaz Fraga. Her current pain is most significant below the incision site at the mid to distal left biceps. She has significant pain with palpation over the biceps and with active range of motion with the left bicep. She states after further thinking she has realized her pain has been ongoing since a fall in June 2018. Her symptoms have been severe since 08/25/2018. At that time she presented to the emergency department for further evaluation and was subsequently admitted in regards to fluid collection possibility of postoperative infection. She is not had any significant change in her symptoms since being seen examined yesterday. She continues to be on IV antibiotics including vancomycin and Unasyn. She has noticed significant increased swelling in the bilateral lower extremities. She has been asked to be taken off of IV fluids due to her swelling. Patient will be seen and examined by medicine today for further treatment and evaluation in regards her bilateral lower extremity swelling. She was able to ambulate the hallways today and walk without difficulty. The cultures have remained negative. Physical Exam: Patient is awake, alert, and oriented 3 Vital signs stable Good chest excursion with deep inspiration and expiration Evidence of a healing incision over the left anterior shoulder which appears to be healing appropriately and is sealed with Dermabond No active drainage from the incision site No purulence or obvious signs of infection at the surgical site Evidence of mild bruising at the crease of the left elbow Mild warmth and pinkish area inferior to the incision site over the biceps Significant pain with even light palpation over the mid to distal left biceps No significant pain with palpation over the left elbow, forearm, or fingers of the left upper extremity Left upper extremity compartments are soft Mild pain with palpation of the left shoulder around the surgical site Assessment: Status post left total shoulder arthroplasty for chronic rotator cuff deficiency and glenohumeral arthritis performed on 08/14/2018 Left shoulder pain with fluid collection around the wound site most likely postoperative hematoma Bilateral lower extremity swelling Multiple medical diagnoses including diabetes mellitus and COPD Plan: 1. We will currently plan to continue conservative treatment in regards to her left upper extremity pain and most significant at the left mid to distal biceps. Clinically her left shoulder does not appear to be infected. She does not have evidence of significant erythema over the left upper extremity. Mild bruising at the left elbow has been improving over the past 2 days. Patient's pain has been ongoing following a fall in June 2018 but has been exacerbated since this past 08/25/2018, without further injury. Her symptoms appears to most significant difficulty with the left bicep and she has significant pain with left elbow flexion and a palpation over the left biceps. Fluid collection was evident on ultrasound but there does not appear to be obvious infection at the left shoulder upper extremity at this time. We'll currently planning continue with supportive care as previously set forth including warm compress and Toradol short-term. We will continue to follow her closely. We will currently planning to continue with IV antibiotics including vancomycin and Unas yn. Patient will be discussed in detail with Dr. Francisco Sheth. 2. Patient will continue be seen examined medicine for her other medical diagnoses including bilateral lower extremity swelling
[2018-08-27] MEDS: SYMBICORT 80-4.5 MCG INHALER INHALATION SCH ×2 (08:48→19:22)
[2018-08-27] MEDS: IPRATROPIUM-ALBUTEROL 3 ML NEB INHALATION SCH ×4 (08:48→19:22)
[2018-08-27 08:58] LABS: Anion Gap 10 mmol/L; Blood Urea Nitrogen 9 mg/dL (7-17); Calcium 9.6 mg/dL (8.4-10.2); Carbon Dioxide 26 mmol/L (22-30); Chloride 104 mmol/L (98-107); Glucose 105 mg/dL (74-99); Potassium 4.4 mmol/L (3.5-5.1); Sodium 140 mmol/L (137-145)
[2018-08-27] MEDS: FAMOTIDINE 20 MG TAB PO SCH ×2 (09:15→16:08)
[2018-08-27] MEDS: ASPIRIN 81 MG PO SCH (09:15)
[2018-08-27] MEDS: diphenhydrAMINE 25 MG CAP PO SCH (09:15)
[2018-08-27] MEDS: FERROUS SULFATE 325 MG TAB PO SCH (09:15)
[2018-08-27] MEDS: CHOLECALCIFEROL 1,000 UNIT TAB PO SCH (09:15)
[2018-08-27] MEDS: LOSARTAN 50 MG TAB PO SCH (09:16)
[2018-08-27] MEDS: metFORMIN 500 MG TAB PO SCH ×2 (09:36→21:21)
[2018-08-27] MEDS: HYDROCHLOROTHIAZIDE 25 MG TAB PO SCH (09:37)
[2018-08-27] MEDS: NAPROXEN 250 MG TAB PO SCH ×3 (09:38→22:11)
[2018-08-27] MEDS: KETOROLAC 30 MG/ML 1 ML VIAL IVP PRN (09:40)
[2018-08-27] MEDS: hydrALAZINE HCL 50 MG TAB PO SCH ×2 (10:17→21:21)
[2018-08-27] MEDS: amLODIPine 10 MG TAB PO SCH (10:18)
[2018-08-27] MEDS: SENNOSIDES 8.6 MG TAB PO SCH ×2 (11:11→21:22)
[2018-08-27 11:23] LABS: Glucose,Whole Blood 98 mg/dL (75-99)
[2018-08-27] MEDS ORDERED: VANCOMYCIN TROUGH DUE 1 EACH MISC MISCELLANE ONE (12:00)
[2018-08-27] MEDS: MULTIVITAMINS, THERA 1 EACH TAB PO SCH (16:09)
[2018-08-27 17:18] LABS: Glucose,Whole Blood 98 mg/dL (75-99)
[2018-08-27 20:22] LABS: Glucose,Whole Blood 132 mg/dL (75-99)
[2018-08-27] MEDS: AMITRIPTYLINE HCL 50 MG TAB PO SCH (21:20)
[2018-08-27] MEDS: ATORVASTATIN 20 MG TAB PO SCH (21:20)
[2018-08-27] MEDS: PRAMIPEXOLE 0.5 MG TAB PO SCH (21:21)
[2018-08-27] MEDS ORDERED: PARoxetine 20 MG TAB PO SCH (21:45)
[2018-08-27] MEDS ORDERED: PANTOPRAZOLE 40 MG TABLET PO STA (22:06)
[2018-08-27] MEDS ORDERED: NAPROXEN 250 MG TAB PO STA (22:08)
[2018-08-27] MEDS ORDERED: CALCIUM CARBONATE LIQUID 500 MG/5 ML CUP PO PRN (22:09)
[2018-08-28] MEDS: PARoxetine 10 MG TAB PO SCH (02:20)
--- NOTE | 2018-08-28 04:02 | PN ---
PROGRESS NOTE DATE OF SERVICE: August 27, 2018 PRESENT COMPLAINT: Tenderness over the biceps. INTERVAL HISTORY: Patient is status post left shoulder surgery on August 14. There was a concern about infection as it could not be entirely ruled out. Antibiotics have been continued. The patient has been found to be extensively painful and tender over the biceps. The patient was reluctant to take NSAIDs. REVIEW OF SYSTEMS: Done for constitutional, cardiovascular, GI, pulmonary, musculoskeletal and relevant findings as above. CURRENT MEDICATIONS: Reviewed that include IV Unasyn and vancomycin. PHYSICAL EXAMINATION: VITAL SIGNS: Temperature 97.6, pulse 78, respiratory 18, blood pressure 108/71, pulse ox 93 percent on room air. GENERAL APPEARANCE: Sitting up on bed. EYES: Pupils are equal. Conjunctivae normal. NECK: JVD not raised. Mass not palpable. RESPIRATORY effort normal. LUNGS: Diminished breath sounds, prolonged expiration. CARDIOVASCULAR: 1st and 2nd sounds normal. No edema. ABDOMEN: Soft, nontender. Liver and spleen not palpable. PSYCHIATRY: Alert and oriented times three. Mood and affect normal. MUSCULOSKELETAL significant tenderness over the biceps. Tender in the upper arm on the medial aspect. INVESTIGATIONS: Potassium 4.4. Accu-Cheks are noted. ASSESSMENT: 1. Postoperative pain in the left shoulder hospital area infection entirely cannot be ruled out. Hence, empirically is on antibiotic. 2. Significant tenderness of the biceps muscles and tendon, patient reluctant to take the NSAIDs. 3. Chronic obstructive pulmonary disease in an ex-smoker. 4. Diabetes mellitus type 2. 5. Gastroesophageal reflux disease. 6. Hyperlipidemia. 7. Essential hypertension. 8. Primary osteoarthritis. 9. Obstructive sleep apnea uses CPAP machine. 10.Anxiety and depression, not otherwise specified. PLAN: I had a lengthy discussion with the patient. She does get some stomach ache with NSAID. We told her the options are limited as the biceps tendon is really tender. We will see if that benefits. She is agreeable to take the NSAIDs at this point, along with the PPI in the form of Protonix. If the NSAIDs really bother her stomach, we will have to discontinue the same. Otherwise medically the patient is stable to be discharged to the [facility]. I will DC the IV antibiotics, switch to clindamycin that can be empirically given for about 7-10 days as infection could not be entirely ruled out. MMODL / IJN: [id number] /
[2018-08-28] MEDS: HYDROcodone/APAP 7.5-325MG 1 EACH TAB PO PRN ×2 (04:17→12:34)
[2018-08-28] MEDS: INSULIN ASPART (NovoLOG) 100 UNIT/ML VIAL SQ SCH ×2 (06:41→12:50)
[2018-08-28 06:50] LABS: Glucose,Whole Blood 83 mg/dL (75-99)
[2018-08-28 06:51] LABS: Anion Gap 8 mmol/L; Blood Urea Nitrogen 9 mg/dL (7-17); Calcium 9.5 mg/dL (8.4-10.2); Carbon Dioxide 28 mmol/L (22-30); Chloride 103 mmol/L (98-107); Glucose 82 mg/dL (74-99); Potassium 4.1 mmol/L (3.5-5.1); Sodium 139 mmol/L (137-145)
[2018-08-28] MEDS ORDERED: PANTOPRAZOLE 40 MG TABLET PO SCH (07:30)
[2018-08-28] MEDS: SYMBICORT 80-4.5 MCG INHALER INHALATION SCH (07:50)
[2018-08-28] MEDS: IPRATROPIUM-ALBUTEROL 3 ML NEB INHALATION SCH ×2 (07:50→12:30)
[2018-08-28] MEDS: MORPHINE SULFATE 4 MG/ML SYRINGE IVP PRN (08:20)
[2018-08-28] MEDS: amLODIPine 10 MG TAB PO SCH (08:25)
[2018-08-28] MEDS: ASPIRIN 81 MG PO SCH (08:25)
[2018-08-28] MEDS: CLINDAMYCIN 150 MG CAP PO SCH ×2 (08:26→15:14)
[2018-08-28] MEDS: FERROUS SULFATE 325 MG TAB PO SCH (08:26)
[2018-08-28] MEDS: CHOLECALCIFEROL 1,000 UNIT TAB PO SCH (08:26)
[2018-08-28] MEDS: diphenhydrAMINE 25 MG CAP PO SCH (08:26)
[2018-08-28] MEDS: LOSARTAN 50 MG TAB PO SCH (08:27)
[2018-08-28] MEDS: hydrALAZINE HCL 50 MG TAB PO SCH (08:27)
[2018-08-28] MEDS: HYDROCHLOROTHIAZIDE 25 MG TAB PO SCH (08:27)
[2018-08-28] MEDS: metFORMIN 500 MG TAB PO SCH (08:27)
[2018-08-28] MEDS: SENNOSIDES 8.6 MG TAB PO SCH (08:28)
[2018-08-28] MEDS: NAPROXEN 250 MG TAB PO SCH (08:28)
[2018-08-28] MEDS: ARTIFICIAL TEARS-HYPROMELLOSE DROPS 15 ML BTL BOTH EYES SCH (10:11)
[2018-08-28 12:11] LABS: Glucose,Whole Blood 90 mg/dL (75-99)
[2018-08-28] MEDS: MULTIVITAMINS, THERA 1 EACH TAB PO SCH (12:34)
[2018-08-28 12:38] VITALS: BP 137/84; PULSE 81; RESP 16; TEMP 97.6
--- NOTE | 2018-08-28 13:11 | P.DS ---
Providers Date of admission: 08/25/18 00:01 Expected date of discharge: 08/28/18 Attending physician: Mumtaz Fraga Consults: 08/25/18 00:01 Consult Physician Routine Consulting Provider: Micky Cook Consult Reason/Comments: med management Do you want consulting provider notified?: Yes Primary care physician: Jorge Hansen - Discharge Diagnosis(es) (1) Left upper limb pain Current Visit: Yes Status: Acute (2) History of diabetes mellitus Current Visit: Yes Status: Acute (3) History of COPD Current Visit: Yes Status: Acute (4) S/p reverse total shoulder arthroplasty Current Visit: Yes Status: Acute Hospital Course: This is a pleasant 63-year-old female who presented with mid to distal left biceps pain. She is status post left total arthroplasty performed on 08/14/[address] Mumtaz Fraga. Her symptoms have been severe since 08/25/2018. At that time she presented to the emergency department for further evaluation and was subsequently admitted in regards to fluid collection possibility of postoperative infection. She has continued on IV antibiotics since her admission with vancomycin and Unasyn. Her IV antibiotics were discontinued yesterday and she was prescribed clindamycin 300 mg 3 times a day. During her admission she has not had any significant change or exacerbation of her left biceps pain. Her pain continues to be present but feels it is controlled. The incision over the left shoulder remains clean, dry, and intact without significant erythema, bruising, or obvious signs of infection over the surgical site. She feels she is ready for discharged today back to [facility]. Condition on day of discharge stable. Patient will be discharged back to [facility]. Patient should remain nonweightbearing with the left upper extremity. She should keep the incisional left shoulder clean and dry. She may shower without a dressing intact at this time over the left shoulder. She may use a sling for the left upper extremity for comfort or support as needed. She will follow with Dr. Mumtaz Fraga in the outpatient setting for further evaluation treatment as scheduled on 07/06/2018 at 2:45 PM. We discussed we'll plan to prescribe her oral antibiotic medication discharge. She will be given a prescription for clindamycin 300 mg 1 tab 3 times per day dispensed #30. A new med rec will be completed. Patient may resume previously prescribed medications. A new prescription for clindamycin will be written, signed, and provided to the rehabilitation facility. She is not currently complaining of lower extremity swelling after discontinuation of IV fluids. Patient has been cleared for discharge from medical standpoint. Physical Exam: Patient is awake, alert, and oriented 3 Vital signs stable Good chest excursion with deep inspiration and expiration Evidence of a healing incision over the left anterior shoulder which appears to be healing appropriately and is sealed with Dermabond No active drainage from the incision site No purulence or obvious signs of infection at the surgical site Evidence of mild bruising at the crease of the left elbow Mild warmth and pinkish area inferior to the incision site over the biceps Significant pain with even light palpation over the mid to distal left biceps No significant pain with palpation over the left elbow, forearm, or fingers of the left upper extremity Left upper extremity compartments are soft Mild pain with palpation of the left shoulder around the surgical site Patient Condition at Discharge: Good Plan - Discharge Summary Discharge Rx Participant: Yes New Discharge Prescriptions: New Clindamycin HCl [Cleocin] 300 mg PO Q8H #30 cap Continue Amitriptyline HCl 50 mg PO HS Aspirin [Adult Low Dose Aspirin EC] 81 mg PO DAILY PARoxetine HCL [Paxil] 50 mg PO HS metFORMIN HCL 1,000 mg PO BID Atorvastatin [Lipitor] 20 mg PO HS Famotidine 20 mg PO BID Losartan Potassium 100 mg PO QAM Hydrochlorothiazide 25 mg PO QAM hydrALAZINE HCL [Apresoline] 50 mg PO BID amLODIPine BESYLATE 10 mg PO QAM Albuterol Inhaler [Ventolin Hfa Inhaler] 2 puff INHALATION RT-Q6H PRN PRN Reason: Shortness Of Breath diphenhydrAMINE [Benadryl] 25 mg PO DAILY Propylene Glycol [Systane Complete] 1 drop BOTH EYES BID Multivitamins, Thera [Multivitamin (formulary)] 1 tab PO DAILY Ferrous Sulfate [Iron (65 MG Elemental)] 325 mg PO DAILY Cholecalciferol [Vitamin D3] 1,000 unit PO DAILY Krill Oil 500 mg PO DAILY Budesonide/Formoterol Fumarate [Symbicort 80-4.5 Mcg Inhaler] 1 puff INHALATION RT-BID Sennosides [Senokot] 1 tab PO BID #60 tablet Pramipexole [Mirapex] 0.5 mg PO HS tab Ipratropium-Albuterol Nebulize [Duoneb 0.5 mg-3 mg/3 ml Soln] 3 ml INHALATION RT-QID HYDROcodone/APAP 7.5-325MG [Latham 7.5-325] 2 tab PO Q6H PRN PRN Reason: Pain Celecoxib [CeleBREX] 200 mg PO BID Discharge Medication List Amitriptyline HCl 50 mg PO HS 06/22/16 [History] Aspirin [Adult Low Dose Aspirin EC] 81 mg PO DAILY 06/22/16 [History] Atorvastatin [Lipitor] 20 mg PO HS 06/23/16 [History] PARoxetine HCL [Paxil] 50 mg PO HS 06/23/16 [History] metFORMIN HCL 1,000 mg PO BID 06/23/16 [History] Famotidine 20 mg PO BID 05/24/17 [History] Losartan Potassium 100 mg PO QAM 07/03/17 [History] Hydrochlorothiazide 25 mg PO QAM 07/04/17 [History] hydrALAZINE HCL [Apresoline] 50 mg PO BID 07/04/17 [History] Albuterol Inhaler [Ventolin Hfa Inhaler] 2 puff INHALATION RT-Q6H PRN 08/03/18 [History] Cholecalciferol [Vitamin D3] 1,000 unit PO DAILY 08/03/18 [History] Ferrous Sulfate [Iron (65 MG Elemental)] 325 mg PO DAILY 08/03/18 [History] Krill Oil 500 mg PO DAILY 08/03/18 [History] Multivitamins, Thera [Multivitamin (formulary)] 1 tab PO DAILY 08/03/18 [History] Propylene Glycol [Systane Complete] 1 drop BOTH EYES BID 08/03/18 [History] amLODIPine BESYLATE 10 mg PO QAM 08/03/18 [History] diphenhydrAMINE [Benadryl] 25 mg PO DAILY 08/03/18 [History] Budesonide/Formoterol Fumarate [Symbicort 80-4.5 Mcg Inhaler] 1 puff INHALATION RT-BID 08/14/18 [History] Pramipexole [Mirapex] 0.5 mg PO HS tab 08/17/18 [Rx] Sennosides [Senokot] 1 tab PO BID #60 tablet 08/17/18 [Rx] HYDROcodone/APAP 7.5-325MG [Latham 7.5-325] 2 tab PO Q6H PRN 08/24/18 [History] Ipratropium-Albuterol Nebulize [Duoneb 0.5 mg-3 mg/3 ml Soln] 3 ml INHALATION RT-QID 08/24/18 [History] Celecoxib [CeleBREX] 200 mg PO BID 08/25/18 [History] Clindamycin HCl [Cleocin] 300 mg PO Q8H #30 cap 08/28/18 [Rx] Follow up Appointment(s)/Referral(s): Jorge Hansen MD [Primary Care Provider] - 1-2 days Mumtaz Fraga DO [Doctor of Osteopathic Medicine] - 09/05/18 2:45 pm (Patient may follow-up with Dr. Mumtaz Fraga at [facility] as previously scheduled on 09/05/2018 at 2:45 PM following discharge. ) Activity/Diet/Wound Care/Special Instructions: 1. Patient should remain nonweightbearing with the left upper extremity 2. Keep the incision of the left shoulder clean and dry 3. May shower without a dressing intact at this time over the left shoulder 4. May use a sling for the left upper extremity for comfort or support as needed Discharge Disposition: TRANSFER TO SNF/ECF
--- NOTE | 2018-08-28 22:58 | PN ---
PROGRESS NOTE DATE OF SERVICE: 08/28/2018 PRESENTING COMPLAINT: Tenderness of the biceps. INTERVAL HISTORY: Patient is status post left shoulder surgery on August 14. Still having some tenderness over the biceps tendon. Patient was tried on NSAIDs with bulging of stomach; hence this was discontinued. REVIEW OF SYSTEMS: Done for constitutional, cardiovascular, GI, pulmonary; relevant findings as above. CURRENT MEDICATIONS: Reviewed. They include clindamycin. PHYSICAL EXAMINATION: Temperature 97.6, pulse 81, respiration 16, blood pressure 137/84, pulse ox 97% on room air. GENERAL APPEARANCE: Sitting up. More comfortable. EYES: Pupils equal. Conjunctivae normal. NECK: JVD not raised. Mass not palpable. RESPIRATORY: Effort LUNGS: Diminished breath sounds. CARDIOVASCULAR: First and second sounds normal. No edema. ABDOMEN: Soft, nontender. Liver and spleen not palpable. PSYCHIATRY: Alert and oriented x3. Mood and affect normal. MUSCULOSKELETAL: Decreased tenderness over the biceps tendon. INVESTIGATIONS: Potassium 4.1. ASSESSMENT: 1. Postoperative pain in the left shoulder. Infection cannot be entirely ruled out; hence empirically will finish a course of antibiotic. 2. Tenderness over the biceps muscle and tendon, improving. Patient is not able to tolerate NSAIDs. 3. Chronic obstructive pulmonary disease in an ex-smoker. 4. Diabetes mellitus, type 2, on oral hypoglycemic. 5. Gastroesophageal reflux disease. 6. Hyperlipidemia. 7. Essential hypertension. 8. Primary osteoarthritis. 9. Obstructive sleep apnea. Uses CPAP machine. 10.Anxiety and depression not otherwise specified. PLAN: I just found out that the patient is now going home. Cannot tolerate the NSAIDs; to use local heat and cold. Increase activity as tolerated. Care was discussed the patient. She should follow up with her family doctor. MMODL / IJN: [id number] /
== END 2018-08-28 15:34 | disposition home health service (06) | DRG 920 ==
LOC: EC 23:02 → 4SSUR 08-25 00:01 → 6PED 08-26 18:41
PROVIDERS: ADMIT Orthopaedic Surgery Orthopaedic Surgery of the Spine; ATTEND Orthopaedic Surgery Orthopaedic Surgery of the Spine
DX: M96.840 Postprocedural hematoma of a musculoskeletal structure following a musculoskeletal system procedure (principal); T81.49XA Infection following a procedure, other surgical site, initial encounter; E11.9 Type 2 diabetes mellitus without complications; E78.5 Hyperlipidemia, unspecified; F17.210 Nicotine dependence, cigarettes, uncomplicated; F32.9 Major depressive disorder, single episode, unspecified; F41.9 Anxiety disorder, unspecified; G47.33 Obstructive sleep apnea (adult) (pediatric); I10 Essential (primary) hypertension; J44.9 Chronic obstructive pulmonary disease, unspecified; K21.9 Gastro-esophageal reflux disease without esophagitis; M19.91 Primary osteoarthritis, unspecified site; Z79.51 Long term (current) use of inhaled steroids; Z79.82 Long term (current) use of aspirin; Z79.84 Long term (current) use of oral hypoglycemic drugs; Z79.899 Other long term (current) drug therapy; Z90.710 Acquired absence of both cervix and uterus; Z88.6 Allergy status to analgesic agent; Z88.1 Allergy status to other antibiotic agents; Z88.8 Allergy status to other drugs, medicaments and biological substances; Z96.611 Presence of right artificial shoulder joint; Z96.612 Presence of left artificial shoulder joint; Z96.642 Presence of left artificial hip joint; Z96.653 Presence of artificial knee joint, bilateral; Z98.84 Bariatric surgery status; Z98.42 Cataract extraction status, left eye; Z98.41 Cataract extraction status, right eye; Z96.1 Presence of intraocular lens; Z82.49 Family history of ischemic heart disease and other diseases of the circulatory system; Z83.3 Family history of diabetes mellitus; Z84.1 Family history of disorders of kidney and ureter; Y83.8 Other surgical procedures as the cause of abnormal reaction of the patient, or of later complication, without mention of misadventure at the time of the procedure
CPT/HCPCS: 36415; 80048; 80053; 80202; 83605; 83735; 84100; 85025; 85379; 85610; 85730; 86140; 87040; 94640; 94660; 94760; 96365; 96375; 99285

== ENCOUNTER → 2018-10-18 | Outpatient (CLI) | payer MEDICARE ==
[2018-10-18 15:19] LABS: HCT 39.1 % (34.0-46.0); HGB 12.4 gm/dL (11.4-16.0); MCH 26.9 pg (25.0-35.0); MCHC 31.6 g/dL (31.0-37.0); MCV 85.1 fL (80.0-100.0); Mean Platelet Volume 7.2; Platelet Count 371 k/uL (150-450); RDW 14.8 % (11.5-15.5); WBC 9.2 k/uL (3.8-10.6)
[2018-10-18 16:03] LABS: Erythrocyte Sedimentation Rate 24 mm/hr (0-20)
== END | disposition home or self-care (01) ==
LOC: LABWHC1 14:14
PROVIDERS: ATTEND Physician Assistant
DX: M25.512 Pain in left shoulder (principal); M75.122 Complete rotator cuff tear or rupture of left shoulder, not specified as traumatic; M62.81 Muscle weakness (generalized); M19.012 Primary osteoarthritis, left shoulder; E78.5 Hyperlipidemia, unspecified; I10 Essential (primary) hypertension; J44.9 Chronic obstructive pulmonary disease, unspecified; L03.114 Cellulitis of left upper limb; E13.9 Other specified diabetes mellitus without complications; Z68.42 Body mass index [BMI] 45.0-49.9, adult; Z96.612 Presence of left artificial shoulder joint
CPT/HCPCS: 36415; 83520; 85027; 85652; 86140

== ENCOUNTER → 2020-03-17 | Outpatient (CLI) | payer MEDICARE ==
[2020-03-17 10:36] LABS: HCT 39.5 % (34.0-46.0); HGB 12.5 gm/dL (11.4-16.0); Hypochromasia Moderate; MCHC 31.6 g/dL (31.0-37.0); MCV 79.2 fL (80.0-100.0); Mean Platelet Volume 7.2; Platelet Count 387 k/uL (150-450); RDW 15.8 % (11.5-15.5); WBC 8.8 k/uL (3.8-10.6)
[2020-03-17 10:46] LABS: Partial Thromboplastin Time 22.7 sec (22.0-30.0); Prothrombin Time 9.9 sec (9.0-12.0)
[2020-03-17 10:48] LABS: ALT 25 U/L (4-34); AST 26 U/L (14-36); African American GFR (CKD) >90 (>60 ml/min/1.73 sqM); Albumin 4.7 g/dL (3.5-5.0); Alkaline Phosphatase 62 U/L (38-126); Anion Gap 8 mmol/L; Blood Urea Nitrogen 18 mg/dL (7-17); Calcium 10.2 mg/dL (8.4-10.2); Carbon Dioxide 29 mmol/L (22-30); Chloride 101 mmol/L (98-107); Glucose 106 mg/dL (74-99); Non-African American GFR(CKD) >90 (>60 ml/min/1.73 sqM); Potassium 4.3 mmol/L (3.5-5.1); Sodium 138 mmol/L (137-145); Total Bilirubin 0.5 mg/dL (0.2-1.3); Total Protein 7.8 g/dL (6.3-8.2)
[2020-03-17 11:05] LABS: Appearance,Urine Clear (Clear); Bilirubin,Urine Negative (Negative); Blood,Urine Negative (Negative); Color,Urine Yellow; Glucose,Urine (UA) Negative (Negative); Ketones,Urine Negative (Negative); Leukocyte Esterase,Urine Negative (Negative); Nitrite,Urine Negative (Negative); PH, Urine 5.5 (5.0-8.0); Protein,Urine Trace (Negative); Specific Gravity,Urine 1.027 (1.001-1.035); Urobilinogen,Urine <2.0 mg/dL (<2.0)
== END | disposition home or self-care (01) ==
LOC: LABPAT 09:17
PROVIDERS: ATTEND Orthopaedic Surgery
DX: Z01.818 Encounter for other preprocedural examination (principal); M16.11 Unilateral primary osteoarthritis, right hip
CPT/HCPCS: 36415; 80053; 81003; 85027; 85610; 85730; 87070; 93005

== ENCOUNTER → 2020-06-11 | Outpatient (CLI) | payer MEDICARE | END | disposition home or self-care (01) | LOC: LABWHC1 09:38 | PROVIDERS: ATTEND Family Medicine | DX: Z53.9 Procedure and treatment not carried out, unspecified reason (principal) ==

== ENCOUNTER → 2020-06-11 | Outpatient (CLI) | payer MEDICARE ==
[2020-06-11 10:33] LABS: Appearance,Urine Cloudy (Clear); Bilirubin,Urine Negative (Negative); Blood,Urine Negative (Negative); Color,Urine Yellow; Glucose,Urine (UA) Negative (Negative); Ketones,Urine Negative (Negative); Leukocyte Esterase,Urine Negative (Negative); Mucus,Urine Rare /hpf; Nitrite,Urine Negative (Negative); PH, Urine 5.5 (5.0-8.0); Protein,Urine Negative (Negative); RBC,Urine 1 /hpf (0-5); Specific Gravity,Urine 1.014 (1.001-1.035); Urobilinogen,Urine <2.0 mg/dL (<2.0); WBC,Urine 1 /hpf (0-5)
[2020-06-11 10:51] LABS: Anisocytosis Slight; HCT 38.1 % (34.0-46.0); HGB 11.8 gm/dL (11.4-16.0); Hypochromasia Slight; MCH 23.5 pg (25.0-35.0); MCHC 30.8 g/dL (31.0-37.0); MCV 76.1 fL (80.0-100.0); Mean Platelet Volume 7.3; Microcytosis Slight; Partial Thromboplastin Time 22.7 sec (22.0-30.0); Platelet Count 424 k/uL (150-450); Prothrombin Time 10.4 sec (9.0-12.0); RBC 5.01 m/uL (3.80-5.40); RDW 16.3 % (11.5-15.5); WBC 8.3 k/uL (3.8-10.6)
[2020-06-11 10:57] LABS: ALT 25 U/L (4-34); AST 27 U/L (14-36); African American GFR (CKD) >90 (>60 ml/min/1.73 sqM); Alkaline Phosphatase 66 U/L (38-126); Anion Gap 12 mmol/L; Blood Urea Nitrogen 12 mg/dL (7-17); Calcium 10.3 mg/dL (8.4-10.2); Carbon Dioxide 26 mmol/L (22-30); Chloride 98 mmol/L (98-107); Glucose 127 mg/dL (74-99); Non-African American GFR(CKD) >90 (>60 ml/min/1.73 sqM); Sodium 136 mmol/L (137-145); Total Bilirubin 0.5 mg/dL (0.2-1.3)
== END | disposition home or self-care (01) ==
LOC: LABPAT 09:35
PROVIDERS: ATTEND Orthopaedic Surgery
DX: Z01.818 Encounter for other preprocedural examination (principal); Z79.01 Long term (current) use of anticoagulants; Z01.812 Encounter for preprocedural laboratory examination
CPT/HCPCS: 36415; 80053; 81001; 85027; 85610; 85730; 87070

== ENCOUNTER 2020-06-16 10:22 | Day surgery (SDC) | payer MEDICARE ==
[2020-06-11 15:20] VITALS: BMI 43.2
[~2020-06-16 10:22] MED LIST changes: -ACETAMINOPHEN TAB 500 MG TAB PO ONE; +ACETAMINOPHEN TAB 500 MG TAB PO PRN; +CLINDAMYCIN 900 MG in DEXTROSE 5% IN WATER 50 ML IVPB PRN; -DEXAMETHASONE SOD PHOSPHATE 10 MG/ML 1 ML VIAL IV ONE; +DEXAMETHASONE SOD PHOSPHATE 4 MG/ML 1 ML VIAL IV ONE; +GABAPENTIN 300 MG CAP PO PRN; +HYDROcodone/APAP 5-325MG 1 EACH TAB PO PRN; +HYDROmorphone 0.2 MG/1 ML SYRINGE IVP PRN; +HYDROmorphone 0.5 MG/0.5 ML SYRINGE IVP PRN; -LIDOCAINE 1% 20 ML VIAL (10MG/ML) FOR IV START INTRADERMA PRN; +MAGNESIUM HYDROXIDE 2,400 MG/10 ML CUP PO PRN; -MELOXICAM 7.5 MG TAB PO ONE; +MELOXICAM 7.5 MG TAB PO PRN; -MIDAZOLAM (PF) 2 MG/2 ML VIAL IV PRN; +MIDAZOLAM 2 MG/2 ML VIAL IV PRN; +NALOXONE 0.4 MG/ML 1 ML VIAL IV PRN; +ONDANSETRON 4 MG/2 ML VIAL IVP PRN; -TRANEXAMIC ACID 1,000 MG in SODIUM CHLORIDE 0.9% 100 ML IVPB ONE; +TRANEXAMIC ACID 1,000 MG in SODIUM CHLORIDE 0.9% 100 ML IVPB PRN; -ceFAZolin 3 GM in SODIUM CHLORIDE 0.9% 100 ML IVPB ONE; -fentaNYL (PF) 50 MCG/ML 2 ML AMP IV PRN
[2020-06-16] MEDS: LACTATED RINGERS 1,000 ML IV SCH (11:02)
[2020-06-16] MEDS ORDERED: LIDOCAINE 1% (10MG/ML) FOR IV START INTRADERMA ONE (11:02)
[2020-06-16] MEDS ORDERED: fentaNYL (PF) 50 MCG/ML 2 ML AMP ONE ×2 (11:06→18:29)
[2020-06-16] MEDS ORDERED: PROPOFOL 10 MG/ML 20 ML VIAL IV ONE ×2 (11:06→18:29)
[2020-06-16] MEDS ORDERED: KETAMINE 10 MG/ML 20 ML VIAL ONE (11:06)
[2020-06-16] MEDS ORDERED: HEPARIN SODIUM,PORCINE 10,000 UNIT/ML 1 ML VIAL ONE (11:06)
[2020-06-16] MEDS ORDERED: GLYCOPYRROLATE 0.2 MG/ML 2 ML VIAL ONE (11:06)
[2020-06-16] MEDS ORDERED: ePHEDrine SULFATE/0.9% NACL/PF 50 MG/5 ML SYRINGE IV ONE (11:06)
[2020-06-16] MEDS ORDERED: TRANEXAMIC ACID 1,000 MG/10 ML VIAL ONE (11:06)
[2020-06-16] MEDS ORDERED: SODIUM CHLORIDE 0.9% IRRIG 1,000 ML BTL IRRIGATION ONE (11:06)
[2020-06-16] MEDS ORDERED: SODIUM CHLORIDE 0.9% 100 ML BAG ONE (11:06)
[2020-06-16] MEDS ORDERED: WATER FOR INJECTION, STERILE 10 ML VIAL IV ONE (11:06)
[2020-06-16] MEDS ORDERED: MIDAZOLAM 2 MG/2 ML VIAL ONE (11:06)
[2020-06-16 11:13] LABS: Glucose,Whole Blood 117 mg/dL (75-99)
[2020-06-16] MEDS: ROPIVACAINE 246.25 MG, EPINEPHrine 0.5 MG, KETOROLAC 30 MG, cloNIDine HCL/PF 80 MCG, WA... MISCELLANE PRN ×10 (11:45→12:15)
--- NOTE | 2020-06-16 12:47 | P.OP ---
Date of Procedure: 06/16/20 Preoperative Diagnosis: Severe osteoarthritis right hip Postoperative Diagnosis: Severe osteoarthritis right hip Procedure(s) Performed: Right total hip arthroplasty with a direct anterior approach Implants: [employer] Polarstem standard size 2 [employer]hew R3, 3 hole hemispherical acetabular shell, 48 mm [employer] Reflection 6.5 mm cancellus screw, 20 mm 2 [employer]hew OR 30 Oxinium dual mobility liner, 36 mm ID, 48 mm OD [employer]hew OR 30 dual mobility insert, XLP E, 22 mm ID, 36 mm OD [employer]hew Oxinium femoral head 22 mm, +4 All components were press-fit. The articulation is Oxinium on polyethylene. Anesthesia: spinal Surgeon: Mumtaz Fraga Nut And Bolt Assembler #1: Maria Luz Matos Estimated Blood Loss (ml): 300 Pathology: other (Femoral head and) Condition: stable Disposition: PACU Indications for Procedure: After failure of conservative treatment we discussed the surgical and nonsurgical treatment options at length. Patient wishes to proceed with a total hip arthroplasty with a direct anterior approach. Complications specific to this procedure were discussed at length, including but not limited to infection, leg length discrepancy, dislocation, nerve injury, and fracture. Covid-19 was also discussed at length with the patient, and they are aware of the current policies and procedures. The patient was given the option of delaying surgery, but they elect to proceed knowing these risks. Patient is aware of all these complications and informed consent was obtained Operative Findings: The operative findings are consistent with severe osteoarthritis of the right hip Description of Procedure: Patient was seen and evaluated in the preoperative area and the consent was reviewed. The operative site was marked with a skin marker. The patient was then brought to the operating room and given preoperative antibiotics intravenously. 1 g of Tranexamic acid was also given intravenously. A spinal anesthetic was administered by the anesthesia department. The patient was then placed on the Laporte table with the bony prominences well-padded. The hip area was then prepped with a ChloraPrep solution and draped in the usual sterile fashion. A universal timeout was then performed, which confirmed the patient's name, surgical site, ALLERGIES, and procedure being performed on the consent. Next the incision site was located at the flexion crease of the right hip. The skin and subcutaneous tissues were sharply incised. Incision was carefully dissected down to the fascia overlying the tensor fascia emi muscle. This fascia was then incised in line with the incision. Care was taken to stay laterally in order to avoid injuring the lateral femoral cutaneous nerve. Next, using blunt finger dissection, the tensor fascia emi muscle was dissected off its investing fascia. The muscle was then carefully retracted laterally with a cobra retractor over the lateral neck of the femur. Next, the circumflex vessels were identified and cauterized using the AquaMantis device. The anterior hip capsule was then exposed. The capsule was then opened and an inverted T fashion. Cobra retractors were then placed intracapsularly. The retractors were maintained intracapsular throughout the procedure. The proximal femur was then visualized. A small amount of traction was placed on the leg. The femoral neck was then osteotomized appropriate level above the lesser trochanter. A small wedge of bone was then removed from the remaining femoral head. Next, using a corkscrew the femoral head was removed from the acetabulum. On gross visual inspection, the femoral head had complete loss of articular cartilage and multiple periarticular osteophytes. The femoral head was then measured. Attention was then turned to the acetabulum. The acetabulum was exposed and any remaining labrum was excised. Sequential reaming of the acetabulum was performed using fluoroscopic guidance until there was a good bed of bleeding cancellus bone. When the appropriate size was reached, a trial was then placed. The position and fit of the trial was checked with fluoroscopy. The trial was then removed. Then, using fluoroscopic guidance, the final implant was impacted at 20 of anteversion and 40 of abduction, and fully seated in the acetabulum. 2 screws were then placed in the acetabulum. Again fluoroscopy was used to check position of the screws. Next, the liner was then impacted, with a 20 elevated liner located in the anterior superior quadrant. Component locking was confirmed. Attention was then directed to the femur. With the aid of the Laporte table, the femur was externally rotated to approximately 130, extended, and adducted under the opposite leg. A side hook was then placed under the proximal femur, and the side hook elevator was used to elevate the proximal femur while releasing the capsule. Retractors were then placed. A capsular release was performed, as well as a release of the conjoined tendon, which afforded excellent visualization of the proximal femur. Next, a box osteotome was used to lateralize the proximal femur. A shoe handler was then used to locate the femoral canal. Sequential broaching was then performed with appropriate size which afforded excellent fixation in the proximal femur. A trial was then placed with appropriate head and neck, and the hip was gently reduced with the aid of the Laporte table. Fluoroscopy was then used to check position of the components, as well as to ensure equal leg lengths. The hip was then gently dislocated and the trials were then removed. Final implants were then impacted and the hip was again reduced. Final fluoroscopic x-rays confirmed that the components were in anatomic position, as well as equal leg lengths. The hip was also taken through range of motion, and found to be stable. The hip was then copiously irrigated with antibiotic solution with pulsatile lavage. The hip was then irrigated with Irrisept solution. The soft tissues were then injected with a ropivacaine solution, which consisted of 246.25 mg of ropivacaine, 0.5 mg of epinephrine, 30 mg of Toradol, 80 g of clonidine, and 48.45 mL of sterile water, for a total of 100 mL of fluid injected. A second dose of 1 g of Tranexamic acid was also given intravenously. Any blood collected by Cell Saver was then returned to the patient at this time. The fascia was then closed with 2-0 strata fix suture. The subcutaneous tissue was closed with 3-0 Vicryl. The subcuticular tissue was closed with 3-0 strata fix suture. The skin was then closed with Exofin skin glue. After the glue and dried, and Optifoam silver impregnated dressing was applied. The patient was then transferred to the recovery room in stable condition. The farm assistant SHERIDAN Mehta was required due to the complexity of surgery, and the need for skilled surgical asst for positioning, draping, exposure, retraction, and closure of the wound.
[2020-06-16] MEDS ORDERED: LACTATED RINGERS 1,000 ML IV ONE (12:49)
[2020-06-16] MEDS ORDERED: MIDAZOLAM 2 MG/2 ML VIAL IVP ONE (13:15)
[2020-06-16] MEDS ORDERED: MEPERIDINE 50 MG/ML SYRINGE IVP ONE ×2 (13:21→13:26)
--- NOTE | 2020-06-16 13:24 | FL ---
EXAMINATION TYPE: FL guidance operating room DATE OF EXAM: 06/16/2020 HISTORY: Fluoroscopy time 19 seconds of fluoroscopy provided. IMPRESSION: 1. Fluoroscopy time.
[2020-06-16 13:39] LABS: Glucose,Whole Blood 192 mg/dL (75-99)
[2020-06-16] MEDS: diphenhydrAMINE 50 MG/ML 1 ML VIAL IVP ONE ×2 (13:45→14:00)
[2020-06-16 14:03] LABS: Anisocytosis Slight; Basophils # (A) 0.1 k/uL (0-0.2); Basophils % (A) 0 %; Eosinophils # (A) 0.3 k/uL (0-0.7); Eosinophils % (A) 2 %; HCT 33.2 % (34.0-46.0); HGB 10.1 gm/dL (11.4-16.0); Hypochromasia Marked; Lymphocytes # (A) 3.5 k/uL (1.0-4.8); Lymphocytes % (A) 19 %; MCH 23.8 pg (25.0-35.0); MCHC 30.5 g/dL (31.0-37.0); Mean Platelet Volume 7.6; Microcytosis Slight; Monocytes # (A) 0.3 k/uL (0-1.0); Monocytes % (A) 2 %; Neutrophils # (A) 13.8 k/uL (1.3-7.7); Neutrophils % (A) 76 %; Platelet Count 323 k/uL (150-450); RBC 4.25 m/uL (3.80-5.40); RDW 16.5 % (11.5-15.5); WBC 18.3 k/uL (3.8-10.6)
--- NOTE | 2020-06-16 14:05 | XR ---
EXAMINATION TYPE: XR Hip Limited RT DATE OF EXAM: 06/16/2020 COMPARISON: NONE HISTORY: Postop TECHNIQUE: One view submitted. FINDINGS: There is postsurgical change in near anatomic alignment. There is soft tissue edema and emphysema. IMPRESSION: 1. Postoperative change. Appears in near-anatomic alignment.
[2020-06-16 14:13] LABS: ABG HCO3 23 mmol/L (21-25); ABG Oxygen Saturation 98.5 % (94-97); ABG PCO2 44 mmHg (35-45); ABG PH 7.33 (7.35-7.45); ABG PO2 118 mmHg (83-108); ABG TCO2 24 mmol/L (19-24); Allen Test Performed? Yes
[2020-06-16 14:13] LABS: ALT 22 U/L (4-34); AST 27 U/L (14-36); African American GFR (CKD) >90 (>60 ml/min/1.73 sqM); Albumin 4.2 g/dL (3.5-5.0); Alkaline Phosphatase 60 U/L (38-126); Anion Gap 14 mmol/L; Blood Urea Nitrogen 13 mg/dL (7-17); Calcium 9.3 mg/dL (8.4-10.2); Carbon Dioxide 23 mmol/L (22-30); Chloride 101 mmol/L (98-107); Glucose 195 mg/dL (74-99); Magnesium 1.7 mg/dL (1.6-2.3); Non-African American GFR(CKD) >90 (>60 ml/min/1.73 sqM); Phosphorus 5.3 mg/dL (2.5-4.5); Sodium 138 mmol/L (137-145); Total Bilirubin 0.4 mg/dL (0.2-1.3); Total Protein 6.8 g/dL (6.3-8.2)
[2020-06-16] MEDS ORDERED: diphenhydrAMINE 50 MG/ML 1 ML VIAL IVP PRN (14:19)
[2020-06-16] MEDS: HYDROmorphone 0.5 MG/0.5 ML SYRINGE IVP PRN (16:45)
[2020-06-16 16:46] LABS: Glucose,Whole Blood 163 mg/dL (75-99)
[2020-06-16] MEDS ORDERED: SUCCINYLCHOLINE CHLORIDE 100 MG/5 ML SYR IV ONE (18:29)
[2020-06-16] MEDS ORDERED: ONDANSETRON 4 MG/2 ML VIAL ONE (18:29)
[2020-06-16] MEDS ORDERED: LIDOCAINE 1% INJ 10MG/ML (20 ML MDV) ONE (18:29)
[2020-06-16] MEDS ORDERED: PHENYLEPHRINE-0.9% NACL SYG 1,000 MCG/10 ML SYRINGE ONE (18:29)
[2020-06-16] MEDS ORDERED: DEXAMETHASONE SOD PHOSPHATE 10 MG/ML 1 ML VIAL ONE (18:29)
--- NOTE | 2020-06-16 18:49 | P.CNNES ---
History of Present Illness Consult date: 06/16/20 Requesting physician: Mumtaz Fraga Reason for Consult: Postop vigorous tremors History of Present Illness: Patient is a 65-year-old female, who came to the hospital this morning for right hip arthroplasty. Patient underwent arthroplasty uneventful. After patient was in the recovery room, patient was talking, and was conversing well. However shortly after patient started having some tremors/jerking of the body involving upper and lower part. Patient's mentation was completely clear, answering appropriately with no changes in the mentation. This prompted neurology consultation. When I came to see patient in the recovery room, patient was having intermittent myoclonic jerking of bilateral upper and lower limbs, proximal more than distal. Patient's mentation is completely clear, was falling all directions, answering appropriately, denying headache or any pain anywhere. Patient in fact was making humerus remarks. After discussion with the human resources operations manager, it appears patient received 2 mg of fentanyl, 4 mg of Versed, 50 mg of ketamine, 400 mg of propofol, 0.2 mg of Robinul and 2 g of tranexamic acid on medication list it also appears that patient receive Dilaudid. After the symptoms started, patient was given Benadryl 25 mg IV push, Demerol 50 mg IV and symptoms did improve. Patient was given an extra 25 mg Benadryl and symptoms further improved. Patient's blood test shows CBC with WBC 18.3 hemoglobin 10.1, platelets 263. Chem-20 is normal. Patient's last hemoglobin A1c 7.2 on 08/15/2018. Patient's ABG from this morning showed pH 7.33, pCO2 44, pO2 118 and saturation 98.5. Review of Systems Postsurgical pain otherwise unremarkable complains of jerks. Denies any headache, problem with the vision, hoarseness sore throat dysphagia. Denies any numbness tingling focal weakness. Denies any double vision, loss of vision or blurred vision. No speech or swallowing difficulty noted. No focal symptoms whatsoever. Past Medical History Past Medical History: Asthma, Diabetes Mellitus, GERD/Reflux, Hyperlipidemia, Hypertension, Osteoarthritis (OA), Pneumonia, Skin Disorder, Sleep Apnea/CPAP/BIPAP Additional Past Medical History / Comment(s): ONLY ABLE TO USE INDEX FINGER AND THUMB ON RT HAND R/T TENDON TEARS, hx migraines, IBS, eczema, chronic anemia. Right ankle swelling History of Any Multi-Drug Resistant Organisms: None Reported Past Surgical History: Appendectomy, Bariatric Surgery, Section, Hernia Repair, Hysterectomy, Joint Replacement, Orthopedic Surgery, Tonsillectomy Additional Past Surgical History / Comment(s): BENIGN BREAST BIOPSY & ASPIRATION, CLIFF EN Y, RUBEN KNEE REPLACEMENT, ruben SHOULDER REPLACEMENT; L hip replacement, L HEEL SPUR, RUBEN BUNIONECTOMY, HAMMER TOE ruben, RUBEN CARPAL TUNNEL, RUBEN CATARACT, tailor bunionectomy rt foot, surgery for metatarsal fx left foot, has issue with rt foot-causes problem with balance, rt eye vitrectomy, laminectomy, Right total hip. Past Anesthesia/Blood Transfusion Reactions: No Reported Reaction Past Psychological History: Anxiety, Depression Smoking Status: Current some day smoker Past Alcohol Use History: Occasional Additional Past Alcohol Use History / Comment(s): STARTED SMOKING AT AGE 17 QUIT 2017 SMOKES ON AND OFF, CURRENTLY "someday smoker" Past Drug Use History: Marijuana Additional Drug Use History / Comment(s): INSTRUCTED TO HOLD 24 HRS PRIOR TO PROCEDURE - Past Family History Daughter(s) Family Medical History: Deep Vein Thrombosis (DVT) Mother Family Medical History: Diabetes Mellitus, Hypertension Additional Family Medical History / Comment(s): renal failure Medications and Allergies Home Medications Medication Instructions Recorded Confirmed Type Atorvastatin [Lipitor] 20 mg PO HS 06/23/16 06/16/20 History PARoxetine HCL [Paxil] 50 mg PO HS 06/23/16 06/16/20 History metFORMIN HCL 1,000 mg PO BID 06/23/16 06/16/20 History Famotidine 20 mg PO BID 05/24/17 06/16/20 History Losartan Potassium 100 mg PO QAM 07/03/17 06/16/20 History hydrALAZINE HCL [Apresoline] 50 mg PO BID 07/04/17 06/16/20 History hydroCHLOROthiazide 25 mg PO QAM 07/04/17 06/16/20 History Albuterol Inhaler (Mhu) [Ventolin 2 puff INHALATION RT-Q6H PRN 08/03/18 06/16/20 History Hfa Inhaler (Mhu)] amLODIPine BESYLATE 10 mg PO QAM 08/03/18 06/16/20 History Celecoxib [CeleBREX] 200 mg PO BID 08/25/18 06/16/20 History Carboxymethylcellulose Sodium 15 ml OP BID 06/11/20 06/16/20 History [Refresh Tears] HYDROcodone/APAP 5-325MG [[place] 1.5 tab PO BID 06/11/20 06/16/20 History 5-325] Pramipexole [Mirapex] 1 mg PO HS 06/11/20 06/16/20 History Allergies Allergy/AdvReac Type Severity Reaction Status Date / Time azithromycin Allergy Intermediate Rash/Hives Verified 06/16/20 10:48 clavulanic acid Allergy Intermediate Abdominal Verified 06/16/20 10:48 [From Augmentin] Pain erythromycin base Allergy Intermediate Rash/Hives Verified 06/16/20 10:48 [From Erythrocin] NSAIDS (Non-Steroidal Allergy Intermediate Abdominal Verified 06/16/20 10:48 Anti-Inflamma Pain tetracycline Allergy Intermediate Rash/Hives Verified 06/16/20 10:48 lisinopril Allergy Anaphylaxis Verified 06/16/20 10:48 duloxetine [From Cymbalta] AdvReac Severe Anaphylaxis Verified 06/16/20 10:48 cefazolin [From Kefzol] AdvReac Itching Verified 06/16/20 10:48 Physical Examination - Vital Signs Vital Signs: Vital Signs Temp Pulse Resp BP Pulse Ox 06/16/20 15:00 86 16 114/78 92 L 06/16/20 14:45 87 16 112/76 92 L 06/16/20 14:25 78 16 110/71 98 06/16/20 14:10 88 16 109/51 98 06/16/20 14:00 97.3 F L 77 16 108/66 91 L 06/16/20 13:55 98.5 F 83 16 110/55 97 06/16/20 13:40 85 17 123/76 98 06/16/20 13:25 83 16 131/82 98 06/16/20 13:11 129/57 06/16/20 11:06 98.9 F 71 16 136/71 96 Intake and Output 06/16/20 06/16/20 06/16/20 06:59 14:59 22:59 Intake Total 2005 210 Output Total 300 Balance 1706 210 Intake: IV 2005 Intake, IV Titration 210 Amount Sodium Chloride 0.9% 1, 210 000 ml @ 70 mls/hr IV . [id number] [facility] Rx#:[id number] Output: Estimated Blood Loss 300 Other: Weight 123.1 kg On examination patient is an elderly female, laying comfortably in the bed. Patient has a face mask for oxygen. Patient's speaking very clearly with no aphasia or dysarthria. Can name and repeat very well. Patient's pupils are round and reacting to light, visual byrnes are full on confrontation with no neglect, extraocular muscles are intact. Face is symmetric, tongue protrudes the midline. Palatal elevation and sensation normal, hearing and shoulder shrug normal. Facial sensation normal. On muscle strength testing there is no pronator drift. Patient does have some history of ruptured extensor tendons of the right middle middle ring and index finger of the right hand. Patient's muscle strength otherwise appears normal in the arms and legs. Some myoclonic twitching noted by checking biceps and triceps. Hips were not checked. Reflexes are symmetric and plantars are downgoing bilaterally. Sensory touch is equal. No ataxia for [id number] testing. Tone and bulk of muscles normal. Gait deferred. There is no obvious bruit, S1 and S2 audible, abdomen soft nontender. Results - Laboratory Findings CBC and BMP: 06/16/20 13:50 06/16/20 13:50 Abnormal Lab Findings: Abnormal Labs 06/16/20 06/16/20 06/16/20 11:03 13:37 13:40 WBC Hgb Hct MCV MCH MCHC RDW Neutrophils # ABG pH 7.33 L ABG pO2 118 H ABG O2 Saturation 98.5 H Glucose POC Glucose (mg/dL) 117 H 192 H Phosphorus 06/16/20 06/16/20 06/16/20 13:50 13:50 16:44 WBC 18.3 H Hgb 10.1 L Hct 33.2 L MCV 78.0 L MCH 23.8 L MCHC 30.5 L RDW 16.5 H Neutrophils # 13.8 H ABG pH ABG pO2 ABG O2 Saturation Glucose 195 H POC Glucose (mg/dL) 163 H Phosphorus 5.3 H Assessment and Plan Assessment: * Myoclonic jerks versus extrapyramidal side effects developed after right hip arthroplasty. Possible medication side effect. Patient received multiple medications during surgery, which likely induced these jerks. * Status post right hip arthroplasty * Asthma * Diabetes * Hyperlipidemia * Obstructive sleep apnea * Tobacco use * Osteoarthritis Plan: * Continue to observe. Her tremors are improving. * May give Benadryl 25 mg IV every 6 hours when necessary jerks/tremors. These are not seizures. * We will follow clinically.
[2020-06-16] MEDS: HYDROcodone/APAP 5-325MG 1 EACH TAB PO PRN (19:06)
[2020-06-16 21:14] LABS: Glucose,Whole Blood 161 mg/dL (75-99)
[2020-06-16] MEDS: SODIUM CHLORIDE 0.9% 1,000 ML IV SCH (21:15)
[2020-06-16] MEDS: ASPIRIN 325 MG TAB PO SCH (21:15)
[2020-06-16] MEDS: SENNOSIDES-DOCUSATE SODIUM 1 EACH TAB PO SCH (21:15)
[2020-06-16] MEDS: CLINDAMYCIN 900 MG in DEXTROSE 5% IN WATER 50 ML IVPB SCH ×2 (21:15)
[2020-06-16] MEDS ORDERED: ALBUTEROL NEBULIZED 2.5 MG/3 ML INHALATION PRN (21:42)
--- NOTE | 2020-06-16 22:05 | P.CONS ---
History of Present Illness - Reason for Consult Consult date: 06/16/20 Medical management Requesting physician: Mumtaz Fraga - Chief Complaint Right hip surgery - History of Present Illness Consultation: This is a pleasant [address] Jorge Hansen. Chronic stable medical conditions include diabetes, GERD, hypertension, hyperlipidemia, or strength redness, obstructive sleep apnea irritable bowel syndrome history of bariatric s urgery and multiple surgeries in the past. Patient underwent right total hip arthroplasty. Postprocedure when she was on the medical floor doesn't episode when her upper part of the body was jerking. She did not lose consciousness. Had no control. It was not described as rigors. It was described more like a myoclonic jerking. Patient's mentation was clear to the episode. Patient does not describe a similar episode. 4. There is no fever. Review of systems: GEN.: Tired EYES: None HEENT: None NECK: None RESPIRATORY: None CARDIOVASCULAR: None GASTROINTESTINAL: None GENITOURINARY: None MUSCULOSKELETAL: Joint pains LYMPHATICS: None HEMATOLOGICAL: None PSYCHIATRY: None NEUROLOGICAL: As above Past medical history to include: Diabetes, GERD, COPD, hypertension, hyperlipidemia, osteoarthritis, obstructive sleep apnea, on levo to use right hand index and thumb due to tendon tear, irr itable bowel syndrome, eczema, bariatric surgery anxiety depression Social history: Lives alone. Does use a walker sometimes. Smoked from the age of 17-2017. Still smoking on and off. Alcohol occasionally. Has been using some marijuana. Physical examination: VITAL SIGNS: Afebrile, 86, 16, 114/78, 92% on 2 L GENERAL: BMI 46.6, reclining in bed, comfortable, awake. EYES: Pupils equal. Conjunctiva normal. HEENT: External appearance of nose and ears normal, oral cavity grossly normal. NECK: JVD not raised; masses not palpable. HEART: First and second heart sounds are normal; no edema. LUNGS: Respiratory rate normal; clear to auscultation. ABDOMEN: Soft, nontender, liver spleen not palpable, no masses palpable. PSYCH: Alert and oriented x3; mood and affect normal. MUSCULAR skeletal: Some evidence of OA. Dressing over the right hip NEUROLOGICAL: Cranial nerves grossly intact; no facial asymmetry, power and sensation grossly intact. LYMPHATICS: No lymph nodes palpable in the axilla and neck INVESTIGATIONS, reviewed in the clinical context: White count 18.3 hemoglobin 10.1 platelets 323 potassium 4.0 creatinine 0.60 blood glucose 195 Previous testing from June 11: White count 8.3 Assessment and plan: -Patient had an episode of jerking of the body. More like a myoclonic. Never lost of consciousness. No tongue biting or incontinence. No prior history of s eizures. Most likely extrapyramidal side effect of medication she received perioperatively. -Diabetes mellitus type 2. Continue with metformin and follow Accu-Cheks -GERD, continue with Pepcid -Hyperlipidemia, continue with Lipitor -Essential hypertension, continue with hydralazine and amlodipine losartan -Primary osteoarthritis, pain medications when necessary -Obstructive sleep apnea -Morbid obesity BMI 46.6, follow-up with PCP for weight loss measures -Right total hip arthroplasty -Anxiety depression otherwise specified, continue with Paxil -Restless leg syndrome, continue with Mirapex -DVT prophylaxis-on aspirin 325 twice a day as per Dr. Fraga Thank you Dr. Fraga will follow Past Medical History Past Medical History: Asthma, Diabetes Mellitus, GERD/Reflux, Hyperlipidemia, Hypertension, Osteoarthritis (OA), Pneumonia, Skin Disorder, Sleep Apnea/CPAP/BIPAP Additional Past Medical History / Comment(s): ONLY ABLE TO USE INDEX FINGER AND THUMB ON RT HAND R/T TENDON TEARS, hx migraines, IBS, eczema, chronic anemia. Right ankle swelling History of Any Multi-Drug Resistant Organisms: None Reported Past Surgical History: Appendectomy, Bariatric Surgery, Section, Hernia Repair, Hysterectomy, Joint Replacement, Orthopedic Surgery, Tonsillectomy Additional Past Surgical History / Comment(s): BENIGN BREAST BIOPSY & ASPIRATION, CLIFF EN Y, RUBEN KNEE REPLACEMENT, ruben SHOULDER REPLACEMENT; L hip replacement, L HEEL SPUR, RUBEN BUNIONECTOMY, HAMMER TOE ruben, RUBEN CARPAL TUNNEL, RUBEN CATARACT, tailor bunionectomy rt foot, surgery for metatarsal fx left foot, has issue with rt foot-causes problem with balance, rt eye vitrectomy, everardo ctomy, Right total hip. Past Anesthesia/Blood Transfusion Reactions: No Reported Reaction Past Psychological History: Anxiety, Depression Smoking Status: Current some day smoker Past Alcohol Use History: Occasional Additional Past Alcohol Use History / Comment(s): STARTED SMOKING AT AGE 17 QUIT 2017 SMOKES ON AND OFF, CURRENTLY "someday smoker" Past Drug Use History: Marijuana Additional Drug Use History / Comment(s): INSTRUCTED TO HOLD 24 HRS PRIOR TO PROCEDURE - Past Family History Daughter(s) Family Medical History: Deep Vein Thrombosis (DVT) Mother Family Medical History: Diabetes Mellitus, Hypertension Additional Family Medical History / Comment(s): renal failure Medications and Allergies Home Medications Medication Instructions Recorded Confirmed Type Atorvastatin [Lipitor] 20 mg PO HS 06/23/16 06/16/20 History PARoxetine HCL [Paxil] 50 mg PO HS 06/23/16 06/16/20 History metFORMIN HCL 1,000 mg PO BID 06/23/16 06/16/20 History Famotidine 20 mg PO BID 05/24/17 06/16/20 History Losartan Potassium 100 mg PO QAM 07/03/17 06/16/20 History hydrALAZINE HCL [Apresoline] 50 mg PO BID 07/04/17 06/16/20 History hydroCHLOROthiazide 25 mg PO QAM 07/04/17 06/16/20 History Albuterol Inhaler (u) [Ventolin 2 puff INHALATION RT-Q6H PRN 08/03/18 06/16/20 History Hfa Inhaler (u)] amLODIPine BESYLATE 10 mg PO QAM 08/03/18 06/16/20 History Celecoxib [CeleBREX] 200 mg PO BID 08/25/18 06/16/20 History Carboxymethylcellulose Sodium 15 ml OP BID 06/11/20 06/16/20 History [Refresh Tears] HYDROcodone/APAP 5-325MG [[place] 1.5 tab PO BID 06/11/20 06/16/20 History 5-325] Pramipexole [Mirapex] 1 mg PO HS 06/11/20 06/16/20 History Allergies Allergy/AdvReac Type Severity Reaction Status Date / Time azithromycin Allergy Intermediate Rash/Hives Verified 06/16/20 10:48 clavulanic acid Allergy Intermediate Abdominal Verified 06/16/20 10:48 [From Augmentin] Pain erythromycin base Allergy Intermediate Rash/Hives Verified 06/16/20 10:48 [From Erythrocin] NSAIDS (Non-Steroidal Allergy Intermediate Abdominal Verified 06/16/20 10:48 Anti-Inflamma Pain tetracycline Allergy Intermediate Rash/Hives Verified 06/16/20 10:48 lisinopril Allergy Anaphylaxis Verified 06/16/20 10:48 duloxetine [From Cymbalta] AdvReac Severe Anaphylaxis Verified 06/16/20 10:48 cefazolin [From Kefzol] AdvReac Itching Verified 06/16/20 10:48 Physical Exam Vitals: Vital Signs Temp Pulse Resp BP Pulse Ox 06/16/20 15:00 86 16 114/78 92 L 06/16/20 14:45 87 16 112/76 92 L 06/16/20 14:25 78 16 110/71 98 06/16/20 14:10 88 16 109/51 98 06/16/20 14:00 97.3 F L 77 16 108/66 91 L 06/16/20 13:55 98.5 F 83 16 110/55 97 06/16/20 13:40 85 17 123/76 98 06/16/20 13:25 83 16 131/82 98 06/16/20 13:11 129/57 06/16/20 11:06 98.9 F 71 16 136/71 96 Intake and Output 06/16/20 06/16/20 06/16/20 06:59 14:59 22:59 Intake Total 2005 210 Output Total 300 Balance 1706 210 Intake: IV 2005 Intake, IV Titration 210 Amount Sodium Chloride 0.9% 1, 210 000 ml @ 70 mls/hr IV . [id number] [facility] Rx#:[id number] Output: Estimated Blood Loss 300 Other: Weight 123.1 kg Results CBC & Chem 7: 06/16/20 13:50 06/16/20 13:50 Labs: Abnormal Lab Results - Last 24 Hours (Table) 06/16/20 06/16/20 06/16/20 Range/Units 11:03 13:37 13:40 WBC (3.8-10.6) k/uL Hgb (11.4-16.0) gm/dL Hct (34.0-46.0) % MCV (80.0-100.0) fL MCH (25.0-35.0) pg MCHC (31.0-37.0) g/dL RDW (11.5-15.5) % Neutrophils # (1.3-7.7) k/uL ABG pH 7.33 L (7.35-7.45) ABG pO2 118 H (83-108) mmHg ABG O2 Saturation 98.5 H (94-97) % Glucose (74-99) mg/dL POC Glucose (mg/dL) 117 H 192 H (75-99) mg/dL Phosphorus (2.5-4.5) mg/dL 06/16/20 06/16/20 06/16/20 Range/Units 13:50 13:50 16:44 WBC 18.3 H (3.8-10.6) k/uL Hgb 10.1 L (11.4-16.0) gm/dL Hct 33.2 L (34.0-46.0) % MCV 78.0 L (80.0-100.0) fL MCH 23.8 L (25.0-35.0) pg MCHC 30.5 L (31.0-37.0) g/dL RDW 16.5 H (11.5-15.5) % Neutrophils # 13.8 H (1.3-7.7) k/uL ABG pH (7.35-7.45) ABG pO2 (83-108) mmHg ABG O2 Saturation (94-97) % Glucose 195 H (74-99) mg/dL POC Glucose (mg/dL) 163 H (75-99) mg/dL Phosphorus 5.3 H (2.5-4.5) mg/dL 06/16/20 Range/Units 21:13 WBC (3.8-10.6) k/uL Hgb (11.4-16.0) gm/dL Hct (34.0-46.0) % MCV (80.0-100.0) fL MCH (25.0-35.0) pg MCHC (31.0-37.0) g/dL RDW (11.5-15.5) % Neutrophils # (1.3-7.7) k/uL ABG pH (7.35-7.45) ABG pO2 (83-108) mmHg ABG O2 Saturation (94-97) % Glucose (74-99) mg/dL POC Glucose (mg/dL) 161 H (75-99) mg/dL Phosphorus (2.5-4.5) mg/dL
[2020-06-16] MEDS: INSULIN ASPART (NovoLOG) 100 UNIT/ML VIAL SQ SCH (23:16)
[2020-06-16] MEDS: hydrALAZINE HCL 50 MG TAB PO SCH (23:21)
[2020-06-16] MEDS: ATORVASTATIN 20 MG TAB PO SCH (23:21)
[2020-06-16] MEDS: MELOXICAM 7.5 MG TAB PO SCH (23:21)
[2020-06-16] MEDS: PARoxetine 20 MG TAB PO SCH (23:22)
[2020-06-16] MEDS: FAMOTIDINE 20 MG TAB PO SCH (23:23)
[2020-06-16] MEDS: PRAMIPEXOLE 0.5 MG TAB PO SCH (23:23)
[2020-06-16] MEDS: ARTIFICIAL TEARS-HYPROMELLOSE DROPS 15 ML BTL BOTH EYES SCH (23:23)
[2020-06-17] MEDS: HYDROmorphone 0.5 MG/0.5 ML SYRINGE IVP PRN (00:15)
[2020-06-17] MEDS: SODIUM CHLORIDE 0.9% 1,000 ML IV SCH ×2 (01:13→15:09)
[2020-06-17] MEDS: CLINDAMYCIN 900 MG in DEXTROSE 5% IN WATER 50 ML IVPB SCH ×2 (04:08)
[2020-06-17] MEDS: HYDROcodone/APAP 5-325MG 1 EACH TAB PO PRN (04:12)
[2020-06-17] MEDS: LACTATED RINGERS 1,000 ML IV SCH (06:52)
[2020-06-17 07:12] LABS: Glucose,Whole Blood 135 mg/dL (75-99)
[2020-06-17] MEDS: INSULIN ASPART (NovoLOG) 100 UNIT/ML VIAL SQ SCH ×4 (07:17→21:12)
[2020-06-17] MEDS: FAMOTIDINE 20 MG TAB PO SCH ×2 (07:54→21:30)
[2020-06-17] MEDS: LOSARTAN 50 MG TAB PO SCH (07:54)
[2020-06-17] MEDS: ASPIRIN 325 MG TAB PO SCH ×2 (07:54→21:30)
[2020-06-17] MEDS: MELOXICAM 7.5 MG TAB PO SCH ×2 (07:54→21:31)
[2020-06-17] MEDS: amLODIPine 10 MG TAB PO SCH (07:55)
[2020-06-17] MEDS: hydrALAZINE HCL 50 MG TAB PO SCH ×2 (07:55→21:30)
[2020-06-17] MEDS: metFORMIN 500 MG TAB PO SCH ×2 (07:55→21:30)
[2020-06-17] MEDS ORDERED: HYDROcodone/APAP 7.5-325MG 1 EACH TAB PO PRN (08:31)
--- NOTE | 2020-06-17 08:36 | P.DS ---
Providers Expected date of discharge: 06/17/20 Attending physician: Mumtaz Fraga Consults: 06/16/20 09:17 Consult Physician Routine Consulting Provider: Micky Cook Consult Reason/Comments: medical mangement Do you want consulting provider notified?: Yes 06/16/20 14:17 Consult Physician Stat Consulting Provider: Abhishek Allan Consult Reason/Comments: POST OP VIGOROUS TREMORS Do you want consulting provider notified?: Already Contacted Primary care physician: Jorge Hansen - Discharge Diagnosis(es) (1) Osteoarthritis of right hip Current Visit: Yes Status: Acute (2) Status post total hip replacement, right Current Visit: Yes Status: Acute Hospital Course: This is a 65-year-old female with known history of degenerative arthritis of the right hip. The patient presented for evaluation as an outpatient. After discussion and consideration patient elects to proceed with total hip arthroplasty. The patient is seen preoperatively by Dr. Fraga and medically cleared for surgery by their primary care physician. Patient is admitted to [facility] on 06/16/2020 for total hip arthroplasty. The procedure is performed without complication or sequelae. The patient is doing well postoperatively. Labs and vital signs are stable on day of discharge. On day of discharge patient's hip incision is healing well. There is minimal erythema. There is no drainage noted at this time. There is minimal soft tissue swelling to the hip and thigh. Patient has full foot and ankle motion without difficulty or pain. Calf is soft and nontender to palpation. Neurovascular status to the right lower extremity is intact. Patient is discharged home in good condition. Opioid start talking form is reviewed and signed. Please see med rec for accurate list of home medications. Plan - Discharge Summary Discharge Rx Participant: Yes New Discharge Prescriptions: New Aspirin 325 mg PO BID #60 tab HYDROcodone/APAP 7.5-325MG [[place] 7.5-325] 1 - 2 tab PO Q6H PRN #32 tab PRN Reason: Pain Sennosides [Senokot] 2 tab PO DAILY PRN #60 tablet PRN Reason: Constipation No Action PARoxetine HCL [Paxil] 50 mg PO HS metFORMIN HCL 1,000 mg PO BID Atorvastatin [Lipitor] 20 mg PO HS Famotidine 20 mg PO BID Losartan Potassium 100 mg PO QAM hydroCHLOROthiazide 25 mg PO QAM hydrALAZINE HCL [Apresoline] 50 mg PO BID amLODIPine BESYLATE 10 mg PO QAM Albuterol Inhaler (Mhu) [Ventolin Hfa Inhaler (u)] 2 puff INHALATION RT-Q6H PRN PRN Reason: Shortness Of Breath Celecoxib [CeleBREX] 200 mg PO BID HYDROcodone/APAP 5-325MG [[place] 5-325] 1.5 tab PO BID Pramipexole [Mirapex] 1 mg PO HS Carboxymethylcellulose Sodium [Refresh Tears] 15 ml OP BID Discharge Medication List Atorvastatin [Lipitor] 20 mg PO HS 06/23/16 [History] PARoxetine HCL [Paxil] 50 mg PO HS 06/23/16 [History] metFORMIN HCL 1,000 mg PO BID 06/23/16 [History] Famotidine 20 mg PO BID 05/24/17 [History] Losartan Potassium 100 mg PO QAM 07/03/17 [History] hydrALAZINE HCL [Apresoline] 50 mg PO BID 07/04/17 [History] hydroCHLOROthiazide 25 mg PO QAM 07/04/17 [History] Albuterol Inhaler (Mhu) [Ventolin Hfa Inhaler (u)] 2 puff INHALATION RT-Q6H PRN 08/03/18 [History] amLODIPine BESYLATE 10 mg PO QAM 08/03/18 [History] Celecoxib [CeleBREX] 200 mg PO BID 08/25/18 [History] Carboxymethylcellulose Sodium [Refresh Tears] 15 ml OP BID 06/11/20 [History] HYDROcodone/APAP 5-325MG [[place] 5-325] 1.5 tab PO BID 06/11/20 [History] Pramipexole [Mirapex] 1 mg PO HS 06/11/20 [History] Aspirin 325 mg PO BID #60 tab 06/17/20 [Rx] HYDROcodone/APAP 7.5-325MG [[place] 7.5-325] 1 - 2 tab PO Q6H PRN #32 tab 06/17/20 [Rx] Sennosides [Senokot] 2 tab PO DAILY PRN #60 tablet 06/17/20 [Rx] Follow up Appointment(s)/Referral(s): Mumtaz Fraga DO [Doctor of Osteopathic Medicine] - 2 Weeks Activity/Diet/Wound Care/Special Instructions: Weightbearing as tolerated with walker. Leave dressing intact. Dressing may be removed by home care nurse or by patient in 10 days. May shower with dressing on. Please take aspirin 325mg twice daily for 30 days to prevent blood clots. Recommend use of compression stockings daily until follow up to help prevent swelling and blood clots. May remove at night before sleeping. Please follow-up with [facility] in 2 weeks and call with any questions or concerns, . Discharge Disposition: HOME WITH HOME HEALTH SERVICES
--- NOTE | 2020-06-17 08:50 | P.PN ---
Subjective Progress Note Date: 06/17/20 This is a 65-year-old female who is status post right total hip arthroplasty. This is postoperative day #1 and patient is seen and evaluated at bedside with Dr. Mumtaz Fraga. Patient states that her pain is well controlled. Patient denies any recent fever, chills, shortness breath, chest pain, abdominal pain, nausea/vomiting/diarrhea, back pain, numbness, tingling, hematuria, headache, or visual changes, or any other complaints. Objective - Vital Signs Vital signs: Vital Signs Temp 97.9 F 06/17/20 07:58 Pulse 79 06/17/20 08:00 Resp 16 06/17/20 08:00 BP 124/77 06/17/20 07:58 Pulse Ox 93 L 06/17/20 07:58 Intake & Output 06/16/20 06/17/20 06/17/20 18:59 06:59 18:59 Intake Total 2216 Output Total 300 Balance 1916 Weight 123.1 kg Intake: IV 2005 Intake, IV Titration 210 Amount Sodium Chloride 0.9% 1, 210 000 ml @ 70 mls/hr IV . [id number] [facility] Rx#:[id number] Output: Estimated Blood Loss 300 Other: # Voids 2 - Exam Vital signs are stable. Patient is in no acute distress and is alert and oriented 3. Calf is soft and nontender to palpation. Dressing is clean, dry, and intact. Patient has full foot and ankle motion without pain or difficulty. Neurovascular status and circulatory status are intact. - Labs CBC & Chem 7: 06/16/20 13:50 06/16/20 13:50 Labs: Abnormal Lab Results - Last 24 Hours (Table) 06/16/20 06/16/20 06/16/20 Range/Units 11:03 13:37 13:40 WBC (3.8-10.6) k/uL Hgb (11.4-16.0) gm/dL Hct (34.0-46.0) % MCV (80.0-100.0) fL MCH (25.0-35.0) pg MCHC (31.0-37.0) g/dL RDW (11.5-15.5) % Neutrophils # (1.3-7.7) k/uL ABG pH 7.33 L (7.35-7.45) ABG pO2 118 H (83-108) mmHg ABG O2 Saturation 98.5 H (94-97) % Glucose (74-99) mg/dL POC Glucose (mg/dL) 117 H 192 H (75-99) mg/dL Phosphorus (2.5-4.5) mg/dL 06/16/20 06/16/20 06/16/20 Range/Units 13:50 13:50 16:44 WBC 18.3 H (3.8-10.6) k/uL Hgb 10.1 L (11.4-16.0) gm/dL Hct 33.2 L (34.0-46.0) % MCV 78.0 L (80.0-100.0) fL MCH 23.8 L (25.0-35.0) pg MCHC 30.5 L (31.0-37.0) g/dL RDW 16.5 H (11.5-15.5) % Neutrophils # 13.8 H (1.3-7.7) k/uL ABG pH (7.35-7.45) ABG pO2 (83-108) mmHg ABG O2 Saturation (94-97) % Glucose 195 H (74-99) mg/dL POC Glucose (mg/dL) 163 H (75-99) mg/dL Phosphorus 5.3 H (2.5-4.5) mg/dL 06/16/20 06/17/20 Range/Units 21:13 07:11 WBC (3.8-10.6) k/uL Hgb (11.4-16.0) gm/dL Hct (34.0-46.0) % MCV (80.0-100.0) fL MCH (25.0-35.0) pg MCHC (31.0-37.0) g/dL RDW (11.5-15.5) % Neutrophils # (1.3-7.7) k/uL ABG pH (7.35-7.45) ABG pO2 (83-108) mmHg ABG O2 Saturation (94-97) % Glucose (74-99) mg/dL POC Glucose (mg/dL) 161 H 135 H (75-99) mg/dL Phosphorus (2.5-4.5) mg/dL Assessment and Plan (1) Osteoarthritis of right hip Current Visit: Yes Status: Acute Code(s): M16.11 - UNILATERAL PRIMARY OSTEOARTHRITIS, RIGHT HIP SNOMED Code(s): 518220170672228 (2) Status post total hip replacement, right Current Visit: Yes Status: Acute Code(s): Z96.641 - PRESENCE OF RIGHT ARTIFICIAL HIP JOINT SNOMED Code(s): 132497237973 Plan: Continue routine postop care and pain control. Continue anticoagulation with aspirin. Weightbearing as tolerated with a walker. Leave dressing in place for 10 days. Appreciate input from medicine. Anticipate discharge home with homecare tomorrow.
[2020-06-17] MEDS ORDERED: MELOXICAM 7.5 MG TAB PO SCH (09:00)
[2020-06-17] MEDS: ARTIFICIAL TEARS-HYPROMELLOSE DROPS 15 ML BTL BOTH EYES SCH ×2 (10:13→21:32)
[2020-06-17] MEDS: HYDROcodone/APAP 7.5-325MG 1 EACH TAB PO PRN ×3 (10:15→21:30)
[2020-06-17 11:08] LABS: Basophils # (A) 0.02 X 10*3/uL (0.00-0.10); Basophils % (A) 0.1 %; Eosinophils # (A) 0.01 X 10*3/uL (0.04-0.35); Eosinophils % (A) 0.1 %; HCT 30.4 % (37.2-46.3); HGB 9.1 g/dL (12.0-15.0); Lymphocytes # (A) 2.48 X 10*3/uL (0.90-5.00); Lymphocytes % (A) 15.6 %; MCH 23.9 pg (27.0-32.0); MCHC 29.9 g/dL (32.0-37.0); MCV 79.8 fL (80.0-97.0); Mean Platelet Volume 10.5 fL (9.5-12.2); Monocytes # (A) 0.84 X 10*3/uL (0.20-1.00); Monocytes % (A) 5.3 %; Neutrophils # (A) 12.52 X 10*3/uL (1.80-7.70); Neutrophils % (A) 78.5 %; Platelet Count 313 X 10*3/uL (140-440); RBC 3.81 X 10*6/uL (4.10-5.20); WBC 15.94 X 10*3/uL (4.50-10.00)
[2020-06-17 11:43] LABS: Glucose,Whole Blood 99 mg/dL (75-99)
[2020-06-17 17:06] LABS: Glucose,Whole Blood 115 mg/dL (75-99)
--- NOTE | 2020-06-17 18:36 | P.PN ---
Subjective Progress Note Date: 06/17/20 Patient was seen for a follow-up. All jerking, myoclonic twitching has resolved. Patient believes it was from ketamine. Objective - Vital Signs Vital signs: Vital Signs Temp 98.1 F 06/17/20 15:51 Pulse 80 06/17/20 15:51 Resp 16 06/17/20 15:51 BP 108/69 06/17/20 15:51 Pulse Ox 97 06/17/20 15:51 Intake & Output 06/16/20 06/17/20 06/17/20 18:59 06:59 18:59 Intake Total 2216 Output Total 300 Balance 1916 Weight 123.1 kg Intake: IV 2005 Intake, IV Titration 210 Amount Sodium Chloride 0.9% 1, 210 000 ml @ 70 mls/hr IV . [id number] Rx#:[id number] Output: Estimated Blood Loss 300 Other: # Voids 2 2 - Exam Patient is sitting in the recliner, fully alert awake, very pleasant. Speech and language functions are normal. Muscle strength is normal. No myoclonic jerks. No tremors of outstretched hands. - Labs CBC & Chem 7: 06/17/20 06:02 06/16/20 13:50 Labs: Abnormal Lab Results - Last 24 Hours (Table) 06/16/20 06/17/20 06/17/20 Range/Units 21:13 06:02 07:11 WBC 15.94 H (4.50-10.00) X 10*3/uL RBC 3.81 L (4.10-5.20) X 10*6/uL Hgb 9.1 L (12.0-15.0) g/dL Hct 30.4 L (37.2-46.3) % MCV 79.8 L (80.0-97.0) fL MCH 23.9 L (27.0-32.0) pg MCHC 29.9 L (32.0-37.0) g/dL RDW 18.0 H (11.5-14.5) % Immature Gran # 0.07 H (0.00-0.04) X 10*3/uL Neutrophils # 12.52 H (1.80-7.70) X 10*3/uL Eosinophils # 0.01 L (0.04-0.35) X 10*3/uL POC Glucose (mg/dL) 161 H 135 H (75-99) mg/dL 06/17/20 Range/Units 17:04 WBC (4.50-10.00) X 10*3/uL RBC (4.10-5.20) X 10*6/uL Hgb (12.0-15.0) g/dL Hct (37.2-46.3) % MCV (80.0-97.0) fL MCH (27.0-32.0) pg MCHC (32.0-37.0) g/dL RDW (11.5-14.5) % Immature Gran # (0.00-0.04) X 10*3/uL Neutrophils # (1.80-7.70) X 10*3/uL Eosinophils # (0.04-0.35) X 10*3/uL POC Glucose (mg/dL) 115 H (75-99) mg/dL Assessment and Plan Assessment: * Myoclonic jerks versus extrapyramidal side effects developed after right hip arthroplasty. Possible medication side effect. Patient received multiple medications during surgery, which likely induced these jerks. * Status post right hip arthroplasty * Asthma * Diabetes * Hyperlipidemia * Obstructive sleep apnea * Tobacco use * Osteoarthritis Plan: * Tremors/jerks have completely resolved. * No other neurological workup indicated. * We will sign off. Please reconsult neurology if any concerns.
[2020-06-17 20:26] LABS: Glucose,Whole Blood 116 mg/dL (75-99)
[2020-06-17] MEDS: PRAMIPEXOLE 0.5 MG TAB PO SCH (21:29)
[2020-06-17] MEDS: SENNOSIDES-DOCUSATE SODIUM 1 EACH TAB PO SCH (21:30)
[2020-06-17] MEDS: PARoxetine 20 MG TAB PO SCH (21:31)
[2020-06-17] MEDS: ATORVASTATIN 20 MG TAB PO SCH (21:31)
--- NOTE | 2020-06-17 23:01 | P.PN ---
Progress Note - Text Progress Note Date: 06/17/20 - Chief Complaint Right hip surgery - History of Present Illness Consultation: This is a pleasant [address] Jorge Hansen. Chronic stable medical conditions include diabetes, GERD, hypertension, hyperlipidemia, or strength redness, obstructive sleep apnea irritable bowel syndrome history of bariatric surgery and multiple surgeries in the past. Patient underwent right total hip arthroplasty. Postprocedure when she was on the medical floor doesn't episode when her upper part of the body was jerking. She did not lose consciousness. Had no control. It was not described as rigors. It was described more like a myoclonic jerking. Patient's mentation was clear to the episode. Patient does not describe a similar episode. 4. There is no fever. Today-sitting up. Comfortable. Eating her lunch. Pain control. No nausea vomiting. No further myoclonic episodes. Review of systems: Was done for constitutional, cardiovascular, GI, pulmonary. relevant finding as above Active Medications Hydrocodone Bitart/Acetaminophen (Hydrocodone/Apap 7.5-325mg 1 Each Tab) 1 each PO Q6H PRN PRN Reason: Pain Scale 1 to 5 Hydrocodone Bitart/Acetaminophen (Hydrocodone/Apap 7.5-325mg 1 Each Tab) 2 each PO Q6H PRN PRN Reason: Pain Scale 6 to 10 Last Admin: 06/17/20 21:30 Dose: 2 each Documented by: Albuterol Sulfate (Albuterol Nebulized 2.5 Mg/3 Ml) 2.5 mg INHALATION RT-Q6H PRN PRN Reason: Shortness Of Breath Amlodipine Besylate (Amlodipine 10 Mg Tab) 10 mg PO [facility] Last Admin: 06/17/20 07:55 Dose: 10 mg Documented by: Artificial Tears (Artificial Tears-Hypromellose Drops 15 Ml Btl) 1 drops BOTH EYES BID [facility] Last Admin: 06/17/20 21:32 Dose: 1 drops Documented by: Aspirin (Aspirin 325 Mg Tab) 325 mg PO BID [facility] Stop: 07/16/20 21:01 Last Admin: 06/17/20 21:30 Dose: 325 mg Documented by: Atorvastatin Calcium (Atorvastatin 20 Mg Tab) 20 mg PO [facility] Last Admin: 06/17/20 21:31 Dose: 20 mg Documented by: Diphenhydramine HCl (Diphenhydramine 50 Mg/Ml 1 Ml Vial) 25 mg IVP Q6HR PRN PRN Reason: Allergy Symptoms Famotidine (Famotidine 20 Mg Tab) 20 mg PO BID [facility] Last Admin: 06/17/20 21:30 Dose: 20 mg Documented by: Hydralazine HCl (Hydralazine Hcl 50 Mg Tab) 50 mg PO BID [facility] Last Admin: 06/17/20 21:30 Dose: 50 mg Documented by: Hydromorphone HCl (Hydromorphone 0.2 Mg/1 Ml Syringe) 0.2 mg IVP Q3HR PRN PRN Reason: Pain Scale 4 to 6 Stop: 07/16/20 09:18 Hydromorphone HCl (Hydromorphone 0.5 Mg/0.5 Ml Syringe) 0.125 mg IVP Q3HR PRN PRN Reason: Pain Scale 1 to 3 Stop: 07/16/20 09:18 Hydromorphone HCl (Hydromorphone 0.5 Mg/0.5 Ml Syringe) 0.5 mg IVP Q3HR PRN PRN Reason: Pain Scale 7 to 10 Stop: 07/16/20 09:18 Last Admin: 06/17/20 00:15 Dose: 0.5 mg Documented by: Hydroxyzine Pamoate (Hydroxyzine Pamoate 25 Mg Cap) 25 mg PO Q4HR PRN PRN Reason: Nausea, Anxiety, Pain Control Stop: 07/16/20 09:18 Lactated Ringer's (Lactated Ringers) 1,000 mls @ 20 mls/hr IV .Q24H [facility] Stop: 07/16/20 05:47 Last Admin: 06/17/20 06:52 Dose: Not Given Documented by: Sodium Chloride (Saline 0.9%) 1,000 mls @ 70 mls/hr IV .[id number] [facility] Stop: 07/16/20 09:31 Last Admin: 06/17/20 15:09 Dose: Not Given Documented by: Insulin Aspart (Insulin Aspart (Novolog) 100 Unit/Ml Vial) 0 unit SQ ACHS [facility]; Protocol Last Admin: 06/17/20 21:12 Dose: Not Given Documented by: Losartan Potassium ([facility]artan 50 Mg Tab) [facility] Last Admin: 06/17/20 07:54 Dose: 100 mg Documented by: Magnesium Hydroxide (Magnesium Hydroxide 2,400 Mg/10 Ml Cup) 2,400 mg PO DAILY PRN PRN Reason: Constipation Stop: 07/16/20 09:18 Meloxicam (Meloxicam 7.5 Mg Tab) 15 mg PO BID [facility] Last Admin: 06/17/20 21:31 Dose: 15 mg Documented by: Metformin HCl (Metformin 500 Mg Tab) 1,000 mg PO BID [facility] Last Admin: 06/17/20 21:30 Dose: 1,000 mg Documented by: Naloxone HCl (Naloxone 0.4 Mg/Ml 1 Ml Vial) 0.2 mg IV Q2M PRN PRN Reason: Opioid Reversal Stop: 07/16/20 09:18 Ondansetron HCl (Ondansetron 4 Mg/2 Ml Vial) 4 mg IVP Q8H PRN PRN Reason: Nausea And Vomiting Stop: 07/16/20 09:18 Paroxetine HCl (Paroxetine 20 Mg Tab) 50 mg PO [facility] Last Admin: 06/17/20 21:31 Dose: 50 mg Documented by: Pramipexole Dihydrochloride (Pramipexole 0.5 Mg Tab) 1 mg PO [facility] Last Admin: 06/17/20 21:29 Dose: 1 mg Documented by: Senna/Docusate Sodium (Sennosides-Docusate Sodium 1 Each Tab) 2 each PO [facility] Stop: 07/16/20 21:01 Last Admin: 06/17/20 21:30 Dose: 2 each Documented by: Past medical history to include: Diabetes, GERD, COPD, hypertension, hyperlipidemia, osteoarthritis, obstructive sleep apnea, on levo to use right hand index and thumb due to tendon tear, irritable bowel syndrome, eczema, bariatric surgery anxiety depression Social history: Lives alone. Does use a walker sometimes. Smoked from the age of 17-2017. Still smoking on and off. Alcohol occasionally. Has been using some marijuana. Physical examination: VITAL SIGNS: 98.1, 80, 16, 108/69, 97% on room air GENERAL: Sitting up in a chair, comfortable EYES: Pupils equal. Conjunctiva normal. NECK: JVD not raised; masses not palpable. HEART: First and second heart sounds are normal; no edema. LUNGS: Respiratory rate normal; clear to auscultation. ABDOMEN: Soft, nontender, liver spleen not palpable, no masses palpable. PSYCH: Alert and oriented x3; mood and affect normal. MUSCULAR skeletal: Some evidence of OA. Dressing over the right hip INVESTIGATIONS, reviewed in the clinical context: June 17: White count 15.9 hemoglobin 9.1 White count 18.3 hemoglobin 10.1 platelets 323 potassium 4.0 creatinine 0.60 blood glucose 195 Previous testing from June 11: White count 8.3 Assessment and plan: -Possible extrapyramidal side effects of medication. 1 episode. -Diabetes mellitus type 2. Continue with metformin and follow Accu-Cheks -GERD, continue with Pepcid -Hyperlipidemia, continue with Lipitor -Essential hypertension, continue with hydralazine and amlodipine losartan -Primary osteoarthritis, pain medications when necessary -Obstructive sleep apnea -Morbid obesity BMI 46.6, follow-up with PCP for weight loss measures -Right total hip arthroplasty -Anxiety depression otherwise specified, continue with Paxil -Restless leg syndrome, continue with Mirapex -DVT prophylaxis-on aspirin 325 twice a day as per Dr. Fraga -Leukocytosis, reactive no clinical evidence of infection. No urinary symptoms noticed any symptoms. No fever. Discussed with patient. Thank you Dr. Fraga will follow
[2020-06-18] MEDS: HYDROcodone/APAP 7.5-325MG 1 EACH TAB PO PRN ×2 (03:11→10:01)
[2020-06-18] MEDS: hydrOXYzine pamoate 25 MG CAP PO PRN ×2 (03:11→10:13)
[2020-06-18] MEDS: SODIUM CHLORIDE 0.9% 1,000 ML IV SCH (04:59)
[2020-06-18] MEDS: LACTATED RINGERS 1,000 ML IV SCH (05:56)
[2020-06-18 06:53] LABS: Glucose,Whole Blood 122 mg/dL (75-99)
[2020-06-18 06:59] VITALS: BP 144/83; PULSE 71; RESP 16; TEMP 98.3
[2020-06-18] MEDS: INSULIN ASPART (NovoLOG) 100 UNIT/ML VIAL SQ SCH (07:30)
--- NOTE | 2020-06-18 09:30 | P.DS ---
Providers Expected date of discharge: 06/18/20 Attending physician: Mumtaz Fraga Consults: 06/16/20 09:17 Consult Physician Routine Consulting Provider: Micky Cook Consult Reason/Comments: medical mangement Do you want consulting provider notified?: Yes 06/16/20 14:17 Consult Physician Stat Consulting Provider: Abhishek Allan Consult Reason/Comments: POST OP VIGOROUS TREMORS Do you want consulting provider notified?: Already Contacted Primary care physician: Jorge Hansen - Discharge Diagnosis(es) (1) Osteoarthritis of right hip Current Visit: Yes Status: Acute (2) Status post total hip replacement, right Current Visit: Yes Status: Acute Hospital Course: This is a 65-year-old female with known history of degenerative arthritis of the right hip. The patient presented for evaluation as an outpatient. After discussion and consideration patient elects to proceed with total hip arthroplasty. The patient is seen preoperatively by Dr. Fraga and medically cleared for surgery by their primary care physician. Patient is admitted to [facility] on 06/16/2020 for total hip arthroplasty. The procedure is performed without complication or sequelae. The patient is doing well postoperatively. Labs and vital signs are stable on day of discharge. On day of discharge patient's hip incision is healing well. There is minimal erythema. There is no drainage noted at this time. There is minimal soft tissue swelling to the hip and thigh. Patient has full foot and ankle motion without difficulty or pain. Calf is soft and nontender to palpation. Neurovascular status to the right lower extremity is intact. Patient is discharged home in good condition. Opioid start talking form is reviewed and signed. Please see med rec for accurate list of home medications. Plan - Discharge Summary Discharge Rx Participant: Yes New Discharge Prescriptions: New Aspirin 325 mg PO BID #60 tab HYDROcodone/APAP 7.5-325MG [[place] 7.5-325] 1 - 2 tab PO Q6H PRN #32 tab PRN Reason: Pain Sennosides [Senokot] 2 tab PO DAILY PRN #60 tablet PRN Reason: Constipation No Action PARoxetine HCL [Paxil] 50 mg PO HS metFORMIN HCL 1,000 mg PO BID Atorvastatin [Lipitor] 20 mg PO HS Famotidine 20 mg PO BID Losartan Potassium 100 mg PO QAM hydroCHLOROthiazide 25 mg PO QAM hydrALAZINE HCL [Apresoline] 50 mg PO BID amLODIPine BESYLATE 10 mg PO QAM Albuterol Inhaler (Mhu) [Ventolin Hfa Inhaler (Mhu)] 2 puff INHALATION RT-Q6H PRN PRN Reason: Shortness Of Breath Celecoxib [CeleBREX] 200 mg PO BID HYDROcodone/APAP 5-325MG [[place] 5-325] 1.5 tab PO BID Pramipexole [Mirapex] 1 mg PO HS Carboxymethylcellulose Sodium [Refresh Tears] 15 ml OP BID Discharge Medication List Atorvastatin [Lipitor] 20 mg PO HS 06/23/16 [History] PARoxetine HCL [Paxil] 50 mg PO HS 06/23/16 [History] metFORMIN HCL 1,000 mg PO BID 06/23/16 [History] Famotidine 20 mg PO BID 05/24/17 [History] Losartan Potassium 100 mg PO QAM 07/03/17 [History] hydrALAZINE HCL [Apresoline] 50 mg PO BID 07/04/17 [History] hydroCHLOROthiazide 25 mg PO QAM 07/04/17 [History] Albuterol Inhaler (Mhu) [Ventolin Hfa Inhaler (u)] 2 puff INHALATION RT-Q6H PRN 08/03/18 [History] amLODIPine BESYLATE 10 mg PO QAM 08/03/18 [History] Celecoxib [CeleBREX] 200 mg PO BID 08/25/18 [History] Carboxymethylcellulose Sodium [Refresh Tears] 15 ml OP BID 06/11/20 [History] HYDROcodone/APAP 5-325MG [[place] 5-325] 1.5 tab PO BID 06/11/20 [History] Pramipexole [Mirapex] 1 mg PO HS 06/11/20 [History] Aspirin 325 mg PO BID #60 tab 06/17/20 [Rx] HYDROcodone/APAP 7.5-325MG [[place] 7.5-325] 1 - 2 tab PO Q6H PRN #32 tab 06/17/20 [Rx] Sennosides [Senokot] 2 tab PO DAILY PRN #60 tablet 06/17/20 [Rx] Follow up Appointment(s)/Referral(s): [facility], [NON-STAFF] - Mumtaz Fraga DO [Doctor of Osteopathic Medicine] - 07/02/20 1:00 pm (appointment with Maria Luz Matos) Activity/Diet/Wound Care/Special Instructions: Weightbearing as tolerated with walker. Leave dressing intact. Dressing may be removed by home care nurse or by patient in 10 days. May shower with dressing on. Please take aspirin 325mg twice daily for 30 days to prevent blood clots. Recommend use of compression stockings daily until follow up to help prevent swelling and blood clots. May remove at night before sleeping. Please follow-up with [facility] in 2 weeks and call with any questions or concerns, . Discharge Disposition: HOME WITH HOME HEALTH SERVICES
[2020-06-18] MEDS: amLODIPine 10 MG TAB PO SCH (10:03)
[2020-06-18] MEDS: FAMOTIDINE 20 MG TAB PO SCH (10:03)
[2020-06-18] MEDS: LOSARTAN 50 MG TAB PO SCH (10:04)
[2020-06-18] MEDS: ASPIRIN 325 MG TAB PO SCH (10:04)
[2020-06-18] MEDS: hydrALAZINE HCL 50 MG TAB PO SCH (10:06)
[2020-06-18] MEDS: metFORMIN 500 MG TAB PO SCH (10:06)
[2020-06-18] MEDS: MELOXICAM 7.5 MG TAB PO SCH (10:44)
[2020-06-18] MEDS: ARTIFICIAL TEARS-HYPROMELLOSE DROPS 15 ML BTL BOTH EYES SCH (10:47)
== END 2020-06-18 11:43 | disposition home health service (06) ==
LOC: OR 10:22 → 4SSUR 13:02 → EDSTATUS 13:50 → OR 06-18 11:43
PROVIDERS: ATTEND Orthopaedic Surgery
DX: M16.11 Unilateral primary osteoarthritis, right hip (principal); I10 Essential (primary) hypertension; G25.3 Myoclonus; E78.00 Pure hypercholesterolemia, unspecified; E11.9 Type 2 diabetes mellitus without complications; E78.5 Hyperlipidemia, unspecified; F32.9 Major depressive disorder, single episode, unspecified; J44.9 Chronic obstructive pulmonary disease, unspecified; R26.81 Unsteadiness on feet; E66.01 Morbid (severe) obesity due to excess calories; Z68.42 Body mass index [BMI] 45.0-49.9, adult; F41.9 Anxiety disorder, unspecified; F10.10 Alcohol abuse, uncomplicated; G47.33 Obstructive sleep apnea (adult) (pediatric); M19.90 Unspecified osteoarthritis, unspecified site; G89.29 Other chronic pain; M54.9 Dorsalgia, unspecified; D64.9 Anemia, unspecified; G25.81 Restless legs syndrome; Z86.19 Personal history of other infectious and parasitic diseases; K21.9 Gastro-esophageal reflux disease without esophagitis; F17.200 Nicotine dependence, unspecified, uncomplicated; Z79.84 Long term (current) use of oral hypoglycemic drugs; Z97.3 Presence of spectacles and contact lenses; Z98.891 History of uterine scar from previous surgery; Z96.653 Presence of artificial knee joint, bilateral; Z90.89 Acquired absence of other organs; Z98.890 Other specified postprocedural states; Z87.01 Personal history of pneumonia (recurrent); Z98.84 Bariatric surgery status; Z90.710 Acquired absence of both cervix and uterus; Z98.49 Cataract extraction status, unspecified eye; Z96.642 Presence of left artificial hip joint; Z79.1 Long term (current) use of non-steroidal anti-inflammatories (NSAID); Z83.3 Family history of diabetes mellitus; Z82.49 Family history of ischemic heart disease and other diseases of the circulatory system; Z83.438 Family history of other disorder of lipoprotein metabolism and other lipidemia; Z82.62 Family history of osteoporosis; Z84.1 Family history of disorders of kidney and ureter; Z82.0 Family history of epilepsy and other diseases of the nervous system; Z84.89 Family history of other specified conditions; Z79.899 Other long term (current) drug therapy; Z79.891 Long term (current) use of opiate analgesic; Z79.4 Long term (current) use of insulin; Z88.6 Allergy status to analgesic agent; Z91.030 Bee allergy status; Z88.1 Allergy status to other antibiotic agents; Z88.0 Allergy status to penicillin; Z88.8 Allergy status to other drugs, medicaments and biological substances; K58.9 Irritable bowel syndrome, unspecified; Z79.01 Long term (current) use of anticoagulants; Z79.82 Long term (current) use of aspirin
CPT/HCPCS: 36600; 97110; 97161; 97535; 97165; 86891; 80053; 82805; 83735; 84100; 85025 ×2; 88300; 73501; 27130; P9022; C1776; J2250; J0171; J1200; J1644; J1100 ×2; J2175; J2405; J2001; J3010; J1885; J2795; J2370; J0330; J2704; J0735; J1170 ×2; 86850; 86900; 86901

== ENCOUNTER 2020-07-16 15:14 | Inpatient (IN) | payer MEDICARE ==
[2020-07-16] MEDS ORDERED: ONDANSETRON 4 MG/2 ML VIAL IVP STA (15:48)
[2020-07-16] MEDS ORDERED: MORPHINE SULFATE 4 MG/ML SYRINGE IVP STA (15:48)
[2020-07-16] MEDS ORDERED: NALOXONE 0.4 MG/ML 1 ML VIAL IV PRN (16:07)
--- NOTE | 2020-07-16 16:07 | ED ---
Lower Extremity Injury HPI - General Chief Complaint: Extremity Injury, Lower Stated Complaint: Fall, Hip Injury Time Seen by Provider: 07/16/20 15:43 Source: patient Mode of arrival: wheelchair Limitations: no limitations - History of Present Illness Initial Comments: 65-year-old female presents emergency Department with a chief complaint of right hip pain. Patient has history of right hip arthroplasty and injured it today again after fall. Patient states she had an x-ray performed and was advised to come to the emergency department for admission by Dr.Scott Christie. She reports the pain is sharp 10/10 and exacerbated with any movement. Alleviated at rest. Denies any numbness or tingling. Reports limited range of motion due to pain - Related Data Home Medications Medication Instructions Recorded Confirmed Atorvastatin [Lipitor] 20 mg PO HS 06/23/16 06/16/20 PARoxetine HCL [Paxil] 50 mg PO HS 06/23/16 06/16/20 metFORMIN HCL 1,000 mg PO BID 06/23/16 06/16/20 Famotidine 20 mg PO BID 05/24/17 06/16/20 Losartan Potassium 100 mg PO QAM 07/03/17 06/16/20 hydrALAZINE HCL [Apresoline] 50 mg PO BID 07/04/17 06/16/20 hydroCHLOROthiazide 25 mg PO QAM 07/04/17 06/16/20 Albuterol Inhaler (Mhu) [Ventolin 2 puff INHALATION RT-Q6H PRN 08/03/18 06/16/20 Hfa Inhaler (Mhu)] amLODIPine BESYLATE 10 mg PO QAM 08/03/18 06/16/20 Carboxymethylcellulose Sodium 15 ml OP BID 06/11/20 06/16/20 [Refresh Tears] Pramipexole [Mirapex] 1 mg PO HS 06/11/20 06/16/20 Previous Rx's Medication Instructions Recorded Aspirin 325 mg PO BID #60 tab 06/17/20 HYDROcodone/APAP 7.5-325MG [[place] 1 - 2 tab PO Q6H PRN #32 tab 06/17/20 7.5-325] Sennosides [Senokot] 2 tab PO DAILY PRN #60 tablet 06/17/20 Ferrous Sulfate [Iron (65 MG 325 mg PO DAILY #30 tab 06/18/20 Elemental)] Allergies Allergy/AdvReac Type Severity Reaction Status Date / Time azithromycin Allergy Intermediate Rash/Hives Verified 06/16/20 10:48 clavulanic acid Allergy Intermediate Abdominal Verified 06/16/20 10:48 [From Augmentin] Pain erythromycin base Allergy Intermediate Rash/Hives Verified 06/16/20 10:48 [From Erythrocin] NSAIDS (Non-Steroidal Allergy Intermediate Abdominal Verified 06/16/20 10:48 Anti-Inflamma Pain tetracycline Allergy Intermediate Rash/Hives Verified 06/16/20 10:48 ketamine Allergy Hallucinati Verified 07/16/20 15:35 ons lisinopril Allergy Anaphylaxis Verified 06/16/20 10:48 duloxetine [From Cymbalta] AdvReac Severe Anaphylaxis Verified 06/16/20 10:48 cefazolin [From Kefzol] AdvReac Itching Verified 06/16/20 10:48 Review of Systems ROS Statement: Those systems with pertinent positive or pertinent negative responses have been documented in the HPI. ROS Other: All systems not noted in ROS Statement are negative. Past Medical History Past Medical History: Asthma, COPD, Diabetes Mellitus, GERD/Reflux, Hyperlipidemia, Hypertension, Musculoskeletal Disorder, Osteoarthritis (OA), Sleep Apnea/CPAP/BIPAP Additional Past Medical History / Comment(s): ONLY ABLE TO USE INDEX FINGER AND THUMB ON RT HAND R/T TENDON TEARS, hx migraines, IBS, eczema, chronic anemia. Right ankle swelling History of Any Multi-Drug Resistant Organisms: None Reported Past Surgical History: Appendectomy, Bariatric Surgery, Section, Hernia Repair, Hysterectomy, Joint Replacement, Orthopedic Surgery, Tonsillectomy Additional Past Surgical History / Comment(s): BENIGN BREAST BIOPSY & ASPIRATION, CLIFF EN Y, RUBEN KNEE REPLACEMENT, ruben SHOULDER REPLACEMENT; L hip replacement, L HEEL SPUR, RUBEN BUNIONECTOMY, HAMMER TOE ruben, RUBEN CARPAL TUNNEL, RUBEN CATARACT, tailor bunionectomy rt foot, surgery for metatarsal fx left foot, has issue with rt foot-causes problem with balance, rt eye vitrectomy, laminectomy, Right total hip replacement 06/16/20 Past Anesthesia/Blood Transfusion Reactions: No Reported Reaction Past Psychological History: Anxiety, Depression Smoking Status: Current some day smoker Past Alcohol Use History: Occasional Past Drug Use History: Marijuana - Past Family History Daughter(s) Family Medical History: Deep Vein Thrombosis (DVT) Mother Family Medical History: Diabetes Mellitus, Hypertension Additional Family Medical History / Comment(s): renal failure General Exam Limitations: no limitations General appearance: alert, in no apparent distress, obese Head exam: Present: atraumatic, normocephalic, normal inspection Eye exam: Present: normal appearance, PERRL, EOMI Pupils: Present: normal accommodation ENT exam: Present: normal exam, normal oropharynx Neck exam: Present: normal inspection, full ROM. Absent: tenderness Respiratory exam: Present: normal lung sounds bilaterally. Absent: respiratory distress Cardiovascular Exam: Present: regular rate, normal rhythm, normal heart sounds GI/Abdominal exam: Present: soft. Absent: distended, tenderness Extremities exam: Present: normal inspection (Scarring noted on the right hip.), tenderness (Tenderness of the right hip), normal capillary refill, other (Palpable DP and PT bilaterally). Absent: full ROM (Limited range of motion and right hip) Back exam: Present: normal inspection, full ROM Neurological exam: Present: alert, oriented X3 Psychiatric exam: Present: normal affect, normal mood Skin exam: Present: warm, dry, intact, normal color Course Vital Signs 07/16/20 07/16/20 15:32 16:20 Temperature 98.3 F Pulse Rate 83 68 Respiratory 18 18 Rate Blood Pressure 138/81 131/65 O2 Sat by Pulse 97 95 Oximetry Medical Decision Making - Medical Decision Making 65-year-old female presents to the emergency department with a chief complaint right hip pain. Patient sent to the ER for admission by Dr. Mumtaz Christie. Patient will be admitted for further medical management. I spoke with the physician instructional assistant from 's office who recommended medicine consult. NPO after midnight. Case discussed with Dr. Lubin - Lab Data Result diagrams: 07/16/20 16:04 07/16/20 16:04 Lab Results 07/16/20 07/16/20 Range/Units 16:04 16:04 WBC 9.8 (3.8-10.6) k/uL RBC 4.48 (3.80-5.40) m/uL Hgb 10.8 L (11.4-16.0) gm/dL Hct 34.1 (34.0-46.0) % MCV 76.2 L (80.0-100.0) fL MCH 24.2 L (25.0-35.0) pg MCHC 31.7 (31.0-37.0) g/dL RDW 17.1 H (11.5-15.5) % Plt Count 351 (150-450) k/uL MPV 7.3 Neutrophils % 60 % Lymphocytes % 28 % Monocytes % 5 % Eosinophils % 6 % Basophils % 1 % Neutrophils # 5.8 (1.3-7.7) k/uL Lymphocytes # 2.7 (1.0-4.8) k/uL Monocytes # 0.4 (0-1.0) k/uL Eosinophils # 0.6 (0-0.7) k/uL Basophils # 0.1 (0-0.2) k/uL Hypochromasia Moderate Anisocytosis Slight Microcytosis Slight Sodium 135 L (137-145) mmol/L Potassium 4.3 (3.5-5.1) mmol/L Chloride 97 L (98-107) mmol/L Carbon Dioxide 26 (22-30) mmol/L Anion Gap 12 mmol/L BUN 10 (7-17) mg/dL Creatinine 0.44 L (0.52-1.04) mg/dL Est GFR (CKD-EPI)AfAm >90 (>60 ml/min/1.73 sqM) Est GFR (CKD-EPI)NonAf >90 (>60 ml/min/1.73 sqM) Glucose 115 H (74-99) mg/dL Calcium 10.0 (8.4-10.2) mg/dL Total Bilirubin 0.6 (0.2-1.3) mg/dL AST 29 (14-36) U/L ALT 21 (4-34) U/L Alkaline Phosphatase 64 (38-126) U/L Total Protein 7.9 (6.3-8.2) g/dL Albumin 5.0 (3.5-5.0) g/dL Disposition Clinical Impression: Right hip pain, Closed right hip fracture Disposition: ADMITTED IP TO THIS HOSP Condition: Fair Is patient prescribed a controlled substance at d/c from ED?: No Time of Disposition: 16:07
[2020-07-16 16:09] LABS: Anisocytosis Slight; Basophils # (A) 0.1 k/uL (0-0.2); Basophils % (A) 1 %; Eosinophils # (A) 0.6 k/uL (0-0.7); Eosinophils % (A) 6 %; HCT 34.1 % (34.0-46.0); HGB 10.8 gm/dL (11.4-16.0); Hypochromasia Moderate; Lymphocytes # (A) 2.7 k/uL (1.0-4.8); Lymphocytes % (A) 28 %; MCH 24.2 pg (25.0-35.0); MCHC 31.7 g/dL (31.0-37.0); MCV 76.2 fL (80.0-100.0); Mean Platelet Volume 7.3; Microcytosis Slight; Monocytes # (A) 0.4 k/uL (0-1.0); Monocytes % (A) 5 %; Neutrophils # (A) 5.8 k/uL (1.3-7.7); Neutrophils % (A) 60 %; Platelet Count 351 k/uL (150-450); RBC 4.48 m/uL (3.80-5.40); RDW 17.1 % (11.5-15.5); WBC 9.8 k/uL (3.8-10.6)
[2020-07-16] MEDS ORDERED: ONDANSETRON 4 MG/2 ML VIAL IVP PRN (16:09)
[2020-07-16] MEDS: SODIUM CHLORIDE 0.9% 1,000 ML IV SCH (16:20)
[2020-07-16 16:34] LABS: ALT 21 U/L (4-34); AST 29 U/L (14-36); African American GFR (CKD) >90 (>60 ml/min/1.73 sqM); Alkaline Phosphatase 64 U/L (38-126); Anion Gap 12 mmol/L; Blood Urea Nitrogen 10 mg/dL (7-17); Carbon Dioxide 26 mmol/L (22-30); Chloride 97 mmol/L (98-107); Glucose 115 mg/dL (74-99); Non-African American GFR(CKD) >90 (>60 ml/min/1.73 sqM); Potassium 4.3 mmol/L (3.5-5.1); Sodium 135 mmol/L (137-145); Total Bilirubin 0.6 mg/dL (0.2-1.3); Total Protein 7.9 g/dL (6.3-8.2)
--- NOTE | 2020-07-16 16:50 | P.HPOR ---
History of Present Illness H&P Date: 07/16/20 This is a 65-year-old female who underwent right total hip arthroplasty on 06/16/[address] Mumtaz Fraga. Patient presented as an outpatient in the office today due to increased pain in the right hip after a fall on 07/15/2020. Patient states that she was stepping back into her apartment, but fell backwards and landed onto the right hip. Patient states that she then crawled back into her apartment. X-rays taken in the office on 07/16/2020 revealed periprosthetic fracture of the right femur. Patient lives alone and presented in a wheelchair today. Patient denies any fever/chills, numbness, weakness, tingling, abdominal pain, headache, shortness breath or chest pain. Patient's past medical history is significant for asthma, COPD, diabetes mellitus, GERD, hyperlipidemia, hypertension, osteoarthritis and sleep apnea. Review of Systems See HPI. Past Medical History Past Medical History: Asthma, COPD, Diabetes Mellitus, GERD/Reflux, Hyperlipidemia, Hypertension, Musculoskeletal Disorder, Osteoarthritis (OA), Sleep Apnea/CPAP/BIPAP Additional Past Medical History / Comment(s): ONLY ABLE TO USE INDEX FINGER AND THUMB ON RT HAND R/T TENDON TEARS, hx migraines, IBS, eczema, chronic anemia. Right ankle swelling History of Any Multi-Drug Resistant Organisms: None Reported Past Surgical History: Appendectomy, Bariatric Surgery, Section, Hernia Repair, Hysterectomy, Joint Replacement, Orthopedic Surgery, Tonsillectomy Additional Past Surgical History / Comment(s): BENIGN BREAST BIOPSY & ASPIRATION, CLIFF EN Y, RUBEN KNEE REPLACEMENT, ruben SHOULDER REPLACEMENT; L hip replacement, L HEEL SPUR, RUBEN BUNIONECTOMY, HAMMER TOE ruben, RUBEN CARPAL TUNNEL, RUBEN CATARACT, tailor bunionectomy rt foot, surgery for metatarsal fx left foot, has issue with rt foot-causes problem with balance, rt eye vitrectomy, laminectomy, Right total hip replacement 06/16/20 Past Anesthesia/Blood Transfusion Reactions: No Reported Reaction Past Psychological History: Anxiety, Depression Smoking Status: Current some day smoker Past Alcohol Use History: Occasional Past Drug Use History: Marijuana - Past Family History Daughter(s) Family Medical History: Deep Vein Thrombosis (DVT) Mother Family Medical History: Diabetes Mellitus, Hypertension Additional Family Medical History / Comment(s): renal failure Medications and Allergies Home Medications Medication Instructions Recorded Confirmed Type Atorvastatin [Lipitor] 20 mg PO HS 06/23/16 06/16/20 History PARoxetine HCL [Paxil] 50 mg PO HS 06/23/16 06/16/20 History metFORMIN HCL 1,000 mg PO BID 06/23/16 06/16/20 History Famotidine 20 mg PO BID 05/24/17 06/16/20 History Losartan Potassium 100 mg PO QAM 07/03/17 06/16/20 History hydrALAZINE HCL [Apresoline] 50 mg PO BID 07/04/17 06/16/20 History hydroCHLOROthiazide 25 mg PO QAM 07/04/17 06/16/20 History Albuterol Inhaler (Mhu) [Ventolin 2 puff INHALATION RT-Q6H PRN 08/03/18 06/16/20 History Hfa Inhaler (u)] amLODIPine BESYLATE 10 mg PO QAM 08/03/18 06/16/20 History Carboxymethylcellulose Sodium 15 ml OP BID 06/11/20 06/16/20 History [Refresh Tears] Pramipexole [Mirapex] 1 mg PO HS 06/11/20 06/16/20 History Aspirin 325 mg PO BID #60 tab 06/17/20 Rx HYDROcodone/APAP 7.5-325MG [[place] 1 - 2 tab PO Q6H PRN #32 tab 06/17/20 Rx 7.5-325] Sennosides [Senokot] 2 tab PO DAILY PRN #60 tablet 06/17/20 Rx Ferrous Sulfate [Iron (65 MG 325 mg PO DAILY #30 tab 06/18/20 Rx Elemental)] Allergies Allergy/AdvReac Type Severity Reaction Status Date / Time azithromycin Allergy Intermediate Rash/Hives Verified 06/16/20 10:48 clavulanic acid Allergy Intermediate Abdominal Verified 06/16/20 10:48 [From Augmentin] Pain erythromycin base Allergy Intermediate Rash/Hives Verified 06/16/20 10:48 [From Erythrocin] NSAIDS (Non-Steroidal Allergy Intermediate Abdominal Verified 06/16/20 10:48 Anti-Inflamma Pain tetracycline Allergy Intermediate Rash/Hives Verified 06/16/20 10:48 ketamine Allergy Hallucinati Verified 07/16/20 15:35 ons lisinopril Allergy Anaphylaxis Verified 06/16/20 10:48 duloxetine [From Cymbalta] AdvReac Severe Anaphylaxis Verified 06/16/20 10:48 cefazolin [From Kefzol] AdvReac Itching Verified 06/16/20 10:48 Physical Examination On exam there is an intact and healing incision. There is a small amount of serosanguineous drainage from the medial aspect of the incision. There is moderate swelling. Patient has limited motion due to pain. Calf is soft and nontender to palpation. Sensation intact. Head is normocephalic and atraumatic. Exams of bilateral upper extremities and left lower extremity are within limits. Neurovascular status and circulatory status are intact. Results - Labs Labs: Abnormal Lab Results - Last 24 Hours (Table) 07/16/20 07/16/20 Range/Units 16:04 16:04 Hgb 10.8 L (11.4-16.0) gm/dL MCV 76.2 L (80.0-100.0) fL MCH 24.2 L (25.0-35.0) pg RDW 17.1 H (11.5-15.5) % Sodium 135 L (137-145) mmol/L Chloride 97 L (98-107) mmol/L Creatinine 0.44 L (0.52-1.04) mg/dL Glucose 115 H (74-99) mg/dL H & H 07/16/20 Range/Units 16:04 Hgb 10.8 L (11.4-16.0) gm/dL Hct 34.1 (34.0-46.0) % Result Diagrams: 07/16/20 16:04 07/16/20 16:04 Assessment and Plan (1) Periprosthetic fracture around internal prosthetic hip joint Current Visit: Yes Status: Acute Code(s): M97.8XXA - PERIPROSTH FRACTURE AROUND OTHER INTERNAL PROSTH JOINT, INIT; Z96.649 - PRESENCE OF UNSPECIFIED ARTIFICIAL HIP JOINT SNOMED Code(s): 805506378 (2) S/P total hip arthroplasty Current Visit: No Status: Acute Code(s): Z96.649 - PRESENCE OF UNSPECIFIED ARTIFICIAL HIP JOINT SNOMED Code(s): 402050651743 Plan: 1.Patient is to be NPO after midnight. 2. Nonweightbearing to the right lower extremity. 3. Continue pain control. 4. Appreciate input from medicine. 5. Planning for revision right total hip arthroplasty on 07/17/2020 pending medical clearance and patient consent.
[2020-07-16] MEDS: MORPHINE SULFATE 4 MG/ML SYRINGE IVP PRN ×2 (19:10→23:04)
[2020-07-16] MEDS ORDERED: PRAMIPEXOLE 1 MG TAB PO SCH (21:00)
--- NOTE | 2020-07-16 21:35 | P.PN ---
Progress Note - Text Progress Note Date: 07/16/20 patient primary doctor is covered by Dr Joey segal
[2020-07-16] MEDS ORDERED: NON FORMULARY DRUG (Carboxymethylcellulose Sodium [Refresh Tears] 15 ML Drops) BOTH EYES PRN (21:44)
[2020-07-16] MEDS ORDERED: MELOXICAM 7.5 MG TAB PO PRN (21:44)
--- NOTE | 2020-07-16 22:44 | P.CONS ---
History of Present Illness - Reason for Consult Consult date: 07/16/20 Medical management Requesting physician: Mumtaz Fraga - Chief Complaint Fall and right hip - History of Present Illness - Chief Complaint Right hip surgery Consultation: This is a pleasant [address] Jorge Hansen. Chronic stable medical conditions include diabetes, GERD, hypertension, hyperlipidemia, obstructive sleep apnea irritable bowel syndrome history of bariatric surgery and multiple surgeries in the past. Patient underwent right total hip arthroplasty on 06/16/2020. Patient did well and was discharged home . Yesterday evening patient went to sit in the porch. She forgot and took a step on the right leg and took a fall on the right hip. Patient to crawl back in the apartment. She went to Dr. Fraga's office today x-ray did confirm a periprosthetic fracture. And she is admitted for the same. Otherwise she is doing well. No new cardiac or primary symptoms. Appetite fair. No fever no chills. Review of systems: GEN.: None EYES: None HEENT: None NECK: None RESPIRATORY: None CARDIOVASCULAR: None GASTROINTESTINAL: None GENITOURINARY: None MUSCULOSKELETAL: Joint pains, right hip pain LYMPHATICS: None HEMATOLOGICAL: None PSYCHIATRY: None NEUROLOGICAL: None Past medical history to include: Diabetes, GERD, COPD, hypertension, hyperlipidemia, osteoarthritis, obstructive sleep apnea, on levo to use right hand index and thumb due to tendon tear, irritable bowel syndrome, eczema, bariatric surgery anxiety depression Social history: Lives alone. Does use a walker sometimes. Smoked from the age of 17-2017. Still smoking on and off. Alcohol occasionally. Has been using some marijuana. Physical examination: VITAL SIGNS: 98.3, 74, 15, 112/68, 94% on room air GENERAL: BMI 46.3, laying in bed, awake EYES: Pupils equal. Conjunctiva normal. HEENT: External appearance of nose and ears normal, oral cavity grossly normal. NECK: JVD not raised; masses not palpable. HEART: First and second heart sounds are normal; no edema. LUNGS: Respiratory rate normal; clear to auscultation. ABDOMEN: Soft, nontender, liver spleen not palpable, no masses palpable. Martinez catheter PSYCH: Alert and oriented x3; mood and affect normal. MUSCULAR skeletal: Some evidence of OA. NEUROLOGICAL: Cranial nerves grossly intact; no facial asymmetry, power and sensation grossly intact. LYMPHATICS: No lymph nodes palpable in the axilla and neck INVESTIGATIONS, reviewed in the clinical context: WBC 9.8 hemoglobin 10.8 platelets 351 potassium 4.3 creatinine 0.44 Coronavirus [PCF]-not detected Assessment and plan: -Right hip periprosthetic fracture secondary to fall on 07/15/2020. -Diabetes mellitus type 2. Continue with metformin and follow Accu-Cheks -GERD, continue with Pepcid -Hyperlipidemia, continue with Lipitor -Essential hypertension, continue with hydralazine and amlodipine losartan -Primary osteoarthritis, pain medications when necessary -Obstructive sleep apnea -Morbid obesity BMI 46.6, follow-up with PCP for weight loss measures -Right total hip arthroplasty, done on 06/16/2020 -Anxiety depression otherwise specified, continue with Paxil -Restless leg syndrome, continue with Mirapex Patient is medically stable to proceed the surgery. Just had surgery for the same hip about a month ago. Care was discussed with the patient. Questions answered. Thank you Dr. Fraga Past Medical History Past Medical History: Asthma, COPD, Diabetes Mellitus, GERD/Reflux, Hyperlipidemia, Hypertension, Musculoskeletal Disorder, Osteoarthritis (OA), Sleep Apnea/CPAP/BIPAP Additional Past Medical History / Comment(s): ONLY ABLE TO USE INDEX FINGER AND THUMB ON RT HAND R/T TENDON TEARS, hx migraines, IBS, eczema, chronic anemia. Right ankle swelling History of Any Multi-Drug Resistant Organisms: None Reported Past Surgical History: Appendectomy, Bariatric Surgery, Section, Hernia Repair, Hysterectomy, Joint Replacement, Orthopedic Surgery, Tonsillectomy Additional Past Surgical History / Comment(s): BENIGN BREAST BIOPSY & ASPIRATION, CLIFF EN Y, RUBEN KNEE REPLACEMENT, ruben SHOULDER REPLACEMENT; L hip replacement, L HEEL SPUR, RUBEN BUNIONECTOMY, HAMMER TOE ruben, RUBEN CARPAL TUNNEL, RUBEN CATARACT, tailor bunionectomy rt foot, surgery for metatarsal fx left foot, has issue with rt foot-causes problem with balance, rt eye vitrectomy, laminectomy, Right total hip replacement 06/16/20 Past Anesthesia/Blood Transfusion Reactions: No Reported Reaction Past Psychological History: Anxiety, Depression Smoking Status: Current some day smoker Past Alcohol Use History: Occasional Additional Past Alcohol Use History / Comment(s): STARTED SMOKING AT AGE 17 QUIT 2017 SMOKES ON AND OFF, CURRENTLY 3 CIGARETTES DAILY Past Drug Use History: Marijuana Additional Drug Use History / Comment(s): HAS OCCASIONALLY USED EDIBLE MARIJUANA, INSTRUCTED TO HOLD 24 HRS PRIOR TO PROCEDURE - Past Family History Daughter(s) Family Medical History: Deep Vein Thrombosis (DVT) Mother Family Medical History: Diabetes Mellitus, Hypertension Additional Family Medical History / Comment(s): renal failure Medications and Allergies Home Medications Medication Instructions Recorded Confirmed Type Atorvastatin [Lipitor] 20 mg PO HS 06/23/16 07/16/20 History PARoxetine HCL [Paxil] 40 mg PO HS 06/23/16 07/16/20 History metFORMIN HCL 1,000 mg PO BID 06/23/16 07/16/20 History Famotidine 20 mg PO BID 05/24/17 07/16/20 History Losartan Potassium 100 mg PO DAILY 07/03/17 07/16/20 History hydrALAZINE HCL [Apresoline] 50 mg PO BID 07/04/17 07/16/20 History hydroCHLOROthiazide 25 mg PO DAILY 07/04/17 07/16/20 History amLODIPine BESYLATE 10 mg PO DAILY 08/03/18 07/16/20 History Carboxymethylcellulose Sodium 15 ml BOTH EYES QID PRN 06/11/20 07/16/20 History [Refresh Tears] Aspirin 325 mg PO BID #60 tab 06/17/20 07/16/20 Rx Celecoxib [CeleBREX] 200 mg PO BID PRN 07/16/20 07/16/20 History Ferrous Sulfate [Iron (65 MG 325 mg PO HS 07/16/20 07/16/20 History Elemental)] HYDROcodone/APAP 5-325MG [[place] 1 - 2 tab PO Q6H PRN 07/16/20 07/16/20 History 5-325] Pramipexole [Mirapex] 1 mg PO HS 07/16/20 07/16/20 History Allergies Allergy/AdvReac Type Severity Reaction Status Date / Time azithromycin Allergy Intermediate Rash/Hives Verified 07/16/20 17:32 clavulanic acid Allergy Intermediate Abdominal Verified 07/16/20 17:32 [From Augmentin] Pain erythromycin base Allergy Intermediate Rash/Hives Verified 07/16/20 17:32 [From Erythrocin] NSAIDS (Non-Steroidal Allergy Intermediate Abdominal Verified 07/16/20 17:32 Anti-Inflamma Pain tetracycline Allergy Intermediate Rash/Hives Verified 07/16/20 17:32 ketamine Allergy Hallucinati Verified 07/16/20 17:32 ons lisinopril Allergy Anaphylaxis Verified 07/16/20 17:32 duloxetine [From Cymbalta] AdvReac Severe Anaphylaxis Verified 07/16/20 17:32 cefazolin [From Kefzol] AdvReac Itching Verified 07/16/20 17:32 Physical Exam Vitals: Vital Signs Temp Pulse Pulse Resp BP BP Pulse Ox 07/16/20 21:33 98.3 F 74 15 112/68 94 L 07/16/20 20:35 98.0 F 81 18 133/79 98 07/16/20 16:20 68 18 131/65 95 07/16/20 15:32 98.3 F 83 18 138/81 97 Intake and Output 07/16/20 07/16/20 07/16/20 06:59 14:59 22:59 Output Total 900 Balance -900 Output: Urine 900 Other: Weight 122.47 kg Results CBC & Chem 7: 07/16/20 16:04 07/16/20 16:04 Labs: Abnormal Lab Results - Last 24 Hours (Table) 07/16/20 07/16/20 Range/Units 16:04 16:04 Hgb 10.8 L (11.4-16.0) gm/dL MCV 76.2 L (80.0-100.0) fL MCH 24.2 L (25.0-35.0) pg RDW 17.1 H (11.5-15.5) % Sodium 135 L (137-145) mmol/L Chloride 97 L (98-107) mmol/L Creatinine 0.44 L (0.52-1.04) mg/dL Glucose 115 H (74-99) mg/dL
[2020-07-16] MEDS: hydrALAZINE HCL 50 MG TAB PO SCH (23:03)
[2020-07-16] MEDS: PRAMIPEXOLE 0.25 MG TAB PO SCH (23:04)
[2020-07-16] MEDS: ATORVASTATIN 20 MG TAB PO SCH (23:04)
[2020-07-16] MEDS: PARoxetine 20 MG TAB PO SCH (23:04)
[2020-07-16] MEDS: FERROUS SULFATE 325 MG TAB PO SCH (23:04)
[2020-07-17] MEDS: SODIUM CHLORIDE 0.9% 1,000 ML IV SCH ×2 (04:43→19:18)
[2020-07-17] MEDS: MORPHINE SULFATE 4 MG/ML SYRINGE IVP PRN (05:15)
[2020-07-17] MEDS: amLODIPine 10 MG TAB PO SCH (08:01)
[2020-07-17] MEDS: ASPIRIN 325 MG TAB PO SCH ×2 (08:01→20:44)
[2020-07-17] MEDS: metFORMIN 500 MG TAB PO SCH ×2 (08:02→20:44)
[2020-07-17] MEDS: FAMOTIDINE 20 MG TAB PO SCH ×2 (08:02→20:45)
[2020-07-17] MEDS: hydrALAZINE HCL 50 MG TAB PO SCH ×2 (08:02→20:44)
[2020-07-17] MEDS: hydroCHLOROthiazide 25 MG TAB PO SCH (08:02)
[2020-07-17] MEDS: LOSARTAN 50 MG TAB PO SCH (08:02)
[2020-07-17] MEDS ORDERED: ONDANSETRON 4 MG/2 ML VIAL ONE (08:33)
[2020-07-17] MEDS ORDERED: DEXAMETHASONE SOD PHOSPHATE 4 MG/ML 1 ML VIAL IV ONE (08:35)
[2020-07-17 08:49] LABS: Glucose,Whole Blood 117 mg/dL (75-99)
[2020-07-17] MEDS ORDERED: LIDOCAINE 1% (10MG/ML) FOR IV START INTRADERMA ONE (08:50)
[2020-07-17] MEDS ORDERED: CLINDAMYCIN 900 MG in DEXTROSE 5% IN WATER 50 ML IVPB STA ×2 (08:52)
[2020-07-17] MEDS ORDERED: LACTATED RINGERS 1,000 ML IV ONE ×2 (09:00→10:50)
[2020-07-17] MEDS ORDERED: NEOSTIGMINE 1 MG/ML 10 ML VIAL ONE (09:03)
[2020-07-17] MEDS ORDERED: SODIUM CHLORIDE 0.9% IRRIG 1,000 ML BTL IRRIGATION ONE (09:03)
[2020-07-17] MEDS ORDERED: fentaNYL (PF) 50 MCG/ML 2 ML AMP ONE (09:03)
[2020-07-17] MEDS ORDERED: MIDAZOLAM 2 MG/2 ML VIAL ONE (09:03)
[2020-07-17] MEDS ORDERED: PROPOFOL 10 MG/ML 20 ML VIAL IV ONE (09:03)
[2020-07-17] MEDS ORDERED: ePHEDrine SULFATE/0.9% NACL/PF 50 MG/5 ML SYRINGE IV ONE (09:03)
[2020-07-17] MEDS ORDERED: HEPARIN SODIUM,PORCINE 10,000 UNIT/ML 1 ML VIAL ONE (09:03)
[2020-07-17] MEDS ORDERED: HYDROmorphone (PF) 1 MG/ML ONE (09:03)
[2020-07-17] MEDS ORDERED: SUCCINYLCHOLINE CHLORIDE 100 MG/5 ML SYR IV ONE (09:03)
[2020-07-17] MEDS ORDERED: LIDOCAINE 1% INJ 10MG/ML (20 ML MDV) ONE (09:03)
[2020-07-17] MEDS ORDERED: ROCURONIUM 10 MG/ML (5 ML VIAL) IV ONE (09:03)
[2020-07-17] MEDS ORDERED: GLYCOPYRROLATE 0.2 MG/ML 2 ML VIAL ONE (09:03)
[2020-07-17] MEDS ORDERED: CLINDAMYCIN 1,800 MG in SODIUM CHLORIDE 0.9% IRRIGATIO 3,000 ML IRRIGATION ONE (09:46)
--- NOTE | 2020-07-17 11:14 | P.OP ---
Date of Procedure: 07/17/20 Preoperative Diagnosis: Periprosthetic femur fracture right total hip arthroplasty Postoperative Diagnosis: Periprosthetic femur fracture right total hip arthroplasty Procedure(s) Performed: Open reduction and internal fixation periprosthetic fracture right femur and revision of the femoral stem Implants: [employer] readapt femoral standard offset size 16, 190 mm [employer] Accord 2.0 mm cable 3 [employer] OR30 , XLPE dual mobility insert 22 mm ID, 36 mm OD [employer] Oxinium femoral head 22 m, +4 All components were press-fit. The articulation is Oxinium on polyethylene. Anesthesia: spinal Surgeon: Mumtaz Fraga Boiler Setter #1: Forrest Gaona Estimated Blood Loss (ml): 650 (211 mL returned with Cell Saver) Pathology: none sent Condition: stable Disposition: PACU Indications for Procedure: This is a 65-year-old female who had a right total hip arthroplasty performed approximately 3 weeks ago. She was doing well and walking in her home she tripped and fell yesterday. X-rays demonstrated a periprosthetic femur fracture right total hip arthroplasty. After discussing the surgical nonsurgical treatment options with her at length, I recommended a open reduction fixation of her periprosthetic femur fracture as well as revision of the femoral stem. Informed consent was obtained. Operative Findings: The operative findings are consistent with a periprosthetic right femur fracture about the right total hip arthroplasty and loosening of the femoral component. Description of Procedure: Patient was seen and evaluated in the preoperative area, consent was reviewed, and the surgical site was marked with a skin marker. Patient was then brought to the operating room and given prophylactic antibiotics intravenously. A general anesthetic was administered by the anesthesia department. The patient was then placed on the operative table and placed in the lateral decubitus position with the bony prominences well-padded. The hip area was then prepped and draped in usual sterile fashion. A universal timeout was then performed, which confirmed the patient's name, surgical site, ALLERGIES, and procedure being performed. Next the incision site was located in the lateral aspect of the hip, centered at the tip of the greater trochanter.. The skin and subcutaneous tissues were sharply incised. Incision was carefully dissected down to the fascia. This fascia was then incised in line with the incision. Next, a Charnley retractor was then placed in the abductors were identified. The anterior one third of the abductors was released off the trochanter and one large sleeve. The anterior hip capsule was then exposed. The capsule was then opened. The proximal femur was then visualized. The hip was then gently dislocated. The fracture was then visualized in was fixated with 3 cord cables which resulted in excellent reduction and stabilization of the fracture. Attention was then directed to the femur. The femoral component was an easily removed. Sequential reaming was performed to 15 mm. The proximal femur was then reamed with appropriate reamer. The 15 mm reamer afforded excellent stable fixation. This was then trialed. The hip was reduced and checked for stability and range of motion. The hip was then gently dislocated and the trials were then removed. The hip was then copiously irrigated with antibiotic solution with pulsatile lavage. The hip was then irrigated with Irrisept solution. The abductors were then repaired with #5 Ethibond suture with drill holes to the bone. The fascia was closed with #2 strata fix suture. The subcutaneous tissue was closed with 3-0 Vicryl. The subcuticular tissue was closed with 3-0 strata fix suture. The skin was then closed with Exofin glue. A sterile silver impregnated dressing was then placed over the incision. The patient was then transferred to the recovery room in stable condition. The Asst. SHERIDAN Mcconnell was required due to the complexity of surgery, and the need for skilled funeral assistant for positioning, draping, exposure, retraction, and closure of the wound.and closure of the wound.
[2020-07-17] MEDS ORDERED: HYDROmorphone 0.2 MG/1 ML SYRINGE IVP PRN (12:01)
[2020-07-17] MEDS ORDERED: HYDROcodone/APAP 5-325MG 1 EACH TAB PO PRN ×2 (12:01)
[2020-07-17] MEDS ORDERED: HYDROmorphone 0.5 MG/0.5 ML SYRINGE IVP PRN (12:01)
[2020-07-17] MEDS: HYDROmorphone 1 MG/ML 1 ML SYRINGE IVP ONE ×4 (12:08→12:41)
[2020-07-17] MEDS ORDERED: HYDROcodone/APAP 7.5-325MG 1 EACH TAB PO PRN (12:13)
--- NOTE | 2020-07-17 12:41 | XR ---
EXAMINATION TYPE: XR Hip Complete RT DATE OF EXAM: 07/17/2020 Comparison: 06/16/2020 Clinical History: 65-year-old female post op evaluation Findings: Images show right total arthroplasty. Acetabular cup component appears well-seated. Interval oblique periprosthetic fracture along the medial subtrochanteric femoral cortex and placement of 3 cerclage w ires. Soft tissue air related to recent operation. Alignment grossly anatomic. Impression: Underlying nondisplaced subtrochanteric periprosthetic fracture with surgical placement of cerclage w ires. Uncomplicated appearance.
[2020-07-17] MEDS: CLINDAMYCIN 900 MG in DEXTROSE 5% IN WATER 50 ML IVPB SCH ×4 (14:38→20:44)
[2020-07-17] MEDS: HYDROmorphone 0.5 MG/0.5 ML SYRINGE IVP PRN ×2 (16:04→19:17)
[2020-07-17 16:22] LABS: HCT 28.1 % (34.0-46.0); MCH 24.9 pg (25.0-35.0); MCHC 32.4 g/dL (31.0-37.0); RBC 3.65 m/uL (3.80-5.40); WBC 11.8 k/uL (3.8-10.6)
[2020-07-17 16:23] LABS: Anisocytosis Slight; Basophils % (A) 0 %; Eosinophils # (A) 0.1 k/uL (0-0.7); Eosinophils % (A) 1 %; Hypochromasia Slight; Lymphocytes # (A) 0.6 k/uL (1.0-4.8); Lymphocytes % (A) 5 %; Mean Platelet Volume 6.8; Microcytosis Slight; Monocytes # (A) 0.2 k/uL (0-1.0); Monocytes % (A) 2 %; Neutrophils # (A) 10.9 k/uL (1.3-7.7); Neutrophils % (A) 92 %; Platelet Count 265 k/uL (150-450); RDW 17.1 % (11.5-15.5)
[2020-07-17 16:26] LABS: HGB 9.1 gm/dL (11.4-16.0)
[2020-07-17] MEDS: HYDROcodone/APAP 10-325MG 1 EACH TAB PO PRN (18:25)
[2020-07-17 20:21] LABS: Glucose,Whole Blood 159 mg/dL (75-99)
[2020-07-17] MEDS: PRAMIPEXOLE 0.25 MG TAB PO SCH (20:44)
[2020-07-17] MEDS: FERROUS SULFATE 325 MG TAB PO SCH (20:44)
[2020-07-17] MEDS: ATORVASTATIN 20 MG TAB PO SCH (20:45)
[2020-07-17] MEDS: PARoxetine 20 MG TAB PO SCH (20:45)
[2020-07-17] MEDS: SENNOSIDES-DOCUSATE SODIUM 1 EACH TAB PO SCH (20:45)
[2020-07-17] MEDS: INSULIN ASPART (NovoLOG) 100 UNIT/ML VIAL SQ SCH (20:46)
[2020-07-17] MEDS: KETOROLAC 15 MG/ML 1 ML VIAL IVP PRN (21:00)
--- NOTE | 2020-07-17 21:55 | P.PN ---
Progress Note - Text Progress Note Date: 07/17/20 - Chief Complaint Fall and right hip Consultation: This is a pleasant [address] Jorge Hansen. Chronic stable medical conditions include diabetes, GERD, hypertension, hyperlipidemia, obstructive sleep apnea irritable bowel syndrome history of bariatric surgery and multiple surgeries in the past. Patient underwent right total hip arthroplasty on 06/16/2020. Patient did well and was discharged home . Yesterday evening patient went to sit in the porch. She forgot and took a step on the right leg and took a fall on the right hip. Patient to crawl back in the apartment. She went to Dr. Fraga's office today x-ray did confirm a periprosthetic fracture. admitted for the same. Otherwise she is doing well. No new cardiac or pulmonary symptoms. Appetite fair. No fever no chills. Today-Patient admitted with periprosthetic femur fracture of the right total hip arthroplasty-underwent open reduction internal fixation and revision of the femoral stem. Postprocedure has some pain at the operative site. No nausea vomiting. Review of systems: Was done for constitutional, cardiovascular, GI, pulmonary. relevant finding as above Active Medications Hydrocodone Bitart/Acetaminophen (Hydrocodone/Apap 7.5-325mg 1 Each Tab) 1 each PO Q6H PRN PRN Reason: Pain Scale 1 to 5 Last Admin: 07/17/20 13:52 Dose: 1 each Documented by: Hydrocodone Bitart/Acetaminophen (Hydrocodone/Apap 10-325mg 1 Each Tab) 1 each PO Q6H PRN PRN Reason: Pain Scale 6 to 10 Last Admin: 07/17/20 18:25 Dose: 1 each Documented by: Amlodipine Besylate (Amlodipine 10 Mg Tab) 10 mg PO DAILY [facility] Last Admin: 07/17/20 08:01 Dose: Not Given Documented by: Aspirin (Aspirin 325 Mg Tab) 325 mg PO BID [facility] Last Admin: 07/17/20 20:44 Dose: 325 mg Documented by: Atorvastatin Calcium (Atorvastatin 20 Mg Tab) 20 mg PO [facility] Last Admin: 07/17/20 20:45 Dose: 20 mg Documented by: Famotidine (Famotidine 20 Mg Tab) 20 mg PO BID [facility] Last Admin: 07/17/20 20:45 Dose: 20 mg Documented by: Ferrous Sulfate (Ferrous Sulfate 325 Mg Tab) 325 mg PO [facility] Last Admin: 07/17/20 20:44 Dose: 325 mg Documented by: Hydralazine HCl (Hydralazine Hcl 50 Mg Tab) 50 mg PO BID [facility] Last Admin: 07/17/20 20:44 Dose: 50 mg Documented by: Hydrochlorothiazide (Hydrochlorothiazide 25 Mg Tab) 25 mg PO DAILY [facility] Last Admin: 07/17/20 08:02 Dose: Not Given Documented by: Hydromorphone HCl (Hydromorphone 0.2 Mg/1 Ml Syringe) 0.2 mg IVP Q3HR PRN PRN Reason: Pain Scale 4 to 6 Hydromorphone HCl (Hydromorphone 0.5 Mg/0.5 Ml Syringe) 0.125 mg IVP Q3HR PRN PRN Reason: Pain Scale 1 to 3 Hydromorphone HCl (Hydromorphone 0.5 Mg/0.5 Ml Syringe) 0.5 mg IVP Q3HR PRN PRN Reason: Pain Scale 7 to 10 Last Admin: 07/17/20 19:17 Dose: 0.5 mg Documented by: Sodium Chloride (Saline 0.9%) 1,000 mls @ 75 mls/hr IV .[id number] [facility] Last Admin: 07/17/20 19:18 Dose: 75 mls/hr Documented by: Clindamycin Phosphate 900 mg/ (Dextrose/Water) 56 mls @ 50 mls/hr IVPB Q6H [facility] Stop: 07/17/20 22:08 Last Admin: 07/17/20 20:44 Dose: 50 mls/hr Documented by: Insulin Aspart (Insulin Aspart (Novolog) 100 Unit/Ml Vial) 0 unit SQ [facility]; Protocol Last Admin: 07/17/20 20:46 Dose: 1 unit Documented by: Ketorolac Tromethamine (Ketorolac 15 Mg/Ml 1 Ml Vial) 15 mg IVP Q8HR PRN PRN Reason: Pain Stop: 07/20/20 12:10 Last Admin: 07/17/20 21:00 Dose: 15 mg Documented by: Lorazepam (Lorazepam 2 Mg/Ml Inj) 0.5 mg IV Q6HR PRN PRN Reason: Anxiety Losartan Potassium (Losartan 50 Mg Tab) 100 mg PO DAILY [facility] Last Admin: 07/17/20 08:02 Dose: Not Given Documented by: Metformin HCl (Metformin 500 Mg Tab) 1,000 mg PO BID [facility] Last Admin: 07/17/20 20:44 Dose: 1,000 mg Documented by: Morphine Sulfate (Morphine Sulfate 4 Mg/Ml Syringe) 4 mg IVP Q4HR PRN PRN Reason: Pain Last Admin: 07/17/20 05:15 Dose: 4 mg Documented by: Naloxone HCl (Naloxone 0.4 Mg/Ml 1 Ml Vial) 0.2 mg IV Q2M PRN PRN Reason: Opioid Reversal Ondansetron HCl (Ondansetron 4 Mg/2 Ml Vial) 4 mg IVP ONCE PRN PRN Reason: Nausea Paroxetine HCl (Paroxetine 20 Mg Tab) 40 mg PO [facility] Last Admin: 07/17/20 20:45 Dose: 40 mg Documented by: Pramipexole Dihydrochloride (Pramipexole 0.25 Mg Tab) 1 mg PO [facility] Last Admin: 07/17/20 20:44 Dose: 1 mg Documented by: Senna/Docusate Sodium (Sennosides-Docusate Sodium 1 Each Tab) 2 each PO [facility] Last Admin: 07/17/20 20:45 Dose: 2 each Documented by: Past medical history to include: Diabetes, GERD, COPD, hypertension, hyperlipidemia, osteoarthritis, obstructive sleep apnea, on levo to use right hand index and thumb due to tendon tear, irritable bowel syndrome, eczema, bariatric surgery anxiety depression Social history: Lives alone. Does use a walker sometimes. Smoked from the age of 17-2017. Still smoking on and off. Alcohol occasionally. Has been using some marijuana. Physical examination: VITAL SIGNS: 98.5, 82, 16, 1 37 x 65, 98% room air GENERAL: BMI 46.3, laying in bed, awake EYES: Pupils equal. Conjunctiva normal. HEENT: External appearance of nose and ears normal, oral cavity grossly normal. NECK: JVD not raised; masses not palpable. HEART: First and second heart sounds are normal; no edema. LUNGS: Respiratory rate normal; clear to auscultation. ABDOMEN: Soft, nontender, liver spleen not palpable, no masses palpable. Martinez catheter PSYCH: Alert and oriented x3; mood and affect normal. MUSCULAR skeletal: Dressing over the right hip, evidence of OA INVESTIGATIONS, reviewed in the clinical context: July 17: WBC 11.8 hemoglobin 9.1 WBC 9.8 hemoglobin 10.8 platelets 351 potassium 4.3 creatinine 0.44 Coronavirus [PCF]-not detected Assessment and plan: -Right hip periprosthetic fracture secondary to fall on 07/15/2020. -Diabetes mellitus type 2. Continue with metformin and follow Accu-Cheks -GERD, continue with Pepcid -Hyperlipidemia, continue with Lipitor -Essential hypertension, continue with hydralazine and amlodipine losartan -Primary osteoarthritis, pain medications when necessary -Obstructive sleep apnea -Morbid obesity BMI 46.6, follow-up with PCP for weight loss measures -Right total hip arthroplasty, done on 06/16/2020 -Anxiety depression otherwise specified, continue with Paxil -Restless leg syndrome, continue with Mirapex -Acute postprocedure blood loss anemia, as expected from surgery Care was discussed with the patient. Continue current medications. Patient on aspirin for DVT prophylaxis. Thank you Dr. Fraga
[2020-07-18] MEDS: HYDROcodone/APAP 10-325MG 1 EACH TAB PO PRN ×3 (00:48→14:49)
[2020-07-18] MEDS: LORazepam 2 MG/ML INJ IV PRN ×2 (02:33→21:07)
[2020-07-18] MEDS: KETOROLAC 15 MG/ML 1 ML VIAL IVP PRN ×2 (05:36→13:40)
[2020-07-18 06:50] LABS: Glucose,Whole Blood 152 mg/dL (75-99)
[2020-07-18] MEDS: INSULIN ASPART (NovoLOG) 100 UNIT/ML VIAL SQ SCH ×4 (07:44→21:06)
[2020-07-18] MEDS: metFORMIN 500 MG TAB PO SCH ×2 (07:44→21:06)
[2020-07-18] MEDS: hydroCHLOROthiazide 25 MG TAB PO SCH (07:44)
[2020-07-18] MEDS: LOSARTAN 50 MG TAB PO SCH (07:44)
[2020-07-18] MEDS: FAMOTIDINE 20 MG TAB PO SCH ×2 (07:45→21:06)
[2020-07-18] MEDS: SODIUM CHLORIDE 0.9% 1,000 ML IV SCH ×2 (07:45→17:56)
[2020-07-18] MEDS: hydrALAZINE HCL 50 MG TAB PO SCH ×2 (07:45→21:06)
[2020-07-18] MEDS: amLODIPine 10 MG TAB PO SCH (07:45)
[2020-07-18] MEDS: ASPIRIN 325 MG TAB PO SCH ×2 (07:45→21:06)
[2020-07-18] MEDS: HYDROmorphone 0.5 MG/0.5 ML SYRINGE IVP PRN ×2 (11:09→19:24)
[2020-07-18 11:22] LABS: Glucose,Whole Blood 120 mg/dL (75-99)
--- NOTE | 2020-07-18 12:12 | P.PN ---
Progress Note - Text Progress Note Date: 07/18/20 Orthopedics: History of present illness: Patient is a very pleasant 65-year-old female who is seen and examined at bedside for follow-up evaluation for her right hip. She is status post revision right total hip arthroplasty performed on 07/17/2020. She has a history of recent right hip total arthroplasty performed on 06/16/2020. She is currently 50% weightbearing right lower extremity. She is currently sitting at bedside chair. She has been able to urinate independently without difficulty. She does admit to living alone. She is playing for discharge to a rehabilitation facility at the time of discharge. She states she would like to be discharged to [facility]. She has artery had discussion with case management. Pain continues to be controlled with Dilaudid, [place], and Toradol. She has no new complaints at the bedside this morning. She does admit to pain down the entire right lower extremity with any movement of her right hip. Consultation has been place for Dr. Cook in medicine for medical management. Physical Exam: Status post surgical day number 1 Patient is examined sitting bedside upright in a chair Patient is awake and alert, and oriented 3 Vital signs stable Good chest excursion with deep inspiration and expiration Abdomen soft nontender No signs or symptoms of DVT; no calf pain Lower extremity cuffs in place bilaterally Dressing of the hip is clean, dry, and intact; no erythema, purulence, or signs of infection Full range of motion of ankles bilaterally Dorsiflexion, plantarflexion, and extensor hallucis longus positive sustained bilaterally Neurovascularly intact bilateral lower extremities Capillary refill less than 2 seconds bilateral lower extremities Assessment: Status post revision right total hip arthroplasty performed on 07/17/2020 History of recent right hip total arthroplasty performed on 06/16/2020 Right hip pain. Diabetes mellitus COPD Hypertension Sleep apnea Obesity Plan: 1. Patient to continue to be 50% weightbearing only on the right lower extremity; patient may work with physical therapy to increase mobility and ambulation 2. Continue pain control with Dilaudid, [place], and Toradol 3. Keep dressing over the right hip clean, dry, and intact; patient may shower with dressing intact 4. Medicine to continue following the patient for their other medical diagnosis 5. Continue with with anticoagulation therapy with aspirin 325 mg twice a day 6. We'll continue to follow the patient closely; Patient will remain in the hospital over the weekend with plans to discharge to a rehab facility this coming Monday or Monday depending on her progress; patient would like to be discharged to [place] [id number]. Patient can follow-up with at [facility] in 2- 3 weeks following discharge
[2020-07-18 16:55] LABS: Glucose,Whole Blood 129 mg/dL (75-99)
[2020-07-18 20:15] LABS: Glucose,Whole Blood 181 mg/dL (75-99)
[2020-07-18 20:16] LABS: Glucose,Whole Blood 151 mg/dL (75-99)
[2020-07-18] MEDS: PRAMIPEXOLE 0.25 MG TAB PO SCH (21:04)
[2020-07-18] MEDS: SENNOSIDES-DOCUSATE SODIUM 1 EACH TAB PO SCH (21:06)
[2020-07-18] MEDS: PARoxetine 20 MG TAB PO SCH (21:06)
[2020-07-18] MEDS: ATORVASTATIN 20 MG TAB PO SCH (21:06)
[2020-07-18] MEDS: FERROUS SULFATE 325 MG TAB PO SCH (21:06)
--- NOTE | 2020-07-18 23:55 | P.PN ---
Progress Note - Text Progress Note Date: 07/18/20 - Chief Complaint Fall and right hip Consultation: This is a pleasant [address] Jorge Hansen. Chronic stable medical conditions include diabetes, GERD, hypertension, hyperlipidemia, obstructive sleep apnea irritable bowel syndrome history of bariatric surgery and multiple surgeries in the past. Patient underwent right total hip arthroplasty on 06/16/2020. Patient did well and was discharged home . Yesterday evening patient went to sit in the porch. She forgot and took a step on the right leg and took a fall on the right hip. Patient to crawl back in the apartment. She went to Dr. Fraga's office today x-ray did confirm a periprosthetic fracture. admitted for the same. Otherwise she is doing well. No new cardiac or pulmonary symptoms. Appetite fair. No fever no chills. admitted with periprosthetic femur fracture of the right total hip arthroplasty-underwent open reduction internal fixation and revision of the femoral stem. Today-laying in bed. Pain is present. Did tolerate some diet. Up in a chair. Review of systems: Was done for constitutional, cardiovascular, GI, pulmonary. relevant finding as above Active Medications Hydrocodone Bitart/Acetaminophen (Hydrocodone/Apap 7.5-325mg 1 Each Tab) 1 each PO Q6H PRN PRN Reason: Pain Scale 1 to 5 Last Admin: 07/17/20 13:52 Dose: 1 each Documented by: Hydrocodone Bitart/Acetaminophen (Hydrocodone/Apap 10-325mg 1 Each Tab) 1 each PO Q6H PRN PRN Reason: Pain Scale 6 to 10 Last Admin: 07/18/20 14:49 Dose: 1 each Documented by: Amlodipine Besylate (Amlodipine 10 Mg Tab) 10 mg PO DAILY [facility] Last Admin: 07/18/20 07:45 Dose: 10 mg Documented by: Aspirin (Aspirin 325 Mg Tab) 325 mg PO BID [facility] Last Admin: 07/18/20 21:06 Dose: 325 mg Documented by: Atorvastatin Calcium (Atorvastatin 20 Mg Tab) 20 mg PO [facility] Last Admin: 07/18/20 21:06 Dose: 20 mg Documented by: Famotidine (Famotidine 20 Mg Tab) 20 mg PO BID [facility] Last Admin: 07/18/20 21:06 Dose: 20 mg Documented by: Ferrous Sulfate (Ferrous Sulfate 325 Mg Tab) 325 mg PO [facility] Last Admin: 03/13/21 21:06 Dose: 325 mg Documented by: Hydralazine HCl (Hydralazine Hcl 50 Mg Tab) 50 mg PO BID [facility] Last Admin: 07/18/20 21:06 Dose: 50 mg Documented by: Hydrochlorothiazide (Hydrochlorothiazide 25 Mg Tab) 25 mg PO DAILY [facility] Last Admin: 07/18/20 07:44 Dose: 25 mg Documented by: Hydromorphone HCl (Hydromorphone 0.2 Mg/1 Ml Syringe) 0.2 mg IVP Q3HR PRN PRN Reason: Pain Scale 4 to 6 Hydromorphone HCl (Hydromorphone 0.5 Mg/0.5 Ml Syringe) 0.125 mg IVP Q3HR PRN PRN Reason: Pain Scale 1 to 3 Hydromorphone HCl (Hydromorphone 0.5 Mg/0.5 Ml Syringe) 0.5 mg IVP Q3HR PRN PRN Reason: Pain Scale 7 to 10 Last Admin: 07/18/20 19:24 Dose: 0.5 mg Documented by: Sodium Chloride (Saline 0.9%) 1,000 mls @ 75 mls/hr IV .[id number] [facility] Last Admin: 07/18/20 17:56 Dose: 75 mls/hr Documented by: Insulin Aspart (Insulin Aspart (Novolog) 100 Unit/Ml Vial) 0 unit SQ [facility]; Protocol Last Admin: 07/18/20 21:06 Dose: 2 unit Documented by: Ketorolac Tromethamine (Ketorolac 15 Mg/Ml 1 Ml Vial) 15 mg IVP Q8HR PRN PRN Reason: Pain Stop: 07/20/20 12:10 Last Admin: 07/18/20 13:40 Dose: 15 mg Documented by: Lorazepam (Lorazepam 2 Mg/Ml Inj) 0.5 mg IV Q6HR PRN PRN Reason: Anxiety Last Admin: 07/18/20 21:07 Dose: 0.5 mg Documented by: Losartan Potassium (Losartan 50 Mg Tab) 100 mg PO DAILY [facility] Last Admin: 07/18/20 07:44 Dose: 100 mg Documented by: Metformin HCl (Metformin 500 Mg Tab) 1,000 mg PO BID [facility] Last Admin: 07/18/20 21:06 Dose: 1,000 mg Documented by: Morphine Sulfate (Morphine Sulfate 4 Mg/Ml Syringe) 4 mg IVP Q4HR PRN PRN Reason: Pain Last Admin: 07/17/20 05:15 Dose: 4 mg Documented by: Naloxone HCl (Naloxone 0.4 Mg/Ml 1 Ml Vial) 0.2 mg IV Q2M PRN PRN Reason: Opioid Reversal Ondansetron HCl (Ondansetron 4 Mg/2 Ml Vial) 4 mg IVP ONCE PRN PRN Reason: Nausea Paroxetine HCl (Paroxetine 20 Mg Tab) 40 mg PO [facility] Last Admin: 07/18/20 21:06 Dose: 40 mg Documented by: Pramipexole Dihydrochloride (Pramipexole 0.25 Mg Tab) 1 mg PO [facility] Last Admin: 07/18/20 21:04 Dose: 1 mg Documented by: Senna/Docusate Sodium (Sennosides-Docusate Sodium 1 Each Tab) 2 each PO [facility] Last Admin: 07/18/20 21:06 Dose: 2 each Documented by: Past medical history to include: Diabetes, GERD, COPD, hypertension, hyperlipidemia, osteoarthritis, obstructive sleep apnea, on levo to use right hand index and thumb due to tendon tear, irritable bowel syndrome, eczema, bariatric surgery anxiety depression Social history: Lives alone. Does use a walker sometimes. Smoked from the age of 17-2017. Still smoking on and off. Alcohol occasionally. Has been using some marijuana. Physical examination: VITAL SIGNS: 98.4, 86, 16, 116/72, 95% on room air GENERAL: BMI 46.3, laying in bed, awake EYES: Pupils equal. Conjunctiva normal. HEENT: External appearance of nose and ears normal, oral cavity grossly normal. NECK: JVD not raised; masses not palpable. HEART: First and second heart sounds are normal; no edema. LUNGS: Respiratory rate normal; clear to auscultation. ABDOMEN: Soft, nontender, liver spleen not palpable, no masses palpable. Martinez catheter PSYCH: Alert and oriented x3; mood and affect normal. MUSCULAR skeletal: Dressing over the right hip, evidence of OA INVESTIGATIONS, reviewed in the clinical context: July 17: WBC 11.8 hemoglobin 9.1 WBC 9.8 hemoglobin 10.8 platelets 351 potassium 4.3 creatinine 0.44 Coronavirus [PCF]-not detected Assessment and plan: -Right hip periprosthetic fracture secondary to fall on 07/15/2020. -Diabetes mellitus type 2. Continue with metformin and follow Accu-Cheks -GERD, continue with Pepcid -Hyperlipidemia, continue with Lipitor -Essential hypertension, continue with hydralazine and amlodipine losartan -Primary osteoarthritis, pain medications when necessary -Obstructive sleep apnea -Morbid obesity BMI 46.6, follow-up with PCP for weight loss measures -Right total hip arthroplasty, done on 06/16/2020 -Anxiety depression otherwise specified, continue with Paxil -Restless leg syndrome, continue with Mirapex -Acute postprocedure blood loss anemia, as expected from surgery Care was discussed with the patient. Patient on aspirin for DVT prophylaxis. Repeat CBC in the morning Thank you Dr. Fraga
[2020-07-19] MEDS: HYDROcodone/APAP 10-325MG 1 EACH TAB PO PRN ×3 (04:54→16:15)
[2020-07-19 05:47] LABS: Anisocytosis Slight; Basophils # (A) 0.1 k/uL (0-0.2); Basophils % (A) 1 %; Eosinophils # (A) 0.8 k/uL (0-0.7); Eosinophils % (A) 6 %; HCT 25.6 % (34.0-46.0); HGB 8.1 gm/dL (11.4-16.0); Hypochromasia Slight; Lymphocytes # (A) 3.1 k/uL (1.0-4.8); Lymphocytes % (A) 24 %; MCH 24.2 pg (25.0-35.0); MCHC 31.5 g/dL (31.0-37.0); MCV 76.8 fL (80.0-100.0); Mean Platelet Volume 6.9; Microcytosis Slight; Monocytes # (A) 0.7 k/uL (0-1.0); Monocytes % (A) 5 %; Neutrophils # (A) 8.1 k/uL (1.3-7.7); Neutrophils % (A) 63 %; Platelet Count 325 k/uL (150-450); RBC 3.33 m/uL (3.80-5.40); RDW 17.5 % (11.5-15.5); WBC 12.8 k/uL (3.8-10.6)
[2020-07-19 07:04] LABS: Glucose,Whole Blood 122 mg/dL (75-99)
[2020-07-19] MEDS: FAMOTIDINE 20 MG TAB PO SCH ×2 (07:56→20:51)
[2020-07-19] MEDS: hydrALAZINE HCL 50 MG TAB PO SCH ×2 (07:56→20:51)
[2020-07-19] MEDS: ASPIRIN 325 MG TAB PO SCH ×2 (07:56→20:51)
[2020-07-19] MEDS: amLODIPine 10 MG TAB PO SCH (07:56)
[2020-07-19] MEDS: LOSARTAN 50 MG TAB PO SCH (07:57)
[2020-07-19] MEDS: hydroCHLOROthiazide 25 MG TAB PO SCH (07:57)
[2020-07-19] MEDS: metFORMIN 500 MG TAB PO SCH ×2 (07:57→20:51)
[2020-07-19] MEDS: INSULIN ASPART (NovoLOG) 100 UNIT/ML VIAL SQ SCH ×4 (07:58→20:46)
[2020-07-19] MEDS: SODIUM CHLORIDE 0.9% 1,000 ML IV SCH (10:34)
[2020-07-19] MEDS: KETOROLAC 15 MG/ML 1 ML VIAL IVP PRN ×2 (10:56→20:51)
[2020-07-19 11:40] LABS: Glucose,Whole Blood 119 mg/dL (75-99)
--- NOTE | 2020-07-19 13:16 | P.PN ---
Progress Note - Text Progress Note Date: 07/19/20 Orthopedics: History of present illness: Patient is a very pleasant 65-year-old female who is seen and examined at bedside for follow-up evaluation for her right hip. She is status post revision right total hip arthroplasty performed on 07/17/2020. She has a history of recent right hip total arthroplasty performed on 06/16/2020. She is currently 50% weightbearing right lower extremity. She is currently eating upright in bed. She has been able to eat late the hallways with assistance of therapy and a walker today. She has had some exacerbation of pain after her ambulation but her pain is still well controlled. She has been able to urinate independently without difficulty. She does admit to living alone. She is playing for discharge to a rehabilitation facility at the time of discharge. She states she would like to be discharged to [facility]. She has discussed this with case management. Pain continues to be controlled with Dilaudid, [place], and Toradol. She has not had a bowel movement since her admission. She is passing gas. Her abdomen is soft but she feels she needs to have a bowel movement. Senokot has been prescribed. We discussed adding milk of magnesia. She does admit to pain down the entire right lower extremity with any movement of her right hip. Consultation has been place for Dr. Cook in medicine for medical management. Physical Exam: Status post surgical day number 2 Patient is examined sitting upright in bed Patient is awake and alert, and oriented 3 Vital signs stable Good chest excursion with deep inspiration and expiration Abdomen soft nontender No signs or symptoms of DVT; no calf pain Lower extremity cuffs in place bilaterally Dressing of the right lateral hip is clean, dry, and intact; no erythema, purulence, or signs of infection Anterior total hip incision site is well-healed Full range of motion of ankles bilaterally Dorsiflexion, plantarflexion, and extensor hallucis longus positive sustained bilaterally Neurovascularly intact bilateral lower extremities Capillary refill less than 2 seconds bilateral lower extremities Assessment: Status post revision right total hip arthroplasty performed on 07/17/2020 History of recent right hip total arthroplasty performed on 06/16/2020 Right hip pain Constipation Diabetes mellitus COPD Hypertension Sleep apnea Obesity Plan: 1. Patient to continue to be 50% weightbearing only on the right lower extremity; patient may work with physical therapy to increase mobility and ambulation 2. Continue pain control with Dilaudid, [place], and Toradol 3. Keep dressing over the right hip clean, dry, and intact; patient may shower with dressing intact 4. Medicine to continue following the patient for their other medical diagnosis 5. Continue with with anticoagulation therapy with aspirin 325 mg twice a day 6. Patient has not had a bowel movement since her admission and feel she needs to do so. She is passing gas. Her abdomen is soft. Senokot was previously prescribed. 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 7. We'll continue to follow the patient closely; Patient will remain in the hospital over the weekend with plans to discharge to a rehab facility this coming Monday or Monday depending on her progress; patient would like to be discharged to [facility] 8. Patient can follow-up with Dr. Mumtaz Levi or Maria Luz Matos PA-C at [facility] in 1-2 weeks following discharge
[2020-07-19] MEDS: MAGNESIUM HYDROXIDE 2,400 MG/10 ML CUP PO PRN ×2 (13:30→20:56)
[2020-07-19 16:39] LABS: Glucose,Whole Blood 115 mg/dL (75-99)
[2020-07-19 17:20] LABS: Basophils # (A) 0.07 X 10*3/uL (0.00-0.10); Basophils % (A) 0.7 %; Eosinophils # (A) 0.95 X 10*3/uL (0.04-0.35); Eosinophils % (A) 9.2 %; HGB 6.6 g/dL (12.0-15.0); Lymphocytes # (A) 2.05 X 10*3/uL (0.90-5.00); Lymphocytes % (A) 19.8 %; MCH 23.7 pg (27.0-32.0); MCV 78.9 fL (80.0-97.0); Mean Platelet Volume 10.7 fL (9.5-12.2); Monocytes # (A) 0.72 X 10*3/uL (0.20-1.00); Neutrophils % (A) 62.9 %; Platelet Count 265 X 10*3/uL (140-440); RBC 2.79 X 10*6/uL (4.10-5.20); RDW 18.5 % (11.5-14.5); WBC 10.33 X 10*3/uL (4.50-10.00)
[2020-07-19] MEDS: HYDROmorphone 0.5 MG/0.5 ML SYRINGE IVP PRN (17:44)
[2020-07-19 19:59] LABS: Anisocytosis Slight; Basophils # (A) 0.1 k/uL (0-0.2); Basophils % (A) 1 %; Eosinophils # (A) 1.6 k/uL (0-0.7); Eosinophils % (A) 14 %; HCT 24.1 % (34.0-46.0); HGB 7.5 gm/dL (11.4-16.0); Hypochromasia Moderate; Lymphocytes % (A) 25 %; MCH 23.8 pg (25.0-35.0); MCHC 31.1 g/dL (31.0-37.0); MCV 76.4 fL (80.0-100.0); Mean Platelet Volume 8.4; Microcytosis Slight; Monocytes # (A) 0.6 k/uL (0-1.0); Monocytes % (A) 5 %; Neutrophils # (A) 6.5 k/uL (1.3-7.7); Neutrophils % (A) 55 %; Platelet Count 320 k/uL (150-450); RBC 3.15 m/uL (3.80-5.40); RDW 17.3 % (11.5-15.5); WBC 11.8 k/uL (3.8-10.6)
[2020-07-19 20:09] LABS: Glucose,Whole Blood 116 mg/dL (75-99)
[2020-07-19] MEDS: ATORVASTATIN 20 MG TAB PO SCH (20:51)
[2020-07-19] MEDS: FERROUS SULFATE 325 MG TAB PO SCH (20:51)
[2020-07-19] MEDS: PARoxetine 20 MG TAB PO SCH (20:51)
[2020-07-19] MEDS: SENNOSIDES-DOCUSATE SODIUM 1 EACH TAB PO SCH (20:51)
[2020-07-19] MEDS: PRAMIPEXOLE 0.25 MG TAB PO SCH (20:51)
--- NOTE | 2020-07-19 21:54 | P.PN ---
Progress Note - Text Progress Note Date: 07/19/20 Patient is requested not to be seen because she is really concerned about medical bills piling up. She is very nice about the same. And I'll respect her wishes. Did again explain to her my role in the case. 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 Thank you
[2020-07-20] MEDS: HYDROmorphone 0.5 MG/0.5 ML SYRINGE IVP PRN (01:34)
[2020-07-20] MEDS: SODIUM CHLORIDE 0.9% 1,000 ML IV SCH ×2 (05:29→12:09)
[2020-07-20 06:54] LABS: Anisocytosis Slight; Basophils % (A) 0 %; Eosinophils # (A) 0.9 k/uL (0-0.7); Eosinophils % (A) 11 %; HCT 20.1 % (34.0-46.0); Hypochromasia Moderate; Lymphocytes # (A) 1.9 k/uL (1.0-4.8); Lymphocytes % (A) 23 %; MCH 24.3 pg (25.0-35.0); MCHC 31.5 g/dL (31.0-37.0); MCV 77.2 fL (80.0-100.0); Mean Platelet Volume 7.9; Microcytosis Slight; Monocytes # (A) 0.5 k/uL (0-1.0); Monocytes % (A) 6 %; Neutrophils # (A) 4.6 k/uL (1.3-7.7); Neutrophils % (A) 57 %; Platelet Count 266 k/uL (150-450); RBC 2.61 m/uL (3.80-5.40); RDW 17.5 % (11.5-15.5)
[2020-07-20 07:03] LABS: HGB 6.3 gm/dL (11.4-16.0)
[2020-07-20 07:10] LABS: Glucose,Whole Blood 116 mg/dL (75-99)
[2020-07-20] MEDS: metFORMIN 500 MG TAB PO SCH ×2 (07:20→19:55)
[2020-07-20] MEDS: KETOROLAC 15 MG/ML 1 ML VIAL IVP PRN (07:21)
[2020-07-20] MEDS: amLODIPine 10 MG TAB PO SCH (07:21)
[2020-07-20] MEDS: HYDROcodone/APAP 10-325MG 1 EACH TAB PO PRN (07:21)
[2020-07-20] MEDS: hydrALAZINE HCL 50 MG TAB PO SCH ×2 (07:22→19:55)
[2020-07-20] MEDS: FAMOTIDINE 20 MG TAB PO SCH ×2 (07:22→19:56)
[2020-07-20] MEDS: ASPIRIN 325 MG TAB PO SCH ×2 (07:22→19:56)
[2020-07-20] MEDS: hydroCHLOROthiazide 25 MG TAB PO SCH (07:22)
[2020-07-20] MEDS: INSULIN ASPART (NovoLOG) 100 UNIT/ML VIAL SQ SCH ×4 (07:23→21:39)
[2020-07-20] MEDS: LOSARTAN 50 MG TAB PO SCH (07:29)
--- NOTE | 2020-07-20 08:39 | US ---
EXAMINATION TYPE: US extremity nonvasc mass RT DATE OF EXAM: 07/20/2020 COMPARISON: NONE CLINICAL HISTORY: Rule Hematoma Right thigh. Pt has history of right hip replacement last month. Is having palpable lump right anterior thigh near incision. Non-vascular, complex collection in area of pt's palpable right anterior thigh= 6.8 x 2.5 x 6.5 cm* * IMPRESSION: 1. There is a complex fluid collection measuring 6.8 cm could represent complicated seroma or hematom a. Abscess not excluded. Correlate clinically.
[2020-07-20 09:02] LABS: Reticulocyte % 2.5 % (0.5-2.0)
[2020-07-20 11:18] LABS: Glucose,Whole Blood 125 mg/dL (75-99)
[2020-07-20] MEDS ORDERED: HYDROcodone/APAP 7.5-325MG 1 EACH TAB PO PRN (12:04)
--- NOTE | 2020-07-20 12:07 | P.PN ---
Subjective Progress Note Date: 07/20/20 This is a 65-year-old female who is status post open reduction and internal fixation of periprosthetic fracture right femur and revision of femoral stem. This is postoperative day #3 and patient is seen and evaluated at bedside today. Patient states that she feels tired and weak today. Patient's hemoglobin is 6.5 today. Patient states that she is quite painful today. Patient denies any fever/chills, numbness, tingling, abdominal pain, shortness of breath or chest pain. Objective - Vital Signs Vital signs: Vital Signs Temp 98.5 F 07/20/20 11:32 Pulse 79 07/20/20 11:32 Resp 16 07/20/20 11:32 BP 113/76 07/20/20 11:32 Pulse Ox 93 L 07/20/20 07:34 Intake & Output 07/19/20 07/20/20 07/20/20 18:59 06:59 18:59 Intake Total 0 Balance 0 Intake: Blood Product 0 Rc As-1 Unit 0 [id number] Other: # Voids 1 - Exam Vital signs are stable. Patient is in no acute distress and is alert and oriented 3. Calf is soft and nontender to palpation. Dressing is clean, dry, and intact. Patient has full foot and ankle motion without pain or difficulty. Neurovascular status and circulatory status are intact. - Labs CBC & Chem 7: 07/20/20 05:42 07/16/20 16:04 Labs: Abnormal Lab Results - Last 24 Hours (Table) 07/19/20 07/19/20 07/19/20 Range/Units 11:42 16:33 19:33 WBC 10.33 H 11.8 H (4.50-10.00) X 10*3/uL RBC 2.79 L 3.15 L (4.10-5.20) X 10*6/uL Hgb 6.6 L* 7.5 L (12.0-15.0) g/dL Hct 22.0 L 24.1 L (37.2-46.3) % MCV 78.9 L 76.4 L (80.0-97.0) fL MCH 23.7 L 23.8 L (27.0-32.0) pg MCHC 30.0 L (32.0-37.0) g/dL RDW 18.5 H 17.3 H (11.5-14.5) % Eosinophils # 0.95 H 1.6 H (0.04-0.35) X 10*3/uL Retic Count (0.5-2.0) % POC Glucose (mg/dL) 115 H (75-99) mg/dL Crossmatch 07/19/20 07/20/20 07/20/20 Range/Units 20:04 05:42 05:42 WBC (4.50-10.00) X 10*3/uL RBC 2.61 L (4.10-5.20) X 10*6/uL Hgb 6.3 L* (12.0-15.0) g/dL Hct 20.1 L (37.2-46.3) % MCV 77.2 L (80.0-97.0) fL MCH 24.3 L (27.0-32.0) pg MCHC (32.0-37.0) g/dL RDW 17.5 H (11.5-14.5) % Eosinophils # 0.9 H (0.04-0.35) X 10*3/uL Retic Count 2.5 H (0.5-2.0) % POC Glucose (mg/dL) 116 H (75-99) mg/dL Crossmatch 07/20/20 07/20/20 07/20/20 Range/Units 06:57 08:27 11:14 WBC (4.50-10.00) X 10*3/uL RBC (4.10-5.20) X 10*6/uL Hgb (12.0-15.0) g/dL Hct (37.2-46.3) % MCV (80.0-97.0) fL MCH (27.0-32.0) pg MCHC (32.0-37.0) g/dL RDW (11.5-14.5) % Eosinophils # (0.04-0.35) X 10*3/uL Retic Count (0.5-2.0) % POC Glucose (mg/dL) 116 H 125 H (75-99) mg/dL Crossmatch See Detail Assessment and Plan (1) Periprosthetic fracture around internal prosthetic hip joint Current Visit: Yes Status: Acute Code(s): M97.8XXA - PERIPROSTH FRACTURE AROUND OTHER INTERNAL PROSTH JOINT, INIT; Z96.649 - PRESENCE OF UNSPECIFIED ARTIFICIAL HIP JOINT SNOMED Code(s): 624984782 (2) S/P total hip arthroplasty Current Visit: No Status: Acute Code(s): Z96.649 - PRESENCE OF UNSPECIFIED ARTIFICIAL HIP JOINT SNOMED Code(s): 814881413718 Plan: Continue routine postop care and pain control. Continue anticoagulation. 50% weightbearing with a walker. Leave dressing in place for 10 days. Appreciate input from medicine. Hemoglobin is 6.5 today. Patient is receiving blood transfusion today. Anticipate discharge to ECF in the next 24-48 hours.
--- NOTE | 2020-07-20 16:00 | CONS ---
CONSULTATION DATE OF DICTATION: July 20, 2020 REASON FOR CONSULTATION: Anemia and drop in hemoglobin. HISTORY OF PRESENT ILLNESS: The patient is a 65-year-old pleasant white female with history of GERD, hypertension, hyperlipidemia, obstructive sleep apnea and history of bariatric surgery who underwent right total hip arthroplasty on July 14 and was discharged home. She came back to the hospital with fracture of the prosthesis after she fell down on the right hip and underwent a second surgery 3 days ago. At the time of admission to the hospital, hemoglobin was 10 g/dL and dropped to 6.3 g/dL yesterday and hence we are consulted for possible GI bleed. The patient however denies any abdominal pain. No nausea, no vomiting. No rectal bleeding or melena. She does complain of severe pain at the right hip area. She received one unit of PRBC transfusion today. Her last colonoscopy was 5 years ago at [facility] and she is scheduled for a repeat one in April of this year. She denies any recent NSAID use. No prior history of peptic ulcer disease. PAST MEDICAL HISTORY: Her past medical history is significant for hypertension, hyperlipidemia, gastroesophageal reflux disease, COPD, diabetes mellitus, degenerative joint disease. PAST SURGICAL HISTORY: Appendectomy, bariatric surgery, , hernia repair, hysterectomy, tonsillectomy, benign breast biopsy, bunionectomy, carpal tunnel surgery, bilateral cataract surgery, right total hip replacement. SOCIAL HISTORY: Chronic smoker, no alcohol use. FAMILY HISTORY: Daughter has DVT. Mother has hypertension and chronic kidney disease. MEDICATIONS: Medications at home include Lipitor, Paxil, metformin, famotidine, losartan, hydralazine, hydrochlorothiazide, amlodipine, aspirin, Celebrex, ferrous sulfate, hydrocodone, and Mirapex. ALLERGIES: Allergies to azithromycin, AUGMENTIN, ERYTHROMYCIN, NSAIDS, TETRACYCLINE, KETAMINE, LISINOPRIL, CYMBALTA, KEFZOL. REVIEW OF SYSTEMS: CARDIOPULMONARY: She denies any chest pain, no shortness of breath. GENITOURINARY: No dysuria or hematuria. MUSCULOSKELETAL: Severe pain at the right hip surgery. NEUROLOGY: Unremarkable. PSYCHIATRIC: Unremarkable. ENT/VISION: Unremarkable. CONSTITUTIONAL: No recent weight loss. No fever, chills, night sweats. HEMATOLOGY: Anemia. PHYSICAL EXAMINATION: She appears comfortable. No apparent distress. Vital signs are stable. Blood pressure 100/57, pulse rate 86, temperature 98.6. HEENT EXAMINATION: Unremarkable. Conjunctivae pink. Sclerae anicteric. Oral cavity no lesions. NECK: No JVD or lymph node enlargement. CHEST was clear to auscultation. HEART: Regular rate and rhythm. ABDOMEN: Soft, it was slightly obese. Bowel sounds are positive. No organomegaly. EXTREMITIES: Tenderness at the right hip area with some bruising noted. NEUROLOGIC: Alert and oriented x3. No focal deficits. LABS: At time of admission hospital, hemoglobin 10.8 and today it is 6.3, status post one unit of PRBC transfusion. WBC 8, platelets 266. BUN and creatinine are within normal limits. IMPRESSION: 1. Severe anemia with drop in hemoglobin from 10 to 6.3 g/dL but clinically no evidence of active ongoing bleeding most likely the bleeding is related to the recent hip fracture. She did have a right thigh ultrasound done that showed a 6.8 cm complex fluid collection suspicious for seroma versus hematoma. Clinically no evidence of active gastrointestinal bleed. 2. Status post right hip arthroplasty 3 days ago for fracture. The patient gradually improving. 3. History of diabetes mellitus, hypertension. RECOMMENDATIONS: 1. Agree with PRBC transfusion. 2. Monitor CBC daily. 3. Obtain iron studies. 4. No plans for any endoscopy intervention at the present time as clinically there is no evidence of active GI bleed. 5. We will follow with you closely. Thank you for this consultation. ARMIN / YIFAN: [phone] /
[2020-07-20 16:46] LABS: Glucose,Whole Blood 122 mg/dL (75-99)
[2020-07-20 17:22] LABS: % Iron Saturation 1.08 (12.00-45.00); Folate, Serum >24.0 ng/mL; Iron 3 ug/dL (50-170); Total Iron Binding Capacity 277 ug/dL (228-460)
[2020-07-20 17:43] LABS: Anisocytosis Slight; HCT 25.3 % (34.0-46.0); Hypochromasia Slight; MCH 25.3 pg (25.0-35.0); MCHC 32.2 g/dL (31.0-37.0); MCV 78.6 fL (80.0-100.0); Mean Platelet Volume 8.1; Microcytosis Slight; Platelet Count 284 k/uL (150-450); RBC 3.21 m/uL (3.80-5.40); RDW 17.5 % (11.5-15.5); WBC 9.7 k/uL (3.8-10.6)
[2020-07-20 17:51] LABS: HGB 8.1 gm/dL (11.4-16.0)
[2020-07-20] MEDS: PARoxetine 20 MG TAB PO SCH (19:55)
[2020-07-20] MEDS: PRAMIPEXOLE 0.25 MG TAB PO SCH (19:55)
[2020-07-20] MEDS: FERROUS SULFATE 325 MG TAB PO SCH (19:56)
[2020-07-20] MEDS: ATORVASTATIN 20 MG TAB PO SCH (19:56)
[2020-07-20] MEDS: HYDROcodone/APAP 7.5-325MG 1 EACH TAB PO PRN (19:56)
[2020-07-20] MEDS: SENNOSIDES-DOCUSATE SODIUM 1 EACH TAB PO SCH (19:56)
[2020-07-20] MEDS: MAGNESIUM HYDROXIDE 2,400 MG/10 ML CUP PO PRN (20:01)
[2020-07-20 20:48] LABS: Glucose,Whole Blood 124 mg/dL (75-99)
--- NOTE | 2020-07-20 23:31 | P.PN ---
Progress Note - Text Progress Note Date: 07/20/20 - Chief Complaint Fall and right hip Consultation: This is a pleasant [address] Jorge Hansen. Chronic stable medical conditions include diabetes, GERD, hypertension, hyperlipidemia, obstructive sleep apnea irritable bowel syndrome history of bariatric surgery and multiple surgeries in the past. Patient underwent right total hip arthroplasty on 06/16/2020. Patient did well and was discharged home . Yesterday evening patient went to sit in the porch. She forgot and took a step on the right leg and took a fall on the right hip. Patient to crawl back in the apartment. She went to Dr. Fraga's office today x-ray did confirm a periprosthetic fracture. admitted for the same. Otherwise she is doing well. No new cardiac or pulmonary symptoms. Appetite fair. No fever no chills. admitted with periprosthetic femur fracture of the right total hip arthroplasty-underwent open reduction internal fixation and revision of the femoral stem. Today-. This morning patient dropped her hemoglobin 6.3. Patient has not had a bowel movement since admission. It is felt be more of a gradual decline from a surgical intervention and from her last surgery. No obvious hematoma on the right thigh. I did order a unit of blood. Patient has pain in the right. [Because of the drop in hemoglobin patient now wishes me to see her] Review of systems: Was done for constitutional, cardiovascular, GI, pulmonary. relevant finding as above Active Medications Hydrocodone Bitart/Acetaminophen (Hydrocodone/Apap 7.5-325mg 1 Each Tab) 1 each PO Q6H PRN PRN Reason: Pain Scale 1 to 5 Last Admin: 07/20/20 13:21 Dose: 1 each Documented by: Hydrocodone Bitart/Acetaminophen (Hydrocodone/Apap 7.5-325mg 1 Each Tab) 2 each PO Q6H PRN PRN Reason: Pain Scale 6 to 10 Last Admin: 07/20/20 19:56 Dose: 2 each Documented by: Amlodipine Besylate (Amlodipine 10 Mg Tab) 10 mg PO DAILY [facility] Last Admin: 07/20/20 07:21 Dose: 10 mg Documented by: Aspirin (Aspirin 325 Mg Tab) 325 mg PO BID [facility] Last Admin: 07/20/20 19:56 Dose: 325 mg Documented by: Atorvastatin Calcium (Atorvastatin 20 Mg Tab) 20 mg PO HS [facility] Last Admin: 07/20/20 19:56 Dose: 20 mg Documented by: Famotidine (Famotidine 20 Mg Tab) 20 mg PO BID [facility] Last Admin: 07/20/20 19:56 Dose: 20 mg Documented by: Ferrous Sulfate (Ferrous Sulfate 325 Mg Tab) 325 mg PO [facility] Last Admin: 07/20/20 19:56 Dose: 325 mg Documented by: Hydralazine HCl (Hydralazine Hcl 50 Mg Tab) 50 mg PO BID [facility] Last Admin: 07/20/20 19:55 Dose: 50 mg Documented by: Hydrochlorothiazide (Hydrochlorothiazide 25 Mg Tab) 25 mg PO DAILY [facility] Last Admin: 07/20/20 07:22 Dose: 25 mg Documented by: Hydromorphone HCl (Hydromorphone 0.2 Mg/1 Ml Syringe) 0.2 mg IVP Q3HR PRN PRN Reason: Pain Scale 4 to 6 Hydromorphone HCl (Hydromorphone 0.5 Mg/0.5 Ml Syringe) 0.125 mg IVP Q3HR PRN PRN Reason: Pain Scale 1 to 3 Hydromorphone HCl (Hydromorphone 0.5 Mg/0.5 Ml Syringe) 0.5 mg IVP Q3HR PRN PRN Reason: Pain Scale 7 to 10 Last Admin: 07/20/20 01:34 Dose: 0.5 mg Documented by: Sodium Chloride (Saline 0.9%) 1,000 mls @ 75 mls/hr IV .[id number] [facility] Last Admin: 07/20/20 12:09 Dose: Not Given Documented by: Insulin Aspart (Insulin Aspart (Novolog) 100 Unit/Ml Vial) 0 unit SQ ACHS [facility]; Protocol Last Admin: 07/20/20 21:39 Dose: Not Given Documented by: Lorazepam (Lorazepam 2 Mg/Ml Inj) 0.5 mg IV Q6HR PRN PRN Reason: Anxiety Last Admin: 07/18/20 21:07 Dose: 0.5 mg Documented by: Losartan Potassium (Losartan 50 Mg Tab) 100 mg PO DAILY [facility] Last Admin: 07/20/20 07:29 Dose: 100 mg Documented by: Magnesium Hydroxide (Magnesium Hydroxide 2,400 Mg/10 Ml Cup) 2,400 mg PO BID PRN PRN Reason: Constipation Last Admin: 07/20/20 20:01 Dose: 2,400 mg Documented by: Metformin HCl (Metformin 500 Mg Tab) 1,000 mg PO BID [facility] Last Admin: 07/20/20 19:55 Dose: 1,000 mg Documented by: Morphine Sulfate (Morphine Sulfate 4 Mg/Ml Syringe) 4 mg IVP Q4HR PRN PRN Reason: Pain Last Admin: 07/17/20 05:15 Dose: 4 mg Documented by: Naloxone HCl (Naloxone 0.4 Mg/Ml 1 Ml Vial) 0.2 mg IV Q2M PRN PRN Reason: Opioid Reversal Ondansetron HCl (Ondansetron 4 Mg/2 Ml Vial) 4 mg IVP ONCE PRN PRN Reason: Nausea Paroxetine HCl (Paroxetine 20 Mg Tab) 40 mg PO [facility] Last Admin: 07/20/20 19:55 Dose: 40 mg Documented by: Pramipexole Dihydrochloride (Pramipexole 0.25 Mg Tab) 1 mg PO [facility] Last Admin: 07/20/20 19:55 Dose: 1 mg Documented by: Senna/Docusate Sodium (Sennosides-Docusate Sodium 1 Each Tab) 2 each PO [facility] Last Admin: 07/20/20 19:56 Dose: 2 each Documented by: Past medical history to include: Diabetes, GERD, COPD, hypertension, hyperlipidemia, osteoarthritis, obstructive sleep apnea, on levo to use right hand index and thumb due to tendon tear, irritable bowel syndrome, eczema, bariatric surgery anxiety depression Social history: Lives alone. Does use a walker sometimes. Smoked from the age of 17-2017. Still smoking on and off. Alcohol occasionally. Has been using some marijuana. Physical examination: VITAL SIGNS: 98.4, 78, 16, 109/68, 96% room air GENERAL: Sitting upon a chair, awake EYES: Pupils equal. Conjunctiva pale HEENT: External appearance of nose and ears normal, oral cavity grossly normal. NECK: JVD not raised; masses not palpable. HEART: First and second heart sounds are normal; no edema. LUNGS: Respiratory rate normal; clear to auscultation. ABDOMEN: Soft, nontender, liver spleen not palpable, no masses palpable. Martinez catheter PSYCH: Alert and oriented x3; mood and affect normal. MUSCULAR skeletal: Dressing over the right hip, evidence of OA INVESTIGATIONS, reviewed in the clinical context: July 20: WBC 8 hemoglobin 6.3 Ultrasound extremity on the right complex fluid collection measuring 6.8 cm that could represent complicated seroma versus hematoma. Iron 3 TIBC 277% saturation 1.July 17: WBC 11.8 hemoglobin 9.1 WBC 9.8 hemoglobin 10.8 platelets 351 potassium 4.3 creatinine 0.44 Coronavirus [PCF]-not detected Assessment and plan: -Right hip periprosthetic fracture secondary to fall on 07/15/2020. -Diabetes mellitus type 2. Continue with metformin and follow Accu-Cheks -GERD, continue with Pepcid -Hyperlipidemia, continue with Lipitor -Essential hypertension, continue with hydralazine and amlodipine losartan -Primary osteoarthritis, pain medications when necessary -Obstructive sleep apnea -Morbid obesity BMI 46.6, follow-up with PCP for weight loss measures -Right total hip arthroplasty, done on 06/16/2020 -Anxiety depression otherwise specified, continue with Paxil -Restless leg syndrome, continue with Mirapex -Right hip noe-operative surgical fluid collection likely hematoma-causing blood loss anemia. Received 1 units of blood Repeat hemoglobin the evening came up to 8.1. DVT showed a GI consultation was done. The GI source appears to be less likely. Thank you Dr. Fraga
[2020-07-21] MEDS: HYDROcodone/APAP 7.5-325MG 1 EACH TAB PO PRN ×3 (02:32→14:35)
[2020-07-21] MEDS: SODIUM CHLORIDE 0.9% 1,000 ML IV SCH ×2 (04:11→15:33)
[2020-07-21 06:38] LABS: Anisocytosis Slight; Basophils % (A) 0 %; Eosinophils % (A) 12 %; HCT 24.5 % (34.0-46.0); Hypochromasia Slight; Lymphocytes # (A) 1.8 k/uL (1.0-4.8); Lymphocytes % (A) 23 %; MCH 25.7 pg (25.0-35.0); MCHC 32.5 g/dL (31.0-37.0); MCV 78.9 fL (80.0-100.0); Mean Platelet Volume 7.3; Microcytosis Slight; Monocytes # (A) 0.5 k/uL (0-1.0); Monocytes % (A) 7 %; Neutrophils # (A) 4.4 k/uL (1.3-7.7); Neutrophils % (A) 57 %; Platelet Count 325 k/uL (150-450); RDW 17.5 % (11.5-15.5); WBC 7.8 k/uL (3.8-10.6)
[2020-07-21 07:06] LABS: Glucose,Whole Blood 126 mg/dL (75-99)
[2020-07-21] MEDS: INSULIN ASPART (NovoLOG) 100 UNIT/ML VIAL SQ SCH ×2 (07:22→11:43)
[2020-07-21 07:52] VITALS: RESP 18
[2020-07-21] MEDS: FAMOTIDINE 20 MG TAB PO SCH (08:52)
[2020-07-21] MEDS: ASPIRIN 325 MG TAB PO SCH (08:52)
[2020-07-21] MEDS: metFORMIN 500 MG TAB PO SCH (08:52)
[2020-07-21] MEDS: amLODIPine 10 MG TAB PO SCH (08:52)
[2020-07-21] MEDS: hydrALAZINE HCL 50 MG TAB PO SCH (08:52)
[2020-07-21] MEDS: LOSARTAN 50 MG TAB PO SCH (08:52)
[2020-07-21] MEDS: hydroCHLOROthiazide 25 MG TAB PO SCH (08:52)
[2020-07-21] MEDS ORDERED: SODIUM FERRIC GLUCONAT-SUCROSE 125 MG in SODIUM CHLORIDE 0.9% 100 ML IVPB ONE (09:42)
[2020-07-21] MEDS: LORazepam 2 MG/ML INJ IV PRN (11:20)
[2020-07-21 11:42] LABS: Glucose,Whole Blood 113 mg/dL (75-99)
[2020-07-21] MEDS ORDERED: PRAMIPEXOLE 0.5 MG TAB PO SCH (13:00)
--- NOTE | 2020-07-21 13:28 | P.DS ---
Providers Date of admission: 07/16/20 16:07 Expected date of discharge: 07/21/20 Attending physician: Mumtaz Fraga Consults: 07/16/20 16:28 Consult Physician Routine Consulting Provider: Micky Cook Consult Reason/Comments: medical clearance Do you want consulting provider notified?: Yes Placement Type Exists?: Yes 07/20/20 07:59 Consult Physician Stat Consulting Provider: Niranjan Cervantes Consult Reason/Comments: Hgb drop per Do you want consulting provider notified?: Yes Primary care physician: Jorge Hansen - Discharge Diagnosis(es) (1) Periprosthetic fracture around internal prosthetic hip joint Current Visit: Yes Status: Acute (2) S/P total hip arthroplasty Current Visit: No Status: Acute Hospital Course: This is a 65-year-old female who is admitted for periprosthetic femur fracture right total hip arthroplasty. This is an 65-year-old female who sustained a periprosthetic femur fracture of right total hip after a fall at home 07/15/2020. The patient presented for evaluation as an outpatient and was admitted for further management. After discussion and consideration patient elects to proceed with open reduction and internal fixation periprosthetic fracture right femur and revision of the femoral stem. The patient is seen preoperatively by Dr. Fraga and medically cleared for surgery by internal medicine. Patient is admitted to [facility] on 07/16/2020 and open reduction and internal fixation periprosthetic fracture right femur and revision of the femoral stem is performed on 07/17/2020. The procedure is performed without complication or sequelae. The patient is doing well postoperatively. The patient did receive 1 unit of blood during this admission. Patient was evaluated by gastroenterology during this admission. Labs and vital signs are stable on day of discharge. On day of discharge patient's hip incision is healing well. There is minimal erythema. There is no drainage noted at this time. There is minimal soft tissue swelling to the hip and thigh. Patient has full foot and ankle motion without difficulty or pain. Calf is soft and nontender to palpation. Neurovascular status to the right lower extremity is intact. Patient is discharged to [facility] in good condition. Please see med rec for accurate list of home medications. Patient Condition at Discharge: Fair Plan - Discharge Summary Discharge Rx Participant: No New Discharge Prescriptions: New Aspirin 325 mg PO BID #60 tab HYDROcodone/APAP 7.5-325MG [[place] 7.5-325] 1 - 2 tab PO Q6H PRN #32 tab PRN Reason: Pain Sennosides [Senokot] 2 tab PO DAILY PRN #60 tablet PRN Reason: Constipation INSULIN ASPART (NovoLOG) [NovoLOG (formulary)] 0 unit SQ ACHS vial Celecoxib [CeleBREX] 200 mg PO BID #1 cap Continue PARoxetine HCL [Paxil] 40 mg PO HS metFORMIN HCL 1,000 mg PO BID Atorvastatin [Lipitor] 20 mg PO HS Famotidine 20 mg PO BID Losartan Potassium 100 mg PO DAILY hydroCHLOROthiazide 25 mg PO DAILY hydrALAZINE HCL [Apresoline] 50 mg PO BID amLODIPine BESYLATE 10 mg PO DAILY Carboxymethylcellulose Sodium [Refresh Tears] 15 ml BOTH EYES QID PRN PRN Reason: dry eyes Aspirin 325 mg PO BID #60 tab Ferrous Sulfate [Iron (65 MG Elemental)] 325 mg PO HS Changed Pramipexole [Mirapex] 0.5 mg PO BID #0 Discontinued HYDROcodone/APAP 5-325MG [[place] 5-325] 1 - 2 tab PO Q6H PRN PRN Reason: Pain Celecoxib [CeleBREX] 200 mg PO BID PRN PRN Reason: Pain Discharge Medication List Atorvastatin [Lipitor] 20 mg PO HS 06/23/16 [History] PARoxetine HCL [Paxil] 40 mg PO HS 06/23/16 [History] metFORMIN HCL 1,000 mg PO BID 06/23/16 [History] Famotidine 20 mg PO BID 05/24/17 [History] Losartan Potassium 100 mg PO DAILY 07/03/17 [History] hydrALAZINE HCL [Apresoline] 50 mg PO BID 07/04/17 [History] hydroCHLOROthiazide 25 mg PO DAILY 07/04/17 [History] amLODIPine BESYLATE 10 mg PO DAILY 08/03/18 [History] Carboxymethylcellulose Sodium [Refresh Tears] 15 ml BOTH EYES QID PRN 06/11/20 [ History] Aspirin 325 mg PO BID #60 tab 06/17/20 [Rx] Ferrous Sulfate [Iron (65 MG Elemental)] 325 mg PO HS 07/16/20 [History] Aspirin 325 mg PO BID #60 tab 07/21/20 [Rx] Celecoxib [CeleBREX] 200 mg PO BID #1 cap 07/21/20 [Rx] HYDROcodone/APAP 7.5-325MG [[place] 7.5-325] 1 - 2 tab PO Q6H PRN #32 tab 07/21/20 [Rx] INSULIN ASPART (NovoLOG) [NovoLOG (formulary)] 0 unit SQ ACHS vial 07/21/20 [Rx] Pramipexole [Mirapex] 0.5 mg PO BID #0 07/21/20 [Rx] Sennosides [Senokot] 2 tab PO DAILY PRN #60 tablet 07/21/20 [Rx] Follow up Appointment(s)/Referral(s): Jorge Hansen MD [Primary Care Provider] - 1-2 days Mumtaz Fraga DO [Doctor of Osteopathic Medicine] - 07/31/20 9:45 am (Patient may follow-up with Dr. Mumtaz Fraga at [facility] in 1-2 weeks following discharge. ) Activity/Diet/Wound Care/Special Instructions: 1. Patient may shower with dressing intact over the right hip. Dressing to stay on for 10 days. 2. Strict 50% weightbearing on right lower extremity 3. Patient may apply ice over the surgical site for comfort support as needed 4. Patient is encouraged to use a walker to aid in ambulation 5. Take medications as prescribed 6. Please take aspirin 325mg twice daily for 30 days to prevent blood clots. 7. Recommend use of compression stockings daily until follow up to help prevent swelling and blood clots. May remove at night before sleeping. 8. Please follow-up with [facility] in 2 weeks and call with any questions or concerns, . Discharge Disposition: TRANSFER TO SNF/ECF
--- NOTE | 2020-07-21 14:45 | P.PN ---
Subjective Progress Note Date: 07/21/20 Principal diagnosis: Anemia This patient is a 65-year-old pleasant white female who presented to the hospital after a fall at home. She recently underwent right hip replacement on July 14, was at home and tripped and fell. The patient underwent a right open reduction and internal fixation on 07/17/20. She was then noted to have a drop in her hemoglobin to 6.3. She is status post 1 unit of PRBC transfusion. Her repeat hemoglobin today is 8.0. She continues to don I any signs or symptoms of a GI bleed. She denies any abdominal pain, nausea, or vomiting. States she is feeling much better today. She was up and ambulating in the hallway with physical therapy. Iron studies were obtained, iron 3, TIBC 277, saturation 1.08, ferritin 216, B12 222, folate greater than 24. She denies any bowel movement since surgery. Objective - Vital Signs Vital signs: Vital Signs Temp 98.2 F 07/21/20 07:51 Pulse 90 07/21/20 07:51 Resp 18 07/21/20 07:51 BP 161/74 07/21/20 07:51 Pulse Ox 95 07/21/20 08:32 Intake & Output 07/20/20 07/21/20 07/21/20 18:59 06:59 18:59 Intake Total 310 Balance 310 Intake: Blood Product 310 Rc As-1 Unit 310 [id number] Other: Voiding Method Toilet Toilet # Voids 1 - Exam General appearance: The patient is alert, oriented, appears in no acute d istress. Obese. HET: Head is normocephalic and atraumatic. Conjunctiva pink. Sclera anicteric. Neck: Supple without lymphadenopathy. Abdomen: Soft, nontender, obese, nondistended with bowel sounds. No guarding or rigidity. Extremities: Normal skin color and turgor. No pedal edema Skin: No rashes, no jaundice Neurological: No focal deficits. Alert and oriented 3. - Labs CBC & Chem 7: 07/21/20 05:39 07/16/20 16:04 Labs: Abnormal Lab Results - Last 24 Hours (Table) 07/20/20 07/20/20 07/20/20 Range/Units 05:42 08:27 11:14 RBC (3.80-5.40) m/uL Hgb (11.4-16.0) gm/dL Hct (34.0-46.0) % MCV (80.0-100.0) fL RDW (11.5-15.5) % Eosinophils # (0-0.7) k/uL POC Glucose (mg/dL) 125 H (75-99) mg/dL Iron 3 L (50-170) ug/dL % Saturation 1.08 L (12.00-45.00) Crossmatch See Detail 07/20/20 07/20/20 07/20/20 Range/Units 16:43 17:33 20:47 RBC 3.21 L (3.80-5.40) m/uL Hgb 8.1 L D (11.4-16.0) gm/dL Hct 25.3 L (34.0-46.0) % MCV 78.6 L (80.0-100.0) fL RDW 17.5 H (11.5-15.5) % Eosinophils # (0-0.7) k/uL POC Glucose (mg/dL) 122 H 124 H (75-99) mg/dL Iron (50-170) ug/dL % Saturation (12.00-45.00) Crossmatch 07/21/20 07/21/20 Range/Units 05:39 06:50 RBC 3.10 L (3.80-5.40) m/uL Hgb 8.0 L (11.4-16.0) gm/dL Hct 24.5 L (34.0-46.0) % MCV 78.9 L (80.0-100.0) fL RDW 17.5 H (11.5-15.5) % Eosinophils # 1.0 H (0-0.7) k/uL POC Glucose (mg/dL) 126 H (75-99) mg/dL Iron (50-170) ug/dL % Saturation (12.00-45.00) Crossmatch Assessment and Plan (1) Microcytic normochromic anemia Current Visit: Yes Status: Acute Code(s): D50.9 - IRON DEFICIENCY ANEMIA, UNSPECIFIED SNOMED Code(s): 5623819 (2) Closed right hip fracture Current Visit: Yes Status: Acute Code(s): S72.001A - FRACTURE OF UNSP PART OF NECK OF RIGHT FEMUR, INIT SNOMED Code(s): 816478093 (3) Periprosthetic fracture around internal prosthetic hip joint Current Visit: Yes Status: Acute Code(s): M97.8XXA - PERIPROSTH FRACTURE AROUND OTHER INTERNAL PROSTH JOINT, INIT; Z96.649 - PRESENCE OF UNSPECIFIED ARTIFICIAL HIP JOINT SNOMED Code(s): 880087207 Plan: 1. Supportive care 2. Diet as tolerated 3. Repeat CBC daily 4. IV Ferrlecit ordered 1 5. No plans for endoscopic evaluation in light of no signs of GI bleed, likely related to surgery Thank you for this consultation, patient may be discharged home from a coral roenterology standpoint Dr. Roxanna Bates I agree with the dictator's note, documented as a scribe by Yaritza Chandler.
[2020-07-21 15:06] VITALS: BP 114/70; PULSE 82; TEMP 98
--- NOTE | 2020-07-21 23:23 | P.PN ---
Progress Note - Text Progress Note Date: 07/21/20 - Chief Complaint Fall and right hip Consultation: This is a pleasant [address] Jorge Hansen. Chronic stable medical conditions include diabetes, GERD, hypertension, hyperlipidemia, obstructive sleep apnea irritable bowel syndrome history of bariatric surgery and multiple surgeries in the past. Patient underwent right total hip arthroplasty on 06/16/2020. Patient did well and was discharged home . Yesterday evening patient went to sit in the porch. She forgot and took a step on the right leg and took a fall on the right hip. Patient to crawl back in the apartment. She went to Dr. Fraga's office today x-ray did confirm a periprosthetic fracture. admitted for the same. Otherwise she is doing well. No new cardiac or pulmonary symptoms. Appetite fair. No fever no chills. admitted with periprosthetic femur fracture of the right total hip arthroplasty-underwent open reduction internal fixation and revision of the femoral stem. Today-. This morning patient dropped her hemoglobin 6.3. Patient has not had a bowel movement since admission. It is felt be more of a gradual decline from a surgical intervention and from her last surgery. No obvious hematoma on the right thigh. I did order a unit of blood. Ultrasound of the right thigh did show fluid collection likely hematoma. Today-sitting on a chair. Did tolerate her breakfast. Feeling better. Really to rehab today. Questions were answered. Review of systems: Was done for constitutional, cardiovascular, GI, pulmonary. relevant finding as above Current medications reviewed in today's electronic records Past medical history to include: Diabetes, GERD, COPD, hypertension, hyperlipidemia, osteoarthritis, obstructive sleep apnea, on levo to use right hand index and thumb due to tendon tear, irritable bowel syndrome, eczema, bariatric surgery anxiety depression Social history: Lives alone. Does use a walker sometimes. Smoked from the age of 17-2017. Still smoking on and off. Alcohol occasionally. Has been using some marijuana. Physical examination: VITAL SIGNS: 98.2, 90, 18, 161/74, 95% room air GENERAL: Sitting upon a chair, awake EYES: Pupils equal. Conjunctiva pale HEENT: External appearance of nose and ears normal, oral cavity grossly normal. NECK: JVD not raised; masses not palpable. HEART: First and second heart sounds are normal; no edema. LUNGS: Respiratory rate normal; clear to auscultation. ABDOMEN: Soft, nontender, liver spleen not palpable, no masses palpable. Martinez catheter PSYCH: Alert and oriented x3; mood and affect normal. MUSCULAR skeletal: Dressing over the right hip, evidence of OA INVESTIGATIONS, reviewed in the clinical context: 116: Hemoglobin 8 July 20: WBC 8 hemoglobin 6.3 Ultrasound extremity on the right complex fluid collection measuring 6.8 cm that could represent complicated seroma versus hematoma. Iron 3 TIBC 277% saturation 1.08 July 17: WBC 11.8 hemoglobin 9.1 WBC 9.8 hemoglobin 10.8 platelets 351 potassium 4.3 creatinine 0.44 Coronavirus [PCF]-not detected Assessment and plan: -Right hip periprosthetic fracture secondary to fall on 07/15/2020. -Diabetes mellitus type 2. Continue with metformin and follow Accu-Cheks -GERD, continue with Pepcid -Hyperlipidemia, continue with Lipitor -Essential hypertension, continue with hydralazine and amlodipine losartan -Primary osteoarthritis, pain medications when necessary -Obstructive sleep apnea -Morbid obesity BMI 46.6, follow-up with PCP for weight loss measures -Right total hip arthroplasty, done on 06/16/2020 -Anxiety depression otherwise specified, continue with Paxil -Restless leg syndrome, continue with Mirapex -Right hip noe-operative surgical fluid collection likely hematoma-causing blood loss anemia. Received 1 units of blood Care was discussed with the patient. Questions answered. Thank you Dr. Fraga
== END 2020-07-21 16:06 | DRG 467 ==
LOC: EC 15:14 → 4SSUR 16:07
PROVIDERS: ADMIT Orthopaedic Surgery; ATTEND Orthopaedic Surgery
PROC: 0SPR0JZ Removal of Synthetic Substitute from Right Hip Joint, Femoral Surface, Open Approach (ICD-10-PCS; 2020-07-17)
PROC: 0QS604Z Reposition Right Upper Femur with Internal Fixation Device, Open Approach (ICD-10-PCS; 2020-07-17)
PROC: 5A09357 Assistance with Respiratory Ventilation, Less than 24 Consecutive Hours, Continuous Positive Airway Pressure (ICD-10-PCS; 2020-07-17)
PROC: 0SRR0JA Replacement of Right Hip Joint, Femoral Surface with Synthetic Substitute, Uncemented, Open Approach (ICD-10-PCS; principal; 2020-07-17 11:35)
PROC: 30233N1 Transfusion of Nonautologous Red Blood Cells into Peripheral Vein, Percutaneous Approach (ICD-10-PCS; 2020-07-20)
DX: S72.21XA Displaced subtrochanteric fracture of right femur, initial encounter for closed fracture (principal); M97.01XA Periprosthetic fracture around internal prosthetic right hip joint, initial encounter; Z68.42 Body mass index [BMI] 45.0-49.9, adult; D62 Acute posthemorrhagic anemia; G47.33 Obstructive sleep apnea (adult) (pediatric); E66.01 Morbid (severe) obesity due to excess calories; J44.9 Chronic obstructive pulmonary disease, unspecified; E11.9 Type 2 diabetes mellitus without complications; Z20.822 Contact with and (suspected) exposure to COVID-19; I10 Essential (primary) hypertension; K21.9 Gastro-esophageal reflux disease without esophagitis; G43.909 Migraine, unspecified, not intractable, without status migrainosus; K58.9 Irritable bowel syndrome, unspecified; L30.9 Dermatitis, unspecified; F17.210 Nicotine dependence, cigarettes, uncomplicated; F41.9 Anxiety disorder, unspecified; F32.9 Major depressive disorder, single episode, unspecified; M19.91 Primary osteoarthritis, unspecified site; E78.5 Hyperlipidemia, unspecified; G25.81 Restless legs syndrome; K59.00 Constipation, unspecified; W01.0XXA Fall on same level from slipping, tripping and stumbling without subsequent striking against object, initial encounter; Z79.899 Other long term (current) drug therapy; Z79.84 Long term (current) use of oral hypoglycemic drugs; Z79.82 Long term (current) use of aspirin; Z90.49 Acquired absence of other specified parts of digestive tract; Z90.710 Acquired absence of both cervix and uterus; Z98.890 Other specified postprocedural states; Z96.653 Presence of artificial knee joint, bilateral; Z96.612 Presence of left artificial shoulder joint; Z96.611 Presence of right artificial shoulder joint; Z96.643 Presence of artificial hip joint, bilateral; Z98.42 Cataract extraction status, left eye; Z98.84 Bariatric surgery status; Z98.41 Cataract extraction status, right eye; Z88.6 Allergy status to analgesic agent; Z88.1 Allergy status to other antibiotic agents; Z88.8 Allergy status to other drugs, medicaments and biological substances; Z83.3 Family history of diabetes mellitus; Z82.49 Family history of ischemic heart disease and other diseases of the circulatory system
CPT/HCPCS: 36415; 73502; 80053; 82607; 82728; 82746; 83540; 83550; 85025; 85027; 85045; 86850; 86891; 86900; 86901; 86920; 87635; 94660; 94760; 96374; 96375; 96376; 99284

== ENCOUNTER → 2023-03-21 | Outpatient (CLI) | payer MEDICARE ==
--- NOTE | 2023-03-23 15:18 | MM ---
Reason for Exam: Screening (asymptomatic). Last mammogram was performed 2 year(s) and 2 month(s) ago. Patient History: Menarche at age 12. First Full-Term at age 22. Hysterectomy at age 56. Postmenopausal. Cyst Aspiration on the Right side. Risk Values: [place] 5 year model risk: 1.5%. NCI Lifetime model risk: 5.0%. Prior Study Comparison: 03/15/2016 Screening Mammogram, [facility]. 05/17/2017 Screening Mammogram, [facility]. 01/06/2021 Bilateral Screening Mammogram, [facility]. Tissue Density: There are scattered fibroglandular densities. Findings: Analyzed By CAD. Pattern appears symmetrical and stable. Scattered benign punctate calcifications are present bilaterally. No suspicious groups of microcalcifications, spiculated or lobular masses, architectural distortion or other secondary signs of malignancy are mammographically apparent. Overall Assessment: Benign, BI-RAD 2 Management: Screening Mammogram of both breasts in 1 year. A negative mammogram report should not preclude additional follow up of suspicious palpable abnormalities. Patient should continue monthly self breast exam. A clinical breast exam by your physician is recommended on an annual basis and results should be correlated with mammographic findings. Electronically signed and approved by: Qasim Rosario D.O. Radiologis
== END | disposition home or self-care (01) ==
LOC: RADMAMWWP 10:48
PROVIDERS: ATTEND Family Medicine
DX: Z12.31 Encounter for screening mammogram for malignant neoplasm of breast (principal); Z78.0 Asymptomatic menopausal state
CPT/HCPCS: 77063; 77067

== ENCOUNTER 2023-04-21 08:34 | Observation (INO) | payer MEDICARE ==
[~2023-04-21 08:34] MED LIST changes: -ACETAMINOPHEN TAB 500 MG TAB PO PRN; -GABAPENTIN 300 MG CAP PO PRN; -HYDROcodone/APAP 5-325MG 1 EACH TAB PO PRN; -HYDROmorphone 0.2 MG/1 ML SYRINGE IVP PRN; +LIDOCAINE 1% (10MG/ML) FOR IV START INTRADERMA PRN; -MAGNESIUM HYDROXIDE 2,400 MG/10 ML CUP PO PRN; -MELOXICAM 7.5 MG TAB PO PRN; -MIDAZOLAM 2 MG/2 ML VIAL IV PRN; -NALOXONE 0.4 MG/ML 1 ML VIAL IV PRN; -ONDANSETRON 4 MG/2 ML VIAL IVP PRN; -TRANEXAMIC ACID 1,000 MG in SODIUM CHLORIDE 0.9% 100 ML IVPB PRN; +droPERidol 5 MG/2 ML VIAL IVP ONE
[2023-04-21 09:39] LABS: Glucose,Whole Blood 133 mg/dL (70-110)
[2023-04-21] MEDS ORDERED: MIDAZOLAM 2 MG/2 ML VIAL IVP ONE ×3 (09:43→09:56)
[2023-04-21] MEDS ORDERED: fentaNYL (PF) 50 MCG/ML 2 ML AMP IVP ONE ×2 (09:43→09:57)
[2023-04-21] MEDS: LACTATED RINGERS 1,000 ML IV SCH (09:47)
[2023-04-21] MEDS ORDERED: SUCCINYLCHOLINE CHLORIDE 200 MG/10 ML VIAL IV ONE (10:15)
[2023-04-21] MEDS ORDERED: HYDROmorphone (PF) 1 MG/ML ONE (10:15)
[2023-04-21] MEDS ORDERED: fentaNYL (PF) 50 MCG/ML 2 ML AMP ONE (10:15)
[2023-04-21] MEDS ORDERED: LIDOCAINE 1% INJ 10MG/ML (20 ML MDV) ONE (10:15)
[2023-04-21] MEDS ORDERED: hydrALAZINE HCL 20 MG/ML 1 ML VIAL ONE (10:15)
[2023-04-21] MEDS ORDERED: ePHEDrine 50 MG/ML 1 ML VIAL ONE (10:15)
[2023-04-21] MEDS ORDERED: ROCURONIUM 10 MG/ML (5 ML VIAL) IV ONE (10:15)
[2023-04-21] MEDS ORDERED: PROPOFOL 10 MG/ML 20 ML VIAL IV ONE (10:15)
[2023-04-21] MEDS ORDERED: DEXAMETHASONE SOD PHOSPHATE 4 MG/ML 1 ML VIAL ONE (10:15)
[2023-04-21] MEDS ORDERED: ROPIVACAINE 5 MG/ML 30 ML VIAL ONE (10:15)
--- NOTE | 2023-04-21 11:24 | P.ANPRN ---
Procedure Note - Anesthesia - Nerve Block Performed Right Popliteal Single Date of Procedure: 04/21/23 Procedure Start Time: 09:43 Procedure Stop Time: 09:52 Location of Patient: PreOp Indication: Acute Post-Operative Pain, Requested by Surgeon Sedation Type: Sedate with meaningful contact maintained Position: Left Lateral Needle Types: Pajunk Needle Gauge: 21 Ultrasound used to visualize needle placement: Yes Ultrasound used to observe medication spread: Yes Injectate: 0.5% Ropivacaine (see comment for volume) (30) Blood Aspirated: No Pain Paresthesia on Injection Noted: No Resistance on Injection: Normal Image Stored and Saved: Yes Events: Uneventful and Well Tolerated
--- NOTE | 2023-04-21 11:26 | P.ANPRN ---
Procedure Note - Anesthesia - Nerve Block Performed Right Adductor Canal Single Time Out Performed: Yes Date of Procedure: 04/21/23 Procedure Start Time: :53 Procedure Stop Time: :59 Location of Patient: PreOp Indication: Acute Post-Operative Pain, Requested by Surgeon Sedation Type: Sedate with meaningful contact maintained Position: Supine Needle Types: Pajunk Needle Gauge: 21 Ultrasound used to visualize needle placement: Yes Ultrasound used to observe medication spread: Yes Injectate: 0.5% Ropivacaine (see comment for volume) (30) Blood Aspirated: No Pain Paresthesia on Injection Noted: No Resistance on Injection: Normal Image Stored and Saved: Yes Events: Uneventful and Well Tolerated
[2023-04-21] MEDS ORDERED: LACTATED RINGERS 1,000 ML IV ONE (12:51)
[2023-04-21] MEDS ORDERED: ONDANSETRON 4 MG/2 ML VIAL IVP PRN (13:12)
[2023-04-21] MEDS ORDERED: MORPHINE SULFATE 2 MG/ML SYRINGE IV PRN ×3 (13:12)
--- NOTE | 2023-04-21 13:12 | FL ---
Intraoperative/procedural fluoroscopic services were provided. Total fluoroscopy time is 1 minute 23 seconds with a total of 4 submitted images to PACS. Please see the operative/procedural note for furt her details. DAP: 0.8688 Gycm2
[2023-04-21] MEDS ORDERED: HYDROmorphone 0.5 MG/0.5 ML SYRINGE IVP ONE (13:44)
--- NOTE | 2023-04-21 13:47 | P.OP ---
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 The patient was brought into the operative room placed on table supine position. Timeout was taken to confirm co rrect patient identifiers, correct laterally surgery, and correct procedure. Once all staff in the room were in agreement with the timeout, the patient was induced and placed under general anesthesia. A tourniquet was placed on the right thigh and a bump underneath the right hip to internally rotate the right leg. The right leg was then prepped and draped usual manner. The right leg was exsanguinated the tourniquet inflated 250 motors mercury. Attention directed over the lateral ankle where an incision was made over the lateral malleolus and curved anteriorly to encompass the subtalar joint. The incision was deepened down to the saphenous tissue careful to identify, avoid, and retract any neurovascular structures and cauterize any bleeding vessels. Blunt dissection was then carried down to the lateral malleolus. An osteotomy was performed through the lateral malleolus 2 cm proximal to the ankle joint with the lateral bevel to prevent any bony protrusion. The fibula was then dissected from the surrounding soft tissue and removed from the surgical field total capsular tissues from the ankle and subtalar joints reflected to expose both joint surfaces. Pins are placed on the talus and tibia to distract the joint and then the bone prep spur was then used to remove all the subcu chondral bone and articular cartilage from the conjoining surfaces of the tibia and talus, all w hile keeping the natural shape of this joint surfaces. The same bur was then used to remove the articular cartilage and subchondral bone of the conjoining surfaces of the subtalar joint. That was completed a small bursa then used to aggressively fenestrate these subchondral bone into bleeding medullary bone. A combination of 20 mL of demineralized bone matrix and 5 mL and augment were mixed on the back table. The bone graft was then placed between the conjoining surfaces of the ankle and subtalar joints. With ankle neutral position fluoroscopy was utilized to check the overall alignment ankle subtalar joints. Once the ankle was appropriately aligned on the tibia on the lateral view, guidewires were placed across the joint for temporary fixation. Final fluoroscopic imaging on AP and lateral view showed appropriate alignment of the ankle for fusion. Incision was made on the plantar surface of the calcaneus and bluntly dissected down to the surface of the calcaneus. The smaller guidewire for the TCC fusion nail was placed in the calcaneal body that was aligned on AP and lateral views to across the talus and the centrally located within the medullary canal the tibia. Once wire was properly aligned was advanced deepened in the tibia. The first drill bit was then utilized to drill just to the tibial talar joint. Then the initial guidewires removed and a large olive wire i nserted deep into the tibial canal. The larger reamer was then taken again to the tibial talar joint. Sequential reamers and were utilized starting at 9 mm and then advanced in 1 mm increments until 13 mm was reached. Each reamer was advanced to 250 mm in depth. Once the reaming was complete the nail was attached to the ticket worker and pretensioned. It was then inserted into the drill hole in the calcaneus and advanced into the tibial canal. It was then impacted until it was showing proper depth indicated by the lateral talus screw being line with the posterior facet of the subtalar joint. The drill guide for the posterior to anterior calcaneal screw wasn't placed onto the jig. Small stab incisions made to the skin with the drill guide contacted on the posterior calcaneus. The drilling was performed through the posterior calcaneus, through the nail and ending just prior to the calcaneocuboid joint. The drill guide was removed and then the screw inserted and advanced until the head engaged the bone of the posterior calcaneus. Fluoroscopic imaging showed proper placement of the screw with avoiding the calcaneocuboid joint. Then the drill guide for the lateral screw was placed through the jig and then the lateral screw was placed through the nail. At that point the compression device was released and compression to occur across the site. The tibial tibial screw was placed first. The screw was placed in a way to allow for additional compression across the fusion sites. Once the drilling was completed the screws inserted bicortically through the tibia and nail. And then the proximal screw was placed through small stab incisions indicated by the drill guide to the jig. Then the Tibial screws placed bicortically through the nail. Final fluoroscopic imaging showed excellent compression across the subtalar and ankle joint fusion sites. The TCC nail was centrally located within the medullary canal of the tibia both on AP and lateral views. The depth was appropriate at the calcaneus. All screws were properly aligned. At that point the jig was removed from the nail and the and Placed into the nail. All wounds were thoroughly irrigated with sterile saline. Deep closure of all incisions was done with 0 Vicryl. Subcutaneous closure of the lateral incision was done with 3-0 Vicryl. Skin closure was done with cande for all incisions. An Arthrex jumpstart dressing was placed over all the incisions. A bulky dry dressings applied to the right foot and ankle. The tourniquet was released and capillary refill return to all digits on the right foot. The patient was then placed in a well-padded, well molded plaster posterior mold/sugar tong splint. Anesthesia was reversed and the patient was taken recovery with vital signs stable.
[2023-04-21] MEDS ORDERED: ALBUTEROL NEBULIZED 2.5 MG/3 ML INHALATION PRN (15:56)
[2023-04-21] MEDS ORDERED: DEXTROSE 50% SYRINGE 50 ML IVP PRN ×2 (16:00)
[2023-04-21] MEDS ORDERED: ACETAMINOPHEN TAB 325 MG TAB PO PRN (16:16)
[2023-04-21 16:45] LABS: Glucose,Whole Blood 174 mg/dL (70-110)
--- NOTE | 2023-04-21 17:01 | P.HPIM ---
History of Present Illness H&P Date: 04/21/23 Patient is a 67-year-old female with history of hypertension, dyslipidemia, asthma, depression, COPD, type 2 diabetes presenting for elective right ankle and subtalar joint arthrodesis. Patient being admitted under our services. Will likely need subacute rehab. Currently she denies any chest pain, shortness of breath, abdominal pain, nausea, vomiting, urinary or bowel complaints. Temperature 97.3, pulse 87, respiratory rate 20, blood pressure 93/50, saturating well on room air. Most recent blood sugar 133. No other labs available. Patient having some post op bleeding. Dressing re-enforced. Pertinent positives and negatives as discussed in HPI, a complete review of s ystems was performed and all other systems are negative. Patient seen and examined at bedside. Vital signs reviewed General: nontoxic, no distress, appears at stated age Derm: warm, dry, dressing clean, dry, intact Head: atraumatic, normocephalic, symmetric Eyes: EOMI, no lid lag, anicteric sclera, pupils equal round reactive to light ENT: Nose and ears atraumatic Neck: No thyromegaly, supple Mouth: no lip lesion, mucus membranes moist Cardiovascular: S1S2 reg, no murmur, no edema Lungs: clear to auscultation bilateral, no rhonchi, no rales, no wheeze, no accessory muscle use Abdominal: soft, nontender to palpation, no guarding, no appreciable organomegaly Ext: no gross muscle atrophy, muscle strength muscle strength 5 out of 5 in all 4 extremities, no contractures Neuro: CN II-XII grossly intact Psych: Alert, oriented, appropriate affect Assessment/Plan: Status post right ankle surgery Debility -Pain control with IV morphine as needed. Oral Tylenol and oral [place] as needed. Monitor for respiratory depression -Senna daily, MiraLAX when necessary -PT/OT Hypertension, hold antihypertensives given low blood pressure, consider restarting tomorrow Dyslipidemia, continue atorvastatin 20 qhs Asthma/COPD, continue inhalers Depression, continue paroxetine 40 mg at night Restless leg, continue 1 mg pramipexole T2DM, hold ozempic, start SSI, monitor for hypoglycemia The patient is admitted with an anticipated less than 2 midnight stay as observation status for evaluation of weakness. Surrogate decision-maker: daughter CODE STATUS: Full code DVT prophylaxis: SCDs Anticipated discharge date: pending clinical course Anticipated discharge place: pending clinical course A total of 55 minutes was spent on the care of this complex patient more than 50% of the time was spent in counseling and care coordination. Past Medical History Past Medical History: Asthma, COPD, Diabetes Mellitus, GERD/Reflux, Hyperlipidemia, Hypertension, Musculoskeletal Disorder, Osteoarthritis (OA), Skin Disorder, Sleep Apnea/CPAP/BIPAP Additional Past Medical History / Comment(s): ONLY ABLE TO USE INDEX FINGER AND THUMB ON RT HAND R/T TENDON TEARS, hx migraines, IBS, eczema, chronic anemia. Right ankle swelling, uses cpap History of Any Multi-Drug Resistant Organisms: None Reported Past Surgical History: Appendectomy, Bariatric Surgery, Section, Hernia Repair, Hysterectomy, Joint Replacement, Orthopedic Surgery, Tonsillectomy Additional Past Surgical History / Comment(s): BENIGN BREAST BIOPSY & ASPIRATION, CLIFF EN Y, RUBEN KNEE REPLACEMENT, ruben SHOULDER REPLACEMENT; L and R hip replacement, L HEEL SPUR, RUBEN BUNIONECTOMY, HAMMER TOE ruben, RUBEN CARPAL TUNNEL, RUBEN CATARACT, tailor bunionectomy rt foot, surgery for metatarsal fx left foot, has issue with rt foot-causes problem with balance, rt eye vitrectomy, laminectomy, Right total hip replacement 06/16/20 rt femur fx repair Past Anesthesia/Blood Transfusion Reactions: No Reported Reaction Past Psychological History: Anxiety, Depression Smoking Status: Former smoker Past Alcohol Use History: Occasional Additional Past Alcohol Use History / Comment(s): STARTED SMOKING AT AGE 17, quit 2 wks ago Past Drug Use History: Marijuana Additional Drug Use History / Comment(s): HAS OCCASIONALLY USED EDIBLE MARIJUANA, INSTRUCTED TO HOLD 24 HRS PRIOR TO PROCEDURE - Past Family History Daughter(s) Family Medical History: Deep Vein Thrombosis (DVT) Mother Family Medical History: Diabetes Mellitus, Hypertension Additional Family Medical History / Comment(s): renal failure Medications and Allergies Home Medications Medication Instructions Recorded Confirmed Type Atorvastatin [Lipitor] 20 mg PO HS 06/23/16 04/21/23 History PARoxetine HCL [Paxil] 40 mg PO HS 06/23/16 04/21/23 History amLODIPine BESYLATE 10 mg PO DAILY 08/03/18 04/21/23 History Ferrous Sulfate [Iron (65 MG 325 mg PO HS 07/16/20 04/21/23 History Elemental)] Celecoxib [CeleBREX] 200 mg PO DAILY 05/31/21 04/21/23 History Cholecalciferol [Vitamin D3 (25 50 mcg PO BID 05/31/21 04/21/23 History Mcg = 1000 Iu)] Losartan/Hydrochlorothiazide 1 tab PO DAILY 05/31/21 04/21/23 History [Losartan-Hctz 100-25 mg Tab] Multivitamins, Thera [Multivitamin 1 tab PO DAILY 05/31/21 04/21/23 History (formulary)] Pramipexole [Mirapex] 1 mg PO HS 05/31/21 04/21/23 History Albuterol Inhaler [Ventolin Hfa 1 - 2 puff INHALATION Q6H PRN 04/18/23 04/21/23 History Inhaler] Albuterol Nebulized [Ventolin 2.5 mg INHALATION Q6H PRN 04/18/23 04/21/23 History Nebulized] Semaglutide [Ozempic] 0.25 mg SQ TH 04/18/23 04/21/23 History cycloSPORINE [Restasis Multidose] 1 drop BOTH EYES DIRECTED 04/18/23 04/21/23 History Allergies Allergy/AdvReac Type Severity Reaction Status Date / Time azithromycin Allergy Intermediate Rash/Hives Verified 04/21/23 09:20 clavulanic acid Allergy Intermediate Abdominal Verified 04/21/23 09:20 [From Augmentin] Pain erythromycin base Allergy Intermediate Rash/Hives Verified 04/21/23 09:20 [From Erythrocin] NSAIDS (Non-Steroidal Allergy Intermediate Abdominal Verified 04/21/23 09:20 Anti-Inflamma Pain tetracycline Allergy Intermediate Rash/Hives Verified 04/21/23 09:20 ketamine Allergy Hallucinati Verified 04/21/23 09:20 ons lisinopril Allergy Anaphylaxis Verified 04/21/23 09:20 duloxetine [From Cymbalta] AdvReac Severe Anaphylaxis Verified 04/21/23 09:20 cefazolin [From Kefzol] AdvReac Itching Verified 04/21/23 09:20 Physical Exam Vitals: Vital Signs Temp Pulse Resp BP Pulse Ox 04/21/23 14:11 87 20 93/50 94 L 04/21/23 13:56 88 18 94/54 94 L 04/21/23 13:41 91 18 90 L 04/21/23 13:26 96 16 105/56 94 L 04/21/23 13:11 83 16 105/55 93 L 04/21/23 10:03 71 18 137/61 95 04/21/23 09:12 97.3 F L 92 20 175/87 95 Intake and Output 04/21/23 04/21/23 04/21/23 06:59 14:59 22:59 Intake Total 1356 Output Total 100 Balance 1256 Intake: IV 1356 Output: Estimated Blood Loss 100 Other: # Voids 1 Weight 130.7 kg 130.7 kg Results Labs: Abnormal Lab Results - Last 24 Hours (Table) 04/21/23 04/21/23 Range/Units 09:27 16:42 POC Glucose (mg/dL) 133 H 174 H (70-110) mg/dL Thrombosis Risk Factor Assmnt - Choose All That Apply Any of the Below Risk Factors Present?: Yes Each Factor Represents 1 point: Abnormal pulmonary function (COPD), Obesity (BMI >25), Swollen legs (current), Varicose veins Other Risk Factors: Yes Each Risk Factor Represents 2 Points: Age 61-74 years Each Risk Factor Represents 3 Points: Family history of DVT/PE Other congenital or acquired thrombophilia - If yes, enter type in comment: Yes Each Risk Factor Represents 5 Points: Elective major lower extremity arthoplasty Thrombosis Risk Factor Assessment Total Risk Factor Score: 14 Thrombosis Risk Factor Assessment Level: High Risk
[2023-04-21] MEDS: INSULIN ASPART (NovoLOG) 100 UNIT/ML VIAL SQ SCH ×2 (17:29→20:20)
[2023-04-21 19:14] LABS: Glucose,Whole Blood 173 mg/dL (70-110)
[2023-04-21] MEDS: FERROUS SULFATE 325 MG TAB PO SCH (20:20)
[2023-04-21] MEDS: ATORVASTATIN 20 MG TAB PO SCH (20:20)
[2023-04-21] MEDS: CHOLECALCIFEROL 25 MCG (1000 IU) TABLET PO SCH (20:20)
[2023-04-21] MEDS: PARoxetine 20 MG TAB PO SCH (20:20)
[2023-04-21] MEDS: PRAMIPEXOLE 1 MG TAB PO SCH (20:20)
[2023-04-21] MEDS: HYDROcodone/APAP 5-325MG 1 EACH TAB PO PRN (20:21)
[2023-04-22 05:26] LABS: Glucose,Whole Blood 159 mg/dL (70-110)
[2023-04-22] MEDS: MORPHINE SULFATE 2 MG/ML SYRINGE IV PRN ×3 (05:28→18:33)
[2023-04-22] MEDS: LACTATED RINGERS 1,000 ML IV SCH (05:29)
[2023-04-22] MEDS: MULTIVITAMINS, THERA 1 EACH TAB PO SCH (09:16)
[2023-04-22] MEDS: amLODIPine 10 MG TAB PO SCH (09:16)
[2023-04-22] MEDS: CHOLECALCIFEROL 25 MCG (1000 IU) TABLET PO SCH ×2 (09:16→21:05)
[2023-04-22] MEDS: INSULIN ASPART (NovoLOG) 100 UNIT/ML VIAL SQ SCH ×4 (09:16→21:11)
[2023-04-22 09:22] LABS: Basophils # (A) 0.01 X 10*3/uL (0.00-0.10); Basophils % (A) 0.1 %; Eosinophils # (A) 0 X 10*3/uL (0.04-0.35); Eosinophils % (A) 0 %; HCT 39.6 % (37.2-46.3); HGB 12.7 g/dL (12.0-15.0); Lymphocytes # (A) 1.42 X 10*3/uL (0.90-5.00); Lymphocytes % (A) 10.4 %; MCH 29.2 pg (27.0-32.0); MCHC 32.1 g/dL (32.0-37.0); Monocytes # (A) 0.65 X 10*3/uL (0.20-1.00); Monocytes % (A) 4.8 %; NRBC Per 100 WBC 0 X 10*3/uL (0.00-0.01); Neutrophils # (A) 11.45 X 10*3/uL (1.80-7.70); Neutrophils % (A) 84.2 %; Platelet Count 267 X 10*3/uL (140-440); RBC 4.35 X 10*6/uL (4.10-5.20); RDW 14.3 % (11.5-14.5)
[2023-04-22] MEDS: HYDROcodone/APAP 5-325MG 1 EACH TAB PO PRN (09:22)
[2023-04-22 10:12] LABS: BUN/Creat Ratio 20.33 Ratio (12.00-20.00); Blood Urea Nitrogen 12.2 mg/dL (9.0-27.0); Carbon Dioxide 24.8 mmol/L (21.6-31.8); Chloride 96 mmol/L (96-109); Glucose 138 mg/dL (70-110); Potassium 4.2 mmol/L (3.5-5.5); Sodium 137 mmol/L (135-145)
[2023-04-22] MEDS: LOSARTAN-HCTZ 50-12.5 MG 1 EACH TAB PO SCH (11:08)
[2023-04-22] MEDS: cycloSPORINE 0.05% OPHTH 0.4 ML DROPERETTE BOTH EYES SCH ×2 (11:09→21:45)
[2023-04-22 11:19] LABS: Glucose,Whole Blood 96 mg/dL (70-110)
--- NOTE | 2023-04-22 13:11 | P.PN ---
Subjective Progress Note Date: 04/22/23 Hospital Course: Patient is a 67-year-old female with history of hypertension, dyslipidemia, asthma, depression, COPD, type 2 diabetes presenting for elective right ankle and subtalar joint arthrodesis. Vital signs within normal limits. Patient currently lives alone, unable to take care of herself, will likely need subacute rehab. Subjective: Seen and examined at bedside. No acute events overnight. Pertinent positives and negatives as discussed above, a complete review of sys tems was performed and all other systems are negative. Vitals Signs Reviewed. General: nontoxic, no distress, appears at stated age Derm: warm, dry, dressing clean, dry, intact Head: atraumatic, normocephalic, symmetric Eyes: EOMI, no lid lag, anicteric sclera, pupils equal round reactive to light ENT: Nose and ears atraumatic Neck: No thyromegaly, supple Mouth: no lip lesion, mucus membranes moist Cardiovascular: S1S2 reg, no murmur, no edema Lungs: clear to auscultation bilateral, no rhonchi, no rales, no wheeze, no accessory muscle use Abdominal: soft, nontender to palpation, no guarding, no appreciable organomegaly Ext: no gross muscle atrophy, muscle strength muscle strength 5 out of 5 in all 4 extremities, no contractures Neuro: CN II-XII grossly intact Psych: Alert, oriented, appropriate affect Data Reviewed Today: Pertinent Labs: WBC 13.6, hemoglobin 12.7, potassium 4.2, creatinine 0.6, A1c 6.6, blood sugars range between 96-173 Imaging: No new imaging Assessment and Plan: Status post right ankle surgery Debility -Pain control with IV morphine as needed. Oral Tylenol and oral [place] as needed. Monitor for respiratory depression -Senna daily, MiraLAX when necessary -PT/OT Hypertension, continue amlodipine 10 mg, losartan hydrochlorothiazide 50, 12.5 milligrams Dyslipidemia, continue atorvastatin 20 qhs Asthma/COPD, continue inhalers Depression, continue paroxetine 40 mg at night Restless leg, continue 1 mg pramipexole T2DM, hold ozempic, start SSI, monitor for hypoglycemia DVT ppx: SCDs Code status: FC Anticipated discharge place: pending clinical course Anticipated discharge time: pending clinical course Objective - Vital Signs Vital signs: Vital Signs Temp 97.6 F 04/22/23 06:43 Pulse 89 04/22/23 06:43 Resp 19 04/22/23 06:43 BP 125/62 04/22/23 06:43 Pulse Ox 97 04/22/23 06:43 FiO2 Intake & Output 04/21/23 04/22/23 04/22/23 18:59 06:59 18:59 Intake Total 1356 Output Total 700 1550 Balance 656 -1550 Weight 130.7 kg Intake: IV 1356 Output: Urine 600 1550 Estimated Blood Loss 100 Other: Voiding Method External Catheter # Voids 1 2 - Labs CBC & Chem 7: 04/22/23 05:25 04/22/23 05:25 Labs: Abnormal Lab Results - Last 24 Hours (Table) 04/21/23 04/21/23 04/22/23 Range/Units 16:42 19:13 05:25 WBC (4.50-10.00) X 10*3/uL Immature Gran # (0.00-0.04) X 10*3/uL Neutrophils # (1.80-7.70) X 10*3/uL Eosinophils # (0.04-0.35) X 10*3/uL Anion Gap (4.00-12.00) mmol/L BUN/Creatinine Ratio (12.00-20.00) Ratio Glucose (70-110) mg/dL POC Glucose (mg/dL) 174 H 173 H (70-110) mg/dL Hemoglobin A1c 6.6 H (<=6.0) % 04/22/23 04/22/23 04/22/23 Range/Units 05:25 05:25 05:25 WBC 13.60 H (4.50-10.00) X 10*3/uL Immature Gran # 0.07 H (0.00-0.04) X 10*3/uL Neutrophils # 11.45 H (1.80-7.70) X 10*3/uL Eosinophils # 0 L (0.04-0.35) X 10*3/uL Anion Gap 16.20 H (4.00-12.00) mmol/L BUN/Creatinine Ratio 20.33 H (12.00-20.00) Ratio Glucose 138 H (70-110) mg/dL POC Glucose (mg/dL) 159 H (70-110) mg/dL Hemoglobin A1c (<=6.0) %
[2023-04-22] MEDS: oxyCODONE-APAP 10-325MG 1 EACH TAB PO PRN ×2 (14:51→21:03)
[2023-04-22 17:01] LABS: Glucose,Whole Blood 139 mg/dL (70-110)
[2023-04-22 21:03] LABS: Glucose,Whole Blood 109 mg/dL (70-110)
[2023-04-22] MEDS: ATORVASTATIN 20 MG TAB PO SCH (21:05)
[2023-04-22] MEDS: PARoxetine 20 MG TAB PO SCH (21:05)
[2023-04-22] MEDS: PRAMIPEXOLE 1 MG TAB PO SCH (21:05)
[2023-04-22] MEDS: FERROUS SULFATE 325 MG TAB PO SCH (21:05)
[2023-04-23] MEDS: MORPHINE SULFATE 2 MG/ML SYRINGE IV PRN ×4 (01:48→22:41)
[2023-04-23] MEDS: oxyCODONE-APAP 10-325MG 1 EACH TAB PO PRN ×4 (03:41→20:36)
[2023-04-23 05:17] LABS: Glucose,Whole Blood 122 mg/dL (70-110)
[2023-04-23 05:30] LABS: Basophils % (A) 0 %; Eosinophils # (A) 0.2 k/uL (0-0.7); Eosinophils % (A) 2 %; HCT 39.3 % (34.0-46.0); HGB 12.8 gm/dL (11.4-16.0); Lymphocytes # (A) 2.2 k/uL (1.0-4.8); Lymphocytes % (A) 24 %; MCH 29.9 pg (25.0-35.0); MCHC 32.5 g/dL (31.0-37.0); MCV 91.9 fL (80.0-100.0); Mean Platelet Volume 7.8; Monocytes # (A) 0.4 k/uL (0-1.0); Monocytes % (A) 5 %; Neutrophils # (A) 6.3 k/uL (1.3-7.7); Neutrophils % (A) 69 %; Platelet Count 253 k/uL (150-450); RBC 4.27 m/uL (3.80-5.40); RDW 13.7 % (11.5-15.5); WBC 9.1 k/uL (3.8-10.6)
[2023-04-23] MEDS: INSULIN ASPART (NovoLOG) 100 UNIT/ML VIAL SQ SCH ×4 (06:39→21:07)
[2023-04-23] MEDS: LACTATED RINGERS 1,000 ML IV SCH (07:53)
[2023-04-23] MEDS: cycloSPORINE 0.05% OPHTH 0.4 ML DROPERETTE BOTH EYES SCH ×2 (08:09→21:07)
[2023-04-23] MEDS: CHOLECALCIFEROL 25 MCG (1000 IU) TABLET PO SCH ×2 (08:09→21:07)
[2023-04-23] MEDS: MULTIVITAMINS, THERA 1 EACH TAB PO SCH (08:09)
[2023-04-23] MEDS: amLODIPine 10 MG TAB PO SCH (08:09)
[2023-04-23] MEDS: LOSARTAN-HCTZ 50-12.5 MG 1 EACH TAB PO SCH (08:09)
[2023-04-23 11:03] LABS: Glucose,Whole Blood 108 mg/dL (70-110)
--- NOTE | 2023-04-23 11:37 | P.PN ---
Subjective Progress Note Date: 04/23/23 Principal diagnosis: Primary osteoarthritis right ankle and subtalar joints Patient visited bedside. She is postoperative day #2 following arthrodesis of the right ankle and right subtalar joints the intramedullary phoenix. Patient states her pain is worse today than it was yesterday. She states that the bandage and splint feel very tight today. Denies nausea, vomiting, fever, chills, calf pain, shortness of breath. Objective - Vital Signs Vital signs: Vital Signs Temp 97.5 F L 04/23/23 07:09 Pulse 73 04/23/23 07:09 Resp 19 04/23/23 07:09 BP 145/88 04/23/23 07:09 Pulse Ox 95 04/23/23 07:09 FiO2 Intake & Output 04/22/23 04/23/23 04/23/23 18:59 06:59 18:59 Other: Voiding Method Bedside Commode Bedside Commode Bedside Commode # Voids 3 0 - Exam Patient was lying in bed with right leg elevated with pillows. No acute distress Vital signs are stable. Splint was removed due to the bandage being too tight as well as strikethrough bleeding that occurred soon after surgery. Incisions are intact. There is mild bleeding from the lateral ankle incision. Swelling is proportionate to the surgery performed. No erythema. Digits have intact capillary refill time and are warm to touch. Patient states normal sensation with light touch throughout the foot and ankle. - Labs CBC & Chem 7: 04/23/23 04:57 04/22/23 05:25 Labs: Abnormal Lab Results - Last 24 Hours (Table) 04/22/23 04/22/23 04/23/23 Range/Units 05:25 17:00 05:16 POC Glucose (mg/dL) 139 H 122 H (70-110) mg/dL Hemoglobin A1c 6.6 H (<=6.0) % Assessment and Plan Assessment: Postop day #2 following right ankle and subtalar joint arthrodesis Plan: Once the splint was removed, nonadherent dressings were placed over all the incisions. A well-padded dressing was applied first. Then a well-padded, well molded plaster posterior mold/sugar tong splint was applied to the right leg. Patient stated the splint fell more appropriate and was not too tight. Awaiting discharge to skilled rehab nursing facility. He has follow-up appointment [facility] Time with Patient: Less than 30
--- NOTE | 2023-04-23 14:34 | P.PN ---
Subjective Progress Note Date: 04/23/23 Hospital Course: Patient is a 67-year-old female with history of hypertension, dyslipidemia, asthma, depression, COPD, type 2 diabetes presenting for elective right ankle and subtalar joint arthrodesis. Vital signs within normal limits. Patient currently lives alone, unable to take care of herself, will likely need subacute rehab. Subjective: Seen and examined at bedside. No acute events overnight. Pertinent positives and negatives as discussed above, a complete review of sys tems was performed and all other systems are negative. Vitals Signs Reviewed. General: nontoxic, no distress, appears at stated age Derm: warm, dry, dressing clean, dry, intact Head: atraumatic, normocephalic, symmetric Eyes: EOMI, no lid lag, anicteric sclera, pupils equal round reactive to light ENT: Nose and ears atraumatic Neck: No thyromegaly, supple Mouth: no lip lesion, mucus membranes moist Cardiovascular: S1S2 reg, no murmur, no edema Lungs: clear to auscultation bilateral, no rhonchi, no rales, no wheeze, no accessory muscle use Abdominal: soft, nontender to palpation, no guarding, no appreciable organomegaly Ext: no gross muscle atrophy, muscle strength muscle strength 5 out of 5 in all 4 extremities, no contractures Neuro: CN II-XII grossly intact Psych: Alert, oriented, appropriate affect Data Reviewed Today: Pertinent Labs: CBC 9.1, hemoglobin 12.8, blood sugars range between 108-139 Imaging: No new imaging Assessment and Plan: Status post right ankle surgery Debility -Pain control with IV morphine as needed. Oral Tylenol and oral [place] as needed. Monitor for respiratory depression -Senna daily, MiraLAX when necessary -PT/OT Hypertension, continue amlodipine 10 mg, losartan hydrochlorothiazide 50, 12.5 milligrams Dyslipidemia, continue atorvastatin 20 qhs Asthma/COPD, continue inhalers Depression, continue paroxetine 40 mg at night Restless leg, continue 1 mg pramipexole T2DM, hold ozempic, start SSI, monitor for hypoglycemia DVT ppx: SCDs Code status: FC Anticipated discharge place: pending clinical course Anticipated discharge time: pending clinical course Objective - Vital Signs Vital signs: Vital Signs Temp 97.5 F L 04/23/23 07:09 Pulse 73 04/23/23 07:09 Resp 19 12/17/23 07:09 BP 145/88 04/23/23 07:09 Pulse Ox 95 04/23/23 07:09 FiO2 Intake & Output 04/22/23 04/23/23 04/23/23 18:59 06:59 18:59 Other: Voiding Method Bedside Commode Bedside Commode Bedside Commode # Voids 3 0 - Labs CBC & Chem 7: 04/23/23 04:57 04/22/23 05:25 Labs: Abnormal Lab Results - Last 24 Hours (Table) 04/22/23 04/23/23 Range/Units 17:00 05:16 POC Glucose (mg/dL) 139 H 122 H (70-110) mg/dL
[2023-04-23 16:45] LABS: Glucose,Whole Blood 128 mg/dL (70-110)
[2023-04-23 19:43] LABS: Glucose,Whole Blood 152 mg/dL (70-110)
[2023-04-23] MEDS: PRAMIPEXOLE 1 MG TAB PO SCH (21:07)
[2023-04-23] MEDS: ATORVASTATIN 20 MG TAB PO SCH (21:07)
[2023-04-23] MEDS: FERROUS SULFATE 325 MG TAB PO SCH (21:07)
[2023-04-23] MEDS: PARoxetine 20 MG TAB PO SCH (21:07)
[2023-04-24] MEDS: oxyCODONE-APAP 10-325MG 1 EACH TAB PO PRN ×4 (03:31→23:14)
[2023-04-24 05:22] LABS: Glucose,Whole Blood 136 mg/dL (70-110)
[2023-04-24] MEDS: MORPHINE SULFATE 2 MG/ML SYRINGE IV PRN (05:55)
[2023-04-24] MEDS: INSULIN ASPART (NovoLOG) 100 UNIT/ML VIAL SQ SCH ×4 (05:59→20:53)
[2023-04-24] MEDS ORDERED: diphenhydrAMINE 25 MG CAP PO PRN (07:34)
[2023-04-24] MEDS: MULTIVITAMINS, THERA 1 EACH TAB PO SCH (08:56)
[2023-04-24] MEDS: amLODIPine 10 MG TAB PO SCH (08:56)
[2023-04-24] MEDS: CHOLECALCIFEROL 25 MCG (1000 IU) TABLET PO SCH ×2 (08:56→20:52)
[2023-04-24] MEDS: LOSARTAN-HCTZ 50-12.5 MG 1 EACH TAB PO SCH (08:56)
[2023-04-24] MEDS: cycloSPORINE 0.05% OPHTH 0.4 ML DROPERETTE BOTH EYES SCH ×2 (08:56→20:52)
[2023-04-24] MEDS: LACTATED RINGERS 1,000 ML IV SCH (09:18)
[2023-04-24 11:48] LABS: Glucose,Whole Blood 124 mg/dL (70-110)
[2023-04-24 16:35] LABS: Glucose,Whole Blood 147 mg/dL (70-110)
--- NOTE | 2023-04-24 17:09 | P.PN ---
Subjective Progress Note Date: 04/24/23 (delayed charting patient seen at 1005) Patient is a 67-year-old female with dyslipidemia, diabetes mellitus type 2 controlled without insulin, hypertension, COPD, and multiple other comorbid conditions who initially vented for right ankle and subtalar joint arthrodesis. She lives alone and is unable to care for herself and therefore was admitted and she will need to go to custodial facility for rehabilitation. Patient seen and examined at bedside. She is doing well other than pain in her ankle. She takes ozedmpic at home. No other complaints at this time. Vital signs reviewed General: nontoxic, no distress, appears at stated age Cardiovascular: S1S2 reg, no murmur, positive posterior tibial pulse bilateral, Lungs: CTA bilateral, no rhonchi, no rales , no accessory muscle use Abdominal: soft, nontender to palpation, no guarding, no appreciable organomegaly Ext: no gross muscle atrophy, resting in place over right lower extremity Psych: Alert, oriented, appropriate affect Assessment/Plan: 67 yo F Status post right ankle surgery Debility -Pain control with IV morphine as needed or percocet 10/325 q 6 hours -Senna daily, MiraLAX when necessary -PT/OT Hypertension, continue amlodipine 10 mg, losartan hydrochlorothiazide 50, 12.5 milligrams Dyslipidemia, continue atorvastatin 20 qhs Asthma/COPD, continue inhalers Depression, continue paroxetine 40 mg at night Restless leg, continue 1 mg pramipexole T2DM, hold ozempic, SSI, monitor for hypoglycemia, start farxiga 5 mg Imaging: None new Data Review: None new DVT prophylaxis: add heparin Anticipated discharge date: once auth obtained Anticipated discharge place: [facility] This dictation was prepared using [employer] voice recognition software. Though every attempt is made to correct errors during dictation some may still exist. Objective - Vital Signs Vital signs: Vital Signs Temp 98.0 F 04/24/23 14:23 Pulse 75 04/24/23 14:23 Resp 19 04/24/23 14:23 BP 94/61 04/24/23 14:23 Pulse Ox 92 L 04/24/23 14:23 FiO2 Intake & Output 04/23/23 04/24/23 04/24/23 18:59 06:59 18:59 Other: Voiding Method Bedside Commode Bedside Commode Bedside Commode # Voids 3 2 1 - Labs CBC & Chem 7: 04/23/23 04:57 04/22/23 05:25 Labs: Abnormal Lab Results - Last 24 Hours (Table) 04/23/23 04/24/23 04/24/23 Range/Units 19:42 05:21 11:46 POC Glucose (mg/dL) 152 H 136 H 124 H (70-110) mg/dL 04/24/23 Range/Units 16:34 POC Glucose (mg/dL) 147 H (70-110) mg/dL
[2023-04-24 20:44] LABS: Glucose,Whole Blood 139 mg/dL (70-110)
[2023-04-24] MEDS: ATORVASTATIN 20 MG TAB PO SCH (20:52)
[2023-04-24] MEDS: PARoxetine 20 MG TAB PO SCH (20:53)
[2023-04-24] MEDS: PRAMIPEXOLE 1 MG TAB PO SCH (20:53)
[2023-04-24] MEDS: FERROUS SULFATE 325 MG TAB PO SCH (20:53)
[2023-04-24] MEDS ORDERED: SENNOSIDES 8.6 MG TAB PO STA (21:45)
[2023-04-24] MEDS: HEPARIN SODIUM,PORCINE 5,000 UNIT/ML 1 ML VIAL SQ SCH (23:14)
[2023-04-25] MEDS: LACTATED RINGERS 1,000 ML IV SCH (01:16)
[2023-04-25] MEDS: oxyCODONE-APAP 10-325MG 1 EACH TAB PO PRN ×2 (05:34→12:11)
[2023-04-25 06:25] LABS: Glucose,Whole Blood 128 mg/dL (70-110)
[2023-04-25] MEDS: INSULIN ASPART (NovoLOG) 100 UNIT/ML VIAL SQ SCH ×2 (06:45→12:13)
[2023-04-25] MEDS: HEPARIN SODIUM,PORCINE 5,000 UNIT/ML 1 ML VIAL SQ SCH (08:06)
[2023-04-25] MEDS: amLODIPine 10 MG TAB PO SCH (08:06)
[2023-04-25] MEDS: CHOLECALCIFEROL 25 MCG (1000 IU) TABLET PO SCH (08:06)
[2023-04-25] MEDS: MULTIVITAMINS, THERA 1 EACH TAB PO SCH (08:06)
[2023-04-25] MEDS: LOSARTAN-HCTZ 50-12.5 MG 1 EACH TAB PO SCH (08:07)
[2023-04-25] MEDS: cycloSPORINE 0.05% OPHTH 0.4 ML DROPERETTE BOTH EYES SCH (08:07)
[2023-04-25] MEDS ORDERED: DAPAGLIFLOZIN PROPANEDIOL 5 MG TABLET PO SCH (09:00)
[2023-04-25 09:11] VITALS: BP 121/80; PULSE 69; RESP 16; TEMP 98
[2023-04-25] MEDS ORDERED: bisacodyL 5 MG TABLET.DR PO STA (10:02)
[2023-04-25 10:55] LABS: Glucose,Whole Blood 132 mg/dL (70-110)
--- NOTE | 2023-04-25 10:58 | P.DS ---
Providers Date of admission: 04/21/23 08:35 Expected date of discharge: 04/25/23 Attending physician: Robinson Fraire MD Consults: 04/21/23 13:20 Consult Physician Routine Consulting Provider: Sammy Thompson Consult Reason/Comments: Patient requires admission for transfer to rehab facility Do you want consulting provider notified?: Yes Primary care physician: Jorge Claros [facility] Course: Discharge Diagnosis: Right ankle and subtalar joint arthrodesis Hypertension Dyslipidemia Asthma/COPD Depression Restless leg Diabetes mellitus type 2 Hospital Course: Patient is a 67-year-old female with dyslipidemia, diabetes mellitus type 2 controlled without insulin, hypertension, COPD, and multiple other comorbid conditions who initially presented for right ankle and subtalar joint arthrodesis. She lives alone and is unable to care for herself and therefore was admitted. Arrangement were made for her to go [facility] for rehabilitation. Patient currently does not have access to her Ozempic. To help maintain good sugar control she'll take for Farxiga 5 mg daily. Upon discharge from rehab she will continue with her home Ozempic. Patient seen and examined at bedside. No chest pain, SOB, nausea. or vomiting. Vital signs reviewed and stable. General: nontoxic, no distress, appears at stated age Cardiovascular: S1S2 reg, no murmur, positive posterior tibial pulse bilateral, Lungs: Decreased bs bilateral, no rhonchi, no rales , no accessory muscle use Abdominal: soft, nontender to palpation, no guarding, no appreciable organomegaly Ext: no gross muscle atrophy, Right LE with dressing in place Neuro: CN II-XI grossly intact, no focal neuro deficits Psych: Alert, oriented, appropriate affect A total of 32 minutes of time were spent preparing this complex discharge summary. Patient was discharged on 04/25/23. This dictation was prepared using [employer] voice recognition software. Though every attempt is made to correct errors during dictation some may still exist. Patient Condition at Discharge: Stable Plan - Discharge Summary Discharge Rx Participant: No New Discharge Prescriptions: New diphenhydrAMINE [Benadryl] 25 mg PO TID PRN cap PRN Reason: Itching Sennosides/Docusate Sodium [Senna Plus 8.6-50 mg Tablet] 1 each PO DAILY #30 tablet Dapagliflozin Propanediol [Farxiga] 5 mg PO DAILY tab oxyCODONE-APAP 10-325MG [Percocet 10-325 mg] 1 each PO Q6HR PRN #12 tab PRN Reason: Pain Continue PARoxetine HCL [Paxil] 40 mg PO HS Atorvastatin [Lipitor] 20 mg PO HS amLODIPine BESYLATE 10 mg PO DAILY Ferrous Sulfate [Iron (65 MG Elemental)] 325 mg PO HS Cholecalciferol [Vitamin D3 (25 Mcg = 1000 Iu)] 50 mcg PO BID Albuterol Nebulized [Ventolin Nebulized] 2.5 mg INHALATION Q6H PRN PRN Reason: Wheezing Pramipexole [Mirapex] 1 mg PO HS Losartan/Hydrochlorothiazide [Losartan-Hctz 100-25 mg Tab] 1 tab PO DAILY Multivitamins, Thera [Multivitamin (formulary)] 1 tab PO DAILY cycloSPORINE [Restasis Multidose] 1 drop BOTH EYES DIRECTED Discontinued Celecoxib [CeleBREX] 200 mg PO DAILY Semaglutide [Ozempic] 0.25 mg SQ TH Albuterol Inhaler [Ventolin Hfa Inhaler] 1 - 2 puff INHALATION Q6H PRN PRN Reason: Wheezing Discharge Medication List Atorvastatin [Lipitor] 20 mg PO HS 06/23/16 [History] PARoxetine HCL [Paxil] 40 mg PO HS 06/23/16 [History] amLODIPine BESYLATE 10 mg PO DAILY 08/03/18 [History] Ferrous Sulfate [Iron (65 MG Elemental)] 325 mg PO HS 07/16/20 [History] Cholecalciferol [Vitamin D3 (25 Mcg = 1000 Iu)] 50 mcg PO BID 05/31/21 [History] Losartan/Hydrochlorothiazide [Losartan-Hctz 100-25 mg Tab] 1 tab PO DAILY 05/31/21 [History] Multivitamins, Thera [Multivitamin (formulary)] 1 tab PO DAILY 05/31/21 [History] Pramipexole [Mirapex] 1 mg PO HS 05/31/21 [History] Albuterol Nebulized [Ventolin Nebulized] 2.5 mg INHALATION Q6H PRN 04/18/23 [History] cycloSPORINE [Restasis Multidose] 1 drop BOTH EYES DIRECTED 04/18/23 [History] Dapagliflozin Propanediol [Farxiga] 5 mg PO DAILY tab 04/25/23 [Rx] Sennosides/Docusate Sodium [Senna Plus 8.6-50 mg Tablet] 1 each PO DAILY #30 tablet 04/25/23 [Rx] diphenhydrAMINE [Benadryl] 25 mg PO TID PRN cap 04/25/23 [Rx] oxyCODONE-APAP 10-325MG [Percocet 10-325 mg] 1 each PO Q6HR PRN #12 tab 04/25/23 [Rx] Follow up Appointment(s)/Referral(s): Sridhar Nazario DPM [Doctor of Osteopathic Medicine] - 1 Week [facility], [NON-STAFF] - As Needed Patient Instructions/Handouts: *Surgery [facility] - ([place]) Discharge Instructins Foot Surgery Activity/Diet/Wound Care/Special Instructions: Keep the splint clean, dry, and intact. Do not remove Keep foot elevated above your heart when resting Apply ice behind the knee continuously for the first 24 hours. Then apply 1 hour on/1 hour off thereafter. Do not place weight on the surgical side Use crutches, walker, etc. for mobility Consistent carb diet as tolerated Use farxiga for now as ozempic unavailable, plan on discharge from SNF will be to resume ozempic
== END 2023-04-25 13:10 ==
LOC: OR 08:34 → 4SSUR 08:35 → OR 13:11
PROVIDERS: ADMIT Student in an Organized Health Care Education/Training Program; ATTEND Student in an Organized Health Care Education/Training Program
DX: M19.071 Primary osteoarthritis, right ankle and foot (principal); G89.18 Other acute postprocedural pain; R53.81 Other malaise; I10 Essential (primary) hypertension; E78.5 Hyperlipidemia, unspecified; F32.A Depression, unspecified; J44.9 Chronic obstructive pulmonary disease, unspecified; E11.9 Type 2 diabetes mellitus without complications; G25.81 Restless legs syndrome; K21.9 Gastro-esophageal reflux disease without esophagitis; G47.30 Sleep apnea, unspecified; F41.9 Anxiety disorder, unspecified; Z87.891 Personal history of nicotine dependence; Z96.653 Presence of artificial knee joint, bilateral; Z96.611 Presence of right artificial shoulder joint; Z96.612 Presence of left artificial shoulder joint; Z96.643 Presence of artificial hip joint, bilateral; Z79.1 Long term (current) use of non-steroidal anti-inflammatories (NSAID); Z79.899 Other long term (current) drug therapy; Z79.85 Long-term (current) use of injectable non-insulin antidiabetic drugs; Z88.1 Allergy status to other antibiotic agents; Z88.6 Allergy status to analgesic agent
CPT/HCPCS: 96376 ×3; 96361 ×2; 96372 ×5; 96374; 96375; 97530; 97162; 97166; 64447; 64445; 80048; 85025; 83036; 73610; 28725; G0378 ×5; C1713 ×2; J2250; J0330; J0360; J1644 ×2; J1100; J2405 ×2; J2001; J3010; J2270 ×3; J1170 ×2; J2795; J2704; J0736

== ENCOUNTER → 2023-07-27 | Outpatient (CLI) | payer MEDICARE ==
--- NOTE | 2023-07-27 17:35 | US ---
EXAMINATION TYPE: US venous doppler duplex LE RT DATE OF EXAM: 07/27/2023 5:16 PM COMPARISON: NONE CLINICAL INDICATION: Female, 68 years old with history of R60.0 EDEMA; rt ankle edema SIDE PERFORMED: Right TECHNIQUE: The lower extremity deep venous system is examined utilizing real time linear array sonog mitesh with graded compression, doppler sonography and color-flow sonography. VESSELS IMAGED: Common Femoral Vein Deep Femoral Vein Greater Saphenous Vein * Femoral Vein Popliteal Vein Small Saphenous Vein * Proximal Calf Veins (* superficial vessels) DESCRIPTION: Grayscale, color doppler, spectral doppler imaging performed of the deep veins of the [facility] lower extremity. There is normal flow, compressibility, vascular waveforms. Exam was limited by body habitus and edema. Right ankle soft tissue swelling noted laterally. IMPRESSION: Negative for DVT, right lower extremity.
== END | disposition home or self-care (01) ==
LOC: RADUSWWP 16:06
PROVIDERS: ATTEND Family Medicine
DX: R60.0 Localized edema (principal)

== ENCOUNTER → 2023-09-18 | Outpatient (CLI) | payer MEDICARE ==
--- NOTE | 2023-09-18 11:29 | CT ---
EXAMINATION TYPE: CT ankle RT wo con CT DLP: 460.10 mGycm, Automated exposure control for dose reduction was used. DATE OF EXAM: 09/18/2023 9:07 AM COMPARISON: 04/21/2023 radiographs CLINICAL INDICATION:Female, 68 years old with history of M19.071 PRIMARY OSTEO Z48.89 SURG AFTER CARE , Rt ankle pain, worse after new prosthesis TECHNIQUE: Axial images were obtained of the CT ankle RT wo con, Additional coronal and sagittal refo rmatted images and soft tissue and bone window were obtained for review. 3-D reconstruction was creat ed on a separate workstation. Contrast used: mL of , (None if empty) Oral contrast used: (None if empty) FINDINGS: Fixation hardware changes to the tibia with intramedullary phoenix with fixation screw extendin g through the calcaneus the talus and the tibia. Hardware appears intact. No definitive lucency aroun d the hardware to suggest loosening. There is incomplete osseous fusion of the tibiotalar and subtala r joints with some bony fusion but not extending along the entire joint space. There is moderate mult ifocal osteoarthrosis changes with joint space narrowing osteophyte formation. Fixation hardware at t he second digit metatarsal head and first digit proximal phalanx are present and intact. There is pos tsurgical changes to the distal fibula with possible fluid collection in place over the fibula used t o be. This measures possibly 22 x 12 x 30 mm. No definitive osseous erosion identified. IMPRESSION: 1. Post fixation changes with incomplete osseous fusion of the subtalar and tibiotalar joints. 2. There is possible small fluid collection in the area of the distal surgically absent fibula. Cons ider evaluation with ultrasound imaging. 3. No definitive osseous erosion at this time to suggest osteomyelitis.
== END | disposition home or self-care (01) ==
LOC: RADCTMAIN 08:07
PROVIDERS: ATTEND Podiatrist
DX: M19.071 Primary osteoarthritis, right ankle and foot (principal); Z48.89 Encounter for other specified surgical aftercare

== ENCOUNTER 2023-12-25 12:38 | Emergency (ER) | payer MEDICARE ==
[2023-12-25] MEDS ORDERED: methylPREDNISolone SOD SUCCI 125 MG/2 ML VIAL ONE (14:22)
[2023-12-25] MEDS ORDERED: ALBUTEROL NEBULIZED 2.5 MG/3 ML INHALATION ONE (14:35)
[2023-12-25] MEDS ORDERED: IPRATROPIUM 0.5 MG/2.5 ML NEBU INHALATION ONE (14:36)
--- NOTE | 2024-01-23 11:08 | XR ---
Alize Monson ID: [id number] : 1955 EXAMINATION TYPE: XR chest 2V DATE OF EXAM: 12/25/2023 COMPARISON: None HISTORY: 68 year-old female shortness of breath TECHNIQUE: PA and lateral views FINDINGS: Bilateral shoulder arthroplasties are present. Hypoventilatory changes with low lung volumes. Diffuse interstitial density. Patchy left basilar opacity located posteriorly on the lateral view. No pleura l effusion. IMPRESSION: 1. Hypoventilatory changes. Interstitial density may in part be chronic. Consider bronchitis. 2. In addition, there is focal patchy atelectasis versus developing infiltrate/pneumonia at the left base. Correlate with symptoms.
== END 2023-12-25 17:00 | disposition home or self-care (01) ==
LOC: EC 12:38
DX: R06.02 Shortness of breath (principal)
CPT/HCPCS: 71046; 93005; 94640; 96374; 99285

== ENCOUNTER → 2024-05-28 | Outpatient (CLI) | payer MEDICARE ==
--- NOTE | 2024-05-28 10:25 | US ---
EXAMINATION TYPE: US venous doppler duplex LE RT DATE OF EXAM: 05/28/2024 9:58 AM COMPARISON: US(07/26/2022) CLINICAL INDICATION: Female, 69 years old with history of R79.1 ABNORMAL COAGULATION PROFILE; , Pain TECHNIQUE: The lower extremity deep venous system is examined utilizing real time linear array sonog mitesh with graded compression, color doppler sonography, and spectral doppler. SIDE PERFORMED: Right FINDINGS: VESSELS IMAGED: Common Femoral Vein Deep Femoral Vein Greater Saphenous Vein * Femoral Vein Popliteal Vein Small Saphenous Vein * Proximal Calf Veins (* superficial vessels) limited exam due to pt body habitus and severe edema Right Leg: Appears Negative for DVTer imaging shows patency of the vessels. Spectral waveforms are w ithin normal limits. IMPRESSION: Limited exam demonstrates no diagnostic evidence of DVT. [facility], , 05/28/2024 10:23 AM
== END | disposition home or self-care (01) ==
LOC: RADUSWWP 09:09
PROVIDERS: ATTEND Family Medicine
DX: R79.1 Abnormal coagulation profile (principal)